=== PATIENT | male | born 1980 | race Caucasian/White ===

== ENCOUNTER → 2017-06-14 | Emergency (ER) | payer BC ==
[~2017-06-14] VITALS: Ht 165.1 cm; Wt 133.8 kg
[~2017-06-14] MED LIST: ADIPEX-P37.5 MG PO; CENTRUM MEN'S1 EACH PO; FIORICET WITH C PO; IRON325 MG PO; KEFLEX 500MG.500 MG PO; LEXAPRO 10 MG T10 MG PO; MULTIPLE VITAMINS PO; NEURONTIN800 MG PO; PHARMASSURE VI100 MG PO; PROBIOTIC250 MG PO; PROMETHAZINE HC25 M1 PO; PROTONIX 40MG T40 MG PO; SINGULAIR10 MG PO; VITAMIN A PO
[2017-06-14 20:54] VITALS: BP 132/73
--- NOTE | 2017-06-14 20:54 | Urgent Treatment Center Report ---
History of Present Issue Date/Time Seen by Provider 06/14/172042 Visit Reason Pt arrived:Walked Presenting Problem:PT C/O STOMACH CRAMPS AND N/V/D. Location if Accident: Onset of symptoms date/time:/ or onset unknown for:MEDICAL HX UNKNOWN Have you (or family members/close friends) recently traveled outside the [place]? N If Yes, where/when: Have you had exposure to infectious disease within the past month? TB? Other? Specify: Triaged for decision prior to arrival to [facility]. c/o new onset N/V/D earlier today. Tried to work this evening but was seen vomiting and sent home. Needs work excuse. Has vomited 3 times since onset, diarrhea approx 4-5 times. Initially watery but last "few" loose "like oatmeal". Hasn't taken or tried anything for symptoms except "staying hydrated". c/o epigastric cramping. Improves after diarrhea "then builds up again until I poop again". Drove self to clinic but requesting phenergan "because it works better". Source patient Exam Limitations no limitations ALLERGIES Coded Allergies: NSAIDS (Non-Steroidal Anti-Inflamma (Intermediate, 06/14/17) Home Medications Reported Medications Pantoprazole Sodium (Protonix 40MG TAB) 40 MG PO DAILY PYRIDOXINE HCL (Vitamin B-6) 100 MG PO Multivits,Ca,Min/Iron/FA/Lycop (Centrum Men's Tablet) 1 EACH PO Escitalopram Oxalate (Lexapro 10MG) 10 MG PO DAILY Vitamin A (Vitamin A 10,000 Int Units) 10,000 IUNITS PO DAILY BUTALBIT/ACETAMIN/CAFF/CODEINE (Fioricet-Cod [id number] Cap) 1 CAP PO History Medical History General CAD? No Angina: No [place]: No Hypertension? No Hyperlipidemia? No CHF? No DVT? No PE? No COPD? No Asthma? No Anemia? No GERD? No Gastric ulcers? No GI Bleed? No Hernia? No Thyroid Problems? No Hypothyroidism? No CVA? No Seizures? No Diabetes? No Renal Insuffiency? No UTI? No Stones? No BPH? No GB Disease: No Nephritic Syndrome? No Asplenia? No Hepatitis? No Sickle Cell Disease? No Arthritis? No Migraines? No Cataracts? No Glaucoma? No MRSA? No HIV? No TB? No Anxiety? No Depression? No Cancer? No More? No Immunization HX DT/Tetanus < 1 Year Ago Surgical Hx Previous Surgery?Y KNEE X 3; 2 R, 1 L TESTICULAR RUPTURE STOMACH SURGERY SELMA GASTERIC BYPASS Family History Family HX Diabetes Yes Hypertension Yes Hyperlipidemia Yes Cancer Yes Social History Smoking Hx Smoker: Never Smoker Tobacco: No Type N/A Packs/day < 1 Pack Alcohol Alcohol: No Review of Systems All Other Systems Reviewed and Negative Constitutional see HPI, denies fever, denies malaise ENT denies: throat pain. Respiratory denies cough Gastrointestinal see HPI Genitourinary denies: dysuria, frequency. Psychiatric/Neurological denies headache Physical Exam Vital Signs Vital Signs Date Time Temp Pulse Resp B/P Pulse O2 O2 Flow FiO2 Ox Delivery Rate 06/14 2054 97.8 81 20 132/73 98 06/14 2028 97.8 81 20 132/73 98 06/14 2017 97.8 81 20 132/73 98 General Appearance no apparent distress, obese Ear, Nose, Throat normal ENT inspection Respiratory Status No: respiratory distress, productive cough, non productive cough. Lung Sounds anterior: lungs clear. posterior: lungs clear. bilateral: lungs clear. Cardiovascular regular rate/rhythm, no peripheral edema, no murmur Gastrointestinal non tender, soft, no organomegaly, abnormal bowel sounds ( hyperactive), no guarding, no rebound, obese Neurologic alert, oriented x 3 Mental status normal mood/affect Skin normal color, warm/dry Medical Decision Making LABS/Meds/Orders Pt receiving controlled substance in ED? No Results/Orders Current Medication Orders Sig/Melissa Start time Last Medication Dose Route Stop Time Status Admin Ondansetron HCl 4 MG ONCE ONE 06/14 2100 AC 06/14 SL 06/14 Ondansetron HCl 0 .STK-MED ONE 06/14 2052 DC .ROUTE Departure Departure Time of Disposition 2049 Disposition DC Home or Self Care(routine) Clinical Impression Primary Impression: Viral gastroenteritis Condition STABLE Referrals NO REFERRAL IMMEDIATELY with primary care for new or worsening symptoms OR no noticeable improvement over the next 48 hours. Patient Instructions DI for Viral Gastroenteritis -- Adult Additional Instructions * Monitor Temp. Follow up if fever develops * Follow up immediately for new or worsening symptoms OR no noticeable improvement over the next 48 hours. * Increase fluids. Water, gatorade, powerade, juice OR pedialyte with limited formula/dairy in children. * No food is ok as long as you or your child is drinking. Once ready to eat, start bland. bananas, rice, applesauce, toast * Contagious until no diarrhea, vomiting, fever x 24 hours without medication * Avoid anti-diarrheals unless told otherwise. Best to let the virus run its course. * Phenergan as you requested only as needed. 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 Discharge Counseling Counseled pt/family regarding diagnosis, medications/RX, home care, follow up needs Prescriptions Current Visit Scripts PROMETHAZINE HCL (Promethazine 25mg Tab) 25 MG PO Q8HP PRN n/v #6 TAB will cause drowsiness at 7618
--- OUTSIDE RECORDS SUMMARY | 2017-06-21 23:46 | External Medical Summary Rpt | CCD ---
Author Author , ANA PEREZ Address Unknown Phone [email or web address] Care Team Providers Care Speed Operator Name Role Phone [facility], Unavailable Unavailable [facility], Unavailable Unavailable [facility], Unavailable Unavailable [facility] Unavailable Unavailable [facility], [facility] Unavailable Unavailable [facility], [facility] SELAM JLUIS, SELAM JLUIS Unavailable Unavailable BRENDA ALEXIS, BRENDA ALEXIS Unavailable Unavailable BESSON OMAR, BESSON Unavailable Unavailable OMAR SERRANO ALL, SERRANO ALL Unavailable Unavailable [facility], Unavailable Unavailable [facility] Unavailable Unavailable [facility], [facility] WILMER RUELAS, WILMER Unavailable Unavailable JESSENIA JUANITA EZ, JUNAITA EZ Unavailable Unavailable JUANITA RAN, JUANITA RAN Unavailable Unavailable HARPER SHE, HARPER SHE Unavailable Unavailable [facility], Unavailable Unavailable [facility] JAYRO ALEXIS, JAYRO Unavailable Unavailable ALEXIS BETANCOURT DEL, BETANCOURT DEL Unavailable Unavailable DRONEN, DRONEN Unavailable Unavailable FALLUJI VALERIANO, FALLUJI Unavailable Unavailable VALERIANO FICKLIN LUANN, FICKLIN Unavailable Unavailable LUANN TREVINO JANES, TREVINO Unavailable Unavailable JANES RUCHI ALEXIS, RUCHI Unavailable Unavailable ALEXIS SMALLS ANT, SMALLS ANT Unavailable Unavailable GOAD CHANEL, GOAD CHANEL Unavailable Unavailable NAVARRO DWA, NAVARRO Unavailable Unavailable DWA GUTTI SUJ, GUTTI SUJ Unavailable Unavailable GUTTI SUJ, GUTTI SUJ Unavailable Unavailable BLOOD THO, Unavailable Unavailable BLOOD THO HANDSHOE R, HANDSHOE Unavailable Unavailable R CHUNG DEN, CHUNG Unavailable Unavailable [facility] Unavailable Unavailable INC, [facility] Unavailable [facility], [facility] DAVID CHAPA Unavailable Unavailable [facility], Unavailable Unavailable [facility] KHANG ASHA, KHANG Unavailable Unavailable ASHA JONKAM, JONKAM Unavailable Unavailable JONKAM COL, JONKAM Unavailable Unavailable [facility] Unavailable Unavailable [facility], [facility] SESAR ANIKA, Unavailable Unavailable SESAR ANIKA KLOKOW RAYNE, KLOKOW Unavailable Unavailable [facility], [facility] Unavailable [facility] CHANO AHM, CHANO AHM Unavailable Unavailable JAVIER GRE, Unavailable Unavailable JAVIER GRE JAVIER GRE, Unavailable Unavailable JAVIER GRE MATHAROO NATY, Unavailable Unavailable MATHAROO NATY METTU LINCOLN, METTU LINCOLN Unavailable Unavailable METTU LINCOLN, METTU LINCOLN Unavailable Unavailable [facility] NADIG VID, NADIG VID Unavailable Unavailable NARRA BAP, NARRA BAP Unavailable Unavailable [facility], Unavailable Unavailable [facility], [facility] Unavailable Unavailable LEVELS, [facility] Unavailable Unavailable [facility], [facility] Unavailable Unavailable [facility], [facility] Unavailable Unavailable PLL[facility], [facility] JESSICA EFRAIN, JESSICA Unavailable Unavailable EFRAIN NIKOLE MAR, NIKOLE Unavailable Unavailable MAR REITMAN PETERSON, REITMAN Unavailable Unavailable PETERSON CARTY CHR, Unavailable Unavailable CARTY CHR SUSAN MAT, Unavailable Unavailable SUSAN MAT MARCUS, JR RAY, MARCUS, Unavailable Unavailable [facility] Unavailable Unavailable [facility], [facility] BROOKS PHI, BROOKS Unavailable Unavailable PHI VORKPOR PAMELA, VORKPOR Unavailable Unavailable PAMELA VORKPOR PAMELA, VORKPOR Unavailable Unavailable PAMELA WELLS BRA, WELLS BRA Unavailable Unavailable WHITE ULISSES, WHITE ULISSES Unavailable Unavailable [facility], Unavailable Unavailable [facility] Unavailable Unavailable [facility]IC[facility], [facility] Purpose Continuity of Care Document - 02-11-2012 through 2016 Problems Code Diagnosis DOS Provider Status J0100 ACUTE 09-03-2016 [facility] MAXILLARY N [facility]Y SINUSITIS PHYS UNSPECIFIED R509 FEVER 09-03-2016 [facility] UNSPECIFIED N EMERGENCY PHYS [id number] CELLULITIS 05-08-2016 [facility], LOWER LIMB [facility] V14440 PAIN IN 05-08-2016 [facility] [id number] CONTUSION 05-08-2016 [facility], KNEE [facility] INITIAL ENCOUNTER E669 OBESITY 10-01-2015 [facility]NSPECIFIED [facility] INC I499 CARDIAC 10-01-2015 [facility] ARRHYTHMIA [facility] UNSPECIFIED INC R079 CHEST PAIN 10-01-2015 [facility] UNSPECIFIED PHYSICIANS GROUP R9431 ABNORMAL 10-01-2015 [facility] ELECTROCARD [facility] IOGRAM INC R9439 ABNORMAL 09-08-2015 [facility] RESULT OT [facility] CARDIOVASCU INC LR FUNCTION STUDY E785 HYPERLIPIDE 08-30-2015 [facility] JI LAR UNSPECIFIED CONSULTANTS O R008 OTHER 08-30-2015 [facility] ABNORMALITI LAR ES OF HEART CONSULTANTS BEAT O R030 ELEVATED 08-30-2015 [facility] BLOOD-PRESS LAR URE READING CONSULTANTS WITHOUT DX O HTN K859 ACUTE 08-27-2015 [facility] PANCREATITI [facility] S INC UNSPECIFIED Z9884 BARIATRIC 08-27-2015 [facility] SURGERY [facility] STATUS INC K858 OTHER ACUTE 08-12-2015 [facility], PANCREATITI PLL S R1013 EPIGASTRIC 08-12-2015 [facility] J0190 ACUTE 07-24-[address] [facility] J029 ACUTE 07-16-2015 [facility] PHARYNGITIS [facility] UNSPECIFIED R05 COUGH 07-16-2015 [facility] Z0100 ENCOUNTER 06-26-2015 [facility] EXAM EYES & GRE VISION W/O ABNORMAL FIND 84097 OBSTRUCTIVE 04-30-2015 [facility] SLEEP AND FAMILY [facility] 340 MULTIPLE 04-30-2015 [facility] SCLEROSIS AND FAMILY HEALTH 88223 MIGRAINE 04-30-2015 [facility] UNSP W/O A R H INTRACT W/O STATUS MIGRAINOSUS 3559 MONONEURITI 04-30-2015 [facility] Mendez OF A R H UNSPECIFIED SITE 4011 ESSENTIAL 04-30-2015 [facility] HYPERTENSIO A R H N, BENIGN 4779 ALLERGIC 04-30-2015 [facility] RHINITIS A R H CAUSE UNSPECIFIED 36974 ESOPHAGEAL 04-30-2015 [facility] REFLUX A R H 7242 LUMBAGO 04-30-2015 [facility] A R H V4586 BARIATRIC 04-30-2015 [facility] SURGERY A R H STATUS 3829 UNSPECIFIED 03-02-2015 [facility] 4618 OTHER ACUTE 03-02-2015 [facility] SINUSITIS [facility] 4659 ACUTE URIS 02-23-2015 [facility] OF EMERGENCY UNSPECIFIED PHYSICI SITE 4019 UNSPECIFIED 01-29-2015 [facility] N 7243 SCIATICA 01-29-2015 [facility] 7245 UNSPECIFIED 01-29-2015 [facility] BACKACHE [facility] 09427 UNSPECIFIED 01-29-2015 [facility]EP [facility] 60603 NAUSEA WITH 01-29-2015 WHITE ULISSES VOMITING 86403 ABDOMINAL 01-29-2015 [facility] PAIN, MEDICAL UNSPECIFIED CENTER SITE 83801 DIARRHEA 01-28-2015 [facility] 16910 ABDOMINAL 01-25-2015 [facility] PA[facility], N EMERGENCY EPIGASTRIC SERV V725 RADIOLOGICA 01-25-2015 [facility] RADIOLOGY EXAMINATION [facility] NEC 2638 OTHER 01-07-2015 [facility] PROTEIN-BEV MEDICAL ORIE LEVELS MALNUTRITIO N 2689 UNSPECIFIED 01-07-2015 [facility] VITAMIN D MEDICAL DEFICIENCY LEVELS 64947 OBESITY, 01-07-2015 [facility] 13304 OTHER 01-07-2015 [facility] MALAISE AND MEDICAL FATIGUE LEVELS 80926 VOMITING 01-07-2015 [facility] 33950 ABDOMINAL 01-07-2015 [facility] PA[facility], LEFT MEDICAL UPPER CENTER QUADRANT V5883 ENCOUNTER 01-07-2015 [facility] THERAPEUTIC LEVELS DRUG MONITORING 5680 PERITONEAL 11-03-2014 [facility] 04621 CHOLECYSTIT 11-03-2014 [facility], [facility] UNSPECIFIED HOSP 16785 CHRONIC 11-03-2014 [facility] 55237 ABDOMINAL 11-03-2014 [facility] PA[facility] RIGHT [facility] UPPER HOSP QUADRANT 33700 ABDOMINAL 11-01-2014 [facility] PAIN, N EMERGENCY GENERALIZED SERV V8541 BODY MASS 11-01-2014 [facility] INDEX MEDICAL 40.0-44.9 CENTER ADULT 5373 OTHER 10-14-2014 [facility] OBSTRUCTION MEDICAL OF CENTER DUODENUM V8543 BODY MASS 10-14-2014 [facility] MEDICAL 50.0-59.9 CENTER ADULT 03912 MORBID 09-14-2014 [facility] OBESITY [facility] CENTER 5303 STRICTURE 09-14-2014 [facility] STENOSIS OF HOSP ESOPHAGUS 5780 HEMATEMESIS 08-09-2014 [facility] 71949 HEMORRHAGE 08-08-2014 [facility] PAMELA COMPLICATIN G A PROCEDURE NEC 9989 UNSPECIFIED 08-08-2014 [facility] PAMELA COMPLICATIO N OF PROCEDURE NEC V5863 LONG-TERM 11-29-2014 [facility] USE OF MEDICAL ANTIPLATELE CENTER T/ANTITHROM BOTIC V5869 LONG-TERM 08-08-2014 [facility] (CURRENT) MEDICAL USE OF CENTER OTHER MEDICATIONS 09686 MIGRAINE 08-01-2014 GUTTI SUJ UNS W/INTRACTAB L W/O STATUS MIGRAINOSUS 7840 HEADACHE 08-01-2014 GUTTI SUJ 28691 OTHER 07-29-2014 [facility]IC [facility] 5180 PULMONARY 07-29-2014 [facility] V7284 UNSPECIFIED 07-24-2014 [facility] PRE-OPERATI HOSP VE EXAMINATION V691 PROBS 07-20-2014 [facility] RELATED [facility] INAPPROPRIA HOSP TE DIET&EATING HABITS 41744 OTH 06-22-2014 GUTTI SUJ ABNORMAL BRAIN & TANK COOPER FUNCTION STUDY 40730 UNSPECIFIED 06-17-2014 [facility] SITE OF HOMECARE ANKLE STORE M SPRAIN AND STRAIN 73106 PAIN IN 06-10-2014 [facility] WOMENS JOINT, AND FAMILY ANKLE AND HEALTH FOOT V0481 NEED 06-10-2014 [facility] WOMENS PROPHYLACTI AND FAMILY C HEALTH VACCINATION &INOCULATIO N FLU 8449 SPRAIN&STRA 06-09-2014 [facility] IN OF EMERGENCY UNSPECIFIED PHYSICI SITE OF KNEE&LEG 7820 DISTURBANCE 05-27-2014 [facility] SU[facility] OF SKIN SENSATION 78680 OTHER 05-12-2014 [facility] DYSPNEA AND [facility] [place] [place] [address] LEUKOCYTOSI 03-26-2014 [facility] S EMERGENCY UNSPECIFIED PHYSICI 08243 FEVER 03-26-2014 [facility] UNSPECIFIED EMERGENCY PHYSICI 7862 COUGH 03-26-2014 [place] 49005 NAUSEA 03-26-2014 [facility] ALONE A R H V653 DIETARY 03-18-2014 [facility] COUNSELING V6540 COUNSELING 03-18-2014 [facility] 4293 CARDIOMEGAL 03-09-2014 [facility] Y 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 NEC 98753 SHORTNESS 03-09-2014 [facility] 99450 HYPERSOMNIA 02-24-2014 [facility] LINCOLN WITH SLEEP APNEA UNSPECIFIED 3551 MERALGIA 02-20-2014 [facility] WOMENS PARESTHETIC AND FAMILY A HEALTH 7202 SACROILIITI 02-20-2014 [facility] WOMENS S NOT AND FAMILY ELSEWHERE HEALTH CLASSIFIED 7231 CERVICALGIA 02-20-2014 [facility] WOMENS AND FAMILY HEALTH 8438 SPRAIN&STRA 02-20-2014 [facility] WOMENS IN OTHER AND FAMILY SPECIFIED HEALTH SITES HIP&THIGH 62345 ACUTE 02-18-2014 [facility] ESOPHAGITIS [facility] 41062 ULCER OF 02-18-2014 [facility] ESOPHAGUS [facility] WITHOUT HOSP BLEEDING 25823 GASTR ULCR 02-18-2014 [facility] MEDICAL ACUT/CHRN CENTER W/O HEMOR PERF/OBST 18825 ATROPHIC 02-18-2014 [facility] GASTRITIS [facility] WITHOUT HOSP MENTION OF HEMORRHAGE 36485 UNS 02-18-2014 [facility] GASTRITIS&G [facility] ASTRODUODIT HOSP IS W/O MENTION HEMORR 12639 DUODENITIS 02-18-2014 [facility] WITHOUT [facility] MENTION OF HOSP HEMORRHAGE 7823 EDEMA 02-18-2014 [facility] 7226 DEGENERATIO 02-17-2014 [facility] WOMENS N AND FAMILY INTERVERTEB HEALTH RAL DISC SITE UNSPEC 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 UNSPECIFIED 6011 CHRONIC 02-11-2014 [facility]STATITIS [facility] 6069 UNSPECIFIED 02-11-2014 [facility] MALE [facility] INFERTILITY HOSP 6089 UNSPECIFIED 02-11-2014 [facility] DISORDER [facility] OF MALE HOSP GENITAL ORGANS V7281 PRE-OPERATI 02-05-2014 [facility] VE [facility] CARDIOVASCU HOSP LAR EXAMINATION 12461 OTHER 01-19-2014 [facility] ABNORMAL MEDICAL GLUCOSE CENTER 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 91638 OTHER 12-18-2013 [facility] SPECIFIED A R H DISORDER OF MALE GENITAL ORGANS 7881 DYSURIA 12-18-2013 [facility] A R H V061 NEED PROPH 12-17-2013 [facility] ALLAN VAC W/COMB CO CLINIC DIPHTH-TETA NUS-PERTUSS VAC Medications Na ND Rx Da Fi Fi Am Da Di Ph RX Ph St me C No te ll ll ou ys ag ar # ys at rm s nt no ma ic us Or Da si cy ia de te s n re d ES 65 03 03 30 30 00 RI Ac CI 86 -0 -3 .0 00 TE ti TA 20 7- 1- 00 01 ve LO 37 20 20 16 AI IL 40 17 17 04 D AM 1 38 PH AR 10 MA CY MG #3 TA 93 BL 8 ET PA 65 03 03 30 30 00 RI Ac NT 86 -0 -3 .0 00 TE ti OP 20 7- 1- 00 01 ve RA 56 20 20 16 AI ZO 09 17 17 04 D LE 0 39 PH AR SO MA D CY DR #3 40 93 8 MG TA B GA 62 03 03 90 30 00 RI Ac BA 75 -0 -3 .0 00 TE ti PE 60 7- 1- 00 01 ve NT 20 20 20 15 AI IN 40 17 17 75 D 1 46 PH 80 AR 0 MA MG CY TA #3 BL 93 ET 8 GA 62 02 03 90 30 00 RI Ac BA 75 -0 -0 .0 00 TE ti PE 60 5- 3- 00 01 ve NT 20 20 20 15 AI IN 40 17 17 86 D 1 94 PH 80 AR 0 MA MG CY TA #3 BL 93 ET 8 ES 65 02 03 30 30 00 RI Ac CI 86 -0 -0 .0 00 TE ti TA 20 7- 3- 00 01 ve LO 37 20 20 16 AI IL 40 17 17 04 D AM 1 38 PH AR 10 MA CY MG #3 TA 93 BL 8 ET PA 65 02 03 30 30 00 RI Ac NT 86 -0 -0 .0 00 TE ti OP 20 7- 3- 00 01 ve RA 56 20 20 16 AI ZO 09 17 17 04 D LE 0 39 PH AR SO MA D CY DR #3 40 93 8 MG TA B GA 62 01 02 90 30 00 RI Ac BA 75 -0 -0 .0 00 TE ti PE 60 5- 3- 00 01 ve NT 20 20 20 15 AI IN 40 17 17 86 D 1 94 PH 80 AR 0 MA MG CY TA #3 BL 93 ET 8 LO 00 01 02 30 30 00 RI Ac RA 78 -0 -0 .0 00 TE ti TA 15 9- 3- 00 01 ve DI 07 20 20 16 AI NE 70 17 17 04 D 1 37 PH 10 AR MA MG CY TA #3 BL 93 ET 8 RA 11 01 02 30 30 00 RI Ac 82 -1 -0 .0 00 TE ti 28 0- 3- 00 01 ve TA 80 20 20 12 AI NM 00 17 17 97 D N 0 58 PH A AR 10 MA ,0 CY 00 #3 UN 93 IT 8 SF TG L ES 65 01 02 30 30 00 RI Ac CI 86 -1 -0 .0 00 TE ti TA 20 0- 3- 00 01 ve LO 37 20 20 16 AI IL 40 17 17 04 D AM 1 38 PH AR 10 MA CY MG #3 TA 93 BL 8 ET TI 55 01 02 30 30 00 RI Ac ZA 11 -1 -0 .0 00 TE ti NI 10 0- 3- 00 01 ve DI 18 20 20 16 AI NE 01 17 17 04 D 5 41 PH HC AR L MA 4 CY MG #3 TA 93 BL 8 ET BR 64 01 02 18 3 00 RI Ac OM 37 -1 -0 0. 00 TE ti PH 60 0- 3- 00 01 ve EN 65 20 20 0 16 AI IR 71 17 17 62 D -P 6 22 PH SE AR UD MA OE CY PH ED #3 -D 93 M 8 SY R PA 65 01 02 30 30 00 RI Ac NT 86 -0 -0 .0 00 TE ti OP 20 9- 3- 00 01 ve RA 56 20 20 16 AI ZO 09 17 17 04 D LE 0 39 PH AR SO MA D CY DR #3 40 93 8 MG TA B GA 62 12 01 90 30 00 RI Ac BA 75 -0 -0 .0 00 TE ti PE 60 9- 9- 00 01 ve NT 20 20 20 15 AI IN 40 16 17 86 D 1 94 PH 80 AR 0 MA MG CY TA #3 BL 93 ET 8 Immunization Name Date Rout CVX Reac Dose Comm Prov Is Faci e tion ent ider Refu lity Give sed n IIV3 10-0 140 JONK No [facility] 1-20 AM [facility] VACC 14 COL NS AND PRES FAMI ERVA LY TIVE HEAL TH FREE 0.5 ML DOSA GE IM USE TDAP 04-0 115 JONK No [facility] 9-20 AM MORG VACC 14 COL AN INE CO 7 CLIN YRS/ IC > IM Results Labs Lab Lab Date Result Refere Interp Status Commen Order Detail nces retati t Range on CHLAMYDIA AND GONORRHEA TESTING (04-24-2017 09:00) Chlamyd NEGATIV complet ia 017 E ed trachom 09:00 atis rRNA [Presen ce] in Unspeci fied specime n by Probe & target amplifi cation method Neisser NEGATIV complet ia 017 E ed gonorrh 09:00 oeae rRNA [Presen ce] in Unspeci fied specime n by Probe & target amplifi cation method Treponema pallidum IgG Ab [Presence] in Serum by Immunoassay (04-24-2017 09:00) Trepone 04-24- NON-SHANNAN complet ma 017 CTIVE ed pallidu 09:00 m IgG Ab [Presen ce] in Serum by Immunoa ssay Treponema pallidum IgG Ab [Presence] in Serum by Immunoassay (04-24-2017 09:00) COLLECT AH complet OR 017 ed 09:00 ETHNICI WHITE/N complet TY 017 ONHISPA ed 09:00 MYRTLE PURPOSE DIAGNOS complet OF 017 TIC ed EXAM 09:00 SPECIME BLOOD complet N 017 ed SOURCE 09:00 CHART NA complet NUMBER 017 ed 09:00 Trepone Pending complet ma 017 ed pallidu 09:00 m IgG Ab [Presen ce] in Serum by Immunoa ssay CHLAMYDIA AND GONORRHEA TESTING (04-24-2017 09:00) COLLECT AH complet OR 017 ed 09:00 ETHNICI WHITE, complet TY 017 NON-HIS ed 09:00 PANIC KIT 10-31-2 complet EXPIRAT 017 017 ed ION 09:00 DATE SYMPTOM NO complet S 017 ed 09:00 REASON VOLUNTE complet FOR 017 ER/MEDI ed REQUEST 09:00 BEV PROBLEM SPECIME MALE complet N 017 URETHRA ed SOURCE 09:00 L PREGNAN NO complet T 017 ed 09:00 CHART N/A complet NUMBER 017 ed 09:00 Chlamyd Pending complet ia 017 ed trachom 09:00 atis rRNA [Presen ce] in Unspeci fied specime n by Probe & target amplifi cation method Neisser Pending complet ia 017 ed gonorrh 09:00 oeae rRNA [Presen ce] in Unspeci fied specime n by Probe & target amplifi cation method CBC/NO DIFF+ PLATELET (11-05-2014 03:54) RBC 4.070 3.500-6 complet 015 M/ul .100 ed 03:54 HGB 10.4 11.0-17 complet 015 gm/dl .8 ed 03:54 HCT --2 32.2 % 32.0-51 complet 015 .6 ed 03:54 MCV 11-05-2 79.0 fl 80.8-10 complet 015 1.2 ed 03:54 MCH 11-05-2 25.6 pg 27.6-32 complet 015 .7 ed 03:54 MCHC 26-2 32.3 32.6-35 complet 015 g/dl .4 ed 03:54 RDW 11-05-2 17.1 % 10.1-16 complet 015 .5 ed 03:54 PLATELE 11-05-2 195 134-412 complet T 015 K/UL ed 03:54 MPV 11-05-2 9.0 fl 6.1-10. complet 015 1 ed 03:54 WBC 11-05-2 7.3 3.5-13. complet 015 K/UL 0 ed 03:54 CBC/NO DIFF+ PLATELET (11-04-2014 15:19) WBC 25-2 15.2 3.5-13. complet 015 K/UL 0 ed 15:19 RBC 25-2 4.600 3.500-6 complet 015 M/ul .100 ed 15:19 HGB 11-04-2 11.4 11.0-17 complet 015 gm/dl .8 ed 15:19 HCT 11-04-2 36.3 % 32.0-51 complet 015 .6 ed 15:19 MCV 25-2 78.9 fl 80.8-10 complet 015 1.2 ed 15:19 MCH 25-2 24.7 pg 27.6-32 complet 015 .7 ed 15:19 MCHC 25-2 31.3 32.6-35 complet 015 g/dl .4 ed 15:19 RDW 25-2 16.5 % 10.1-16 complet 015 .5 ed 15:19 PLATELE 11-04-2 268 134-412 complet T 015 K/UL ed 15:19 MPV 25-2 8.6 fl 6.1-10. complet 015 1 ed 15:19 COMP. METABOLIC PANEL (CHEM 12) (11-04-2014 15:19) GLUCOSE 11-04-2 90 70-110 complet 015 MG/DL ed 15:19 BUN 25-2 6 MG/DL 7-18 complet 015 ed 15:19 SODIUM 11-04-2 138 133-144 complet 015 mmol/L ed 15:19 POTASSI 11-04-2 3.7 3.6-5.2 complet UM 015 mmol/l ed 15:19 CHLORID 11-04-2 104 98-107 complet E 015 mmol/l ed 15:19 CO2 25-2 29 21-32 complet 015 mmol/L ed 15:19 CREATIN 11-04-2 0.8 0.6-1.3 complet INE 015 MG/DL ed 15:19 PROTEIN 25-2 6.4 6.4-8.4 complet , TOTAL 015 G/DL ed 15:19 ALBUMIN 11-04-2 3.0 3.4-5.0 complet 015 G/DL ed 15:19 GLOBULI 11-04-2 3.4 2.4-4.8 complet N 015 G/DL ed 15:19 A/G 2 0.9 0.6-1.6 complet RATIO 015 ed 15:19 CALCIUM 11-04-2 8.4 8.5-10. complet 015 MG/DL 1 ed 15:19 ALKALIN 2 65 U/L 45-117 complet E 015 ed PHOSPHA 15:19 TASE AST 2 25 U/L 15-37 complet 015 ed 15:19 ALT 11-04-2 20 U/L 12-78 complet 015 ed 15:19 BILIRUB 2 0.10 0.00-1. complet IN, 015 MG/DL 00 ed TOTAL 15:19 GLOMELULAR CARMEN. RATE,CALC. (11-04-2014 15:19) GLOMELU 2 118.1 60.0-13 complet LAR 015 ml/min 0.0 ed CARMEN. 15:19 RATE,CA LC. GLUCOSE(REAGENT STRIP) (11-04-2014 12:51) GLUCOSE 2 116 70-110 complet (REAGEN 015 MG/DL ed T 12:51 STRIP) CBC\T\AUTO DIFF (11-01-2014 21:07) NEUT # 11-01-2 8.2 2.7-6.9 complet 015 K/ul ed 21:07 LYMPH# 11-01-2 2.7 0.4-3.9 complet 015 K/ul ed 21:07 MONOS# 02-22-2 0.7 0.2-0.6 complet 015 K/ul ed 21:07 EOS# 02-22-2 0.1 0.0-0.9 complet 015 K/ul ed 21:07 BASO# 02-22-2 0.1 0.0-0.2 complet 015 K/ul ed 21:07 BASO% 02-22-2 1.0 % 0.0-2.0 complet 015 ed 21:07 EOS% 02-22-2 1.2 % 0.0-11. complet 015 0 ed 21:07 MONOS% 02-22-2 6.2 % 1.0-14. complet 015 0 ed 21:07 LYMPH% -22-2 22.8 % 10.0-42 complet 015 .0 ed 21:07 NEUTROP -22-2 68.8 % 43.0-83 complet HILS% 015 .0 ed 21:07 MPV 11-01-2 8.4 fl 6.1-10. complet 015 1 ed 21:07 PLATELE 2 306 134-412 complet T 015 K/UL ed 21:07 RDW 11-01-2 15.7 % 10.1-16 complet 015 .5 ed 21:07 MCHC 11-01-2 33.1 32.6-35 complet 015 g/dl .4 ed 21:07 MCH 22-2 25.7 pg 27.6-32 complet 015 .7 ed 21:07 MCV 22-2 77.7 fl 80.8-10 complet 015 1.2 ed 21:07 HCT 22-2 38.6 % 32.0-51 complet 015 .6 ed 21:07 HGB 11-01-2 12.8 11.0-17 complet 015 gm/dl .8 ed 21:07 RBC 22-2 4.970 3.500-6 complet 015 M/ul .100 ed 21:07 WBC 22-2 11.9 3.5-13. complet 015 K/UL 0 ed 21:07 COMP. METABOLIC PANEL (CHEM 12) (11-01-2014 21:07) GLUCOSE 95 70-110 complet 015 MG/DL ed 21:07 BUN 2 6 MG/DL 7-18 complet 015 ed 21:07 SODIUM 140 133-144 complet 015 mmol/L ed 21:07 POTASSI 4.0 3.6-5.2 complet UM 015 mmol/l ed 21:07 CHLORID 105 98-107 complet E 015 mmol/l ed 21:07 CO2 32 21-32 complet 015 mmol/L ed 21:07 CREATIN 0.8 0.6-1.3 complet INE 015 MG/DL ed 21:07 PROTEIN 7.1 6.4-8.4 complet , TOTAL 015 G/DL ed 21:07 ALBUMIN 3.1 3.4-5.0 complet 015 G/DL ed 21:07 GLOBULI 4.0 2.4-4.8 complet N 015 G/DL ed 21:07 A/G 0.8 0.6-1.6 complet RATIO 015 ed 21:07 CALCIUM 8.4 8.5-10. complet 015 MG/DL 1 ed 21:07 ALKALIN 78 U/L 45-117 complet E 015 ed PHOSPHA 21:07 TASE AST 31 U/L 15-37 complet 015 ed 21:07 ALT 19 U/L 12-78 complet 015 ed 21:07 BILIRUB 0.20 0.00-1. complet IN, 015 MG/DL 00 ed TOTAL 21:07 AMYLASE (11-01-2014 21:07) AMYLASE 31 U/L 25-115 complet 015 ed 21:07 LIPASE (11-01-2014 21:07) LIPASE <62 U/L 73-393 complet 015 ed 21:07 GLOMELULAR CARMEN. RATE,CALC. (11-01-2014 21:07) GLOMELU 118.1 60.0-13 complet LAR 015 ml/min 0.0 ed CARMEN. 21:07 RATE,CA LC. URINALYSIS COMPLETE (10-30-2014 15:25) HYALINE 0 /LPF 0-4 complet CAST 015 ed 15:25 BACTERI 02-20-2 NEGATIV NEGATIV complet A COUNT 015 E /HPF E ed 15:25 EPITHEL 02-20-2 0 /HPF 0-6 complet IAL 015 ed CELL 15:25 COUNT WBC 02-20-2 1 /HPF 0-5 complet COUNT 015 ed 15:25 RBC 02-20-2 0 /HPF 0-4 complet COUNT 015 ed 15:25 LEUKOCY 02-20-2 NEGATIV NEGATIV complet HALI 015 E E ed 15:25 NITRITE 02-20-2 NEGATIV NEGATIV complet 015 E E ed 15:25 UROBILI -20-2 0.2 0.2-1.0 complet NOGEN 015 E.U./DL ed 15:25 PROTEIN -20-2 NEGATIV NEGATIV complet 015 E MG/DL E ed 15:25 PH -20-2 6.0 5.0-9.0 complet 015 ed 15:25 BLOOD -20-2 NEGATIV NEGATIV complet 015 E E ed 15:25 SPECIFI -20-2 1.020 1.006-1 complet C 015 .035 ed GRAVITY 15:25 KETONE -20-2 15 NEGATIV complet 015 MG/DL E ed 15:25 BILIRUB -20-2 NEGATIV NEGATIV complet IN 015 E E ed 15:25 GLUCOSE 02-20-2 NEGATIV NEGATIV complet 015 E MG/DL E ed 15:25 CLARITY -20-2 CLEAR complet 015 ed 15:25 COLOR 20-2 YELLOW complet 015 ed 15:25 GLOMELULAR CARMEN. RATE,CALC. (10-30-2014 15:15) GLOMELU -20-2 137.8 60.0-13 complet LAR 015 ml/min 0.0 ed CARMEN. 15:15 RATE,CA LC. COMP. METABOLIC PANEL (CHEM 12) (10-30-2014 15:15) BILIRUB 02-20-2 0.30 0.00-1. complet IN, 015 MG/DL 00 ed TOTAL 15:15 ALT -20-2 16 U/L 12-78 complet 015 ed 15:15 AST -20-2 17 U/L 15-37 complet 015 ed 15:15 ALKALIN -20-2 79 U/L 45-117 complet E 015 ed PHOSPHA 15:15 TASE CALCIUM 02-20-2 8.6 8.5-10. complet 015 MG/DL 1 ed 15:15 A/G 10-30-2 0.8 0.6-1.6 complet RATIO 015 ed 15:15 GLOBULI 10-30-2 3.9 2.4-4.8 complet N 015 G/DL ed 15:15 ALBUMIN 20-2 3.1 3.4-5.0 complet 015 G/DL ed 15:15 PROTEIN 10-30-2 7.0 6.4-8.4 complet , TOTAL 015 G/DL ed 15:15 CREATIN 10-30-2 0.7 0.6-1.3 complet INE 015 MG/DL ed 15:15 CO2 10-30-2 28 21-32 complet 015 mmol/L ed 15:15 CHLORID 10-30-2 106 98-107 complet E 015 mmol/l ed 15:15 POTASSI 2 3.6 3.6-5.2 complet UM 015 mmol/l ed 15:15 SODIUM 138 133-144 complet 015 mmol/L ed 15:15 BUN 2 8 MG/DL 7-18 complet 015 ed 15:15 GLUCOSE 79 70-110 complet 015 MG/DL ed 15:15 LIPASE (10-30-2014 15:15) LIPASE <62 U/L 73-393 complet 015 ed 15:15 AMYLASE (10-30-2014 15:15) AMYLASE 34 U/L 25-115 complet 015 ed 15:15 THIAMINE, WHOLE BLOOD (10-08-2014 11:29) THIAMIN SEE complet E, 015 BELOW ed WHOLE 11:29 BLOOD LDL (10-08-2014 11:29) LDL 34.2 0.0-100 complet 015 .0 ed 11:29 GLOMELULAR CARMEN. RATE,CALC. (10-08-2014 11:29) GLOMELU 118.2 60.0-13 complet LAR 015 ml/min 0.0 ed CARMEN. 11:29 RATE,CA LC. VITAMIN B 12 (10-08-2014 11:29) VITAMIN 480 254-132 complet B 12 015 PG/ML 0 ed 11:29 PREALBUMIN (10-08-2014 11:29) PREALBU 9.6 20.0-40 complet MIN 015 MG/DL .0 ed 11:29 LIPID PROFILE (10-08-2014 11:29) HDL 34 32-60 complet 015 MG/DL ed 11:29 CHOLEST 86 <200 complet BINH 015 MG/DL ed 11:29 TRIGLYC 89 30-200 complet ERIDE 015 MG/DL ed 11:29 IRON (10-08-2014 11:29) IRON 14 50-175 complet 015 uG/DL ed 11:29 FOLATES (10-08-2014 11:29) FOLATES >20.0 3.1-17. complet 015 NG/ML 5 ed 11:29 COMP. METABOLIC PANEL (CHEM 12) (10-08-2014 11:29) BILIRUB 0.40 0.00-1. complet IN, 015 MG/DL 00 ed TOTAL 11:29 ALT 16 U/L 12-78 complet 015 ed 11:29 AST 9 U/L 15-37 complet 015 ed 11:29 ALKALIN 81 U/L 45-117 complet E 015 ed PHOSPHA 11:29 TASE CALCIUM 8.6 8.5-10. complet 015 MG/DL 1 ed 11:29 A/G 0.7 0.6-1.6 complet RATIO 015 ed 11:29 GLOBULI 4.0 2.4-4.8 complet N 015 G/DL ed 11:29 ALBUMIN 2.9 3.4-5.0 complet 015 G/DL ed 11:29 PROTEIN 6.9 6.4-8.4 complet , TOTAL 015 G/DL ed 11:29 CREATIN 0.8 0.6-1.3 complet INE 015 MG/DL ed 11:29 CO2 29 21-32 complet 015 mmol/L ed 11:29 CHLORID 104 98-107 complet E 015 mmol/l ed 11:29 POTASSI 3.3 3.6-5.2 complet UM 015 mmol/l ed 11:29 SODIUM 139 133-144 complet 015 mmol/L ed 11:29 BUN 9 MG/DL 7-18 complet 015 ed 11:29 GLUCOSE 94 70-110 complet 015 MG/DL ed 11:29 MAGNESIUM (10-06-2014 18:00) MAGNESI 1.4 1.7-2.4 complet UM 015 MG/DL ed 18:00 CBC/NO DIFF+ PLATELET (08-10-2014 14:27) RBC 3.760 3.500-6 complet 014 M/ul .100 ed 14:27 MPV 7.9 fl 6.1-10. complet 014 1 ed 14:27 PLATELE 235 134-412 complet T 014 K/UL ed 14:27 RDW 14.0 % 10.1-16 complet 014 .5 ed 14:27 MCHC 33.1 32.6-35 complet 014 g/dl .4 ed 14:27 MCH 27.6 pg 27.6-32 complet 014 .7 ed 14:27 MCV 83.4 fl 80.8-10 complet 014 1.2 ed 14:27 HCT 31.4 % 32.0-51 complet 014 .6 ed 14:27 HGB 10.4 11.0-17 complet 014 gm/dl .8 ed 14:27 WBC 8.7 3.5-13. complet 014 K/UL 0 ed 14:27 GLOMELULAR CARMEN. RATE,CALC. (08-10-2014 11:30) GLOMELU 103.2 60.0-13 complet LAR 014 ml/min 0.0 ed CARMEN. 11:30 RATE,CA LC. CREATININE (08-10-2014 11:30) CREATIN 0.9 0.6-1.3 complet INE 014 MG/DL ed 11:30 BUN (08-10-2014 11:30) BUN 4 MG/DL 7-18 complet 014 ed 11:30 CBC/NO DIFF+ PLATELET (08-10-2014 10:15) MPV 2 7.8 fl 6.1-10. complet 014 1 ed 10:15 PLATELE 307 134-412 complet T 014 K/UL ed 10:15 RDW 2 14.0 % 10.1-16 complet 014 .5 ed 10:15 MCHC 2 32.5 32.6-35 complet 014 g/dl .4 ed 10:15 MCH 2 27.4 pg 27.6-32 complet 014 .7 ed 10:15 MCV 08-10-2 84.4 fl 80.8-10 complet 014 1.2 ed 10:15 HCT 2 30.0 % 32.0-51 complet 014 .6 ed 10:15 HGB 2 9.7 11.0-17 complet 014 gm/dl .8 ed 10:15 RBC 2 3.550 3.500-6 complet 014 M/ul .100 ed 10:15 WBC 2 8.4 3.5-13. complet 014 K/UL 0 ed 10:15 CBC/NO DIFF+ PLATELET (08-10-2014 01:40) MPV 2 7.7 fl 6.1-10. complet 014 1 ed 01:40 PLATELE 310 134-412 complet T 014 K/UL ed 01:40 RDW 2 14.0 % 10.1-16 complet 014 .5 ed 01:40 MCHC 33.4 32.6-35 complet 014 g/dl .4 ed 01:40 MCH 2 27.5 pg 27.6-32 complet 014 .7 ed 01:40 MCV 2 82.2 fl 80.8-10 complet 014 1.2 ed 01:40 HCT 2 30.3 % 32.0-51 complet 014 .6 ed 01:40 HGB 2 10.1 11.0-17 complet 014 gm/dl .8 ed 01:40 RBC 2 3.680 3.500-6 complet 014 M/ul .100 ed 01:40 WBC 08-10-2 9.7 3.5-13. complet 014 K/UL 0 ed 01:40 CBC/NO DIFF+ PLATELET (08-09-2014 18:50) MPV 11-30-2 7.9 fl 6.1-10. complet 014 1 ed 18:50 RDW 11-30-2 14.1 % 10.1-16 complet 014 .5 ed 18:50 MCV 11-30-2 84.6 fl 80.8-10 complet 014 1.2 ed 18:50 HCT 11-30-2 31.0 % 32.0-51 complet 014 .6 ed 18:50 HGB 11-30-2 10.0 11.0-17 complet 014 gm/dl .8 ed 18:50 RBC 11-30-2 3.670 3.500-6 complet 014 M/ul .100 ed 18:50 WBC 11-30-2 8.7 3.5-13. complet 014 K/UL 0 ed 18:50 MCHC 11-30-2 32.3 32.6-35 complet 014 g/dl .4 ed 18:50 MCH 11-30-2 27.3 pg 27.6-32 complet 014 .7 ed 18:50 PLATELE 11-30-2 293 134-412 complet T 014 K/UL ed 18:50 CBC/NO DIFF+ PLATELET (08-09-2014 14:25) MPV 11-30-2 7.8 fl 6.1-10. complet 014 1 ed 14:25 RDW 11-30-2 14.2 % 10.1-16 complet 014 .5 ed 14:25 MCHC 11-30-2 32.3 32.6-35 complet 014 g/dl .4 ed 14:25 HGB 11-30-2 10.1 11.0-17 complet 014 gm/dl .8 ed 14:25 RBC 11-30-2 3.760 3.500-6 complet 014 M/ul .100 ed 14:25 WBC 11-30-2 8.9 3.5-13. complet 014 K/UL 0 ed 14:25 MCH 11-30-2 27.0 pg 27.6-32 complet 014 .7 ed 14:25 MCV 11-30-2 83.6 fl 80.8-10 complet 014 1.2 ed 14:25 HCT 11-30-2 31.4 % 32.0-51 complet 014 .6 ed 14:25 PLATELE 11-30-2 302 134-412 complet T 014 K/UL ed 14:25 CBC/NO DIFF+ PLATELET (08-09-2014 10:11) MPV 30-2 7.4 fl 6.1-10. complet 014 1 ed 10:11 PLATELE 30-2 298 134-412 complet T 014 K/UL ed 10:11 RDW 30-2 14.2 % 10.1-16 complet 014 .5 ed 10:11 MCH 30-2 27.5 pg 27.6-32 complet 014 .7 ed 10:11 RBC 30-2 3.580 3.500-6 complet 014 M/ul .100 ed 10:11 WBC 30-2 10.4 3.5-13. complet 014 K/UL 0 ed 10:11 MCHC 30-2 32.7 32.6-35 complet 014 g/dl .4 ed 10:11 HGB 30-2 9.8 11.0-17 complet 014 gm/dl .8 ed 10:11 MCV 30-2 83.9 fl 80.8-10 complet 014 1.2 ed 10:11 HCT 30-2 30.1 % 32.0-51 complet 014 .6 ed 10:11 CBC/NO DIFF+ PLATELET (08-09-2014 07:30) MCH 30-2 27.2 pg 27.6-32 complet 014 .7 ed 07:30 MCV 30-2 84.3 fl 80.8-10 complet 014 1.2 ed 07:30 HCT 1130-2 30.4 % 32.0-51 complet 014 .6 ed 07:30 HGB 30-2 9.8 11.0-17 complet 014 gm/dl .8 ed 07:30 RBC 30-2 3.610 3.500-6 complet 014 M/ul .100 ed 07:30 WBC 30-2 11.2 3.5-13. complet 014 K/UL 0 ed 07:30 MPV 30-2 7.8 fl 6.1-10. complet 014 1 ed 07:30 PLATELE 30-2 306 134-412 complet T 014 K/UL ed 07:30 RDW 30-2 14.1 % 10.1-16 complet 014 .5 ed 07:30 MCHC 11-30-2 32.3 32.6-35 complet 014 g/dl .4 ed 07:30 I-CHEMISTRY 8+ PANEL (08-09-2014 04:10) I-GLUCO 89 70-105 complet SE 014 MG/DL ed 04:10 I-IONIZ 1.12 1.12-1. complet ED CA 014 mmol/L 32 ed 04:10 I-K+ 4.6 3.5-4.9 complet 014 mmol/L ed 04:10 I-SODIU 137 138-146 complet M 014 mmol/L ed 04:10 I-BUN 10 8-26 complet 014 MG/DL ed 04:10 I-CHLOR 101 98-109 complet JACQUIE 014 mmol/L ed 04:10 I-TCO2 24 23-27 complet 014 mmol/L ed 04:10 I-ANION 17 10-20 complet GAP 014 mmol/L ed 04:10 I-HEMOG 10.9 12.0-17 complet LOBIN 014 gm/dl .0 ed 04:10 I-HEMAT 32 % 38-51 complet OCRIT 014 ed 04:10 I-CREAT 0.8 0.6-1.3 complet ININE 014 mg/dl ed 04:10 GLOMELULAR CARMEN. RATE,CALC. (08-08-2014 18:00) GLOMELU 138.0 60.0-13 complet LAR 014 ml/min 0.0 ed CARMEN. 18:00 RATE,CA LC. GLOMELULAR CARMEN. RATE,CALC. (08-04-2014 04:16) GLOMELU 103.3 60.0-13 complet LAR 014 ml/min 0.0 ed CARMEN. 04:16 RATE,CA LC. MAGNESIUM (08-04-2014 04:16) MAGNESI 1.8 1.7-2.4 complet UM 014 MG/DL ed 04:16 COMP. METABOLIC PANEL (CHEM 12) (08-04-2014 04:16) BILIRUB 1.00 0.00-1. complet IN, 014 MG/DL 00 ed TOTAL 04:16 A/G 0.6 0.6-1.6 complet RATIO 014 ed 04:16 GLOBULI 08-04-2 4.0 2.4-4.8 complet N 014 G/DL ed 04:16 ALBUMIN 08-04-2 2.3 3.4-5.0 complet 014 G/DL ed 04:16 PROTEIN 08-04-2 6.3 6.4-8.4 complet , TOTAL 014 G/DL ed 04:16 CREATIN 08-04-2 0.9 0.6-1.3 complet INE 014 MG/DL ed 04:16 CO2 08-04- 32 21-32 complet 014 mmol/L ed 04:16 CHLORID 08-04- 99 98-107 complet E 014 mmol/l ed 04:16 POTASSI 3.4 3.6-5.2 complet UM 014 mmol/l ed 04:16 SODIUM 138 133-144 complet 014 mmol/L ed 04:16 GLUCOSE 72 70-110 complet 014 MG/DL ed 04:16 ALT <14 U/L 12-78 complet 014 ed 04:16 AST 11 U/L 15-37 complet 014 ed 04:16 ALKALIN 68 U/L 45-117 complet E 014 ed PHOSPHA 04:16 TASE CALCIUM 8.4 8.5-10. complet 014 MG/DL 1 ed 04:16 BUN 2 5 MG/DL 7-18 complet 014 ed 04:16 CBC/NO DIFF+ PLATELET (08-04-2014 04:16) HCT 35.1 % 32.0-51 complet 014 .6 ed 04:16 HGB 11.6 11.0-17 complet 014 gm/dl .8 ed 04:16 PLATELE 304 134-412 complet T 014 K/UL ed 04:16 RDW 14.1 % 10.1-16 complet 014 .5 ed 04:16 MCHC 33.0 32.6-35 complet 014 g/dl .4 ed 04:16 MPV 11-25-2 7.6 fl 6.1-10. complet 014 1 ed 04:16 RBC 08-04-2 4.140 3.500-6 complet 014 M/ul .100 ed 04:16 WBC 08-04-2 10.4 3.5-13. complet 014 K/UL 0 ed 04:16 MCH 08-04-2 28.0 pg 27.6-32 complet 014 .7 ed 04:16 MCV 08-04-2 84.9 fl 80.8-10 complet 014 1.2 ed 04:16 CBC/NO DIFF+ PLATELET (08-03-2014 01:00) HCT 08-03-2 34.1 % 32.0-51 complet 014 .6 ed 01:00 HGB 11.3 11.0-17 complet 014 gm/dl .8 ed 01:00 PLATELE 302 134-412 complet T 014 K/UL ed 01:00 RDW 14.0 % 10.1-16 complet 014 .5 ed 01:00 MCHC 08-03-2 33.1 32.6-35 complet 014 g/dl .4 ed 01:00 MCH 08-03-2 28.0 pg 27.6-32 complet 014 .7 ed 01:00 MCV 84.5 fl 80.8-10 complet 014 1.2 ed 01:00 RBC 08-03-2 4.030 3.500-6 complet 014 M/ul .100 ed 01:00 WBC 08-03-2 12.1 3.5-13. complet 014 K/UL 0 ed 01:00 MPV 08-03-2 7.6 fl 6.1-10. complet 014 1 ed 01:00 APTT (08-03-2014 01:00) APTT 08-03-2 29 SEC 22-32 complet 014 ed 01:00 APTT (08-02-2014 04:31) APTT 08-02-2 46 SEC 22-32 complet 014 ed 04:31 CBC/NO DIFF+ PLATELET (08-02-2014 04:31) MPV 08-02-2 7.7 fl 6.1-10. complet 014 1 ed 04:31 PLATELE 267 134-412 complet T 014 K/UL ed 04:31 RDW 11-23-2 14.4 % 10.1-16 complet 014 .5 ed 04:31 MCHC 08-02-2 32.8 32.6-35 complet 014 g/dl .4 ed 04:31 MCH 08-02-2 28.0 pg 27.6-32 complet 014 .7 ed 04:31 MCV 08-02- 85.3 fl 80.8-10 complet 014 1.2 ed 04:31 HGB 11.7 11.0-17 complet 014 gm/dl .8 ed 04:31 RBC 2 4.170 3.500-6 complet 014 M/ul .100 ed 04:31 WBC 08-02- 15.7 3.5-13. complet 014 K/UL 0 ed 04:31 HCT 35.6 % 32.0-51 complet 014 .6 ed 04:31 APTT (08-01-2014 18:00) APTT 36 SEC 22-32 complet 014 ed 18:00 GLOMELULAR CARMEN. RATE,CALC. (08-01-2014 14:20) GLOMELU 118.3 60.0-13 complet LAR 014 ml/min 0.0 ed CARMEN. 14:20 RATE,CA LC. COMP. METABOLIC PANEL (CHEM 12) (08-01-2014 14:20) CHLORID 99 98-107 complet E 014 mmol/l ed 14:20 POTASSI 4.0 3.6-5.2 complet UM 014 mmol/l ed 14:20 SODIUM 134 133-144 complet 014 mmol/L ed 14:20 BUN 7 MG/DL 7-18 complet 014 ed 14:20 GLUCOSE 101 70-110 complet 014 MG/DL ed 14:20 AST 17 U/L 15-37 complet 014 ed 14:20 ALKALIN 86 U/L 45-117 complet E 014 ed PHOSPHA 14:20 TASE CALCIUM 08-01- 8.4 8.5-10. complet 014 MG/DL 1 ed 14:20 A/G 0.6 0.6-1.6 complet RATIO 014 ed 14:20 GLOBULI 11-22-2 4.5 2.4-4.8 complet N 014 G/DL ed 14:20 ALBUMIN 2.6 3.4-5.0 complet 014 G/DL ed 14:20 PROTEIN 7.1 6.4-8.4 complet , TOTAL 014 G/DL ed 14:20 CREATIN 0.8 0.6-1.3 complet INE 014 MG/DL ed 14:20 CO2 29 21-32 complet 014 mmol/L ed 14:20 BILIRUB 0.70 0.00-1. complet IN, 014 MG/DL 00 ed TOTAL 14:20 ALT 23 U/L 12-78 complet 014 ed 14:20 APTT (08-01-2014 14:20) APTT 28 SEC 22-32 complet 014 ed 14:20 PROTIME\T\INR (08-01-2014 14:20) PROTHRO 10.3 9.9-12. complet MBIN 014 SEC 5 ed TIME 14:20 INR 0.99 0.88-1. complet 014 12 ed 14:20 BLOOD GAS (08-01-2014 14:17) BE 5.0 -2.0-2. complet 014 mm/L 0 ed 14:17 HCO3 30.0 20.0-26 complet 014 mm/L .0 ed 14:17 %SAT 95.2 % 93.0-97 complet 014 .0 ed 14:17 PO2 80.1 85.0-10 complet 014 mmHG 0.0 ed 14:17 PCO2 52.7 35.0-45 complet 014 mmHG .0 ed 14:17 PH 7.374 7.350-7 complet 014 .450 ed 14:17 BASIC METABOLIC PANEL (CHEM 7) (07-31-2014 06:04) CALCIUM 07-31- 8.3 8.5-10. complet 014 MG/DL 1 ed 06:04 CREATIN 0.9 0.6-1.3 complet INE 014 MG/DL ed 06:04 CO2 31 21-32 complet 014 mmol/L ed 06:04 CHLORID 11-21-2 101 98-107 complet E 014 mmol/l ed 06:04 POTASSI 21-2 4.2 3.6-5.2 complet UM 014 mmol/l ed 06:04 SODIUM 21-2 137 133-144 complet 014 mmol/L ed 06:04 BUN 21-2 8 MG/DL 7-18 complet 014 ed 06:04 GLUCOSE 21-2 99 70-110 complet 014 MG/DL ed 06:04 MANUAL DIFF REVIEW (07-30-2014 03:43) SEGS 11-20-2 80 % 23-85 complet 014 ed 03:43 RBC -20-2 NORMAL complet MORPHOL 014 ed OGY 03:43 PLATELE 11-20-2 NORMAL complet T 014 ed MORPHOL 03:43 OGY PLATELE 11-20-2 ADEQUAT complet T 014 E ed ESTIMAT 03:43 E MONO # 11-20-2 0.4 0.2-0.6 complet 014 K/ul ed 03:43 LYMPH # 11-20-2 1.9 0.4-3.9 complet 014 K/ul ed 03:43 NEUTROP 11-20-2 15.3 3.4-7.0 complet HIL # 014 K/ul ed 03:43 NEUTROP 11-20-2 87.0 % 43.0-83 complet HIL % 014 .0 ed 03:43 MONO % 11-20-2 2.0 % 1.0-14. complet 014 0 ed 03:43 LYMPH % 11-20-2 11.0 % 10.0-42 complet 014 .0 ed 03:43 BANDS 11-20-2 7 % 0-16 complet 014 ed 03:43 CBC\T\AUTO DIFF (07-30-2014 03:43) WBC 11-20-2 17.6 3.5-13. complet 014 K/UL 0 ed 03:43 RDW 11-20-2 13.9 % 10.1-16 complet 014 .5 ed 03:43 MCHC 11-20-2 33.1 32.6-35 complet 014 g/dl .4 ed 03:43 MCH 11-20-2 27.5 pg 27.6-32 complet 014 .7 ed 03:43 MCV 11-20-2 82.9 fl 80.8-10 complet 014 1.2 ed 03:43 HCT 11-20-2 39.5 % 32.0-51 complet 014 .6 ed 03:43 HGB 07-30-2 13.1 11.0-17 complet 014 gm/dl .8 ed 03:43 RBC 20-2 4.770 3.500-6 complet 014 M/ul .100 ed 03:43 MPV 07-30-2 7.5 fl 6.1-10. complet 014 1 ed 03:43 PLATELE 07-30-2 287 134-412 complet T 014 K/UL ed 03:43 COMPREHENSIVE METABOLIC PANEL (03-26-2014 22:19) GLOMERU -17-2 >60.0 complet LAR 014 mL/min/ ed FILTRAT 22:19 1.73 m2 ION RATE Kathy n GLOMERU 03-26-2 >60.0 complet LAR 014 mL/min/ ed FILTRAT 22:19 1.73 m2 ION RATE Comment: eGFR Interpretation: Disease State Reference Ranges for eGFR Comment: (calculated) Comment: Stage eGFR Description Comment: I/II >60 Normal/Mildly reduced kidney function Comment: III 30-59 Moderately reduced kidney function Comment: IV 15-29 Severely reduced kidney function Comment: V <15 End-stage kidney failure Comment: Calculated using MDRD formula based on gender,race(*GFR AA is for the Comment: population),and age.GFR estimates are unreliable in Comment: patients with rapidly changing kidney function,recent dialysis,extremes Comment: in body size,severe malnutrition or obesity,loss of limbs, abnormal Comment: muscle mass,or during .In these patients,alternative Comment: determinations of GFR should be obtained. Comment: Comment: Creatinine and eGFR IDMS Traceable. Anion 03-26-2 9.5 complet Gap 014 ed 22:19 A/G 03-26-2 0.8 complet Ratio 014 ed 22:19 Bilirub 03-26-2 0.80 0.20-1. Normal complet in, 014 mg/dL 00 ed Total 22:19 AST -17-2 17 U/L 15-37 Normal complet 014 ed 22:19 ALT -17-2 9 U/L 12-78 Below complet 014 low ed 22:19 normal Alk --2 114 U/L 50-136 Normal complet Phos 014 ed 22:19 Albumin -17-2 3.2 3.4-5.0 Below complet 014 gm/dL low ed 22:19 normal Total 7.1 6.4-8.2 Normal complet Protein 014 gm/dL ed 22:19 Calcium 9.1 8.5-10. Normal complet 014 mg/dL 1 ed 22:19 CO2 31.1 21.0-32 Normal complet 014 mmol/L .0 ed 22:19 Chlorid 102 98-107 Normal complet e 014 mEq/L ed 22:19 Potassi 4.6 3.5-5.1 Normal complet um 014 mEq/L ed 22:19 Sodium 138 136-145 Normal complet 014 mEq/L ed 22:19 BUN/Cre 15.0 complet at 014 ed Ratio 22:19 Creatin 0.8 0.8-1.3 Normal complet ine 014 mg/dL ed 22:19 Comment: CREATININE AND eGFR IDMS TRACEABLE. BUN 12 7-18 Normal complet 014 mg/dL ed 22:19 Glucose 90 70-99 Normal complet 014 mg/dL ed 22:19 CBC W/DIFF (03-26-2014 22:19) Neutrop 18.5 X 1.5-7.1 Above complet hil 014 10\S\3 high ed Count 22:19 normal Basophi 0.0 % 0.0-2.0 Normal complet ls % 014 ed 22:19 Eosinop 0.0 % 0.0-5.0 Normal complet hils % 014 ed 22:19 Monocyt 03-26-2 2.0 % 0.0-9.0 Normal complet es % 014 ed 22:19 Lymphoc 18.0 % 20.0-51 Below complet ytes % 014 .0 low ed 22:19 normal Bands 0 0-6 Normal complet 014 ed 22:19 Neutrop 80.0 % 42.0-75 Above complet hils % 014 .0 high ed 22:19 normal Monocyt 0.5 X 0.0-1.2 Normal complet e Count 014 10\S\3 ed 22:19 Nucleat 0 complet ed 014 ed RBC'S 22:19 Lymphoc 4.2 X 0.7-4.9 Normal complet yte 014 10\S\3 ed Count 22:19 Basophi 0.0 X 0.0-0.2 Normal complet l Count 014 10\S\3 ed 22:19 Eosinop 0.0 X 0.0-0.5 Normal complet hil 014 10\S\3 ed Count 22:19 WBC 23.1 X 4.8-10. Above complet 014 10\S\3 8 high ed 22:19 normal Manual YES complet Diff? 014 ed 22:19 MPV 7.4 fl 7.4-10. Normal complet 014 4 ed 22:19 RDW 14.4 % 11.5-15 Normal complet 014 .5 ed 22:19 MCV 82.8 fl 80.0-94 Normal complet 014 .0 ed 22:19 MCHC 33.1 33.0-37 Normal complet 014 gm/dL .0 ed 22:19 MCH 27.4 pg 31.0-37 Below complet 014 .0 low ed 22:19 normal Platele 326 X 130-400 Normal complet t 014 10\S\3 ed 22:19 Hematoc 40.1 % 42.0-52 Below complet rit 014 .0 low ed 22:19 normal Hemoglo 13.3 14.0-18 Below complet bin 014 gm/dL .0 low ed 22:19 normal RBC 4.84 X 4.70-6. Normal complet 014 10\S\6 10 ed 22:19 URINALYSIS W/MICRO (03-26-2014 22:17) AMORPHO NONE NONE Normal complet US 014 SEEN SEEN ed SEDIMEN 22:17 T YEAST, NONE NONE Normal complet UA 014 OBSERVE OBSERVE ed 22:17 D D Crystal NONE NONE Normal complet s 014 SEEN SEEN ed 22:17 Casts NONE NONE Normal complet 014 SEEN SEEN ed 22:17 Mucus 07-17-2 NONE NONE Normal complet 014 SEEN SEEN ed 22:17 Epithel 17-2 NONE NONE Normal complet ial 014 SEEN SEEN ed Cells 22:17 UA 03-26-2 NEGATIV NEGATIV Normal complet Protein 014 E E ed 22:17 Nitrite 03-26-2 NEGATIV NEGATIV Normal complet 014 E E ed 22:17 Leukocy 03-26- NEGATIV NEGATIV Normal complet te 014 E E ed 22:17 PH 03-26- 8.0 5.0-7.0 Above complet 014 high ed 22:17 normal Specifi 03-26-2 1.010 1.016-1 Below complet c 014 .022 low ed [place] 22:17 normal Appeara 03-26-2 CLEAR CLEAR Normal complet nce 014 ed 22:17 Color 03-26-2 YELLOW YELLOW, Normal complet 014 STRAW,C ed 22:17 OLORLES S,PALE YELLOW Glucose NEGATIV NEGATIV Normal complet 014 E E ed 22:17 Bacteri 03-26- NONE NONE Normal complet a 014 SEEN SEEN ed 22:17 UA RBC 03-26-2 NONE 0-2 Abnorma complet 014 SEEN l ed 22:17 UA WBC -17-2 NONE 0-2 Abnorma complet 014 SEEN l ed 22:17 Blood 03-26-2 NEGATIV NEGATIV Normal complet 014 E E ed 22:17 Bilirub 03-26-2 NEGATIV NEGATIV Normal complet in 014 E E ed 22:17 Urobili 03-26- norm 0-1 Normal complet nogen 014 mg/dL ed 22:17 Ketones NEGATIV NEGATIV Normal complet 014 E E ed 22:17 CBC\T\AUTO DIFF (01-19-2014 13:45) MONOS% 01-19- 4.7 % 1.0-14. complet 014 0 ed 13:45 LYMPH% 01-19- 22.2 % 10.0-42 complet 014 .0 ed 13:45 NEUTROP 01-19- 71.1 % 43.0-83 complet HILS% 014 .0 ed 13:45 MPV 7.0 fl 6.1-10. complet 014 1 ed 13:45 PLATELE 337 134-412 complet T 014 K/UL ed 13:45 RDW 05-12-2 14.4 % 10.1-16 complet 014 .5 ed 13:45 MCHC 05-12-2 33.4 32.6-35 complet 014 g/dl .4 ed 13:45 MCH 05-12-2 27.5 pg 27.6-32 Below complet 014 .7 low ed 13:45 normal MCV -12-2 82.3 fl 80.8-10 complet 014 1.2 ed 13:45 HCT -12-2 41.3 % 32.0-51 complet 014 .6 ed 13:45 HGB -12-2 13.8 11.0-17 complet 014 gm/dl .8 ed 13:45 WBC -12-2 13.3 3.5-13. Above complet 014 K/UL 0 high ed 13:45 normal RBC -12-2 5.020 3.500-6 complet 014 M/ul .100 ed 13:45 EOS% 05-12-2 1.5 % 0.0-11. complet 014 0 ed 13:45 BASO# 05-12-2 0.1 0.0-0.2 complet 014 K/ul ed 13:45 EOS# 05-12-2 0.2 0.0-0.9 complet 014 K/ul ed 13:45 MONOS# 05-12-2 0.6 0.2-0.6 complet 014 K/ul ed 13:45 LYMPH# 05-12-2 3.0 0.4-3.9 complet 014 K/ul ed 13:45 NEUT # 05-12-2 9.5 2.7-6.9 Above complet 014 K/ul high ed 13:45 normal BASO% 05-12-2 0.5 % 0.0-2.0 complet 014 ed 13:45 COMP. METABOLIC PANEL (CHEM 12) (01-19-2014 13:45) ALBUMIN 05-12-2 3.1 3.4-5.0 Below complet 014 G/DL low ed 13:45 normal PROTEIN 05-12-2 7.7 6.4-8.4 complet , TOTAL 014 G/DL ed 13:45 CREATIN 05-12-2 0.7 0.6-1.3 complet INE 014 MG/DL ed 13:45 CO2 05-12-2 31 21-32 complet 014 mmol/L ed 13:45 CHLORID 103 98-107 complet E 014 mmol/l ed 13:45 POTASSI 4.2 3.6-5.2 complet UM 014 mmol/l ed 13:45 SODIUM 137 133-144 complet 014 mmol/L ed 13:45 BUN 01-19- 11 7-18 complet 014 MG/DL ed 13:45 GLUCOSE 80 70-110 complet 014 MG/DL ed 13:45 BILIRUB 0.40 0.00-1. complet IN, 014 MG/DL 00 ed TOTAL 13:45 ALT 15 U/L 12-78 complet 014 ed 13:45 AST 12 U/L 15-37 Below complet 014 low ed 13:45 normal ALKALIN 90 U/L 45-117 complet E 014 ed PHOSPHA 13:45 TASE CALCIUM 8.9 8.5-10. complet 014 MG/DL 1 ed 13:45 A/G 0.7 0.6-1.6 complet RATIO 014 ed 13:45 GLOBULI 4.6 2.4-4.8 complet N 014 G/DL ed 13:45 FSH (12-18-2013 15:53) FSH 9.2 complet 014 mIU/mL ed 15:53 Comment: Comment: FSH Reference Range Units Comment: Comment: Males: 1 - 14 Comment: MIU/ML Comment: Comment: Females: Comment: Follicular Phase:\E\.sk5\E\\E\.s k5\E\3 - 12 MIU/ML Comment: Mid-Cycle Peak:\E\.sk5\E\\E\.sk 5\E\8 - 22 MIU/ML Comment: Luteal Phase:\E\.sk5\E\\E\.s k5\E\ 2 - 12 MIU/ML Comment: \E\.sk5\E\Post-Menopa usal:\E\.sk5\E\\E\.sk 5\E\35-151 MIU/ML Comment: LH (12-18-2013 15:53) LH 5.2 complet 014 mIU/mL ed 15:53 Comment: Comment: LH Reference Range Comment: Units Comment: Comment: Males:\E\.sk5\E\\E\.s k5\E\\E\.sk5\E\1.5 - 9.2 MIU/ML Comment: Comment: Children (<10 yrs)\E\.sk5\E\\E\.sk5 \E\ <=0.9 MIU/ML Comment: Comment: Females: Comment: Follicular Phase:\E\.sk5\E\\E\.s k5\E\1.8 - 19.0 MIU/ML Comment: Mid-Cycle Peak: 15.6 - 78.9 MIU/ML Comment: Luteal Phase: 0.7 - 19.4 MIU/ML Comment: Post-Menopausal: 10.8 - 61.4 MIU/ML Comment: PROLACTIN (12-18-2013 15:53) Prolact 9.80 2.60-13 Normal complet in 014 ng/mL .10 ed 15:53 Comment: Comment: Prolactin Reference Ranges Comment: Units Comment: Comment: Male: 2.6 - 13.1 Comment: ng/mL Comment: Female: Pre-menopause: 3.3 - 26.7 Comment: ng/mL Comment: Post-menopause: 2.7 - 19.6 Comment: ng/mL VITAMIN B-12 (12-18-2013 10:02) Vitamin 272 180-914 Normal complet B-12 014 pg/mL ed 10:02 CORONARY RISK PROFILE (12-18-2013 10:02) VLDL 27 0-30 Normal complet 014 ed 10:02 CHOL/HD 5 complet L Ratio 014 ed 10:02 HDL 33 40-60 Below complet 014 mg/dL low ed 10:02 normal Triglyc 135 50-150 Normal complet erides 014 mg/dL ed 10:02 LDL 87.0 6.0-130 Normal complet (CALC) 014 mg/dL .0 ed 10:02 Cholest 147 50-200 Normal complet binh 014 mg/dL ed 10:02 HEPATIC FUNCT PANEL (12-18-2013 10:02) A/G 0.9 complet Ratio 014 ed 10:02 Bilirub 0.10 0.00-0. Normal complet in, 014 mg/dL 20 ed Direct 10:02 Bilirub 2 0.40 0.20-1. Normal complet in, 014 mg/dL 00 ed Total 10:02 AST 13 U/L 15-37 Below complet 014 low ed 10:02 normal ALT 16 U/L 12-78 Normal complet 014 ed 10:02 Alk 119 U/L 50-136 Normal complet Phos 014 ed 10:02 Albumin 3.2 3.4-5.0 Below complet 014 gm/dL low ed 10:02 normal Total 6.8 6.4-8.2 Normal complet Protein 014 gm/dL ed 10:02 PSA,TOTAL (12-18-2013 10:02) PSA 1.00 0.0-4.0 Normal complet 014 ng/mL ed 10:02 BASIC METABOLIC PANEL (12-18-2013 10:02) Calcium 9.0 8.5-10. Normal complet 014 mg/dL 1 ed 10:02 GLOMERU >60.0 complet LAR 014 mL/min/ ed FILTRAT 10:02 1.73 m2 ION RATE Kathy n GLOMERU >60.0 complet LAR 014 mL/min/ ed FILTRAT 10:02 1.73 m2 ION RATE Comment: eGFR Interpretation: Disease State Reference Ranges for eGFR Comment: (calculated) Comment: Stage eGFR Description Comment: I/II >60 Normal/Mildly reduced kidney function Comment: III 30-59 Moderately reduced kidney function Comment: IV 15-29 Severely reduced kidney function Comment: V <15 End-stage kidney failure Comment: Calculated using MDRD formula based on gender,race(*GFR AA is for the Comment: population),and age.GFR estimates are unreliable in Comment: patients with rapidly changing kidney function,recent dialysis,extremes Comment: in body size,severe malnutrition or obesity,loss of limbs, abnormal Comment: muscle mass,or during .In these patients,alternative Comment: determinations of GFR should be obtained. Comment: Comment: Creatinine and eGFR IDMS Traceable. Anion 8.0 complet Gap 014 ed 10:02 CO2 29.7 21.0-32 Normal complet 014 mmol/L .0 ed 10:02 Chlorid 107 98-107 Normal complet e 014 mEq/L ed 10:02 Potassi 4.7 3.5-5.1 Normal complet um 014 mEq/L ed 10:02 Sodium 140 136-145 Normal complet 014 mEq/L ed 10:02 BUN/Cre 17.5 complet at 014 ed Ratio 10:02 Creatin 0.8 0.8-1.3 Normal complet ine 014 mg/dL ed 10:02 Comment: CREATININE AND eGFR IDMS TRACEABLE. BUN 14 7-18 Normal complet 014 mg/dL ed 10:02 Glucose 105 70-99 Above complet 014 mg/dL high ed 10:02 normal TSH (12-18-2013 10:02) TSH 1.71 0.34-4. Normal complet 014 mIU/mL 82 ed 10:02 CBC W/DIFF (12-18-2013 10:02) Basophi 0.1 X 0.0-0.2 Normal complet l Count 014 10\S\3 ed 10:02 Eosinop 0.2 X 0.0-0.5 Normal complet hil 014 10\S\3 ed Count 10:02 Monocyt 0.7 X 0.0-1.2 Normal complet e Count 014 10\S\3 ed 10:02 Neutrop 7.8 X 1.5-7.1 Above complet hil 014 10\S\3 high ed Count 10:02 normal Basophi 0.7 % 0.0-2.0 Normal complet ls % 014 ed 10:02 Eosinop 1.6 % 0.0-5.0 Normal complet hils % 014 ed 10:02 Monocyt 6.2 % 0.0-9.0 Normal complet es % 014 ed 10:02 Lymphoc 24.7 % 20.0-51 Normal complet ytes % 014 .0 ed 10:02 Neutrop 66.8 % 42.0-75 Normal complet hils % 014 .0 ed 10:02 MPV 12-18- 7.2 fl 7.4-10. Below complet 014 4 low ed 10:02 normal RDW 14.5 % 11.5-15 Normal complet 014 .5 ed 10:02 MCV 83.7 fl 80.0-94 Normal complet 014 .0 ed 10:02 MCHC 32.5 33.0-37 Below complet 014 gm/dL .0 low ed 10:02 normal MCH 27.2 pg 31.0-37 Below complet 014 .0 low ed 10:02 normal Platele 307 X 130-400 Normal complet t 014 10\S\3 ed 10:02 Hematoc 41.7 % 42.0-52 Below complet rit 014 .0 low ed 10:02 normal Hemoglo 13.5 14.0-18 Below complet bin 014 gm/dL .0 low ed 10:02 normal RBC 4.98 X 4.70-6. Normal complet 014 10\S\6 10 ed 10:02 WBC 12-18-2 11.7 X 4.8-10. Above complet 014 10\S\3 8 high ed 10:02 normal Nucleat 12-18- 0 complet ed 014 ed RBC'S 10:02 Lymphoc 2.9 X 0.7-4.9 Normal complet yte 014 10\S\3 ed Count 10:02 COMPREHENSIVE METABOLIC PANEL (12-07-2012 14:34) GLOMERU 12-07-2 >60.0 complet LAR 013 mL/min/ ed FILTRAT 14:34 1.73 m2 ION RATE Kathy n GLOMERU -30-2 >60.0 complet LAR 013 mL/min/ ed FILTRAT 14:34 1.73 m2 ION RATE Comment: eGFR Interpretation: Disease State Reference Ranges for eGFR Comment: (calculated) Comment: Stage eGFR Description Comment: I/II >60 Normal/Mildly reduced kidney function Comment: III 30-59 Moderately reduced kidney function Comment: IV 15-29 Severely reduced kidney function Comment: V <15 End-stage kidney failure Comment: Calculated using MDRD formula based on gender,race(*GFR AA is for the Comment: population),and age.GFR estimates are unreliable in Comment: patients with rapidly changing kidney function,recent dialysis,extremes Comment: in body size,severe malnutrition or obesity,loss of limbs, abnormal Comment: muscle mass,or during .In these patients,alternative Comment: determinations of GFR should be obtained. Comment: Comment: Creatinine and eGFR IDMS Traceable. Anion -30-2 9.2 complet Gap 013 ed 14:34 A/G 30-2 0.7 complet Ratio 013 ed 14:34 Bilirub 30-2 0.20 0.20-1. Normal complet in, 013 mg/dL 00 ed Total 14:34 AST 30-2 11 U/L 15-37 Below complet 013 low ed 14:34 normal ALT 30-2 28 U/L 30-65 Below complet 013 low ed 14:34 normal Alk 12-07-2 108 U/L 50-136 Normal complet Phos 013 ed 14:34 Albumin 12-07-2 2.8 3.4-5.0 Below complet 013 gm/dL low ed 14:34 normal Total 30-2 6.8 6.4-8.2 Normal complet Protein 013 gm/dL ed 14:34 Calcium 30-2 8.4 8.5-10. Below complet 013 mg/dL 1 low ed 14:34 normal CO2 30-2 29.0 21.0-32 Normal complet 013 mmol/L .0 ed 14:34 Chlorid 30-2 103 98-107 Normal complet e 013 mEq/L ed 14:34 Potassi 30-2 4.2 3.5-5.1 Normal complet um 013 mEq/L ed 14:34 Sodium 30-2 137 136-145 Normal complet 013 mEq/L ed 14:34 BUN/Cre 30-2 20.0 complet at 013 ed Ratio 14:34 Creatin -30-2 0.6 0.8-1.3 Below complet ine 013 mg/dL low ed 14:34 normal Comment: CREATININE AND eGFR IDMS TRACEABLE. BUN 30-2 12 7-18 Normal complet 013 mg/dL ed 14:34 Glucose 30-2 84 70-99 Normal complet 013 mg/dL ed 14:34 CBC W/DIFF (12-07-2012 14:34) Lymphoc 03-30-2 3.1 X 0.7-4.9 Normal complet yte 013 10 ed Count 14:34 Basophi 03-30-2 0.2 X 0.0-0.2 Normal complet l Count 013 10 ed 14:34 Eosinop 03-30-2 0.1 X 0.0-0.5 Normal complet hil 013 10 ed Count 14:34 Monocyt 03-30-2 0.8 X 0.0-1.2 Normal complet e Count 013 10 ed 14:34 Neutrop 03-30-2 10.8 X 1.5-7.1 Above complet hil 013 10 high ed Count 14:34 normal Basophi 03-30-2 1.2 % 0.0-2.0 Normal complet ls % 013 ed 14:34 Eosinop 03-30-2 1.0 % 0.0-5.0 Normal complet hils % 013 ed 14:34 Monocyt 03-30-2 5.5 % 0.0-9.0 Normal complet es % 013 ed 14:34 Lymphoc 03-30-2 20.6 % 20.0-51 Normal complet ytes % 013 .0 ed 14:34 Neutrop 03-30-2 71.7 % 42.0-75 Normal complet hils % 013 .0 ed 14:34 MPV 03-30-2 7.1 fl 7.4-10. Below complet 013 4 low ed 14:34 normal RDW -30-2 13.8 % 11.5-15 Normal complet 013 .5 ed 14:34 MCV -30-2 82.7 fl 80.0-94 Normal complet 013 .0 ed 14:34 MCHC 03-30-2 32.5 33.0-37 Below complet 013 gm/dL .0 low ed 14:34 normal MCH 03-30-2 26.9 pg 31.0-37 Below complet 013 .0 low ed 14:34 normal Platele 03-30-2 297 X 130-400 Normal complet t 013 10 ed 14:34 Hematoc 03-30-2 41.2 % 42.0-52 Below complet rit 013 .0 low ed 14:34 normal Hemoglo 03-30-2 13.4 14.0-18 Below complet bin 013 gm/dL .0 low ed 14:34 normal RBC 30-2 4.98 X 4.70-6. Normal complet 013 10 10 ed 14:34 WBC -30-2 15.0 X 4.8-10. Above complet 013 10 8 high ed 14:34 normal URINALYSIS W/MICRO (12-07-2012 14:33) Blood -30-2 NEGATIV NEGATIV Normal complet 013 E E ed 14:33 Bilirub 30-2 NEGATIV NEGATIV Normal complet in 013 E E ed 14:33 Urobili 30-2 norm 0-1 Normal complet nogen 013 mg/dL ed 14:33 Ketones 30-2 NEGATIV NEGATIV Normal complet 013 E E ed 14:33 Glucose 30-2 NEGATIV NEGATIV Normal complet 013 E E ed 14:33 UA 30-2 NEGATIV NEGATIV Normal complet Protein 013 E E ed 14:33 Nitrite 12-07-2 NEGATIV NEGATIV Normal complet 013 E E ed 14:33 Leukocy 30-2 NEGATIV NEGATIV Normal complet te 013 E E ed 14:33 PH 30-2 8.0 5.0-7.0 Above complet 013 high ed 14:33 normal Specifi 30-2 1.010 1.016-1 Below complet c 013 .022 low ed [place] 14:33 normal Appeara 30-2 CLEAR CLEAR Normal complet nce 013 ed 14:33 Color 30-2 YELLOW YELLOW, Normal complet 013 STRAW,C ed 14:33 OLORLES S,PALE YELLOW AMORPHO 30-2 NONE NONE Normal complet US 013 SEEN SEEN ed SEDIMEN 14:33 T YEAST, 30-2 NONE NONE Normal complet UA 013 OBSERVE OBSERVE ed 14:33 D D Crystal 30-2 NONE NONE Normal complet s 013 SEEN SEEN ed 14:33 Casts -30-2 NONE NONE Normal complet 013 SEEN SEEN ed 14:33 Mucus -30-2 NONE NONE Normal complet 013 SEEN SEEN ed 14:33 Epithel -30-2 NONE NONE Normal complet ial 013 SEEN SEEN ed Cells 14:33 Bacteri -30-2 NONE NONE Normal complet a 013 SEEN SEEN ed 14:33 UA RBC 30-2 0-2 0-2 Normal complet 013 ed 14:33 UA WBC 03-30-2 0-2 0-2 Normal complet 013 ed 14:33 TROPONIN I,WHIT (IN HOUSE) (03-01-2012 16:01) Troponi 03-01-2 <0.04 0.00-0. Normal complet n I 012 ng/mL 10 ed 16:01 Comment: Troponin I Reference Values Comment: 0.0 - 0.1 Negative Comment: 0.11 - 1.50 [place] Comment: >1.50 Indicative of AMI Comment: TROPONIN IS BELOW [place] RANGE CBC W/DIFF (03-01-2012 16:01) Lymphoc 22-2 2.0 X 0.7-4.9 Normal complet yte 012 10 ed Count 16:01 Basophi 22-2 0.1 X 0.0-0.2 Normal complet l Count 012 10 ed 16:01 Eosinop 22-2 0.2 X 0.0-0.5 Normal complet hil 012 10 ed Count 16:01 Monocyt 22-2 0.4 X 0.0-1.2 Normal complet e Count 012 10 ed 16:01 Neutrop 03-01-2 7.9 X 1.5-7.1 Above complet hil 012 10 high ed Count 16:01 normal Basophi 22-2 0.6 % 0.0-2.0 Normal complet ls % 012 ed 16:01 Eosinop 22-2 1.7 % 0.0-5.0 Normal complet hils % 012 ed 16:01 Monocyt 22-2 3.5 % 0.0-9.0 Normal complet es % 012 ed 16:01 Lymphoc 22-2 18.4 % 20.0-51 Below complet ytes % 012 .0 low ed 16:01 normal Neutrop 22-2 75.8 % 42.0-75 Above complet hils % 012 .0 high ed 16:01 normal MPV 22-2 6.7 fl 7.4-10. Below complet 012 4 low ed 16:01 normal RDW 22-2 13.3 % 11.5-15 Normal complet 012 .5 ed 16:01 MCV 22-2 83.5 fl 80.0-94 Normal complet 012 .0 ed 16:01 MCHC 06-22-2 34.2 33.0-37 Normal complet 012 gm/dL .0 ed 16:01 Platele 328 X 130-400 Normal complet t 012 10 ed 16:01 Hematoc 2 39.9 % 42.0-52 Below complet rit 012 .0 low ed 16:01 normal Hemoglo 2 13.6 14.0-18 Below complet bin 012 gm/dL .0 low ed 16:01 normal RBC 2 4.78 X 4.70-6. Normal complet 012 10 10 ed 16:01 WBC 2 10.6 X 4.8-10. Normal complet 012 10 8 ed 16:01 MCH 28.5 pg 31.0-37 Below complet 012 .0 low ed 16:01 normal PT (03-01-2012 16:01) INR 03-01-2 0.97 0.88-1. Normal complet 012 06 ed 16:01 Comment: INR Reference Range(Therapeutic): 2 - 3 Comment: Mechanical Heart Valve or Recurrent Thromboembolic Events: 2.5 - 3.5 Prothro 2 10.4 9.6-11. Normal complet mbin 012 seconds 5 ed Time 16:01 PTT (03-01-2012 16:01) PTT 03-01-2 28.4 22.3-30 Normal complet 012 seconds .8 ed 16:01 Comment: Normal Range for Patients on Heparin Therapy: Comment: 52 - 93 Seconds CKMB (03-01-2012 16:01) CKMB% 2 CKMB% 0.0-4.0 Normal complet 012 Not ed 16:01 Indicat ed % MMB 2 <0.50 0.00-3. Normal complet 012 ng/mL 60 ed 16:01 Comment: MMB IS BELOW [place] RANGE CK 48 U/L 39-308 Normal complet 012 ed 16:01 COMPREHENSIVE METABOLIC PANEL (03-01-2012 16:01) GLOMERU 22-2 >60.0 complet LAR 012 mL/min/ ed FILTRAT 16:01 1.73 m2 ION RATE Kathy n GLOMERU 22-2 >60.0 complet LAR 012 mL/min/ ed FILTRAT 16:01 1.73 m2 ION RATE Comment: eGFR Interpretation: Disease State Reference Ranges for eGFR Comment: (calculated) Comment: Stage eGFR Description Comment: I/II >60 Normal/Mildly reduced kidney function Comment: III 30-59 Moderately reduced kidney function Comment: IV 15-29 Severely reduced kidney function Comment: V <15 End-stage kidney failure Comment: Calculated using MDRD formula based on gender,race(*GFR AA is for the Comment: population),and age.GFR estimates are unreliable in Comment: patients with rapidly changing kidney function,recent dialysis,extremes Comment: in body size,severe malnutrition or obesity,loss of limbs, abnormal Comment: muscle mass,or during .In these patients,alternative Comment: determinations of GFR should be obtained. Comment: Comment: Creatinine and eGFR IDMS Traceable. Anion 03-01-2 11.0 complet Gap 012 ed 16:01 A/G 2 0.8 complet Ratio 012 ed 16:01 Bilirub 2 0.40 0.20-1. Normal complet in, 012 mg/dL 00 ed Total 16:01 AST 2 16 U/L 15-37 Normal complet 012 ed 16:01 ALT 2 24 U/L 30-65 Below complet 012 low ed 16:01 normal Alk 2 98 U/L 50-136 Normal complet Phos 012 ed 16:01 Albumin 03-01-2 2.8 3.4-5.0 Below complet 012 gm/dL low ed 16:01 normal Total 03-01-2 6.4 6.4-8.2 Normal complet Protein 012 gm/dL ed 16:01 Calcium 03-01-2 8.0 8.5-10. Below complet 012 mg/dL 1 low ed 16:01 normal CO2 03-01-2 27.1 21.0-32 Normal complet 012 mmol/L .0 ed 16:01 Chlorid 03-01-2 104 98-107 Normal complet e 012 mEq/L ed 16:01 Potassi 03-01-2 4.1 3.5-5.1 Normal complet um 012 mEq/L ed 16:01 Sodium 03-01-2 138 136-145 Normal complet 012 mEq/L ed 16:01 BUN/Cre 2 16.7 complet at 012 ed Ratio 16:01 Creatin 22-2 0.6 0.8-1.3 Below complet ine 012 mg/dL low ed 16:01 normal Comment: CREATININE AND eGFR IDMS TRACEABLE. BUN 10 7-18 Normal complet 012 mg/dL ed 16:01 Glucose 95 70-99 Normal complet 012 mg/dL ed 16:01 STREP SCREEN (02-11-2012 01:16) Strep A POSITIV NEGATIV Abnorma complet 012 E E l ed 01:16 Procedures Procedure DOS Code Location Performer Comment RADIOLOGI 74933 [place] ALL C 6 MEDICAL EXAMINATI IMAGING ON KNEE 3 ASS VIEWS MYOCARDIA 55850 RADHA GARCIA L SPECT 6 [facility] MULTIPLE INC INC STUDIES CV STRS 71459 [facility] FALLUJI TST 6 PHYSICIAN VALERIANO XERS&/OR S GROUP RX CONT ECG W/O I&R CV STRS 03875 RADAH GARCIA TST 6 [facility] XERS&/OR INC INC RX CONT ECG TRCG ONLY TECHNETIU A9500 RADHA GARCIA M TC-99M 6 [facility] SESTAMIBI INC INC DX PER STUDY DOSE ECHO 25051 [place] NADIG VID TTHRC R-T 5 MEDICAL 2D SERV W/WOM-MOD FOUNDATIO E COMPL N SPEC&COLR D ECG 91052 RADHA GARCIA ROUTINE 5 [facility] ECG INC INC W/LEAST 12 LDS TRCG ONLY W/O I&R CREATINE 98847 RADHA GARCIA KINASE 5 [facility] TOTAL INC INC LIPID 25349 RADHA GARCIA PANEL 5 [place] [address] RADHA GARCIA LIPASE 5 [facility] INC INC COLLECTIO 12602 RADHA GARCIA N VENOUS 5 [facility] BLOOD INC INC VENIPUNCT URE COMPREHEN 13259 RADHA GARCIA SIVE 5 [facility] METABOLIC INC INC PANEL BLOOD 40306 RADHA GARCIA COUNT 5 [facility] COMPLETE INC INC AUTO&[place] [address] RADHA GARCIA THYROID 5 [facility] STIMULATI [place] [address] RADHA RADHA AMYLASE 5 [facility] INC INC CREATINE 46282 RADHA RADHA KINASE MB 5 [facility] [address] RADHA RADHA FREE 5 [facility] [place] [address] RADHAIRENE GARCIA TROPONIN 5 [facility] QUANTITAT INC INC MARJ THERAPEUT 79742 RADHA GARCIA IC 5 [facility] INJECTION INC INC IV PUSH EACH NEW DRUG THER 22144 RADHA GARCIA PROPH/DX 5 [facility] NJX IV INC INC PUSH SINGLE/1S T SBST/DRUG ECG 36113 RADHA GARCIA ROUTINE 5 [facility] ECG INC INC W/LEAST 12 LDS TRCG ONLY W/[place] [address] RADHA GARCIA ABDOMEN & 5 [facility] PELVIS INC INC W/O CONTRAST MATERIAL CREATINE 20242 RADHA GARCIA KINASE 5 [facility] [place] [address] RADHAIRENE GARCIA LIPASE 5 [facility] INC INC ECG 08980 BJ USSON ROUTINE 5 OMAR OMAR ECG W/LEAST 12 LDS I&R ONLY RADIOLOGI 43944 RADHA GARCIA C EXAM 5 [facility] CHEST 2 INC INC VIEWS FRONTAL&[place] [address] RADHA GARCIA TROPONIN 5 [facility] QUANTITAT INC INC MARJ BLOOD 44443 RADHA GARCIA COUNT 5 [facility] COMPLETE INC INC AUTO&AUTO DIFRNTL WBC CREATINE 28470 RADHA GARCIA KINASE MB 5 [facility] [address] RADHA GARCIA AMYLASE 5 [facility] INC INC COMPREHEN 21708 RADHA GARCIA SIVE 5 [facility] METABOLIC INC INC PANEL INJECTION J1040 RADHA MOORERON 5 [facility] DNISOLONE ACETATE 80 MG THERAPEUT 31661 RADHA DIAL IC [address] [place] [address] TIC/DX INJECTION SUBQ/IM IAADIADOO 12917 RADHA MOORERON [address] [place] [address] CCUS GROUP A OPHTH 10313 [place] [address] GRE GRE XM&EVAL COMPRE NEW PT 1/> VST [facility] G0463 JUANA ARIAS OUTPATIEN 5 N A R H N A R H T CLIN VISIT ASSESS & MGMT PT RINGERS J7120 L[facility]HER SLOAN LACTATE [address] [place] [address] INFUSION [facility] UP TO 1000 CC ANES 96028 NIKOLE NIKOLE UPPER GI 5 Nov ENDOSCOPY PROXIMAL TO DUODENUM INJECTION J2250 [facility] SLOAN [address] [place] [address] MIDAZOLAM [facility] HCL PER 1 MG INJECTION J2405 [facility] SLOAN [address] [place] [address] ONDANSETR [facility] ON HCL PER 1 MG ESOPHAGOG 25284 LEXUSAYA CHAAYA ASTRODUOD 5 JESSENIA JESSENIA [place] [address] [facility] SLO[facility] INFUSION [address] [place] [address] HYDRATION [facility] [place] [address] LUTHER RIDDLE ABDOMEN & 5 PELVIS RADIOLOGY W/CONTRAS PLLC T MATERIAL ECG 01550 [facility] ROUTINE PRATIBHA ECG EMERGENCY W/LEAST SERV 12 LDS I&R ONLY COMPREHEN 74617 LUTHER SLOAN SIVE [address] [place] [address] METABOLIC [place] [address] [facility] SLO[facility] VITAMIN A [address] [place] [address] [place] [address] [facility]LO[facility] THYROID [address] [place] [address] STIMULATI [facility] NG HORMONE TSH LIPID 23722 [facility] PANEL [address] [place] [address] BLOOD 42543 L[facility]HER SLOAN COUNT [address] [place] [address] COMPLETE [facility] AUTO&[place] [address] [facility] SLO[facility] VITAMIN K [address] [place] [address] PREALBUMI 94438 [facility] SLO[facility] N [address] [place] [address] [place] [address] [facility] SLO[facility] FOLIC 5 [facility] [place] [address] CRISTIANOKSYLERJM LUTHER IRON [address] [place] [address] MEDICAL CENTER CENTER COLLECTIO 73825 MONEJM LUTHER N VENOUS [address] [place] [address] BLOOD LEVELS CENTER VENIPUNCT URE 25 70821 CRISTIANOSKYLERJM LUTHER HYDROXY [address] [place] [address] INCLUDES [facility] FRACTIONS IF PERFORMED CYANOCOBA 33570 L[facility] SLOAN [place] [address] [place] [address] VITAMIN CENTER CENTER B-12 [place] [address] CRISTIANOSKYLERJM LUTHER THIAMINE- [address] [place] [address] VITAMIN CENTER LEVELS B-1 COLLECTIO 83655 CRISTIANOSKYLERJM LUTHER N VENOUS [address] [place] [address] BLOOD LEVELS CENTER VENIPUNCT URE INJECTION J1644 [facility] SLOAN HEPARIN [address] [place] [address] SODIUM [facility] PER 1000 UNITS THERAPEUT 14283 [facility] SLOAN IC [address] [place] [address] PROPHYLAC CENTER LEVELS TIC/DX INJECTION SUBQ/IM BLOOD 54838 [facility] SLOAN COUNT [address] [place] [address] COMPLETE CENTER LEVELS AUTOMATED BLOOD 61983 [facility] SLOAN COUNT [address] [place] [address] COMPLETE LEVELS CENTER AUTOMATED COMPREHEN 45577 L[facility] SLOAN SIVE [address] [place] [address] METABOLIC CENTER CENTER PANEL INJECTION J2060 L[facility] SLOAN [address] [place] [address] LORAZEPAM CENTER CENTER 2 MG THERAPEUT 93396 LUTHER CHENC IC MEDICAL E INJECTION CENTER ADVANTAGE IV PUSH EACH NEW DRUG INJECTION J2405 LUTHER SLOAN [address] [place] [address] ONDANSETR CENTER CENTER ON HCL PER 1 MG THER 19416 LUTHER COMPLSALMAC PROPH/DX [address] [place] [address] E NJX EA CENTER ADVANTAGE SEQL IV PUSH SBST/DRUG FAC THERAPEUT 82781 [facility] SLOAN IC [address] [place] [address] MEDICAL PROPHYLAC CENTER CENTER TIC/DX INJECTION SUBQ/IM INJECTION J1644 [facility] SLOAN HEPARIN [address] [place] [address] SODIUM [facility] PER 1000 UNITS RINGERS J7120 LUTHER SLOAN LACTATE [address] [place] [address] MEDICAL INFUSION CENTER LEVELS UP TO 1000 CC COLLECTIO 31913 LUTHER SLOAN N VENOUS [address] [place] [address] BLOOD CENTER CENTER VENIPUNCT URE LEVEL III 46331 L[facility] SLOAN SURG [address] [place] [address] PATHOLOGY CENTER CENTER GROSS&ALEXIS ROSCOPIC EXAM ANES 13301 LUTHER DE LEÓNIMES INTRAPERI [address] [place], [place] [address]A TONEAL LEVELS UPPER INC ABDOMEN W/LAPS NOS RINGERS J7120 LUTHER SLOAN LACTATE [address] [place] [address] INFUSION [facility] UP TO 1000 CC INJECTION J1644 LUTHER SLOAN HEPARIN [address] [place] [address] SODIUM LEVELS CENTER PER 1000 UNITS INJECTION J1170 LUTHER SLOAN [address] [place] [address] HYDROMORP [facility] INDU UP TO 4 MG THERAPEUT 84803 LUTHER SLOAN IC [address] [place] [address] PROPHYLAC [facility] TIC/DX INJECTION SUBQ/IM INJECTION C9113 LUTHER SLOAN [address] [place] [address] PANTOPRAZ [facility] OLE SODIUM PER VIAL THER 11136 L[facility] SLOAN PROPH/DX [address] [place] [address] NJX EA CENTER LEVELS SEQL IV PUSH SBST/DRUG FAC INJECTION J1885 [facility] SLOAN [address] [place] [address] KETOROLAC [facility] TROMETHAM INE PER 15 MG INJECTION J3010 L[facility]HER SLOAN FENTANYL [address] [place] [address] CITRATE [facility] 0.1 MG NONINVASI 84462 LUTHER SLOAN VE [address] [place] [address] EAR/PULSE CENTER LEVELS OXIMETRY OVERNIGHT MONITOR THERAPEUT 22684 LUT[facility] SLOAN IC [address] [place] [address] MEDICAL INJECTION CENTER LEVELS IV PUSH EACH NEW DRUG INJECTION J2250 LUTHER SLOAN [address] [place] [address] MIDAZOLAM CENTER LEVELS HCL PER 1 MG INJECTION J2270 LUTHER SLOAN MORPHINE [address] [place] [address] SULFATE [facility] UP TO 10 MG LAPAROSCO 48134 L[facility]HER SLOAN PY SURG [address] [place] [address] CHOLECYST LEVELS CENTER ECTOMY INJECTION J2550 LUTHER SLOAN [address] [place] [address] PROMETHAZ [facility] INE HCL UP TO 50 MG INJECTION J2405 LUTHER SLOAN [address] [place] [address] ONDANSETR [facility] ON HCL PER 1 MG INJECTION J2405 ULTHER SLOAN [address] [place] [address] ONDANSETR CENTER CENTER ON HCL PER 1 MG HEPATOBIL 85906 L[facility]HER SLOAN [facility] CENTER CENTER GB W/PHARMA INTERVENJ INJECTION J2550 LUTHER SLOAN [address] [place] [address] PROMETHAZ [facility] INE HCL UP [place] [address] [place] [address] L[facility] SLOAN ABDOMINAL [address] [place] [address] MEDICAL REAL CENTER CENTER TIME W/IMAGE LIMITED THERAPEUT 03754 LUTHER SLOAN IC MEDICAL MEDICAL INJECTION CENTER [place] [address] LUTHER SLOAN ABDOMEN & [address] [place] [address] MEDICAL PELVIS CENTER CENTER W/CONTRAS T MATERIAL INJECTION J1885 L[facility]HER SLOAN [address] [place] [address] KETOROLAC CENTER LEVELS TROMETHAM INE PER 15 MG THER 81204 LUTHER SLOAN PROPH/DX [address] [place] [address] NJX EA CENTER CENTER SEQL IV PUSH SBST/DRUG FAC INJECTION C9113 LUTHER SLOAN [address] [place] [address] MEDICAL PANTOPRAZ CENTER LEVELS OLE SODIUM PER VIAL TECHNETIU [id number] [facility] Coates TC-99M [address] [place] [address] N DX UP TO 15 MCI LOCM Q9967 [facility] SLO[facility] [phone] [place] [address] MG/ML CENTER CENTER IODINE CONCENTRA TION PER ML THERAPEUT 37729 [facility]LO[facility] IC [address] [place] [address] MEDICAL PROPHYLAC CENTER CENTER TIC/DX INJECTION SUBQ/IM INJECTION J1644 [facility] SLO[facility] HEPARIN [address] [place] [address] MEDICAL SODIUM CENTER LEVELS PER 1000 UNITS RINGERS J7120 [facility] LACTATE MEDICAL MEDICAL INFUSION CENTER LEVELS UP TO 1000 CC RINGERS J7120 [facility] LACTATE [facility]ENTER LEVELS UP TO 1000 CC INJECTION J1644 [facility] SLO[facility] HEPARIN [address] [place] [address] MEDICAL SODIUM CENTER LEVELS PER 1000 UNITS THER [address] [facility]LO[facility] PROPH/DX [address] [place] [address] NJX IV CENTER CENTER PUSH SINGLE/1S T SBST/DRUG THERAPEUT 62397 [facility] SLOAN IC [address] [place] [address] PROPHYLAC [facility] TIC/DX INJECTION SUBQ/IM COLLECTIO 88649 LUT[facility] SLOAN N VENOUS [address] [place] [address] BLOOD [facility] VENIPUNCT URE INJECTION C9113 L[facility] SLOAN [address] [place] [address] PANTOPRAZ [facility] [place] [address] L[facility] SLOAN LIPASE [address] [place] [address] INJECTION J1885 [facility] SLOAN [address] [place] [address] KETOROLAC [facility] TROMETHAM INE PER 15 MG THER 97336 [facility] SLOAN PROPH/DX [address] [place] [address] NJX EA [facility] [place] [address] [facility] SLO[facility] INFUSION [address] [place] [address] HYDRATION [facility] EACH ADDITIONA L HOUR THERAPEUT 87233 [facility] SLO[facility] IC [address] [place] [address] INJECTION [facility] IV PUSH EACH NEW DRUG NONINVASI 35500 [facility] SLOAN VE [address] [place] [address] EAR/PULSE CENTER LEVELS OXIMETRY SINGLE DETER COMPREHEN 31341 [facility] SLO[facility] SIVE [address] [place] [address] METABOLIC CENTER [facility] [id number] [facility] SLO[facility] OBSERVATI [address] [place] [address] ON [facility] [place] [address] LUTHER SLOAN AMYLASE [address] [place] [address] INFUSION J7030 LUTHER SLOAN NORMAL [address] [place] [address] SALINE [facility] SOLUTION 1000 CC INJECTION J2405 LUTHER SLOAN [address] [place] [address] ONDANSETR [facility] ON HCL PER 1 MG BLOOD 29763 LUTHER SLOAN COUNT [address] [place] [address] COMPLETE [facility] AUTO&[place] [address] [facility] WILSON BRA TRACT UPPER RADIOLOGY W/WO PLLC DELAYED IMAGES W/[place] [address] [facility] SLOAN INFUSION [address] [place] [address] HYDRATION [facility] EACH ADDITIONA L HOUR INJECTION J2250 LUT[facility] SLOAN [address] [place] [address] MIDAZOLAM LEVELS CENTER HCL PER 1 MG EGD 77537 [facility] SLOAN DILATION [address] [place] [address] GASTRIC/D CENTER CENTER UODENAL STRICTURE CATHETER C1726 LUTHER SLOAN BALLOON [address] [place] [address] DILATATIO LEVELS CENTER N NON-VASCU LAR ANES 85407 LUT[facility] MORROW UPPER GI [address] [place] [address] ENDOSCOPY CENTER PROXIMAL INC TO DUODENUM RINGERS J7120 L[facility] SLOAN LACTATE [address] [place] [place] [address] INFUSION [facility]MER[facility] UP TO 1000 CC LIPID [id number] [facility] SLO[facility] PANEL [address] [place] [address] [place] [address] L[facility] SLOAN THIAMINE- [address] [place] [address] VITAMIN [facility]MER[facility] B-1 CYANOCOBA 55863 L[facility]HER SLOAN NICHOLAS [address] [place] [address] VITAMIN [facility] B-12 COLLECTIO 53775 L[facility] SLOAN N VENOUS [address] [place] [address] BLOOD [facility] [place] [address] L[facility] SLOAN IRON [address] [place] [address] [place] [address] L[facility] SLOAN FOLIC [address] [place] [address] ACID [facility] SERUM PREALBUMI 38437 L[facility] SLOAN N [address] [place] [address] BLOOD 59764 [facility] SLOAN COUNT [address] [place] [address] COMPLETE [facility] AUTOMATED COMPREHEN 55096 [facility] SLO[facility] SIVE [address] [place] [address] [place] [address] CRISTIANOTRI SMALLS ANT ABDOMINAL REAL RADIOLOGY TIME [facility] W/[place] [address] L[facility] SLOAN INFUSION [address] [place] [address] HYDRATION [facility] EACH ADDITIONA L HOUR INJECTION J2250 L[facility] SLOAN [address] [place] [address] MIDAZOLAM [facility] HCL PER 1 MG NONINVASI 56125 [facility] SLO[facility] VE [address] [place] [address] EAR/PULSE LEVELS CENTER OXIMETRY SINGLE DETER INJECTION J0330 L[facility] SLOAN [address] [place] [address] SUCCINYLC FORMERLY [facility] HOLINE CHLORIDE UP TO 20 MG INJECTION J3010 L[facility] SLOAN FENTANYL [address] [place] [address] CITRATE [facility] 0.1 MG INJECTION J2405 L[facility] SLOAN [address] [place] [address] ONDANSETR [facility] ON HCL PER 1 MG EGD 05735 LUTHER QUIÑONEZ BALLOON 5 ASHA DILATION [facility] ESOPHAGUS HOSP <30 MM [place]AM EGD 71325 L[facility] SLOAN DILATION 5 [facility] GASTRIC/D [facility] UODENAL STRICTURE CATHETER C1726 L[facility] SLOAN BALLOON 5 [facility] DILATATIO LEVELS CENTER N NON-VASCU LAR ANES 20503 LUTHER HERNANDEZ UPPER GI 5 SNOW ENDOSCOPY [facility] PROXIMAL HOSP TO DUODENUM RINGERS J7120 L[facility]HER SLOAN LACTATE 5 [facility] INFUSION [facility] UP TO 1000 CC INJECTION J1100 L[facility] SLOAN [address] [place] [address] DEXAMETHO [facility] SONE SODIUM PHOSPHATE 1 MG CREATININ 18473 [facility] TOX E BLOOD [address] [place] [address] INJECTION C9113 L[facility] SLOAN [address] [place] [address] PANTOPRAZ [facility] OLE SODIUM PER VIAL LOCM Q9967 L[facility] SLOAN 300-[address] [place] [address] MG/ML LEVELS CENTER IODINE CONCENTRA TION PER ML COLLECTIO 36179 [facility] TOX N VENOUS [address] [place] [address] VENIPUNCT URE INJ J2543 L[facility]HER SLOAN PIPERACIL [address] [place] [address] JOSELITO [facility] SOD/TAZOB ACTAM SOD 1 G/0.125 G INJECTION J2550 L[facility] SLOAN [address] [place] [address] PROMETHAZ [facility] INE HCL UP TO 50 MG BLOOD 69321 L[facility] MILLENIUM COUNT [address] [place] [address] COMPLETE LEVELS LABORATOR [place] [address] L[facility] SLOAN UREA [address] [place] [address] NITROGEN [facility] QUANTITAT MARJ THER 19839 LUTHER SLOAN PROPH/DX [address] [place] [address] NJX EA [facility] SEQL IV [place]USH SBST/[place] [address] L[facility] SLOAN INFUSION [address] [place] [address] HYDRATION [facility] EACH ADDITIONA L HOUR INFUSION J7030 [facility] SLOAN NORMAL [address] [place] [address] SALINE [facility] [place] [address] [place] [address] LUTHER WILSON BRA ANGIOGRAP 4 CHEST RADIOLOGY W/CONTRAS [place] [address] L[facility] SLOAN INFUSION 4 [facility] MEDICAL HYDRATION CENTER CENTER EACH ADDITIONA L HOUR THER 68501 L[facility] SLOAN PROPH/DX [address] [place] [address] NJX EA CENTER LEVELS SEQL IV PUSH SBST/DRUG FAC THERAPEUT 21957 L[facility] SLOAN IC MEDICAL MEDICAL INJECTION CENTER LEVELS IV PUSH EACH NEW DRUG INFUSION J7030 L[facility] SLOAN NORMAL [address] [place] [address] SALINE CENTER LEVELS SOLUTION 1000 CC INJECTION J2405 L[facility] SLOAN [address] [place] [address] ONDANSETR CENTER CENTER ON HCL PER 1 MG NONINVASI 07040 L[facility] SLOAN VE [address] [place] [address] EAR/PULSE CENTER LEVELS OXIMETRY SINGLE DETER BLOOD 62722 L[facility]HER HOUM COUNT MEDICAL COMPLETE CENTER LABORATOR AUTOMATED IES OF IN HOSPITAL G0378 L[facility] SLOAN OBSERVATI [address] [place] [address] MEDICAL ON CENTER CENTER SERVICE PER HOUR BASIC 76166 L[facility] SLOAN METABOLIC MEDICAL MEDICAL PANEL CENTER CENTER CALCIUM IONIZED INJ J2543 L[facility] SLOAN PIPERACIL [address] [place] [address] JOSELITO CENTER LEVELS SOD/TAZOB ACTAM SOD 1 G/0.125 G COLLECTIO 17781 LUTHER HOUM N VENOUS [address] [place] [address] BLOOD LEVELS LABORATOR VENIPUNCT IES OF IN URE INJECTION C9113 LUTHER SLOAN [address] [place] [address] PANTOPRAZ CENTER LEVELS OLE SODIUM PER VIAL THER 26349 L[facility]HER SLOAN PROPH/DX [address] [place] [address] MEDICAL NJX IV CENTER CENTER PUSH SINGLE/1S T SBST/DRUG INJECTION J1170 L[facility] SLOAN [address] [place] [address] HYDROMORP CENTER CENTER INDU UP TO 4 MG THER 12976 L[facility] SLOAN PROPH/DX [address] [place] [address] NJX IV CENTER CENTER PUSH SINGLE/1S T SBST/DRUG LOCM Q9967 L[facility] SLOAN 300-[address] [place] [address] MG/ML CENTER CENTER IODINE CONCENTRA TION PER ML COLLECTIO 13701 L[facility]HER SLOAN N VENOUS [address] [place] [address] BLOOD LEVELS CENTER VENIPUNCT URE URNLS DIP 12956 L[facility] SLOAN [address] [place] [address] STICK/TAB CENTER CENTER [place] [address] CRISTIANOSKYLERJM LUTHER LIPASE [address] [place] [address] [place] [address] LUTHER QUINONEZTRI AMYLASE [address] [place] [address] BLOOD 05274 CRISTIANOTRI SLOAN COUNT [address] [place] [address] COMPLETE [facility] AUTO&AUTO DIFRNTL WBC COMPREHEN 36604 CRISTIANOSKYLERJM LUTHER SIVE [address] [place] [address] METABOLIC [facility] PANEL NONINVASI 59030 LUTHER SLOAN VE [address] [place] [address] EAR/PULSE LEVELS [place] [address] LUTHER RIDDLE ABDOMEN & 4 PELVIS RADIOLOGY W/CONTRAS PLLC T MATERIAL BLOOD 69398 CRISTIANOTRI SLOAN OCCULT [address] [place] [address] [facility] E ACTV QUAL FECES 1-3 SPEC THERAPEUT 02639 LUTHER SLOAN IC [address] [place] [address] MEDICAL INJECTION CENTER LEVELS IV PUSH EACH NEW DRUG THER 72603 LTUHER SLOAN PROPH/DX [address] [place] [address] NJX EA [facility] SEQL IV PUSH SBST/DRUG FAC INFUSION J7030 L[facility]HER SLOAN NORMAL [address] [place] [address] SALINE [facility] SOLUTION [address] [place] [address] LUTHER SLOAN INFUSION [address] [place] [address] HYDRATION [facility] EACH ADDITIONA L HOUR INJECTION J2405 L[facility]HER SLOAN [address] [place] [address] ONDANSETR LEVELS CENTER ON HCL PER 1 MG DUP-SCAN 37519 LUTHER RIDDLE XTR VEINS 4 COMPLE[place] [address] LUTHER ROJAS HEAD/BRAI 4 NATY N W/[place] [address] LUTHER ROJAS ANGIOGRAP 4 NATY HY CHEST RADIOLOGY W/CONTRAS PLLC T/NONCONT RAST ECG 38778 LUTHER CARTY ROUTINE 4 CHR ECG [facility] W/LEAST HOSP 12 LDS I&R ONLY INITIAL 23393 [facility] 4 CARE/DAY [address] [place] [address] L[facility]HER LOPEZ TRACT UPR 4 EFRAIN W/SM INT RADIOLOGY W/MULT [facility] SERIAL IMAGES LEVEL V 78988 HARPER SHE HARPER SHE SURG 4 PATHOLOGY GROSS&ALEXIS ROSCOPIC EXAM OTHER 4513 L[facility] SLOAN ENDOSCOPY 4 [facility] MEDICAL OF SMALL CENTER CENTER INTESTINE SMALL-TO- 4591 LUTHER SLOAN SMALL 4 [facility] MEDICAL INTESTINA CENTER CENTER L ANASTOMOS IS OPEN AND 4389 LUTHER SLOAN OTHER 4 [facility] PARTIAL LEVELS CENTER GASTRECTO MY ISOLATION 4551 LUTHER SLOAN 4 MEDICAL MEDICAL SEGMENT LEVELS CENTER OF SMALL INTESTINE ANES IPR 75147 LUTHER VELAZQUEZ JR UPPER 4 MEDICAL RAY ABDOMEN CENTER LAPS INC GASTRIC RSTCV MO GASTRIC 68666 LUTHER QUIÑONEZ RSTCV 4 ASHA W/PRTL [facility] GASTRECTO HOSP MY 50-100 CM ESOPHAGOG 30908 LUTHER QUIÑONEZ ASTRODUOD 4 ASHA ENOSCOPY [facility] US SCOPE HOSP W/ADJ STRXRS ECG 75654 LUTHER CHUNG ROUTINE 4 DEN ECG [facility] W/LEAST HOSP 12 LDS I&R ONLY RADIOLOGI 87301 LUTHER SMALLS ANT C EXAM 4 CHEST 2 RADIOLOGY VIEWS [facility] FRONTAL&L ATERAL MEDICAL 23681 L[facility] SLOAN NUTRITION 4 THERAPY [facility] GRP2/ HOSP HOSP INDIV EA 30 NM HUMDIFIR E0562 [facility] M STORE M W/POS ARWAY PRESSURE DEVICE CONTINUOU E0601 [facility] S [facility] POSITIVE [facility] M STORE M AIRWAY PRESSURE DEVICE WALKING L4360 [facility] BOOT [facility] PNEUMATC [facility] M STORE M &/ VACUUM PREFAB CUSTM FIT CONTINUOU E0601 [facility] S [facility] M STORE M AIRWAY PRESSURE DEVICE FILTER A7038 [facility] DISPBL [facility] STORE M W/POS ARWAY PRESSURE DEVICE HUMDIFIR E0562 [facility]ATED [facility] US[facility] M STORE M W/POS ARWAY PRESSURE DEVICE FACE MASK A7031 [facility] INTERFACE STORE M STORE M REPLCMT FULL FACE MASK EA MRI BRAIN 87627 NARRA BAP NARRA BAP BRAIN 4 STEM W/O W/CONTRAS T MATERIAL INJECTION J1885 [facility] JONKAM 4 WOMENS COL KETOROLAC AND FAMILY [facility] INE PER 15 MG INJ J2930 [facility] JONKAM METHYLPRD 4 WOMENS COL NISOLONE AND SODIUM FAMILY SUCCNAT HEALTH TO 125 MG IIV3 VACC 49730 [facility] JONKAM 4 WOMENS COL PRESERVAT AND MARJ FREE FAMILY 0.5 ML HEALTH DOSAGE IM USE HUMDIFIR E0562 [facility]ATED [facility] M STORE M W/POS ARWAY PRESSURE DEVICE TUBING A7037 [facility] USED WITH [facility] POS[facility]IVE ST[facility] M STORE M AIRWAY PRESSURE DEVICE FULL FACE A7030 [facility] MASK [facility] M STORE M W/POS ARWAY PRESS DEVICE EA FILTER A7038 [facility] DISPBL [facility] M STORE M W/POS ARWAY PRESSURE DEVICE CONTINUOU E0601 [facility] S [facility] POSITIVE STORE M STORE M AIRWAY PRESSURE DEVICE POLYSOM 73255 LUTHER YUSUF LINCOLN 6/>YRS 4 SLEEP [facility] W/[facility] 4/> ADDL DEMETRICE ATTND RADIOLOGI 19590 RONY MACIAS C EXAM 4 RADIOLOGY PETERSON CHEST 2 SERVICES VIEWS FRONTAL&L ATERAL ECHO 61552 LUTHER SLOAN TTC R-T 4 MEDICAL MEDICAL 2D CENTER CENTER W/WOM-MOD E COMPL SPEC&COLR D EGD 72728 LUTHER QUIÑONEZ TRANSORAL 4 ASHA BIOPSY [facility] SINGLE/MU HOSP LTIPLE ANES 03136 LUTHER GRANT EZ UPPER GI 4 MEDICAL ENDOSCOPY CENTER [place] [address] LUTHER DOSS JLUIS SURG 4 PATHOLOGY [facility] GROSS&ALEXIS ROSCOPIC EXAM SPECIAL 48595 LUTHER DOSS JLUIS STAIN 4 GROUP 1 [facility] MICROORGA HOSP NISMS I&R ECG 08531 JUANA CISSE ROUTINE 4 N ALICE ECG EMERGENCY W/LEAST PHYSICI 12 LDS I&R ONLY MRI 34410 JUANA ARIAS SPINAL 4 N A R H N A R H CANAL LUMBAR W/O CONTRAST MATERIAL ECG 75743 L[facility]HER HANDSHOE ROUTINE 4 R ECG [facility] W/LEAST HOSP 12 LDS W/I&R 25 06336 LUTHER SLOAN HYDROXY 4 [facility] FRACTIONS IF PERFORMED COLLECTIO 67793 LUTHER SLOAN N VENOUS [address] [place] [address] BLOOD [facility] [address] LUTHER SLOAN THYROID [address] [place] [address] STIMULATI [facility] NG HORMONE TSH COMPREHEN 04770 LUTHER SLOAN SIVE [address] [place] [address] METABOLIC CENTER CENTER PANEL BLOOD 22248 LUTHER SLOAN COUNT [address] [place] [address] COMPLETE LEVELS CENTER AUTO&AUTO DIFRNTL WBC HEMOGLOBI 35158 LUTHER SLOAN N [address] [place] [address] GLYCOSYLA LEVELS [place] [address] JUANA ARIAS PROLACTIN 4 N A R H N A R H BLOOD 65904 JUANA ARIAS COUNT 4 N A R H N A R H COMPLETE AUTO&AUTO DIFRNTL WBC GONADOTRO 95630 JUANA ARIAS PIN 4 N A R H N A R H FOLLICLE STIMULATI NG HORMONE BASIC 54518 JUANA ARIAS METABOLIC 4 N A R H N A R H PANEL CALCIUM TOTAL TESTICULA 73642 JUANA ARMASLeida R IMAGING 4 N [place] [address] JUANA ARIAS THYROID 4 N A R H N A R H STIMULATI NG HORMONE TSH LIPID 55399 JUANA ARMASLeida PANEL 4 N A R H N A R H RADEX 39380 JUANA ARIAS SPINE 4 N A R H N A R H LUMBOSACR AL MINIMUM 4 VIEWS TECHNETIU A9512 JUANA ARIAS M TC-99M 4 N A R H N A R H PERTCHNET ATE DX PER MILLICURI E HEPATIC 33814 JUANA ARIAS FUNCTION 4 [place] [address] JUANA ARIAS PROSTATE 4 N A R H N A R H SPECIFIC ANTIGEN TOTAL COLLECTIO 44040 JUANA ARIAS N VENOUS 4 N A R H N A R H BLOOD VENIPUNCT URE CYANOCOBA 43394 JUANA ARIAS NICHOLAS 4 N A R H N A R H VITAMIN B-12 GONADOTRO 68808 JUANA ARIAS PIN 4 N A R H N A R H LUTEINIZI NG HORMONE TDAP 50519 [facility] JONKAM VACCINE 7 4 [facility] [place] COL YRS/> IM CLINIC URNLS DIP 27484 [facility] JONKAM 4 [place] COL STICK/TAB CLINIC LET RGNT NON-AUTO W/O MICRSCP Encounters Encounter Start End Date Code Location Performer Type Date EMERGENCY 10567 [facility] DRONE 6 6 PRATIBHA DEPARTMEN EMERGENCY T VISIT PHYS HIGH/URGE NT SEVERITY EMERGENCY 22552 SAVANNAH HOPPER [address] [facility] T VISIT HIGH/URGE NT SEVERITY [facility] RADHA - 6 6 [facility] OUTPATIEN [facility] RADHA - 5 5 [facility] OUTPATIEN [facility] OFFICE 66475 CARDIOVAS SUSAN OUTPATIEN 5 5 CULAR MAT T NEW 60 CONSULTAN MINUTES [facility] RADHA - 5 5 [facility] OUTPATIEN [facility] RADHA - 5 5 [facility] OUTPATIEN [facility] EMERGENCY 52384 SAVANNAH HOPPER DEPT 5 5 PHYSICIAN ALEXIS VISIT [facility] HIGH SEVERITY& THREAT [facility] RADHA - 5 5 [facility] OUTPATIEN INC T EMERGENCY 68408 RADHA 5 5 [facility] DEPARTMEN INC T VISIT HIGH/URGE NT SEVERITY OFFICE 60654 RADHA DIAL OUTPATIEN [address] [facility] T VISIT HOSPITAL 15 MINUTES OFFICE 55211 RADHA DIAL OUTPATIEN [address] [facility] T VISIT [facility] 15 MINUTES HOSPITAL WILLIAMSO - 5 5 N A R H OUTPATIEN T OFFICE 07498 [facility] PASTORA OUTPATIEN 5 5 WOMEN T VISIT AND 25 FAMILY MINUTES HEALTH OFFICE 94316 [facility] BLADE BUCHANAN OUTPATIEN 5 5 [place] T VISIT [facility] 15 ASSOC [facility] WILLIAMSO - 5 5 N A R H OUTPATIEN T EMERGENCY 84465 JUANA CISSE 5 5 N ALICE DEPARTMEN EMERGENCY T VISIT PHYSICI HIGH/URGE NT SEVERITY EMERGENCY 38856 JUANA 5 5 N A R H DEPARTMEN T VISIT LOW/MODER SEVERITY [facility]OSPITAL [facility] - 5 5 MEDICAL OUTPATIEN CENTER T OFFICE 75508 LUTHER BETANCOURT [facility] MED[facility] T VISIT CENTER 25 INC MINUTES HOSPITAL LUTHER - 5 5 MEDICAL OUTPATIEN CENTER T EMERGENCY 94892 [facility] DEPT 5 5 PRATIBHA VISIT EMERGENCY HIGH SERV SEVERITY& THREAT [facility] LUTHER - OTHER 5 5 [facility] LUTHER - 5 5 MEDICAL OUTPATIEN CENTER T EMERGENCY 95853 LUTHER DEPT 5 5 MEDICAL VISIT CENTER HIGH SEVERITY& THREAT [facility] LUTHER - 5 5 MEDICAL OUTPATIEN CENTER T EMERGENCY 53046 DERIC ESPINOZAATRCody DEPT 5 5 CK ANIKA CK ANIKA VISIT HIGH SEVERITY& THREAT [facility] LUTHER - 5 5 [facility] L[facility] - OTHER 5 5 [facility] LUTHER - 5 5 [facility] EMERGENCY 48246 VORBIANCA VORKPOR DEPT 5 5 [facility] VISIT HIGH SEVERITY& THREAT FUN EMERGENCY 30983 BELINDA TREVINO 5 5 [facility] VISIT MODERATE SEVERITY HOSPITAL LUTHER - 5 5 [facility]INT [facility] OFFICE 63640 [facility] PASTORA OUTPATIEN 4 4 WOMENS COL T VISIT AND 15 FAMILY MINUTES HEALTH EMERGENCY 79781 MAHENDRA MCCRAY DEPT 4 4 RAYNE RAYNE VISIT HIGH SEVERITY& THREAT [facility] LUTHER - 4 4 JOINT V[facility]URE [facility] EMERGENCY 63181 LUTHER 4 4 [facility] VISIT HIGH/URGE NT SEVERITY EMERGENCY 06567 [facility] DE[facility] 4 4 [facility] VISIT HIGH SEVERITY& THREAT [facility] LUTHER - 4 4 [facility] L[facility] - 4 4 MEDICAL INPATIENT CENTER OFFICE 65605 LUTHER QUIÑONEZ OUTPATIEN 4 4 ASHA T VISIT [facility] 25 HOSP MINUTES OFFICE 72149 LUTHER QUIÑONEZ OUTPATIEN 4 4 ASHA T VISIT 5 [facility] MINUTES HOSP OFFICE 70675 GUTTI SUJ GUTTI SUJ OUTPATIEN 4 4 T VISIT 15 MINUTES OFFICE 50095 ARH PASTORA OUTPATIEN 4 4 WOMENS COL T VISIT AND 15 FAMILY MINUTES HEALTH EMERGENCY 93818 JUANA 4 4 N A R H DEPARTMEN T VISIT MODERATE SEVERITY HOSPITAL JUANA 4 4 N A R H OUTPATIEN T EMERGENCY 01973 [facility] 4 4 N THO DEPARTMEN EMERGENCY T VISIT PHYSICI HIGH/URGE NT SEVERITY OFFICE 18266 GUTTI SUJ GUTTI SUJ OUTPATIEN 4 4 T NEW 45 MINUTES OFFICE 45488 [facility] JONKAM OUTPATIEN 4 4 WOMENS COL T VISIT AND 15 [facility] LUTHER Rodriguez 4 MEDICAL OUTPATIEN CENTER T EMERGENCY 06136 JUANA BLOOD DEPT 4 4 N THO VISIT EMERGENCY HIGH PHYSICI SEVERITY& THREAT [facility] JUANA Daugherty 4 4 N A R H OUTPATIEN T EMERGENCY 60097 JUANA 4 4 N A R H DEPARTMEN T VISIT HIGH/URGE NT SEVERITY OFFICE 51888 LUTHER MAGAÑA 4 4 MEDICAL T VISIT CENTER 15 [facility] LUTHER Rodriguez 4 MEDICAL OUTPATIEN CENTER T OFFICE 27314 METTU LINCOLN METTU [facility]COL[facility] CONSULTAT 4 4 ION NEW/ESTAB PATIENT 60 MIN OFFICE 76175 [facility] BROOKS OUTPATIEN 4 4 WOMENS PHI T NEW [address] [facility] LUTHER Rodriguez 4 MEDICAL OUTPATIEN CENTER T OFFICE 30164 [facility] JONKAM OUTPATIEN 4 4 WOMENS COL T VISIT AND 15 [facility] EMERGENCY 64249 JUANA CISSE DEPT 4 4 N ALICE VISIT EMERGENCY HIGH PHYSICI SEVERITY& THREAT FUN EMERGENCY 55911 JUANA 4 4 N A R H DEPARTMEN T VISIT MODERATE SEVERITY [facility] CHANDAO - 4 4 N A R H OUTPATIEN T [facility] CHANDAO - 4 4 N A R H OUTPATIEN T OFFICE 49758 LUTHER CHRISTIANSON OUTPATIEN 4 4 T NEW 10 [facility] MINUTES HOSP OFFICE 28723 LUTHER ODOM OUTPATIEN 4 4 R T NEW 30 [facility] MINUTES HOSP OFFICE 45387 ANNETTE ANNE 4 4 WOMENS COL T VISIT AND 15 FAMILY MINUTES [facility] LUTHER CARMONA 4 4 [facility] OFF[facility] 63327 LUTHER SUNPATIEN 4 4 ASHA T NEW 45 [facility]OISM MINUTES [facility] JUANA - 4 4 N A R H OUTPATIEN T OFFICE 98986 ANNETTE SUNPATIBROOK 4 4 [place] [place] COL T NEW 45 CLINIC MINUTES
--- OUTSIDE RECORDS SUMMARY | 2017-06-21 23:46 | External Medical Summary Rpt | CCD ---
Author Author , ANA PEREZ Address Unknown Phone [email or web address] Care Team Providers Care Parts Counter Sales Person Name Role Phone [facility], Unavailable Unavailable [facility], [facility]available Unavailable [facility], Unavailable Unavailable [facility] Unavailable Unavailable [facility], [facility] Unavailable Unavailable [facility], [facility] SELAM JLUIS, SELAM JLUIS Unavailable Unavailable BRENDA ALEXIS, BRENDA ALEXIS Unavailable Unavailable BESSON OMAR, BESSON Unavailable Unavailable OMAR SERRANO ALL, SERRANO ALL Unavailable Unavailable [facility], Unavailable Unavailable [facility] Unavailable Unavailable [facility], [facility] WILMER RUELAS, WILMER Unavailable Unavailable JESSENIA JUANITA EZ, JUANITA EZ Unavailable Unavailable JUANITA RAN, JUANITA RAN Unavailable Unavailable HARPER SHE, HARPER SHE Unavailable Unavailable [facility], Unavailable Unavailable [facility] JAYRO ALEXIS, JAYRO Unavailable Unavailable ALEXIS BETANCOURT DEL, BETANCOURT DEL Unavailable Unavailable DRONEN, DRONEN Unavailable Unavailable FALLUJI VALERIANO, FALLUJI Unavailable Unavailable VALERIANO FICKLIN LUNAN, FICKLIN Unavailable Unavailable LUANN TREVINO JANES, TREVINO [...] [facility] Unavailable Unavailable INC, [facility] Unavailable [facility], [facility] DAVID CHAPA Unavailable Unavailable [facility], Unavailable Unavailable [facility] KHANG ASHA, KHANG Unavailable Unavailable ASHA JONKAM, JONKAM Unavailable Unavailable JONKAM COL, JONKAM Unavailable Unavailable [facility] Unavailable Unavailable IM[facility], [facility] SESAR ANIKA, Unavailable Unavailable [...] [facility], Unavailable Unavailable [facility], [facility], [facility] Unavailable Unavailable [facility] Unavailable Unavailable [facility], [facility] Un[facility] Unavailable [facility], [facility] Unavailable Unavailable PLLC, [facility] JESSICA EFRAIN, JESSICA Unavailable Unavailable EFRAIN NIKOLE MAR, NIKOLE Unavailable Unavailable MAR REITMAN PETERSON, REITMAN Unavailable Unavailable PETERSON CARTY CHR, Unavailable Unavailable CARTY CHR SUSAN MAT, Unavailable Unavailable SUSAN MAT MARCUS, JR RAY, MARCUS, Unavailable Unavailable [facility] Unavailable Un[facility], [facility], [facility] Unavailable Unavailable [...] FEVER 09-03-2016 [facility] UNSPECIFIED N [facility] PH[facility] [id number] CELLULITIS 05-08-2016 [facility], LOWER LIMB [facility] [id number] PAIN IN 05-08-2016 [facility] [id number] CONTUSION 05-08-2016 [facility], KNEE [facility] INITIAL ENCOUNTER E669 OBESITY 10-01-2015 [facility]NSPECIFIED [facility] INC I499 CARDIAC 10-01-2015 [facility] ARRHYTHMIA [facility] UNSPECIFIED INC R079 CHEST PAIN 10-01-2015 [facility] UNSPEC[facility]IED [facility]ANS GROUP R9431 ABNORMAL 10-01-2015 [facility] ELECTROCARD [facility] IOGRAM INC R9439 ABNORMAL 09-08-2015 [facility] RESULT OT [facility] CARDIOVASCU INC LR FUNCTION STUDY E785 HYPERLIPIDE 08-30-2015 [facility] JI LAR UNSPECIFIED CONSULTANTS O R008 OTHER 08-30-2015 [facility] ABNORMALITI LAR ES OF HEART CONSULTANTS BEAT O R030 ELEVATED 08-30-2015 [facility] BLOOD-PRESS LAR URE READING CONSULTANTS WITHOUT DX O HTN K859 ACUTE 08-27-2015 [facility] PANCREATITI [facility] INC UNSPECIFIED Z9884 BARIATRIC 08-27-2015 [facility] SUR[facility]ERY [facility] STATUS INC K858 OTHER ACUTE 08-12-2015 [facility], PANCREATITI PLL S R1013 EPIGASTRIC 08-12-2015 [facility] [facility] J0190 ACUTE 07-24-[address] [place] [address] [facility] J029 ACUTE 07-16-2015 [facility] PHARYNGITIS [facility] UNSPECIFIED R05 COUGH 07-16-2015 [facility] Z0100 ENCOUNTER 06-26-2015 [facility] EXAM EYES & GRE VISION W/O ABNORMAL FIND 53955 OBSTRUCTIVE 04-30-2015 [facility] SLEEP AND FAMILY [facility] 340 MULTIPLE 04-30-2015 [facility] SCLEROSIS AND FAMILY HEALTH 55432 MIGRAINE 04-30-2015 [facility] UNSP W/O A R H INTRACT W/O STATUS MIGRAINOSUS 3559 MONONEURITI 04-30-2015 [facility] Mendez OF A R H UNSPECIFIED SITE 4011 ESSENTIAL 04-30-2015 [facility] HYPERTENSIO A R H N, BENIGN 4779 ALLERGIC 04-30-2015 [facility] RHINITIS A R H CAUSE UNSPECIFIED 09762 ESOPHAGEAL 04-30-2015 [facility] REFLUX A R H 7242 LUMBAGO 04-30-2015 [facility] A R H V4586 BARIATRIC 04-30-2015 [facility] SURGERY A R H STATUS 3829 UNSPECIFIED 03-02-2015 [facility] 4618 OTHER ACUTE 03-02-2015 [facility] SINUSITIS [facility] 4659 ACUTE URIS 02-23-2015 [facility] OF EMERGENCY UNSPECIFIED PHYSICI SITE 4019 UNSPECIFIED 01-29-2015 [place] [facility]YP[facility]O [facility] N 7243 SCIATICA 01-29-2015 [facility] 7245 UNSPECIFIED 01-29-2015 [place] [facility]HE [facility] 48208 UNSPECIFIED 01-29-2015 [place] SLEEP [facility]ICAL [facility] 85536 NAUSEA WITH 01-29-2015 [facility] VOMITING 77457 ABDOMINAL 01-29-2015 [place] PAIN, MEDICAL UNSPECIFIED CENTER SITE 79420 DIARRHEA 01-28-2015 [facility] 91223 ABDOMINAL 01-25-2015 [facility] PAIN, N EMERGENCY EPIGASTRIC SERV V725 RADIOLOGICA 01-25-2015 [facility] EXAMINATION [facility] NEC 2638 OTHER 01-07-2015 [place] PROTEIN-BEV MEDICAL ORIE [facility] MALNUTRITIO N 2689 UNSPECIFIED 01-07-2015 [place] VITAMIN D MEDICAL DEFICIENCY [facility] 02224 OBESITY, 01-07-2015 [facility] 77945 OTHER 01-07-2015 [place] MALAISE AND MEDICAL FATIGUE [facility] 93628 VOMITING 01-07-2015 [facility] 54119 ABDOMINAL 01-07-2015 [place] PAIN, LEFT MEDICAL UPPER CENTER QUADRANT V5883 ENCOUNTER 01-07-2015 [facility] THERAPEUTIC [facility] DRUG MONITORING 5680 PERITONEAL 11-03-2014 [facility] 43997 CHOLECYSTIT 11-03-2014 [facility], [facility] UNSPECIFIED HOSP 30225 CHRONIC 11-03-2014 [facility] CHOLECYSTIT SABIANIST IS HOSP 70420 ABDOMINAL 11-03-2014 [place] [facility] RIGHT [facility]IST UPPER HOSP QUADRANT 85085 ABDOMINAL 11-01-2014 [facility] PAIN, N EMERGENCY GENERALIZED SERV V8541 BODY MASS 11-01-2014 [place] INDEX [facility]ICAL 40.0-44.9 CENTER ADULT 5373 OTHER 10-14-2014 [place] OBSTRUCTION MEDICAL OF CENTER DUODENUM V8543 BODY MASS 10-14-2014 [facility] MEDICAL 50.0-59.9 CENTER ADULT 11838 MORBID 09-14-2014 [place] OBESITY [facility] CENTER 5303 STRICTURE 09-14-2014 [facility] AND [facility] STENOSIS OF HOSP ESOPHAGUS 5780 HEMATEMESIS 08-09-2014 [facility] 68350 HEMORRHAGE 08-08-2014 [facility] COMPLICATIN G A PROCEDURE NEC 9989 UNSPECIFIED 08-08-2014 [facility] COMPLICATIO N OF PROCEDURE NEC V5863 LONG-TERM 11-29-2014 [facility] USE OF MEDICAL ANTIPLATELE CENTER T/ANTITHROM BOTIC V5869 LONG-TERM 08-08-2014 [facility] (CURRENT) MEDICAL USE OF CENTER OTHER MEDICATIONS 29394 MIGRAINE 08-01-2014 [facility] UNS W/INTRACTAB L W/O STATUS MIGRAINOSUS 7840 HEADACHE 08-01-2014 [facility] 53747 OTHER 07-29-2014 [place] [facility] 5180 PULMONARY 07-29-2014 [facility] V7284 UNSPECIFIED 07-24-2014 [facility] PRE-OPERATI HOSP VE EXAMINATION V691 PROBS 07-20-2014 [facility] RELATED SABIANIST INAPPROPRIA HOSP TE DIET&EATING HABITS 55186 OTH 06-22-2014 [facility] ABNORMAL BRAIN & CUSTOMER SUCCESS ADVOCATE FUNCTION STUDY 10187 UNSPECIFIED 06-17-2014 [facility] SITE OF [facility] M SPRAIN AND STRAIN 25060 PAIN IN 06-10-2014 [facility] WOMENS JOINT, AND FAMILY ANKLE AND HEALTH FOOT V0481 NEED 06-10-2014 [facility] WOMENS PROPHYLACTI AND FAMILY C HEALTH VACCINATION &INOCULATIO N FLU 8449 SPRAIN&STRA 06-09-2014 [facility] IN OF EMERGENCY UNSPECIFIED PHYSICI SITE OF KNEE&LEG 7820 DISTURBANCE 05-27-2014 [facility] SUJ OF SKIN SENSATION 14815 OTHER 05-12-2014 [place] [facility]YSPNE[facility] [place] [facility] [address] LEUKOCYTOSI 03-26-2014 [facility] S EMERGENCY UNSPECIFIED PHYSICI 45066 FEVER 03-26-2014 [facility] UNSPECIFIED EMERGENCY PHYSICI 7862 COUGH 03-26-2014 [place] [address] NAUSEA 03-26-2014 [facility] ALONE A R H V653 DIETARY 03-18-2014 [place] [facility] COUNSELING V6540 COUNSELING 03-18-2014 [facility] 4293 CARDIOMEGAL 03-09-2014 [facility] A[facility] Y 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 52872 SHORTNESS 03-09-2014 [facility] 43067 HYPERSOMNIA 02-24-2014 [facility] WITH SLEEP [facility]NE[facility] UNSPECIFIED 3551 MERALGIA 02-20-2014 [facility] WOMENS PARESTHETIC AND FAMILY A HEALTH 7202 SACROILIITI 02-20-2014 [facility] WOMENS S NOT AND FAMILY ELSEWHERE HEALTH CLASSIFIED 7231 CERVICALGIA 02-20-2014 [facility] WOMENS AND FAMILY HEALTH 8438 SPRAIN&STRA 02-20-2014 [facility] WOMENS IN OTHER AND FAMILY SPECIFIED HEALTH SITES HIP&THIGH 25236 ACUTE 02-18-2014 [place] [facility]ITIS [facility] 97334 ULCER OF 02-18-2014 [facility] ESOPHAGUS [facility]IST WITHOUT HOSP BLEEDING 12042 GASTR ULCR 02-18-2014 [facility] MEDICAL ACUT/CHRN CENTER W/O HEMOR PERF/OBST 00986 ATROPHIC 02-18-2014 [facility] GASTRITIS [facility] WITHOUT HOSP MENTION OF HEMORRHAGE 44578 UNS 02-18-2014 [facility] GASTRITIS&G SABIANIST ASTRODUODIT HOSP IS W/O MENTION HEMORR 21226 DUODENITIS 02-18-2014 [facility] WITHOUT SABIANIST MENTION OF HOSP HEMORRHAGE 7823 EDEMA 02-18-2014 [facility] 7226 DEGENERATIO 02-17-2014 [facility] WOMENS N AND FAMILY INTERVERTEB HEALTH RAL DISC SITE UNSPEC 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 UNSPECIFIED 6011 CHRONIC 02-11-2014 [facility] PROSTATITIS [facility] 6069 UNSPECIFIED 02-11-2014 [facility] MALE [facility] INFERTILITY HOSP 6089 UNSPECIFIED 02-11-2014 [facility] DISORDER [facility]IST OF MALE HOSP GENITAL ORGANS V7281 PRE-OPERATI 02-05-2014 [facility] VE [facility]IST CARDIOVASCU HOSP LAR EXAMINATION 22807 OTHER 01-19-2014 [place] ABNORMAL MEDICAL GLUCOSE CENTER 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 43018 OTHER 12-18-2013 [facility] SPECIFIED A R H DISORDER OF MALE GENITAL ORGANS 7881 DYSURIA 12-18-2013 [facility] A [facility] V061 NEED PROPH 12-17-2013 [facility] ALLAN VAC W/COMB CO CLINIC DIPHTH-TETA NUS-PERTUSS [...] ve LO 37 20 20 16 AI UT 40 17 17 04 D AM 1 [...] ve LO 37 20 20 16 AI UT 40 17 17 04 D AM 1 [...] ve TA 80 20 20 12 AI OH 00 17 17 97 D N 0 58 PH A AR 10 MA ,0 CY 00 #3 UN 93 IT 8 SF TG L ES 65 01 02 30 30 00 RI Ac CI 86 -1 -0 .0 00 TE ti TA 20 0- 3- 00 01 ve LO 37 20 20 16 AI UT 40 17 17 04 D AM 1 [...] Below complet c 014 .022 low ed Jackson 22:17 normal Appeara 03-26-2 CLEAR CLEAR Normal [...] Below complet c 013 .022 low ed Jackson 14:33 normal Appeara 30-2 CLEAR CLEAR Normal [...] Procedure DOS Code Location Performer Comment RADIOLOGI 37601 [place] [facility] C 6 MEDICAL EXAMINATI IMAGING ON KNEE 3 ASS VIEWS MYOCARDIA 26452 [facility] GARCIA L SPECT 6 [facility] MULTIPLE INC INC STUDIES CV STRS 13955 [facility] FALLUJI TST 6 PHYSICIAN VALERIANO XERS&/OR S GROUP RX CONT ECG W/O I&R CV STRS 49558 [facility] GARCIA TST 6 [facility] XERS&/OR INC INC RX CONT ECG TRCG ONLY TECHNETIU A9500 RADHA GARCIA M TC-99M 6 [facility] SESTAMIBI INC INC DX PER STUDY DOSE ECHO 20712 [place] NADIG VID TTHRC R-T 5 MEDICAL 2D SERV W/WOM-MOD FOUNDATIO E COMPL N SPEC&COLR D ECG 65526 RADHA GARCIA ROUTINE 5 [facility] ECG INC INC W/LEAST 12 LDS TRCG ONLY W/O I&R CREATINE 45602 RADHA GARCIA KINASE 5 [facility] TOTAL INC INC LIPID 31853 RADHA GARCIA PANEL 5 [place] [address] RADHA GARCIA LIPASE 5 [facility]OS[facility] INC INC COLLECTIO 43204 RADHA GARCIA N VENOUS 5 [facility] BLOOD INC INC VENIPUNCT URE COMPREHEN 69252 RADHA GARCIA SIVE 5 [facility] METABOLIC INC INC PANEL BLOOD 60641 RADHA GARCIA COUNT 5 [facility] COMPLETE INC INC AUTO&[place] [address] RADHA GARCIA THYROID 5 [facility] MEM HOSP STIMULATI [place] [address] RADHA RADHA AMYLASE 5 [facility] INC INC CREATINE 17413 RADHA RADHA KINASE MB 5 [facility] [address] RADHA RADHA FREE 5 [facility] [place] [address] RADHAIRENE GARCIA TROPONIN 5 [facility] QUANTITAT INC INC MARJ THERAPEUT 28883 RADHA GARICA IC 5 [facility] INJECTION INC INC IV PUSH EACH NEW DRUG THER 53224 RADHA GARCIA PROPH/DX 5 [facility] NJX IV INC INC PUSH SINGLE/1S T SBST/DRUG ECG 05784 RADHA GARCIA ROUTINE 5 [facility] ECG INC INC W/LEAST 12 LDS TRCG ONLY W/O I&[place] [address] RADAH GARCIA ABDOMEN & 5 [facility] PELVIS INC INC W/O CONTRAST MATERIAL CREATINE 96446 RADHA GARCIA KINASE 5 [facility] [place] [address] RADHAIRENE GARCIA LIPASE 5 [facility] INC INC ECG 30417 BJ USSON ROUTINE 5 OMAR OMAR ECG W/LEAST 12 LDS I&R ONLY RADIOLOGI 03304 RADHA GARCIA C EXAM 5 [facility] CHEST 2 INC INC VIEWS FRONTAL&[place] [address] RADHA GARCIA TROPONIN 5 [facility] QUANTITAT INC INC MARJ BLOOD 08107 RADHA GARCIA COUNT 5 [facility] COMPLETE INC INC AUTO&AUTO DIFRNTL WBC CREATINE 75372 RADHA GARCIA KINASE MB 5 [facility] [place] [address] RADHA GARCIA AMYLASE 5 [facility] INC INC COMPREHEN 58882 RADHA GARCIA SIVE 5 [facility] METABOLIC INC INC PANEL INJECTION J1040 RADHA MOORERON 5 [facility] DNISOLONE ACETATE 80 MG THERAPEUT 73246 RAD[facility] DIAL IC [address] [place] [address] TIC/DX INJECTION SUBQ/IM IAADIADOO 51275 RADHA MOORERON [address] [place] [address] CCUS GROUP A OPHTH 50451 [place] [address] GRE GRE XM&EVAL COMPRE NEW PT 1/> VST [facility] G0463 JUANA ARIAS OUTPATIEN 5 N A R H N A R H T CLIN VISIT ASSESS & MGMT PT RINGERS J7120 [facility] LACT[facility] [address] [place] [address] INFUSION [facility] UP TO 1000 CC ANES 38495 NIKOLE NIKOLE UPPER GI 5 Nov ENDOSCOPY PROXIMAL TO DUODENUM INJECTION J2250 [facility] [address] [place] [address] MIDAZOLAM [facility] HCL PER 1 MG INJECTION J2405 [facility] [address] [place] [address] ONDANSETR [facility] ON HCL PER 1 MG ESOPHAGOG 20996 LEXUSAYA CHAAYA ASTRODUOD 5 JESSENIA JESSENIA [place] [address] [facility] INFUSION [address] [place] [address] HYDRATION [facility] [place] [address] [facility] RIDDLE ABDOMEN & 5 PELVIS RADIOLOGY W/CONTRAS PLLC T MATERIAL ECG 11594 [facility] ROUTINE PRATIBHA ECG EMERGENCY W/LEAST SERV 12 LDS I&R ONLY COMPREHEN 36743 [facility] SIVE [address] [place] [address] METABOLIC [place] [address] [facility] VITAMIN A [address] [place] [address] [place] [address] [facility] THYROID [address] [place] [address] STIMULATI [facility] NG HORMONE TSH LIPID 68280 [facility] PANEL [address] [place] [address] BLOOD 38641 [facility] COUNT [address] [place] [address] COMPLETE [facility] AUTO&[place] [address] [facility] VITAMIN K [address] [place] [address] PREALBUMI 66789 [facility] N [address] [place] [address] [place] [address] [facility] FOLIC 5 [facility] [place] [address] CRISTIANOSKYLERJM [facility] IRON [address] [place] [address] MEDICAL CENTER CENTER COLLECTIO 34993 MONEJM [facility] N VENOUS [address] [place] [address] BLOOD [facility] CENTER VENIPUNCT URE 25 30954 CRISTIANOSKYLERJM L[facility] HYDROXY [address] [place] [address] INCLUDES [facility] FRACTIONS IF PERFORMED CYANOCOBA 39481 [facility] NICHOLAS [address] [place] [address] VITAMIN CENTER CENTER B-[address] [place] [address] CRISTIANOSKYLERJM L[facility] THIAMINE- [address] [place] [address] VITAMIN CENTER ALUM BANK B-1 COLLECTIO 75692 CRISTIANOSKYLERJM [facility] N VENOUS [address] [place] [address] BLOOD [facility] CENTER VENIPUNCT URE INJECTION J1644 [facility] HEPARIN [address] [place] [address] SODIUM [facility] PER 1000 UNITS THERAPEUT 98073 [facility] IC [address] [place] [address] PROPHYLAC CENTER ALUM BANK TIC/DX INJECTION SUBQ/IM BLOOD 19456 [facility] COUNT [address] [place] [address] COMPLETE CENTER ALUM BANK AUTOMATED BLOOD 93439 [facility] COUNT [address] [place] [address] COMPLETE [facility]ENTER AUTOMATED COMPREHEN 22340 [facility] SIVE [address] [place] [address] METABOLIC CENTER CENTER PANEL INJECTION J2060 [facility] [address] [place] [address] LORAZEPAM CENTER CENTER 2 MG THERAPEUT 06718 [facility] CHENC IC MEDICAL E INJECTION CENTER ADVANTAGE IV PUSH EACH NEW DRUG INJECTION J2405 [facility] [address] [place] [address] ONDANSETR CENTER CENTER ON HCL PER 1 MG THER 23458 [facility] COMPLSALMAC PROPH/DX [address] [place] [address] E NJX EA CENTER ADVANTAGE SEQL IV PUSH SBST/DRUG FAC THERAPEUT 27736 [facility] IC [address] [place] [address] MEDICAL PROPHYLAC CENTER CENTER TIC/DX INJECTION SUBQ/IM INJECTION J1644 [facility] HEPARIN [address] [place] [address] SODIUM [facility] PER 1000 UNITS RINGERS J7120 [facility] S[facility] LACTATE [address] [place] [address] MEDICAL INFUSION CENTER ALUM BANK UP TO 1000 CC COLLECTIO 23138 [facility] N VENOUS [address] [place] [address] BLOOD CENTER CENTER VENIPUNCT URE LEVEL III 14017 [facility] SURG [address] [place] [address] PATHOLOGY CENTER CENTER GROSS&ALEXIS ROSCOPIC EXAM ANES 38285 [facility] DE LEÓNIMES INTRAPERI [address] [place], [place] [address]A TONEAL ALUM BANK UPPER INC ABDOMEN W/LAPS NOS RINGERS J7120 [facility] LACTATE [address] [place] [address] INFUSION [facility] UP TO 1000 CC INJECTION J1644 [facility] HEPARIN [address] [place] [address] SODIUM [facility] CENTER PER 1000 UNITS INJECTION J1170 [facility] [address] [place] [address] HYDROMORP [facility] INDU UP TO 4 MG THERAPEUT 01269 [facility] IC [address] [place] [address] PROPHYLAC [facility] TIC/DX INJECTION SUBQ/IM INJECTION C9113 [facility] [address] [place] [address] PANTOPRAZ [facility] OLE SODIUM PER VIAL THER [id number] L[facility] SLOAN PROPH/DX [address] [place] [address] NJX EA CENTER ALUM BANK SEQL IV PUSH SBST/DRUG FAC INJECTION [id number] [facility] [address] [place] [address] KETOROLAC [facility] TROMETHAM INE PER 15 MG INJECTION [id number] [facility] SLOAN FENTANYL [address] [place] [address] CITRATE [facility] 0.1 MG NONINVASI [id number] L[facility] SLOAN VE [address] [place] [address] EAR/PULSE CENTER ALUM [facility]ANK OXIMETRY OVERNIGHT MONITOR THERAPEUT [id number] [facility] SLO[facility] IC [address] [place] [address] MEDICAL INJECTION CENTER ALUM [facility]ANK IV PUSH EACH NEW DRUG INJECTION [id number] [facility] S[facility] [address] [place] [address] MIDAZOLAM [facility] HCL PER 1 MG INJECTION J2270 [facility] S[facility] MORPHINE [address] [place] [address] SULFATE [facility] UP TO 10 MG LAPAROSCO [id number] [facility] SLO[facility] PY SURG [address] [place] [address] CHOLECYST [facility] ECTOMY INJECTION J2550 [facility] S[facility] [address] [place] [address] PROMETHAZ [facility] INE HCL UP TO 50 MG INJECTION J2405 [facility] SLO[facility] [address] [place] [address] ONDANSETR [facility] ON HCL PER 1 MG INJECTION J2405 [facility] SLO[facility] [address] [place] [address] ONDANSETR CENTER CENTER ON HCL PER 1 MG HEPATOBIL 18153 [facility] SLO[facility] CENTER GB W/PHARMA INTERVENJ INJECTION J2550 [facility] SLO[facility] [address] [place] [address] PROMETHAZ [facility] INE HCL UP [place] [address] [place] [address] [facility] SLO[facility] ABDOMINAL [address] [place] [address] MEDICAL REAL CENTER CENTER TIME W/IMAGE LIMITED THERAPEUT 02652 [facility] IC [facility]ICAL MEDICAL INJECTION CENTER [place] [address] [facility] SLO[facility] ABDOMEN & [address] [place] [address] MEDICAL PELVIS CENTER CENTER W/CONTRAS T MATERIAL INJECTION J1885 [facility] SLO[facility] [address] [place] [address] KETOROLAC CENTER ALUM BANK TROMETHAM INE PER 15 MG THER [id number] [facility] SLOAN PROPH/DX [address] [place] [address] NJX EA CENTER CENTER SEQL IV PUSH SBST/DRUG FAC INJECTION C9113 [facility] S[facility] [address] [place] [address] MEDICAL PANTOPRAZ CENTER ALUM BANK OLE SODIUM PER VIAL TECHNETIU [id number] [facility] Coates [id number] [address] [place] [address] N DX UP TO 15 MCI LOCM Q9967 [facility] SLOAN [phone] [place] [address] MG/ML CENTER CENTER IODINE CONCENTRA TION PER ML THERAPEUT [id number] [facility] SLO[facility] IC [address] [place] [address] MEDICAL PROPHYLAC CENTER CENTER TIC/DX INJECTION SUBQ/IM INJECTION J1644 [facility] SLOAN HEPARIN [address] [place] [address] MEDICAL SODIUM CENTER ALUM BANK PER 1000 UNITS RINGERS J7120 [facility] ALUM BANK UP TO 1000 CC RINGERS J7120 [facility] ALUM BANK UP TO 1000 CC INJECTION J1644 [facility] SLOAN HEPARIN [address] [place] [address] MEDICAL SODIUM CENTER ALUM BANK PER 1000 UNITS THER [id number] [facility] SLOAN PROPH/DX [address] [place] [address] NJX IV CENTER CENTER PUSH SINGLE/1S T SBST/DRUG THERAPEUT 51282 LUTHER SLOAN IC [address] [place] [address] PROPHYLAC [facility] TIC/DX INJECTION SUBQ/IM COLLECTIO 40904 LUTHER SLOAN N VENOUS [address] [place] [address] BLOOD [facility] VENIPUNCT URE INJECTION C9113 L[facility] SLOAN [address] [place] [address] PANTOPRAZ [facility] [place] [address] L[facility]HER SLOAN LIPASE [address] [place] [address] INJECTION J1885 L[facility] SLOAN [address] [place] [address] KETOROLAC [facility] TROMETHAM INE PER 15 MG THER 25616 L[facility]HER SLOAN PROPH/DX [address] [place] [address] NJX EA [facility] SEQL IV PUSH SBST/[place] [address] L[facility]HER SLOAN INFUSION [address] [place] [address] HYDRATION [facility] EACH ADDITIONA L HOUR THERAPEUT 79205 L[facility] SLOAN IC [address] [place] [address] INJECTION [facility] IV PUSH EACH NEW DRUG NONINVASI 67411 L[facility] SLOAN VE [address] [place] [address] EAR/PULSE CENTER ALUM BANK OXIMETRY SINGLE DETER COMPREHEN 26188 L[facility] SLOAN SIVE [address] [place] [address] METABOLIC CENTER [facility] [id number] L[facility] SLOAN OBSERVATI [address] [place] [address] ON [facility] [place] [address] LUTHER SLOAN AMYLASE [address] [place] [address] INFUSION J7030 [facility] SLOAN NORMAL [address] [place] [address] SALINE [facility] SOLUTION 1000 CC INJECTION J2405 L[facility] SLOAN [address] [place] [address] ONDANSETR [facility] ON HCL PER 1 MG BLOOD 70032 L[facility] SLOAN COUNT [address] [place] [address] COMPLETE [facility] AUTO&[place] [address] [facility] WILSON BRA TRACT UPPER RADIOLOGY W/WO PLLC DELAYED IMAGES W/[place] [address] [facility] SLOAN INFUSION [address] [place] [address] HYDRATION [facility] EACH ADDITIONA L HOUR INJECTION J2250 [facility] SLOAN [address] [place] [address] MIDAZOLAM [facility] HCL PER 1 MG EGD 44720 [facility] SLOAN DILATION [address] [place] [address] GASTRIC/D CENTER CENTER UODENAL STRICTURE CATHETER C1726 LUTHER SLOAN BALLOON [address] [place] [address] DILATATIO [facility] N NON-VASCU LAR ANES 64239 L[facility] MORROW UPPER GI [address] [place] [address] ENDOSCOPY CENTER PROXIMAL INC TO DUODENUM RINGERS J7120 [facility] SLOAN LACTATE [address] [place] [address] INFUSION [facility] UP TO 1000 CC LIPID 32471 L[facility] SLOAN PANEL [address] [place] [address] [place] [address] L[facility] SLOAN THIAMINE- [address] [place] [address] VITAMIN [facility] B-1 CYANOCOBA 72765 L[facility] SLOAN NICHOLAS [address] [place] [address] VITAMIN [facility] B-12 COLLECTIO 13670 LUTHER SLOAN N VENOUS [address] [place] [address] BLOOD [facility] [place] [address] LUTHER SLOAN IRON [address] [place] [address] [place] [address] L[facility]HER SLOAN FOLIC [address] [place] [address] ACID [facility] SERUM PREALBUMI 04288 LUTHER SLOAN N [address] [place] [address] BLOOD 93803 L[facility] SLOAN COUNT [address] [place] [address] COMPLETE [facility] AUTOMATED COMPREHEN 20721 L[facility]HER SLOAN SIVE [address] [place] [address] [place]AB[place] [address] CRISTIANOTRI SMALLS ANT ABDOMINAL REAL RADIOLOGY TIME [facility] W/[place] [address] LUTHER SLOAN INFUSION [address] [place] [address] HYDRATION [facility] EACH ADDITIONA L HOUR INJECTION J2250 L[facility]HER SLOAN [address] [place] [address] MIDAZOLAM [facility] HCL PER 1 MG NONINVASI 83334 LUTHER SLOAN VE [address] [place] [address] EAR/PULSE [facility] OXIMETRY SINGLE DETER INJECTION J0330 L[facility] SLOAN [address] [place] [address] SUCCINYLC [facility] HOLINE CHLORIDE UP TO 20 MG INJECTION J3010 LUTHER SLOAN FENTANYL [address] [place] [address] CITRATE [facility] 0.1 MG INJECTION J2405 LUTHER SLOAN [address] [place] [address] ONDANSETR [facility] ON HCL PER 1 MG EGD 93091 LUTHER QUIÑONEZ BALLOON 5 ASHA DILATION [facility] <30 MM DIAM EGD 03182 LUTHER SLOAN DILATION 5 [facility] GASTRIC/D [facility] UODENAL STRICTURE CATHETER C1726 LUTHER SLOAN BALLOON 5 [facility] DILATATIO [facility] CENTER N NON-VASCU LAR ANES 77574 LUTHER HERNANDEZ UPPER GI 5 SNOW ENDOSCOPY [facility] PR[facility]AL HOS[facility] TO DUODENUM RINGERS J7120 L[facility]HER SLOAN LACTATE 5 [facility] INFUSION [facility] UP TO 1000 CC INJECTION J1100 L[facility] SLOAN [address] [place] [address] DEXAMETHO [facility] SONE SODIUM PHOSPHATE 1 MG CREATININ 41437 [facility] LAB TOX E BLOOD [address] [place] [address] INJECTION C9113 L[facility] SLOAN [address] [place] [address] PANTOPRAZ [facility] OLE SODIUM PER VIAL LOCM Q9967 LUTHER SLOAN 300-[address] [place] [address] MG/ML [facility] IODINE CONCENTRA TION PER ML COLLECTIO 05907 [facility] TOX N VENOUS [address] [place] [address] VENIPUNCT URE INJ J2543 LUTHER SLOAN PIPERACIL [address] [place] [address] JOSELITO [facility] SOD/TAZOB ACTAM SOD 1 G/0.125 G INJECTION J2550 L[facility]HER SLOAN [address] [place] [address] PROMETHAZ [facility] INE HCL UP TO 50 MG BLOOD 83519 LUTHER MILLENIUM COUNT [address] [place] [address] COMPLETE ALUM [facility]ANK LABORATOR [place] [address] LUTHER SLOAN UREA [address] [place] [address] NITROGEN [facility] QUANTITAT MARJ THER 93643 LUHTER SLOAN PROPH/DX [address] [place] [address] NJX EA [facility] SEQL IV PUSH SBST/[place] [address] L[facility]HER SLOAN INFUSION [address] [place] [address] HYDRATION [facility] EACH ADDITIONA L HOUR INFUSION J7030 L[facility] SLOAN NORMAL [address] [place] [address] SALINE [facility] [place] [address] [place] [address] LUTHER WILSON BRA ANGIOGRAP 4 CHEST RADIOLOGY W/CONTRAS [place] T/[place] [address] LUTHER SLOAN INFUSION 4 [facility] MEDICAL HYDRATION CENTER CENTER EACH ADDITIONA L HOUR THER 23010 LUTHER SLOAN PROPH/DX [address] [place] [address] NJX EA CENTER ALUM BANK SEQL IV PUSH SBST/DRUG FAC THERAPEUT 71693 L[facility]HER SLOAN IC MEDICAL MEDICAL INJECTION CENTER ALUM BANK IV PUSH EACH NEW DRUG INFUSION J7030 [facility] SLOAN NORMAL [address] [place] [address] SALINE CENTER ALUM BANK SOLUTION 1000 CC INJECTION J2405 L[facility]HER SLOAN [address] [place] [address] ONDANSETR CENTER CENTER ON HCL PER 1 MG NONINVASI 68659 L[facility]HER SLOAN VE [address] [place] [address] EAR/PULSE CENTER ALUM BANK OXIMETRY SINGLE DETER BLOOD 45142 L[facility] HOUM COUNT MEDICAL COMPLETE CENTER LABORATOR [facility] G0378 L[facility]HER SLOAN OBSERVATI [address] [place] [address] MEDICAL ON CENTER CENTER SERVICE PER HOUR BASIC 20754 LUTHER SLOAN METABOLIC MEDICAL MEDICAL PANEL CENTER CENTER CALCIUM IONIZED INJ J2543 LUTHER SLOAN PIPERACIL [address] [place] [address] JOSELITO CENTER ALUM BANK SOD/TAZOB ACTAM SOD 1 G/0.125 G COLLECTIO 58210 LUTHER HOUM N VENOUS [address] [place] [address] BLOOD [facility] LABORATOR [place] URE INJECTION C9113 LUTHER SLOAN [address] [place] [address] PANTOPRAZ CENTER ALUM BANK OLE SODIUM PER VIAL THER 74369 LUTHER SLOAN PROPH/DX [address] [place] [address] MEDICAL NJX IV CENTER CENTER PUSH SINGLE/1S T SBST/DRUG INJECTION J1170 LUTHER SLOAN [address] [place] [address] HYDROMORP CENTER CENTER INDU UP TO 4 MG THER 06938 L[facility]HER SLOAN PROPH/DX [address] [place] [address] NJX IV CENTER CENTER PUSH SINGLE/1S T SBST/DRUG LOCM Q9967 L[facility] SLOAN 300-[address] [place] [address] MG/ML CENTER CENTER IODINE CONCENTRA TION PER ML COLLECTIO 06448 LUTHER SLOAN N VENOUS [address] [place] [address] BLOOD [facility] CENTER VENIPUNCT URE URNLS DIP 65479 LUTHER SLOAN [address] [place] [address] STICK/TAB CENTER CENTER [place] [address] CRISTIANOSKYLERJM LUTHER LIPASE [address] [place] [address] [place] [address] LUTHER QUINONEZTRI AMYLASE [address] [place] [address] BLOOD 99838 CRISTIANOTRI SLOAN COUNT [address] [place] [address] COMPLETE [facility] AUTO&AUTO DIFRNTL WBC COMPREHEN 89098 CRISTIANOSKYLERJM LUTHER SIVE [address] [place] [address] METABOLIC [facility] PANEL NONINVASI 80405 LUTHER SLOAN VE [address] [place] [address] EAR/PULSE [facility] [place] [address] LUTHER RIDDLE ABDOMEN & 4 PELVIS RADIOLOGY W/CONTRAS PLLC T MATERIAL BLOOD 05411 CRISTIANOTRI SLONA OCCULT [address] [place] [address] [facility] QUAL FECES 1-3 SPEC THERAPEUT 29786 LUTHER SLOAN IC [address] [place] [address] MEDICAL INJECTION CENTER ALUM BANK IV PUSH EACH NEW DRUG THER 42004 LUTHER SLOAN PROPH/DX [address] [place] [address] NJX EA [facility] SEQL IV PUSH SBST/DRUG FAC INFUSION J7030 L[facility]HER SLOAN NORMAL [address] [place] [address] SALINE [facility] SOLUTION 1000 [place] [address] LUTHER SLOAN INFUSION [address] [place] [address] HYDRATION [facility] EACH ADDITIONA L HOUR INJECTION J2405 LUTHER SLOAN [address] [place] [address] ONDANSETR [facility] CENTER ON HCL PER 1 MG DUP-SCAN 13852 LUTHER RIDDLE XTR VEINS 4 COMPLE[place] [address] LUTHER ROJAS HEAD/BRAI 4 NATY N W/[place] [address] LUTHER ROJAS ANGIOGRAP 4 NATY HY CHEST RADIOLOGY W/CONTRAS PLLC T/NONCONT RAST ECG 61222 L[facility]HER CARTY ROUTINE 4 CHR ECG SABIANIST W/LEAST HOSP 12 LDS I&R ONLY INITIAL 33350 [facility] 4 CARE/DAY 30 [place] [address] LUTHER LOPEZ TRACT UPR 4 EFRAIN W/SM INT RADIOLOGY W/MULT [facility] SERIAL IMAGES LEVEL V 03448 [facility] SHE [facility]PER SHE SURG 4 PATHOLOGY GROSS&ALEXIS ROSCOPIC EXAM OTHER 4513 L[facility]HER SLOAN ENDOSCOPY 4 [facility] MEDICAL OF SMALL CENTER CENTER INTESTINE SMALL-TO- 4591 LUTHER SLOAN SMALL 4 [facility] MEDICAL INTESTINA CENTER CENTER L ANASTOMOS IS OPEN AND 4389 LUTHER SLOAN OTHER 4 [facility] PARTIAL ALUM BANK CENTER GASTRECTO MY ISOLATION 4551 LUHTER SLOAN 4 MEDICAL MEDICAL SEGMENT ALUM BANK CENTER OF SMALL INTESTINE ANES IPR 41417 LUTHER VELAZQUEZ JR UPPER 4 MEDICAL [place] ABDOMEN CENTER LAPS INC GASTRIC RSTCV MO GASTRIC 81911 LUTHER QUIÑONEZ RSTCV 4 ASHA W/PRTL SABIANIST GASTRECTO HOSP MY 50-100 CM ESOPHAGOG 42810 LUTHER QUIÑONEZ ASTRODUOD 4 ASHA ENOSCOPY [facility] W/ADJ STRXRS ECG 53204 LUTHER CHUNG ROUTINE 4 DEN ECG [facility]ABIANIST W/LEAST HOSP 12 LDS I&R ONLY RADIOLOGI 16423 L[facility]HER SMALLS ANT C EXAM 4 CHEST 2 RADIOLOGY VIEWS [facility] FRONTAL&L ATERAL MEDICAL 77126 LUTHER SLOAN NUTRITION 4 THERAPY SABIANIST SABIANIST GRP2/ HOSP HOSP INDIV EA 30 OH HUMDIFIR E0562 [facility]H ARH HEATED 4 [facility]ARE [...] REPLCMT FULL FACE MASK EA MRI BRAIN 12220 NARRA BAP NARRA BAP BRAIN 4 STEM W/O W/CONTRAS T MATERIAL INJECTION J1885 ARH JONKAM 4 WOMENS COL KETOROLAC AND FAMILY [facility] INE PER 15 MG INJ J2930 [facility] JONKAM METHYLPRD 4 WOMENS COL NISOLONE AND SODIUM FAMILY SUCCNAT HEALTH TO 125 MG IIV3 VACC 07611 ARH JONKAM 4 WOMENS COL PRESERVAT AND [...] M STORE M AIRWAY PRESSURE DEVICE POLYSOM 78429 LUTHER YUSUF LINCOLN 6/>YRS 4 SLEEP [facility] 4/> ADDL DEMETRICE ATTND RADIOLOGI 67104 RONY MACIAS C EXAM 4 RADIOLOGY [place]ERSON CHEST 2 SERVICES VIEWS FRONTAL&L ATERAL ECHO 34922 LUTHER SLOAN TTC R-T 4 MEDICAL MEDICAL 2D CENTER CENTER W/WOM-MOD E COMPL SPEC&COLR D EGD 35618 LUTHER QUIÑONEZ TRANSORAL 4 ASHA BIOPSY SABIANIST SINGLE/MU HOSP LTIPLE ANES 37135 LUTHER GRANT EZ UPPER GI 4 MEDICAL ENDOSCOPY CENTER [place] [address] LUTHER DOSS JLUIS SURG 4 PATHOLOGY [facility] GROSS&ALEXIS ROSCOPIC EXAM SPECIAL 56280 LUTHER DOSS JLUIS STAIN 4 GROUP 1 SABIANIST MICROORGA HOSP NISMS I&R ECG 64914 JUANA CISSE ROUTINE 4 N ALICE ECG EMERGENCY W/LEAST PHYSICI 12 LDS I&R ONLY MRI 48495 JUANA ARIAS SPINAL 4 N A R H N A R H CANAL LUMBAR W/O CONTRAST MATERIAL ECG 14608 LUTHER HANDSHOE ROUTINE 4 R ECG [facility]IANIST W/LEAST HOSP 12 LDS W/I&R 25 20482 LUTHER SLOAN HYDROXY 4 [facility] [place] CENTER FRACTIONS IF PERFORMED COLLECTIO 56093 LUTHER SLOAN N VENOUS [address] [place] [address] BLOOD [facility] [place] [address] LUTHER SLOAN THYROID [address] [place] [address] STIMULATI [facility] NG HORMONE TSH COMPREHEN 03650 LUTHER SLOAN SIVE [address] [place] [address] METABOLIC CENTER CENTER PANEL BLOOD 84435 L[facility]HER SLOAN COUNT [address] [place] [address] COMPLETE [facility] CENTER AUTO&AUTO DIFRNTL WBC HEMOGLOBI 87394 LUTHER SLOAN N [address] [place] [address] GLYCOSYLA [facility] [place] [address] JUANA ARIAS PROLACTIN 4 N A R H N A R H BLOOD 20954 JUANA ARIAS COUNT 4 N A R H N A R H COMPLETE AUTO&AUTO DIFRNTL WBC GONADOTRO 65528 JUANA ARIAS PIN 4 N A R H N A R H FOLLICLE STIMULATI NG HORMONE BASIC 89404 JUANA ARIAS METABOLIC 4 N A R H N A R H PANEL CALCIUM TOTAL TESTICULA 90601 JUANA ARMASLeida R IMAGING 4 N [place] [address] JUANA ARIAS THYROID 4 N A R H N A R H STIMULATI NG HORMONE TSH LIPID 46246 JUANA ARMASLeida PANEL 4 N A R H N A R H RADEX 46247 JUANA ARIAS SPINE 4 N A R H N A R H LUMBOSACR AL MINIMUM 4 VIEWS TECHNETIU A9512 JUANA ARIAS M TC-99M 4 N A R H N A R H PERTCHNET ATE DX PER MILLICURI E HEPATIC 08728 JUANA ARIAS FUNCTION 4 [place] [address] JUANA ARIAS PROSTATE 4 N A R H N A R H SPECIFIC ANTIGEN TOTAL COLLECTIO 67801 JUANA ARIAS N VENOUS 4 N A R H N A R H BLOOD VENIPUNCT URE CYANOCOBA 47851 JUANA ARIAS NICHOLAS 4 N A R H N A R H VITAMIN B-12 GONADOTRO 18458 JUANA ARIAS PIN 4 N A R H N A R H LUTEINIZI NG HORMONE TDAP 45132 [facility] JONKAM VACCINE 7 4 [place] [place] COL YRS/> IM CLINIC URNLS DIP 53215 [facility] JONKAM 4 [place] COL STICK/TAB CLINIC LET RGNT NON-AUTO W/O MICRSCP Encounters Encounter Start End Date Code Location Performer Type Date EMERGENCY 03449 [facility] DRONE 6 6 PRATIBHA DEPARTMEN EMERGENCY T VISIT PHYS HIGH/URGE NT SEVERITY EMERGENCY 97825 SAVANNAH HOPPER 6 6 PHYSICIAN ALEXIS DEPARTMEN [facility] T VISIT HIGH/URGE NT SEVERITY [facility] RADHA - 6 6 [facility] OUTPATIEN [facility] RADHA - 5 5 [facility] OFF[facility] 04117 CARDIOVAS SUSAN OUTPATIEN 5 5 CULAR MAT T NEW 60 CONSULTAN MINUTES [facility] - 5 5 [facility]PATIEN [facility] RADHA - 5 5 [facility] OUTPATIEN [facility] EMERGENCY 04705 SAVANNAH HOPPER DEPT 5 5 PHYSICIAN ALEXIS VISIT [facility] HIGH SEVERITY& THREAT [facility] RADHA - 5 5 [facility] HOS[facility] OUTPATIEN INC T EMERGENCY 28485 RADHA 5 5 [facility] DEPARTMEN INC T VISIT HIGH/URGE NT SEVERITY OFFICE 67937 RADHA DIAL OUTPATIEN 5 5 [facility]IS[facility] 15 MINUTES OFFICE 03630 RADHA DIAL OUTPATIEN 5 5 [facility] T VISIT [facility] 15 MINUTES HOSPITAL [facility]IAM[facility] - 5 5 N A R H OUTPATIEN T OFFICE 43366 [facility] PASTORA OUTPATIEN 5 5 WOMEN T VISIT AND 25 FAMILY MINUTES HEALTH OFFICE 22081 AR[facility] BLADE [place] OUTPATIEN 5 5 [place] T VISIT [facility] 15 ASSOC [facility] WILLIAMSO - 5 5 N A R H OUTPATIEN T EMERGENCY 73333 JUANA CISSE 5 5 N ALICE DEPARTMEN EMERGENCY T VISIT PHYSICI HIGH/URGE NT SEVERITY EMERGENCY 50117 JUANA 5 5 N A R H DEPARTMEN T VISIT LOW/MODER SEVERITY [facility]OSP[facility] - 5 5 MEDICAL OUTPATIEN CENTER T OFFICE 99500 L[facility]HER BETANCOURT [facility] T VISIT CENTER 25 INC MINUTES HOSPITAL L[facility]HER - 5 5 MEDICAL OUTPATIEN CENTER T EMERGENCY 27874 [facility] DEPT 5 5 PRATIBHA VISIT EMERGENCY HIGH SERV SEVERITY& THREAT [facility] LUTHER - OTHER 5 5 [facility] LUTHER - 5 5 MEDICAL OUTPATIEN CENTER T EMERGENCY 83350 L[facility]HER DEPT 5 5 MEDICAL VISIT CENTER HIGH SEVERITY& THREAT [facility] LUTHER - 5 5 MEDICAL OUTPATIEN CENTER T EMERGENCY 44174 DERIC ESPINOZAATRCody DEPT 5 5 CK ANIKA CK ANIKA VISIT HIGH SEVERITY& THREAT [facility] LUTHER - 5 5 [facility] L[facility] - OTHER 5 5 [facility] LUTHER - 5 5 [facility] EMERGENCY 46359 VORBIANCA VORKPOR DEPT 5 5 [facility] VISIT HIGH SEVERITY& THREAT FUN EMERGENCY 25199 BELINDA TREVINO 5 5 [facility] VISIT MODERATE SEVERITY HOSPITAL L[facility] - 5 5 [facility] OFFICE 91586 ARH PASTORA OUTPATIEN 4 4 WOMENS COL T VISIT AND 15 FAMILY MINUTES HEALTH EMERGENCY 03183 MAHENDRA MCCRAY DEPT 4 4 RAYNE RAYNE VISIT HIGH SEVERITY& THREAT [facility] LUTHER - 4 4 [facility] EMERGENCY 13597 LUTHER 4 4 [facility] VISIT HIGH/URGE NT SEVERITY EMERGENCY 72923 ALLAN [facility] DEPT 4 4 [facility] VISIT HIGH SEVERITY& THREAT [facility] LUTHER - 4 4 [facility] L[facility]HER - 4 4 MEDICAL INPATIENT CENTER OFFICE 11595 LUTHER QUIÑONEZ OUTPATIEN 4 4 ASHA T VISIT SABIANIST 25 HOSP MINUTES OFFICE 38122 LUTHER QUIÑONEZ OUTPATIEN 4 4 ASHA T VISIT 5 SABIANIST MINUTES HOSP OFFICE 40880 GUTTI SUJ GUTTI SUJ OUTPATIEN 4 4 T VISIT 15 MINUTES OFFICE 79086 ARH PASTORA OUTPATIEN 4 4 WOMENS COL T VISIT AND 15 FAMILY MINUTES HEALTH EMERGENCY 37903 JUANA 4 4 N A R H DEPARTMEN T VISIT MODERATE SEVERITY HOSPITAL JUANA 4 4 N A R H OUTPATIEN T EMERGENCY 08752 [facility] 4 4 N THO DEPARTMEN EMERGENCY T VISIT PHYSICI HIGH/URGE NT SEVERITY OFFICE 68040 GUTTI SUJ GUTTI SUJ OUTPATIEN 4 4 T NEW 45 MINUTES OFFICE 28300 [facility] JONKAM OUTPATIEN 4 4 WOMENS COL T VISIT AND 15 [facility] LUTHER Rodriguez 4 MEDICAL OUTPATIEN CENTER T EMERGENCY 33162 JUANA BLOOD DEPT 4 4 N THO VISIT EMERGENCY HIGH PHYSICI SEVERITY& THREAT [facility] JUANA Daugherty 4 4 N A R H OUTPATIEN T EMERGENCY 89148 JUANA 4 4 N A R H DEPARTMEN T VISIT HIGH/URGE NT SEVERITY OFFICE 29606 LUTHER MAGAÑA 4 4 MEDICAL T VISIT CENTER 15 [facility] LUTHER Rodriguez 4 MEDICAL OUTPATIEN CENTER T OFFICE 82975 [facility] CONSULTAT 4 4 ION NEW/ESTAB PATIENT 60 MIN OFFICE 07737 ARH BROOKS OUTPATIEN 4 4 WOMENS PHI T NEW 30 AND MINUTES [facility] LUTHER Rodriguez 4 MEDICAL OUTPATIEN CENTER T OFFICE 36741 ARH JONKAM OUTPATIEN 4 4 WOMENS COL T VISIT AND 15 [facility] EMERGENCY 70933 JUANA CISSE DEPT 4 4 N ALICE VISIT EMERGENCY HIGH PHYSICI SEVERITY& THREAT FUN EMERGENCY 07334 JUANA 4 4 N A R H DEPARTMEN T VISIT MODERATE SEVERITY [facility] - 4 4 N A R H OUTPATIEN T [facility] - 4 4 N A R H OUTPATIEN T OFFICE [id number] [facility] CHRISTIANSON OUTPATIEN 4 4 T NEW 10 [facility] OFFICE [id number] [facility] ODOM OUTPATIEN 4 4 R T NEW 30 [facility] MINUT[facility]OSP OFFICE 42719 ANNETTE ANNE 4 4 WOMENS COL T VISIT AND 15 FAMILY MINUTES [facility] 4 4 [facility] OFFICE [id number] [facility] SUNPATIEN 4 4 ASHA T NEW 45 SABIANIST MINUTES [facility] JUANA - 4 4 N A R H OUTPATIEN T OFFICE [id number] ANNETTE SUNPATIBROOK 4 4 [place] [place] COL T NEW 45 CLINIC MINUTES
--- OUTSIDE RECORDS SUMMARY | 2017-06-21 23:51 | External Medical Summary Rpt | CCD ---
Author Author , ANA Organization ANA Address Unknown Phone [email or web address] Care Team Providers Care Calender Wind Up Tender Name Role Phone [facility], Unavailable Unavailable [facility], Unavailable Unavailable [facility], Unavailable Unavailable [facility] Unavailable Unavailable [facility], [facility] Unavailable Unavailable [facility]ALTH, [facility] SELAM JLUIS, SELAM JLUIS Unavailable Unavailable BRENDA ALEXIS, BRENDA ALEXIS Unavailable Unavailable ANGELITO SNOW, ANGELITO Unavailable Unavailable SNOW BESSON OMAR, BESSON Unavailable Unavailable OMAR SERRANO ALL, SERRANO ALL Unavailable Unavailable [facility], Unavailable Unavailable [facility] Unavailable Unavailable [facility], [facility] JUANITA RAN, JUANITA RAN Unavailable Unavailable HARPER SHE, HARPER SHE Unavailable Unavailable [facility], Unavailable Unavailable [facility] JAYRO ALEXIS, JAYRO Unavailable Unavailable ALEXIS BETANCOURT DEL, BETANCOURT DEL Unavailable Unavailable DRONEN, DRONEN Unavailable Unavailable FALLUJI VALERIANO, FALLUJI Unavailable Unavailable VALERIANO RUCHI ALEXIS, RUCHI Unavailable Unavailable ALEXIS SMALLS ANT, SMALLS ANT Unavailable Unavailable GOAD CHANEL, GOAD CAHNEL Unavailable Unavailable NAVARRO DWA, NAVARRO Unavailable Unavailable DWA GUTTI SUJ, GUTTI SUJ Unavailable Unavailable GUTTI SUJ, GUTTI SUJ Unavailable Unavailable BLOOD THO, Unavailable Unavailable BLOOD THO HANDSHOE R, HANDSHOE Unavailable Unavailable R CHUNG DEN, CHUNG Unavailable Unavailable DEN [facility], [facility] Unavailable Unavailable [facility], [facility] DAVID CHAPA Unavailable Unavailable SNOW [facility], Unavailable Unavailable [facility] GILLETTE PAULA, GILLETTE Unavailable Unavailable PAULA KHANG ASHA, KHANG Unavailable Unavailable ASHA JONKAM, JONKAM Unavailable Unavailable JONKAM COL, JONKAM Unavailable Unavailable [facility] Un[facility] SESAR ANIKA, Unavailable Unavailable SESAR ANIKA [facility], [facility] Unavailable LLC CHANO AHM, CHANO AHM Unavailable Unavailable CHANO AHM, CHANO AHM Unavailable Unavailable JAVIER GRE, Unavailable Unavailable JAVIER GRE JAVIER GRE, Unavailable Unavailable JAVIER GRE MATHAROO NATY, Unavailable Unavailable MATHAROO NATY METTU LINCOLN, METTU LINCOLN Unavailable Unavailable METTU LINCOLN, METTU LINCOLN Unavailable Unavailable [facility] NADIG VID, NADIG VID Unavailable Unavailable NARRA BAP, NARRA BAP Unavailable Unavailable [facility], Unavailable Unavailable [facility], [facility] Unavailable Unavailable [place], [facility] Unavailable Unavailable [facility]ENTER [facility], [facility] Unavailable Unavailable [facility], [facility] Unavailable [facility]available [facility], [facility] JESSICA EFRAIN, JESSICA Unavailable Unavailable EFRAIN REITMAN PETERSON, REITMAN Unavailable Unavailable PETERSON CARTY CHR, Unavailable Unavailable CARTY CHR SUSAN MAT, Unavailable Unavailable SUSAN MAT [facility], [facility] Unavailable Unavailable EMERGENCY SERV, [facility] BROOKS PHI, BROOKS Unavailable Unavailable PHI TRUMP JANES, TRUMP JANES Unavailable Unavailable VORKPOR PAMELA, VORKPOR Unavailable Unavailable PAMELA VORKPOR PAMELA, VORKPOR Unavailable Unavailable PAMELA WELLS BRA, WELLS BRA Unavailable Unavailable WHITE ULISSES, WHITE ULISSES Unavailable Unavailable WHITE ULISSES, WHITE ULISSES Unavailable Unavailable [facility], Unavailable Unavailable [facility] Unavailable Unavailable PH[facility]ICI, [facility] Purpose Continuity of Care Document - 12-17-2013 through 2016 Problems Code Diagnosis DOS Provider Status J0100 ACUTE 09-03-2016 [facility] N EMERGENCY SINUSITIS PHYS UNSPECIFIED R509 FEVER 09-03-2016 [facility] U[facility]PEC[facility] N [facility]GENCY PHYS [id number] CELLULITIS 05-08-2016 [facility], LOWER LIMB [facility] [id number] PAIN IN 05-08-2016 [facility] F5790IH CONTUSION 05-08-2016 [facility], KNEE [facility] INITIAL ENCOUNTER E669 OBESITY 10-01-2015 [facility] I499 CARDIAC 10-01-2015 [facility] ARRHYTHMIA [facility] UNSPECIFIED INC R079 CHEST PAIN 10-01-2015 [facility] UNSPECIFIED PHYSICIANS GROUP R9431 ABNORMAL 10-01-2015 [facility] ELECTROCARD [facility] IOGRAM INC R9439 ABNORMAL 09-08-2015 [facility] RESULT OTH [facility] CARDIOVASCU INC LR FUNCTION STUDY E785 HYPERLIPIDE 08-30-2015 [facility] JI LAR UNSPECIFIED CONSULTANTS O R008 OTHER 08-30-2015 [facility] ABNORMALITI LAR ES OF HEART CONSULTANTS BEAT O R030 ELEVATED 08-30-2015 [facility] BLOOD-PRESS LAR URE READING CONSULTANTS WITHOUT DX O HTN K859 ACUTE 08-27-2015 [facility] PANCREATITI [facility] S INC UNSPECIFIED Z9884 BARIATRIC 08-27-2015 [place] [facility] STATUS INC K858 OTHER ACUTE 08-12-2015 [facility], PANCREATITI [facility] S R1013 EPIGASTRIC 08-12-2015 [place] [facility] J0190 ACUTE 07-24-2015 [place] SINUSITIS [facility] J029 ACUTE 07-16-2015 [place] PHARYNGITIS [facility] UNSPECIFIED R05 COUGH 07-16-2015 [facility] Z0100 ENCOUNTER 06-26-2015 J[facility] EXAM EYES & GRE VISION W/O ABNORMAL FIND 35867 OBSTRUCTIVE 04-30-2015 [facility] SLEEP AND FAMILY [facility] 340 MULTIPLE 04-30-2015 [facility] SCLEROSIS AND FAMILY HEALTH 42930 MIGRAINE 04-30-2015 [facility] UNSP W/O A R H INTRACT W/O STATUS MIGRAINOSUS 3559 MONONEURITI 04-30-2015 [facility] Mendez OF A R H UNSPECIFIED SITE 4011 ESSENTIAL 04-30-2015 [facility] HYPERTENSIO A R H N, BENIGN 4779 ALLERGIC 04-30-2015 [facility] RHINITIS A R H CAUSE UNSPECIFIED 40768 ESOPHAGEAL 04-30-2015 [facility] REFLUX A R H 7242 LUMBAGO 04-30-2015 [facility] A R H V4586 BARIATRIC 04-30-2015 [facility] SURGERY A R H STATUS 3829 UNSPECIFIED 03-02-2015 [facility] OTITIS [facility] 4618 OTHER ACUTE 03-02-2015 [facility] TUG SINUSITIS [facility] 4659 ACUTE URIS 02-23-2015 [facility] OF EMERGENCY UNSPECIFIED PHYSICI SITE 4019 UNSPECIFIED 01-29-2015 [facility] [place] [facility] 7243 SCIATICA 01-29-2015 [facility] 7245 UNSPECIFIED 01-29-2015 [facility] 60983 UNSPECIFIED 01-29-2015 [facility] SLEEP [facility] 91843 NAUSEA WITH 01-29-2015 WHITE ULISSES VOMITING 37889 ABDOMINAL 01-29-2015 [facility] PAIN, MEDICAL UNSPECIFIED CENTER SITE 35930 DIARRHEA 01-28-2015 [facility] 99721 ABDOMINAL 01-25-2015 [facility] PAIN, N EMERGENCY EPIGASTRIC SERV V725 RADIOLOGICA 01-25-2015 [facility] L RADIOLOGY EXAMINATION [facility] NEC 2638 OTHER 01-07-2015 [facility] PROTEIN-BEV MEDICAL ORIE CENTER MALNUTRITIO N 2689 UNSPECIFIED 01-07-2015 [facility] VITAMIN D MEDICAL DEFICIENCY [place] 77350 OBESITY, 01-07-2015 [facility] UNSPECIFIED [facility] 11897 OTHER 01-07-2015 [facility] 36788 VOMITING 01-07-2015 [facility] ALONE [facility] 98945 ABDOMINAL 01-07-2015 [facility] MED[facility] UPPER CENTER QUADRANT V5883 ENCOUNTER 01-07-2015 [facility] THERAPEUTIC [place] DRUG MONITORING 5680 PERITONEAL 11-03-2014 [facility] 31404 CHOLECYSTIT 11-03-2014 [place] IS, [facility]ATIONIST UNSPECIFIED HOSP 26511 CHRONIC 11-03-2014 [facility] CHOLECYSTIT [facility] IS HOSP 54104 ABDOMINAL 11-03-2014 [facility] PAIN RIGHT RESTORATIONIST UPPER HOSP QUADRANT 18105 ABDOMINAL 11-01-2014 [facility] PAIN, N EMERGENCY GENERALIZED SERV V8541 BODY MASS 11-01-2014 [facility] INDEX MEDICAL 40.0-44.9 CENTER ADULT 5373 OTHER 10-14-2014 [facility] OBSTRUCTION MEDICAL OF [place] DUODENUM V8543 BODY MASS 10-14-2014 [facility] INDEX MEDICAL 50.0-59.9 CENTER ADULT 95262 MORBID 09-14-2014 [facility] OBESITY MEDICAL [place] 5303 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 ESOPHAGUS 5780 HEMATEMESIS 08-09-2014 [facility] 51152 HEMORRHAGE 08-08-2014 VORBIANCA PAMELA COMPLICATIN G A PROCEDURE NEC 9989 UNSPECIFIED 08-08-2014 VORIONAOR PAMELA COMPLICATIO N OF PROCEDURE NEC V5863 LONG-TERM 08-08-2014 [facility] T/ANTITHROM BOTIC V5869 LONG-TERM 08-08-2014 [facility] (CURRENT) MEDICAL USE OF CENTER OTHER MEDICATIONS 75545 MIGRAINE 08-01-2014 GUTTI SUJ UNS W/INTRACTAB L W/O STATUS MIGRAINOSUS 7840 HEADACHE 08-01-2014 GUTTI SUJ 77036 OTHER 07-29-2014 [facility] CHRONIC MEDICAL PAIN CENTER 5180 PULMONARY 07-29-2014 [facility] V7284 UNSPECIFIED 07-24-2014 [facility] PRE-OPERATI HOSP VE EXAMINATION V691 PROBS 07-20-2014 [facility] RELATED REST[facility] INAPPROPRIA HOSP TE DIET&EATING HABITS 23789 OTH 06-22-2014 GUTTI SUJ ABNORMAL BRAIN & BOTTOM LIQUOR ATTENDANT FUNCTION STUDY 87672 UNSPECIFIED 06-17-2014 [facility] M SPRAIN AND STRAIN 60525 PAIN IN 06-10-2014 [facility] JOINT, AND FAMILY ANKLE AND HEALTH FOOT V0481 NEED 06-10-2014 [facility] PROPHYLACTI AND FAMILY C HEALTH VACCINATION &INOCULATIO N FLU 8449 SPRAIN&STRA 06-09-2014 [facility] IN OF EMERGENCY UNSPECIFIED PHYSICI SITE OF KNEE&LEG 7820 DISTURBANCE 05-27-2014 GUTTI SUJ OF SKIN SENSATION 93832 OTHER 05-12-2014 [facility] [address] LEUKOCYTOSI 03-26-2014 [facility] S EMERGENCY UNSPECIFIED PHYSICI 82293 FEVER 03-26-2014 [facility] UNSPECIFIED EMERGENCY PHYSICI 7862 COUGH 03-26-2014 [facility] [place] [facility] H 10577 NAUSEA 03-26-2014 [facility] ALONE A R H V653 DIETARY 03-18-2014 [facility] SUR[facility]ILLACT [facility]ICAL [facility] INC COUNSELING V6540 COUNSELING 03-18-2014 [facility] [place] [facility] 4293 CARDIOMEGAL 03-09-2014 CHANO AHM Y 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 20539 SHORTNESS 03-09-2014 [facility] 08914 HYPERSOMNIA 02-24-2014 [facility] [place] WITH SLEEP [facility]NEA UNSPECIFIED 3551 MERALGIA 02-20-2014 [facility] WOMENS PARESTHETIC AND FAMILY A HEALTH 7202 SACROILIITI 02-20-2014 [facility] WOMENS S NOT AND FAMILY ELSEWHERE HEALTH CLASSIFIED 7231 CERVICALGIA 02-20-2014 [facility] WOMENS AND FAMILY HEALTH 8438 SPRAIN&STRA 02-20-2014 [facility] WOMENS IN OTHER AND FAMILY SPECIFIED HEALTH SITES HIP&THIGH 88794 ACUTE 02-18-2014 [facility] ESOPHAGITIS [facility] 25311 ULCER OF 02-18-2014 [facility] ESOPHAGUS [facility]IST WITHOUT HOSP BLEEDING 64629 GASTR ULCR 02-18-2014 [facility] MEDICAL ACUT/CHRN CENTER W/O HEMOR PERF/OBST 98951 ATROPHIC 02-18-2014 [facility] GASTRITIS [facility] WITHOUT HOSP MENTION OF HEMORRHAGE 57310 UNS 02-18-2014 [facility] GASTRITIS&G RESTORATIONIST ASTRODUODIT HOSP IS W/O MENTION HEMORR 77659 DUODENITIS 02-18-2014 [facility] WITHOUT RESTORATIONIST MENTION OF HOSP HEMORRHAGE 7823 EDEMA 02-18-2014 [facility] 7226 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 HEALTH RAL DISC SITE UNSPEC 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 UNSPECIFIED 6011 CHRONIC 02-11-2014 [facility] PROSTATITIS [facility] 6069 UNSPECIFIED 02-11-2014 [facility] MALE [facility]IST INFERTILITY HOSP 6089 UNSPECIFIED 02-11-2014 [facility] DISORDER RESTORATIONIST OF MALE HOSP GENITAL ORGANS V7281 PRE-OPERATI 02-05-2014 [facility] VE [facility]ORATIONIST CARDIOVASCU HOSP LAR EXAMINATION 41616 OTHER 01-19-2014 [facility] 07516 IMPOTENCE 12-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 [facility] OF ORGANIC A R H ORIGIN 69263 OTHER 12-18-2013 [facility] SPECIFIED A R H DISORDER OF MALE GENITAL ORGANS 7881 DYSURIA 12-18-2013 [facility] A [facility] H V061 NEED PROPH 12-17-2013 [facility] ALLAN VAC W/COMB CO CLINIC DIPHTH-TETA [...] ve LO 37 20 20 16 AI KS 40 17 17 04 D AM 1 [...] ve LO 37 20 20 16 AI KS 40 17 17 04 D AM 1 [...] ve TA 80 20 20 12 AI MS 00 17 17 97 D N 0 58 PH A AR 10 MA ,0 CY 00 #3 UN 93 IT 8 SF TG L ES 65 01 02 30 30 00 RI Ac CI 86 -1 -0 .0 00 TE ti TA 20 0- 3- 00 01 ve LO 37 20 20 16 AI KS 40 17 17 04 D AM 1 [...] #3 -D 93 M 8 SY R LO 00 01 02 30 30 00 RI Ac RA 78 -0 -0 .0 00 TE ti TA 15 9- 3- 00 01 ve DI 07 20 20 16 AI NE 70 17 17 04 D 1 37 PH 10 AR MA MG CY TA #3 BL 93 ET 8 PA 65 01 02 30 30 00 [...] CO 7 CLIN YRS/ IC > IM Procedures Procedure DOS Code Location Performer Comment RADIOLOGI 98352 [place] SERRANO ALL C 6 MEDICAL EXAMINATI IMAGING ON KNEE 3 ASS VIEWS CV STRS 35615 [facility] FALLUJI TST 6 PHYSICIAN VALERIANO XERS&/OR S GROUP RX CONT ECG W/O I&R CV STRS 90162 [facility] GARCIA TST 6 [facility] XERS&/OR INC INC RX CONT ECG TRCG ONLY MYOCARDIA 83935 [facility] Burroughs SPECT 6 [facility] MULTIPLE INC INC STUDIES TECHNETIU A9500 [facility] Coates TC-99M 6 MEM HOS[facility]OS[facility] SESTAMIBI INC INC DX PER STUDY DOSE ECHO 99901 MAY PEREZ TTHRC R-T 5 MEDICAL 2D SERV W/WOM-MOD FOUNDATIO E COMPL N SPEC&COLR D ECG 80439 [facility] GARCIA ROUTINE 5 [facility] ECG INC INC W/LEAST 12 LDS TRCG ONLY W/O I&R CREATINE 93488 [facility] G[facility]IA KINASE 5 [facility] [place] [address] [facility] LIPASE 5 [place] [address] [facility] G[facility]IA TROPONIN 5 [facility] QUANTITAT INC INC MARJ BLOOD 66707 [facility] GARCIA COUNT 5 [facility] COMPLETE INC INC AUTO&AUTO DIFRNTL WBC COLLECTIO 37337 [facility] GARCIA N VENOUS 5 [facility] BLOOD [place] [address] RAD[facility] AMYLASE 5 MEM [facility]OS[facility] INC INC CREATINE 84555 [facility] GARCIA KINASE MB 5 [facility] [place] [address] [facility] GARCIA FREE 5 [facility] [place] [address] [facility]IA THYROID 5 [facility] STIMULATI INC INC NG HORMONE TSH COMPREHEN 20620 [facility] GARCIA SIVE 5 [facility] METABOLIC INC INC PANEL LIPID 87559 [facility] GARCIA PANEL 5 [facility] INC INC THER 38618 [facility] GARCIA PROPH/DX 5 [facility] NJX IV INC INC PUSH SINGLE/1S T SBST/DRUG THERAPEUT 42253 [facility] GARCIA IC 5 [facility] INJECTION INC INC IV PUSH EACH NEW DRUG ECG 44258 [facility] G[facility]IA ROUTINE 5 [facility] ECG INC INC W/LEAST 12 LDS TRCG ONLY W/O I&[place] [address] [facility] GARCIA ABDOMEN & 5 [facility] PELVIS INC INC W/O CONTRAST MATERIAL ECG 23751 BJ USSON ROUTINE 5 OMAR OMAR ECG W/LEAST 12 LDS I&R ONLY RADIOLOGI 97602 [facility] GARCIA C EXAM 5 [facility] HOS[facility] CHEST 2 INC INC VIEWS FRONTAL&L ATERAL BLOOD 00721 [facility] GARCIA COUNT 5 [facility]OS[facility] COMPLETE INC INC AUTO&[place] [address] [facility] GARCIA TROPONIN 5 [facility] [place] [address] RADHA GARCIA LIPASE 5 [facility]OS[facility] HOS[facility] INC INC CREATINE 42974 [facility] GARCIA KINASE 5 [facility] HOSP TOTAL INC INC CREATINE 71032 RAD[facility] GARCIA KINASE MB 5 [facility] [place] [address] RADHA GARCIA AMYLASE 5 [facility] INC INC COMPREHEN 73824 [facility] GARCIA SIVE 5 [facility] METABOLIC INC INC PANEL THERAPEUT 23352 [facility] DIAL IC 5 [facility] TIC/DX INJECTION SUBQ/IM INJECTION J1040 [facility] DIAL 5 [facility] DNISOLONE ACETATE 80 MG IAADIADOO 81061 [facility] DIAL 5 [facility] CCUS GROUP A OPHTH 30538 [facility] 5 GRE GRE XM&EVAL COMPRE NEW PT 1/> [facility] G0463 JUANA ARIAS OUTPATIEN 5 N A R H N A R H T CLIN VISIT ASSESS & MGMT PT ANES 20394 WHITE ULISSES WHITE ULISSES UPPER GI 5 ENDOSCOPY PROXIMAL TO DUODENUM ESOPHAGOG 12570 [facility] ASTRODUOD [address] [place] [address] ENOSCOPY CENTER [place] TRANSORAL DIAGNOSTI C INJECTION J2405 [facility] [address] [place] [address] ONDANSETR [place] CENTER ON HCL PER 1 MG RINGERS J7120 [facility] LACTATE [address] [place] [address] [facility] UP TO 1000 CC INJECTION J2250 [facility] [address] [place] [address] [facility]AZ[facility]AM [facility] HCL PER 1 [place] [address] [facility] INFUSION [address] [place] [address] HYDRATION [facility] EACH ADDITIONA L HOUR ECG 44626 [facility] ROUTINE 5 PRATIBHA ECG EMERGENCY W/LEAST SERV 12 LDS I&[place] [address] [facility] WILSON BRA ABDOMEN & 5 [facility] RADIOLOGY W/[place] [address] [facility] THIAMINE- [address] [place] [address] VITAMIN [facility] B-1 CYANOCOBA 10183 [facility] NICHOLAS [address] [place] [address] [facility] B-12 25 23058 [facility] HYDROXY [address] [place] [address] [place] [address] [facility] VITAMIN K [address] [place] [address] PREALBUMI 32389 [facility] N [address] [place] [address] BLOOD 45497 [facility] COUNT [address] [place] [address] AUTO&[place] [address] [facility] FOLIC [address] [place] [address] [place] [address] [facility] THYROID [address] [place] [address] [facility] [place] [address] [facility] IRON [address] [place] [address] [place] [address] [facility] VITAMIN A [address] [place] [address] COLLECTIO 95214 L[facility] SLOAN N VENOUS [address] [place] [address] BLOOD [facility] VENIPUNCT URE LIPID 18580 [facility] PANEL [address] [place] [address] COMPREHEN 21850 [facility] SIVE [address] [place] [address] METABOLIC [place] [facility] PANEL INJECTION J1644 [facility] HEPARIN [address] [place] [address] SODIUM [facility] PER 1000 UNITS THERAPEUT 11476 [facility] IC [address] [place] [address] PROPHYLAC [place] CENTER TIC/DX INJECTION SUBQ/IM COLLECTIO 51962 [facility] N VENOUS [address] [place] [address] BLOOD [place] CENTER VENIPUNCT URE BLOOD 66765 [facility] COUNT [address] [place] [address] COMPLETE [facility] AUTOMATED BLOOD 34818 [facility] COUNT [address] [place] [address] AUTOMATED INJECTION J2060 [facility] [address] [place] [address] LORAZEPAM CENTER CENTER 2 MG COLLECTIO 84624 [facility] Elizabeth VENOUS [address] [place] [address] BLOOD CENTER CENTER VENIPUNCT URE THERAPEUT 89682 [facility] IC [address] [place] [address] PROPHYLAC CENTER CENTER TIC/DX INJECTION SUBQ/IM THERAPEUT 28874 [facility] JACKMAN IC MEDICAL E INJECTION CENTER ADVANTAGE IV PUSH EACH NEW DRUG INJECTION J1644 [facility] HEPARIN [address] [place] [address] MEDICAL SODIUM CENTER CENTER PER 1000 UNITS RINGERS J7120 [facility] LACTATE [address] [place] [address] MEDICAL INFUSION CENTER CENTER UP TO 1000 [place] THER 77714 [facility] JACKMAN PROPH/DX [address] [place] [address] E NJX EA CENTER ADVANTAGE SEQL IV PUSH SBST/DRUG FAC INJECTION J2405 [facility] [address] [place] [address] ONDANSETR [place] CENTER ON HCL PER 1 MG COMPREHEN 80537 [facility] SIVE [address] [place] [address] METABOLIC CENTER CENTER PANEL INJECTION J2405 [facility] [address] [place] [address] ONDANSETR [place] CENTER ON HCL PER 1 MG INJECTION J2550 [facility] [address] [place] [address] PR[facility] INE HCL UP TO 50 MG INJECTION [id number] [facility] [address] [place] [address] [facility] HCL PER 1 MG INJECTION [id number] [facility] MORPHINE [address] [place] [address] [facility] SULFATE [facility] CENTER UP TO 10 MG INJECTION [id number] [facility] [address] [place] [address] [facility] TROMETHAM INE PER 15 MG INJECTION [id number] [facility] FENTANYL [address] [place] [address] [facility]ENTER 0.1 MG THER [id number] [facility] PROPH/DX [address] [place] [address] MEDICAL NJX EA CENTER CENTER SEQL IV PUSH SBST/DRUG FAC RINGERS [id number] [facility] LACTATE [address] [place] [address] [facility]ICAL INFUSION [facility] CENTER UP TO 1000 CC INJECTION [id number] [facility] HEPARIN [address] [place] [address] SODIUM CENTER CENTER PER 1000 UNITS INJECTION [id number] [facility] [address] [place] [address] HYDROMORP CENTER CENTER INDU UP TO 4 MG THERAPEUT [id number] [facility] IC [address] [place] [address] [facility] PROPHYLAC [facility] TIC/DX INJECTION SUBQ/IM INJECTION [id number] [facility] [address] [place] [address] [facility] OLE SODIUM PER VIAL LEVEL III [id number] [facility] SURG [address] [place] [address] PATHOLOGY CENTER CENTER GROSS&ALEXIS ROSCOPIC EXAM NONINVASI [id number] [facility] VE [address] [place] [address] MEDICAL EAR/PULSE CENTER [facility] OXIMETRY OVERNIGHT MONITOR THERAPEUT [id number] [facility] IC [address] [place] [address] MEDICAL INJECTION [facility] IV PUSH EACH NEW DRUG ANES [id number] [facility] NAVARRO INTRAPERI [address] [place] [address] DWA TONEAL [facility] UPPER INC ABDOMEN W/LAPS NOS LAPAROSCO [id number] [facility] PY SURG [address] [place] [address] CHOLECYST CENTER CENTER ECTOMY THERAPEUT [id number] [facility] IC [address] [place] [address] [facility] INJE[facility] [place] [id number] [facility] ABDOMEN & [address] [place] [address] MEDICAL PELVIS CENTER CENTER W/CONTRAS T MATERIAL INJECTION [id number] [facility] [address] [place] [address] [facility] OLE SODIUM PER VIAL THERAPEUT [id number] [facility] IC [address] [place] [address] [facility] PROPHYLAC C[facility] TIC/DX INJECTION SUBQ/IM INJECTION [id number] [facility] HEPARIN [address] [place] [address] [facility] PER 1000 UNITS RINGERS [id number] [facility] LACTATE [address] [place] [address] [facility] INFUSION [facility] UP TO 1000 CC THER [id number] [facility] PROPH/DX [address] [place] [address] NJX EA CENTER CENTER SEQL IV PUSH SBST/DRUG FAC INJECTION [id number] [facility] [address] [place] [address] [facility] TROMETHAM INE PER 15 MG HEPATOBIL [id number] [facility] SYST [address] [place] [address] MEDICAL IMAG INC [facility] CENTER GB W/PHARMA INTERVENJ INJECTION J2405 [facility] [address] [place] [address] [facility] [place] HCL [place] 1 [place] [address] LUTHER SLOAN ABDOMINAL [address] [place] [address] REAL [facility] TIME W/IMAGE LIMITED INJECTION J2550 LUTHER SLOAN [address] [place] [address] PROMETHAZ [facility] INE HCL UP TO 50 MG TECHNETIU A9537 LUTHER Coates TC-99M [address] [place] [address] N DX UP TO 15 MCI LOCM Q9967 LUTHER SLOAN [phone] [place] [address] MG/ML CENTER CENTER IODINE CONCENTRA TION PER ML COMPREHEN 99125 LUTHER SLOAN SIVE [address] [place] [address] METABOLIC CENTER CENTER PANEL INJECTION J2405 LUTHER SLOAN [address] [place] [address] ONDAETR [facility] ON HCL PER 1 MG INFUSION J7030 LUTHER SLOAN NORMAL [address] [place] [address] SALINE [facility] SOLUTION 1000 CC THER 26242 LUTHER SLOAN PROPH/DX [address] [place] [address] NJX EA CENTER [place] SEQL IV PUSH SBST/DRUG FAC INJECTION J1885 LUT[facility] SLOAN [address] [place] [address] KETOROLAC [facility] TROMETHAM INE PER 15 MG RINGERS J7120 LUTHER SLOAN LACTATE [address] [place] [address] INFUSION [facility] UP TO 1000 CC INJECTION J1644 LUTHER SLOAN HEPARIN [address] [place] [address] SODIUM [facility] PER 1000 [place] [address] LUTHER SLOAN INFUSION [address] [place] [address] HYDRATION [facility] EACH ADDITIONA L HOUR THER 14853 LUTHER SLOAN PROPH/DX [address] [place] [address] NJX IV CENTER CENTER PUSH SINGLE/1S T SBST/DRUG THERAPEUT 92783 LUTHER SLOAN IC [address] [place] [address] PROPHYLAC [facility] TIC/DX INJECTION SUBQ/IM INJECTION C9113 LUTHER SLOAN [address] [place] [address] PANTOPRAZ [facility] OLE SODIUM PER VIAL COLLECTIO 10189 LUTHER SLOAN N VENOUS [address] [place] [address] BLOOD [facility] [place] [address] LUTHER SLOAN AMYLASE [address] [place] [address] HOSPITAL G0378 LUTHER SLOAN OBSERVATI [address] [place] [address] MEDICAL ON [facility] SERVICE PER HOUR BLOOD 84391 LUTHER SLOAN COUNT [address] [place] [address] COMPLETE [facility] AUTO&AUTO DIFRNTL WBC THERAPEUT 65468 LUTHER SLOAN IC [address] [place] [address] INJECTION [facility] IV PUSH EACH NEW DRUG NONINVASI 97371 LUTHER SLOAN VE [address] [place] [address] EAR/PULSE CENTER CENTER [place] [address] LUTHER SLOAN LIPASE [address] [place] [address] [place] [address] LUTHER WILSON BRA TRACT 5 UPPER RADIOLOGY W/WO PLLC DELAYED IMAGES W/[place] [address] LUTHER SLOAN INFUSION [address] [place] [address] HYDRATION [facility] EACH ADDITIONA L HOUR ANES 40520 LUTHER SHAWUMP JANES UPPER GI 5 ENDOSCOPY [facility] TO DUODENUM CATHETER C1726 LUTHER SLOAN BALLOON [address] [place] [address] DILATATIO [facility] N NON-VASCU LAR EGD 85441 LUTHER QUIÑONEZ DILATION 5 ASHA GASTRIC/D [facility] U[facility] STRICTURE RINGERS J7120 LUTHER SLOAN LACTATE [address] [place] [address] INFUSION [facility] UP TO 1000 CC INJECTION J2250 LUTHER SLOAN [address] [place] [address] HCL PER 1 MG LIPID 35439 LUTHER SLOAN PANEL [address] [place] [address] COMPREHEN 65045 LUTHER SLOAN SIVE [address] [place] [address] METABOLIC [place] [address] LUTHER SLOAN THIAMINE- [address] [place] [address] VITAMIN [facility] B-1 CYANOCOBA 36590 LUTHER SLOAN NICHOLAS [address] [place] [address] VITAMIN [facility] B-12 PREALBUMI 80148 LUTHER SLOAN N [address] [place] [address] BLOOD 80390 LUTHER SLOAN COUNT [address] [place] [address] COMPLETE [facility] AUTOMATED COLLECTIO 56129 L[facility]HER SLOAN N VENOUS [address] [place] [address] BLOOD [facility] [place] [address] LUTHER QUINONEZSKYLERJM IRON [address] [place] [address] [place] [address] LUTHER SLOAN FOLIC [address] [place] [address] [place] [address] LUTHER SMALLS ANT ABDOMINAL 5 REAL RADIOLOGY TIME PLLC W/[place] [address] LUTHER SLOAN INFUSION [address] [place] [address] HYDRATION [facility] EACH ADDITIONA L HOUR INJECTION J0330 LUTHER SHOREJM [address] [place] [address] SUCCINYLC [facility] HOLINE CHLORIDE UP TO 20 MG INJECTION J1100 LUTHER LUTHER [address] [place] [address] DEXAMETHO [facility] SONE SODIUM PHOSPHATE 1 MG RINGERS J7120 CRISTIANOSKYLERMJ SLOAN LACTATE [address] [place] [address] INFUSION [facility] UP TO 1000 CC INJECTION J2405 MONEJM QUINONEZTRI [address] [place] [address] [facility] ON HCL PER 1 MG INJECTION J3010 LUTHER SHOREJM FENTANYL [address] [place] [address] CITRATE [facility] 0.1 MG INJECTION J2250 MONEJM SLOAN [address] [place] [address] MIDAZOLAM [facility] HCL PER 1 MG ANES 22004 LUTHER HERNANDEZ UPPER GI 5 SNOW ENDOSCOPY [facility] TO DUODENUM EGD 85224 LUTHER QUIÑONEZ BALLOON ASHA DILATION [facility] ESOPHAGUS [facility] <30 MM DIAM CATHETER C1726 LUTHER SLOAN BALLOON [address] [place] [address] DILATATIO [facility] N NON-VASCU LAR NONINVASI 45179 LUTHER SLOAN VE [address] [place] [address] EAR/PULSE [facility] OXIMETRY SINGLE DETER EGD 28130 LUTHER SLOAN DILATION [address] [place] [address] GASTRIC/D [facility] UODENAL STRICTURE CREATININ 40951 L[facility]HER LAB TOX E BLOOD [address] [place] [address] BLOOD 78575 LUTHER MILLENIUM COUNT [address] [place] [address] COMPLETE [place] LABORATOR AUTOMATED IES OF CA INJECTION C9113 LUTHER SLOAN [address] [place] [address] PANTOPRAZ [facility] OLE SODIUM PER VIAL COLLECTIO 42428 L[facility] LAB TOX N VENOUS [address] [place] [address] [place] [address] LUTHER SLOAN INFUSION [address] [place] [address] MEDICAL HYDRATION [facility] [address] LUTHER WILSON BRA ANGIOGRAP 4 HY CHEST RADIOLOGY W/CONTRAS [place] [address] LUTHER SLOAN UREA [address] [place] [address] NITROGEN [facility] QUANTITAT MARJ INFUSION J7030 LUTHER SLOAN NORMAL [address] [place] [address] SALINE [facility] SOLUTION 1000 CC THER 64766 LUTHER SLOAN PROPH/DX [address] [place] [address] NJX EA C[facility] [place] SEQL IV PUSH SBST/DRUG FAC INJ J2543 LUTHER SLOAN PIPERACIL [address] [place] [address] JOSELITO [facility] SOD/TAZOB ACTAM SOD 1 G/0.125 G INJECTION J2550 LUTHER SLOAN [address] [place] [address] PROMETHAZ [facility] INE HCL UP TO 50 MG LOCM Q9967 LUTHER SLOAN 300-[address] [place] [address] MG/ML [facility] IODINE CONCENTRA TION PER ML THER 06899 LUTHER SLOAN PROPH/DX [address] [place] [address] NJX EA [facility] SEQL IV PUSH SBST/DRUG FAC INJECTION J2405 LUTHER SLOAN [address] [place] [address] [facility] ON HCL PER 1 MG INFUSION J7030 LUTHER SLOAN NORMAL [address] [place] [address] SALINE [facility] SOLUTION 1000 CC INJ J2543 LUTHER SLOAN PIPERACIL [address] [place] [address] JOSELITO [facility] SOD/TAZOB ACTAM SOD 1 G/0.125 G BASIC 93786 LUTHER SLOAN METABOLIC MEDICAL MEDICAL PANEL [place] [address] LUTHER SLOAN INFUSION [address] [place] [address] MEDICAL HYDRATION CENTER [place] EACH ADDITIONA L HOUR [facility] G0378 LUTHER SLOAN OBSERVATI [address] [place] [address] MEDICAL ON [facility] SERVICE PER HOUR COLLECTIO 26693 LUTHER VASQUEZENIUM N VENOUS [address] [place] [address] BLOOD [place] LABORATOR VENIPUNCT IES OF CA URE INJECTION C9113 LUTHER SLOAN [address] [place] [address] PANTOPRAZ [facility] OLE SODIUM PER VIAL THER 72636 LUTHER SLOAN PROPH/DX 4 [facility] NJX IV CENTER CENTER PUSH SINGLE/1S T SBST/DRUG NONINVASI 06243 CRISTIANOSKYLERJM LUTHER VE [address] [place] [address] EAR/PULSE CENTER CENTER OXIMETRY SINGLE DETER THERAPEUT 11093 CRISTIANOSKYLERJM LUTHER IC [address] [place] [address] INJECTION [facility] IV PUSH EACH NEW DRUG BLOOD 91749 LUTHER MILLENIUM COUNT [address] [place] [address] COMPLETE [place] LABORATOR AUTOMATED IES OF [place] BLOOD 29551 LUTHER SLOAN COUNT [address] [place] [address] COMPLETE [facility] AUTO&AUTO DIFRNTL WBC BLOOD 25396 LUTHER SLOAN OCCULT [address] [place] [address] [facility] ACTV QUAL FECES 1-3 [place] [address] LUTHER SLOAN LIPASE [address] [place] [address] THERAPEUT 65495 LUTHER SLOAN IC [address] [place] [address] INJECTION [facility] IV PUSH EACH NEW DRUG NONINVASI 34146 LUTHER SLOAN VE [address] [place] [address] EAR/PULSE CENTER [place] [address] LUTHER SLOAN ABDOMEN & [address] [place] [address] PELVIS [facility] W/CONTRAS T MATERIAL COLLECTIO 41427 LUTHER SLOAN N VENOUS [address] [place] [address] BLOOD [facility] [place] [address] LUTHER SLOAN AMYLASE [address] [place] [address] URNLS DIP 24961 LUTHER SLOAN [address] [place] [address] STICK/TAB CENTER CENTER LET REAGENT AUTO MICROSCOP Y INFUSION J7030 LUTHER SLOAN NORMAL [address] [place] [address] SALINE [facility] SOLUTION [address] [place] [address] LUTHER SLOAN INFUSION [address] [place] [address] HYDRATION [facility] EACH ADDITIONA L HOUR INJECTION J2405 LUTHER SLOAN [address] [place] [address] [facility] ON HCL PER 1 MG THER 61212 LUTHER SLOAN PROPH/DX [address] [place] [address] NJX IV CENTER CENTER PUSH SINGLE/1S T SBST/DRUG INJECTION J1170 LUTHER SLOAN [address] [place] [address] HYDROMORP [facility] INDU UP TO 4 MG THER 22100 LUTHER SLOAN PROPH/DX 4 MEDICAL MEDICAL NJX EA CENTER CENTER SEQL IV PUSH SBST/DRUG FAC LOCM Q9967 LUTHER SLOAN 300-399 4 [facility] MG/ML CENTER [place] IODINE CONCENTRA TION PER ML COMPREHEN 11575 LUTHER SLOAN SIVE 4 [facility] METABOLIC [facility] PANEL DUP-SCAN 14783 LUTHER WILSON BRA XTR VEINS 4 COMPLETE RADIOLOGY PLLC BILATERAL STUDY INITIAL 47362 [facility] 4 CARE/[place] [address] [place] [address] LUTHER VILCHISAROLeida ANGIOGRAP 4 NATY HY CHEST RADIOLOGY W/CONTRAS PLLC T/[place] [address] LUTHER ROJAS HEAD/BRAI 4 NATY N W/O RADIOLOGY CONTRAST [facility] MATERIAL ECG 40777 LUTHER CARTY ROUTINE 4 CHR ECG [facility] W/LEAST HOSP 12 LDS I&[place] [address] LUTHER LOPEZ TRACT UPR 4 EFRAIN W/SM INT RADIOLOGY W/MULT [facility] [place] L[place] [address] HARPER SHE HARPER SHE SURG 4 PATHOLOGY GROSS&ALEXIS ROSCOPIC EXAM ANES IPR 86342 LUTHER EATON UPPER 4 SNOW ABDOMEN [facility] LAPS HOSP GASTRIC RSTCV MO ESOPHAGOG 23458 LUTHER QUIÑONEZ ASTRODUOD 4 ASHA ENOSCOPY [facility]OPE [facility] W/ADJ STRXRS GASTRIC 83515 LUTHER QUIÑONEZ RSTCV 4 ASHA W/PRTL [facility] GASTRECTO HOSP MY 50-100 CM OPEN AND 4389 LUTHER SLOAN OTHER [address] [place] [address] PARTIAL [facility] GASTRECTO MY ISOLATION 4551 LUTHER SLOAN OF [address] [place] [address] MEDICAL SEGMENT [facility] OF SMALL INTESTINE OTHER 4513 LUTHER SLOAN ENDOSCOPY [address] [place] [address] SMALL [facility] INTESTINE SMALL-TO- 4591 LUTHER SLOAN SMALL [address] [place] [address] INTESTINA [facility] C[facility] L ANASTOMOS [place] ECG 37047 LUTHER CHUNG ROUTINE 4 DEN ECG [facility] W/LEAST HOSP 12 LDS I&R ONLY RADIOLOGI 13626 LUTHER SLIM ANT C EXAM 4 CHEST 2 RADIOLOGY VIEWS [facility] FRONTAL&L ATERAL MEDICAL 72633 LUTHER SLOAN NUTRITION 4 THERAPY [facility]IST REST[facility] GRP2/ HOSP HOSP INDIV EA 30 MS HUMDIFIR E0562 [facility] US[facility] M STORE M W/POS ARWAY PRESSURE DEVICE CONTINUOU E0601 [facility] S [facility] POSITIVE ST[facility] M STORE M AIRWAY PRESSURE DEVICE WALKING L4360 [facility] BOOT [facility] PNEUMATC STORE M STORE M &/ VACUUM PREFAB CUSTM FIT HUMDIFIR E0562 [facility] HEATED [facility] M STORE M W/POS ARWAY PRESSURE DEVICE FILTER A7038 [facility] DISPBL [facility]ED [facility] M STORE M W/POS ARWAY PRESSURE DEVICE CONTINUOU E0601 [facility] S [facility] POSITIVE STORE M STORE M AIRWAY PRESSURE DEVICE FACE MASK A7031 [facility] INTERFACE STORE M STORE M REPLCMT FULL FACE MASK EA MRI BRAIN 92876 NARRA BAP NARRA BAP BRAIN 4 STEM W/O W/CONTRAS T MATERIAL IIV3 VACC 23913 [facility] JONKAM 4 WOMENS COL PRESERVAT AND MARJ FREE FAMILY 0.5 ML HEALTH DOSAGE IM USE INJ J2930 [facility] JONKAM METHYLPRD 4 WOMENS COL NISOLONE AND SODIUM FAMILY SUCCNAT HEALTH TO 125 MG INJECTION J1885 [facility] JONKAM 4 WOMENS COL KETOROLAC AND FAMILY TROMETHAM HEALTH INE PER 15 MG HUMDIFIR E0562 [facility] HEATED 4 HOMECARE [...] M STORE M AIRWAY PRESSURE DEVICE POLYSOM 29170 LUTHER SLOAN 6/>YRS 4 [facility] SLEEP CENTER [place] W/CPAP 4/> ADDL DEMETRICE ATTND RADIOLOGI 86236 RONY MACIAS C EXAM 4 RADIOLOGY PETERSON CHEST 2 SERVICES VIEWS FRONTAL&L ATERAL ECHO 28083 CHANO SUMAYAM CHANO AHM TTHRC R-T 4 2D W/WOM-MOD E COMPL SPEC&COLR D EGD 63158 LUTHER QUIÑONEZ TRANSORAL 4 ASHA BIOPSY [facility] SINGLE/MU HOSP LTIPLE SPECIAL 99948 LUTHER DOSS JLUIS STAIN 4 GROUP 1 [facility] MICROORGA HOSP NISMS I&R ANES 76613 LUTHER GILLETTE UPPER GI 4 PAULA ENDOSCOPY [facility] [place] [address] LUTHER DOSS JLUIS SURG 4 PATHOLOGY [facility] GROSS&ALEXIS ROSCOPIC EXAM ECG 55569 JUANA CISSE ROUTINE 4 N ALICE ECG EMERGENCY W/LEAST PHYSICI 12 LDS I&R ONLY MRI 65594 JUANA ARMASO SPINAL 4 N A R H N A R H CANAL LUMBAR W/O CONTRAST MATERIAL ECG 00842 LUTHER HANDSHOE ROUTINE 4 R ECG [facility] W/LEAST HOSP 12 LDS W/I&R 25 22886 LUTHER SLOAN HYDROXY [address] [place] [address] INCLUDES CENTER [place] FRACTIONS IF PERFORMED HEMOGLOBI 09262 LUTHER Elizabeth [address] [place] [address] GLYCOSYLA [facility] KAYLYN A1C BLOOD 19229 LUTHER SLOAN COUNT [address] [place] [address] COMPLETE [facility] AUTO&AUTO DIFRNTL WBC COLLECTIO 84218 LUTHER Elizabeth VENOUS [address] [place] [address] BLOOD [facility] [place] [address] [place]UTHER SLOAN THYROID [address] [place] [address] STIMULATI [facility] NG HORMONE TSH COMPREHEN 56086 LUTHER RIVAS 4 [facility] METABOLIC CENTER CENTER PANEL TESTICULA 66247 JUANA ARIAS R IMAGING 4 N A R H N A R H WITH VASCULAR FLOW TECHNETIU A9512 JUANA ARIAS M TC-99M 4 N A R H N A R H PERTCHNET ATE DX PER MILLICURI E HEPATIC 60522 JUANA ARIAS FUNCTION 4 N A R H N A R H PANEL LIPID 23772 JUANA ARIAS PANEL 4 N A R H N A R H BASIC 51209 JUANA ARIAS METABOLIC 4 N A R H [place] [address] JUANA ARIAS THYROID 4 N A R H N A R H STIMULATI NG HORMONE TSH RADEX 28670 JUANA ARIAS SPINE 4 N A R H N A R H LUMBOSACR AL MINIMUM 4 VIEWS COLLECTIO 76467 JUANA ARIAS N VENOUS 4 N A R H N A R H BLOOD VENIPUNCT URE GONADOTRO 88488 JUANA ARIAS PIN 4 N A R H N A R H FOLLICLE STIMULATI NG HORMONE BLOOD 94892 JUANA ARIAS COUNT 4 N A R H N A R H COMPLETE AUTO&[place] [address] JUANA ARIAS PROLACTIN 4 N A R H N A R H CYANOCOBA 78879 JUANA ARIAS NICHOLAS 4 N A R H N A R H VITAMIN B-12 GONADOTRO 67068 JUANA ARIAS PIN 4 N A R H [place] [address] JUANA ARIAS PROSTATE 4 N A R H N A R H SPECIFIC ANTIGEN TOTAL TDAP 35006 [facility] JONKAM VACCINE 7 4 [facility] COL YRS/> IM CLINIC URNLS DIP 07768 [facility] JONKAM 4 [facility] [place] [facility] STICK/TAB CLINIC LET RGNT NON-AUTO W/O MICRSCP Encounters Encounter Start End Date Code Location Performer Type Date EMERGENCY 15214 [facility] 6 [facility] DEPARTMEN EMERGENCY T VISIT PHYS HIGH/URGE NT SEVERITY EMERGENCY 47320 SAVANNAH HOPPER 6 6 PHYSICIAN [facility] DEPARTMEN S, [facility] T VISIT HIGH/URGE NT SEVERITY HOSPITAL RADHA - 6 6 [facility] OUTPATIEN [facility] H[facility] RADHA [facility] 5 5 [facility] OUTPATIEN [facility] OFFICE 47723 CARDIOVAS SUSAN OUTPATIEN 5 5 CULAR MAT T NEW 60 CONSULTAN MINUTES [facility] RADHA [facility] 5 5 [facility] OUTPATIEN [facility] H[facility]PITAL RADHA - 5 5 [facility] OUTPATIEN [facility] RADHA - 5 5 [facility] OUTPATIEN [facility] EMERGENCY 68428 RADHA 5 5 [facility] T VISIT HIGH/URGE NT SEVERITY EMERGENCY 12914 SAVANNAH HOPPER DEPT 5 5 PHYSICIAN ALEXIS VISIT , [facility] HIGH SEVERITY& THREAT FUNJ OFFICE 27173 RADHA DIAL OUTPATIEN 5 5 [facility] T VISIT HOSPITAL 15 MINUTES OFFICE 36924 RADHA JAYRO OUTPATIEN 5 5 [facility] 15 MINUTES OFFICE 66281 ANNETTE GUILLORY OUTPATIEN 5 5 [facility] T VISIT AND 25 FAMILY [facility] JUANA - 5 5 N A R H OUTPATIEN T OFFICE 07152 ANNETTE BUCHANAN OUTPATIEN 5 5 [place] T VISIT MEDICAL 15 ASSOC [facility] JUANA - 5 5 N A R H OUTPATIEN T EMERGENCY 18749 JUANA CISSE 5 5 N ALICE DEPARTMEN EMERGENCY T VISIT PHYSICI HIGH/URGE NT SEVERITY EMERGENCY 96669 JUANA 5 5 N A R H DEPARTMEN T VISIT LOW/MODER SEVERITY HOSPITAL [facility] - 5 5 MEDICAL OUTPATIEN CENTER T OFFICE 14745 LUTHER BETANCOURT [facility] 5 5 MEDICAL T VISIT CENTER 25 INC MINUTES HOSPITAL L[facility]HER - 5 5 MEDICAL OUTPATIEN CENTER T EMERGENCY 17015 [facility] DEPT 5 5 PRATIBHA VISIT EMERGENCY HIGH SERV SEVERITY& THREAT [facility] LUTHER - OTHER 5 5 MEDICAL CENTER EMERGENCY 91937 L[facility] DEPT 5 5 MEDICAL VISIT CENTER HIGH SEVERITY& THREAT [facility] LUTHER - 5 5 MEDICAL OUTPATIEN CENTER HOSPITAL L[facility]HER - 5 5 MEDICAL OUTPATIEN CENTER EMERGENCY 97184 DERIC DECKERI DEPT 5 5 CK ANIKA CK ANIKA VISIT HIGH SEVERITY& THREAT [facility] LUTHER - 5 5 MEDICAL OUTPATIEN CENTER HOSPITAL L[facility] - OTHER 5 5 [facility] LUTHER - 5 5 MEDICAL OUTPATIEN CENTER T EMERGENCY 41457 ALLAN LEMUS DEPT [address] [facility] VISIT HIGH SEVERITY& THREAT [facility] LUTHER - 5 5 MEDICAL OUTPATIEN CENTER T EMERGENCY 61082 [facility] 5 [facility] VISIT MODERATE SEVERITY OFFICE 72451 [facility] 4 4 WOMENS COL T VISIT AND 15 FAMILY MINUTES HEALTH EMERGENCY 14639 LUTHER DEPT 4 4 MEDICAL VISIT CENTER HIGH SEVERITY& THREAT [facility] LUTHER - 4 4 MEDICAL OUTPATIEN CENTER T EMERGENCY 21219 [facility] 4 [facility] HIGH/URGE NT SEVERITY HOSPITAL L[facility]HER - 4 4 MEDICAL OUTPATIEN CENTER T EMERGENCY 84951 ALLAN LEMUS DEPT 4 4 PAMELA PAMELA VISIT HIGH SEVERITY& THREAT [facility] L[facility] - 4 4 MEDICAL INPATIENT CENTER OFFICE 13850 LUTHER QUIÑONEZ OUTPATIEN 4 4 ASHA T VISIT RESTORATIONIST 25 HOSP MINUTES OFFICE 91282 LUTHER QUIÑONEZ OUTPATIEN 4 4 ASHA T VISIT 5 RESTORATIONIST MINUTES HOSP OFFICE 60455 GUTTI SUJ BOOMTI SURanjit OUTPATIEN 4 4 T VISIT 15 MINUTES OFFICE 14774 [facility] SUNPATIEN 4 4 WOMENS COL T VISIT AND 15 FAMILY MINUTES HEALTH EMERGENCY 34853 JUANA 4 4 N A R H DEPARTMEN T VISIT MODERATE SEVERITY EMERGENCY 84668 JUANA [place] 4 4 N THO DEPARTMEN EMERGENCY T VISIT PHYSICI HIGH/URGE NT SEVERITY HOSPITAL JUANA - 4 4 N A R H OUTPATIEN T OFFICE 59735 GUTFLORENTINO REMIRanjit BOOMFLORENTINO REMIJ OUTPATIEN 4 4 T NEW 45 MINUTES OFFICE 11809 [facility] SUNPATIEN 4 4 WOMENS COL T VISIT AND 15 FAMILY MINUTES [facility] - 4 4 [facility] OUTPATIEN [facility]ENTER [facility] - 4 4 N A R H OUTPATIEN T EMERGENCY 03450 [facility] 4 N THO VISIT EMERGENCY HIGH PHYSICI SEVERITY& THREAT FUNCJ EMERGENCY 01592 [facility] 4 4 N A R H DEPARTMEN T VISIT HIGH/URGE NT SEVERITY OFFICE 23194 [facility]HELLE OUTPATIEN 4 4 MEDICAL T VISIT CENTER [address] [facility] - 4 4 MEDICAL OUTPATIEN CENTER T OFFICE 87346 [facility] CONSULTAT 4 4 ION NEW/ESTAB PATIENT 60 MIN OFFICE 84627 [facility] TODD OUTPATIEN 4 4 WOMENS PHI T NEW 30 AND MINUTES [facility] - 4 4 MEDICAL OUTPATIEN CENTER T OFFICE 12282 [facility] OUTPATIEN 4 4 WOMENS COL T VISIT AND 15 [facility] - 4 4 N A R H OUTPATIEN T EMERGENCY 13769 [facility] CISSE DEPT 4 4 N ALICE VISIT EMERGENCY HIGH PHYSICI SEVERITY& THREAT FUN EMERGENCY 69586 [facility] 4 4 N A R H DEPARTMEN T VISIT MODERATE SEVERITY [facility] JUANA - 4 4 N A R H OUTPATIEN T OFFICE 18859 [facility] CHRISTIANSON OUTPATIEN 4 4 T NEW 10 RESTORATIONIST MINUTES HOSP OFFICE 88185 [facility] ODOM OUTPATIEN 4 4 R T NEW 30 RESTORATIONIST MINUTES HOSP OFFICE 63148 [facility] OUTPATIEN 4 4 WOMENS COL T VISIT AND 15 [facility] [place] 4 4 [facility] CENTER OFFICE 98267 [facility] QUIÑONEZ OUTPATIEN 4 4 ASHA T NEW 45 RESTORATIONIST MINUTES [facility] JUA[facility] - 4 4 N A R H OUTPATIEN T OFFICE 25429 [facility] OUTPATIEN 4 4 [facility]AN [place] COL T NEW 45 CLINIC MINUTES
--- OUTSIDE RECORDS SUMMARY | 2017-06-21 23:51 | External Medical Summary Rpt | CCD ---
Author Author , ANA Organization ANA Address Unknown Phone [email or web address] Care Team Providers Care Mannequin Decorator Name Role Phone [facility], Unavailable Unavailable [facility], Unavailable Unavailable [facility], Unavailable Unavailable [facility] Unavailable Unavailable [facility], [facility]available Unavailable HEALTH, [facility] SELAM JLUIS, SELAM [...] Unavailable Unavailable INC, [facility] Unavailable Unavailable HOSPITAL, [facility] DAVID CHAPA Unavailable Unavailable [facility], Unavailable Unavailable [facility] GILLETTE PAULA, GILLETTE Unavailable Unavailable PAULA KHANG ASHA, KHANG Unavailable Unavailable ASHA JONKAM, JONKAM Unavailable Unavailable JONKAM COL, JONKAM Unavailable Unavailable [facility] Unavailable Unavailable [facility], [facility] SESAR ANIKA, Unavailable Unavailable SESAR [...] PHYSICIANS, Unavailable Unavailable PLL, [facility], [facility] Unavailable Unavailable [employer], [facility] Unavailable [facility]available [facility], [facility] Unavailable Unavailable [facility], [facility] Unavailable Unavailable [facility], [facility] JESSICA EFRAIN, JESSICA Unavailable Unavailable EFRAIN REITMAN PETERSON, REITMAN Unavailable Unavailable PETERSON CARTY CHR, Unavailable Unavailable CARTY CHR SUSAN MAT, Unavailable Unavailable [facility] Un[facility], [facility] Unavailable Unavailable EMERGENCY SERV, [facility] BROOKS PHI, BROOKS Unavailable Unavailable [...] Diagnosis DOS Provider Status J0100 ACUTE 09-03-2016 [facility] N EMERGENCY SINUSITIS PHYS UNSPECIFIED R509 FEVER 09-03-2016 [facility] PH[facility] D55210 CELLULITIS 05-08-2016 [facility], [place] [facility] F26655 PAIN IN 05-08-2016 [facility] J0020YS CONTUSION 05-08-2016 [facility], KNEE [facility] INITIAL ENCOUNTER E669 OBESITY 10-01-2015 [facility]PECIF[facility] INC I499 CARDIAC 10-01-2015 [facility]THMIA [facility] UNSPECIFIED INC R079 CHEST PAIN 10-01-2015 [facility] UNSPECIFIED [facility]ICIANS GROUP R9431 ABNORMAL 10-01-2015 [facility] [...] HOSP S INC UNSPECIFIED Z9884 BARIATRIC 08-27-2015 [facility] STATUS [facility] K858 OTHER ACUTE 08-12-2015 [facility], PANCREATITI [facility] S R1013 EPIGASTRIC 08-12-2015 [place] [facility] J0190 ACUTE 07-24-2015 [facility] SINUSITIS [facility] J029 ACUTE 07-16-2015 [facility] PHARYNGITIS [facility] UNSPECIFIED R05 COUGH 07-16-2015 [facility] Z0100 ENCOUNTER 06-26-2015 [facility] EXAM EYES & GRE VISION W/O ABNORMAL FIND 23037 OBSTRUCTIVE 04-30-2015 [facility] WOMENS SLEEP AND FAMILY [facility] 340 MULTIPLE 04-30-2015 [facility] SCLEROSIS AND FAMILY HEALTH 93694 MIGRAINE 04-30-2015 [facility] UNSP W/O A R H INTRACT W/O STATUS MIGRAINOSUS 3559 MONONEURITI 04-30-2015 [facility] Mendez OF A R H UNSPECIFIED SITE 4011 ESSENTIAL 04-30-2015 [facility] HYPERTENSIO A R H N, BENIGN 4779 ALLERGIC 04-30-2015 [facility] RHINITIS A R H CAUSE UNSPECIFIED 05249 ESOPHAGEAL 04-30-2015 [facility] REFLUX A R H 7242 LUMBAGO 04-30-2015 [facility] A R H V4586 BARIATRIC 04-30-2015 [facility] SURGERY A R H STATUS 3829 UNSPECIFIED 03-02-2015 [facility] OTITIS [facility] 4618 OTHER ACUTE 03-02-2015 [facility] TUG SINUSITIS [facility] 4659 ACUTE URIS 02-23-2015 [facility] OF EMERGENCY UNSPECIFIED PHYSICI SITE 4019 UNSPECIFIED 01-29-2015 [facility] N 7243 SCIATICA 01-29-2015 [facility] 7245 UNSPECIFIED 01-29-2015 [facility] 17468 UNSPECIFIED 01-29-2015 [facility] SLEEP [facility]ICAL [facility] 46170 NAUSEA WITH 01-29-2015 WHITE ULISSES VOMITING 68040 ABDOMINAL 01-29-2015 [facility] PAIN, MEDICAL UNSPECIFIED CENTER SITE 45626 DIARRHEA 01-28-2015 [facility] 22342 ABDOMINAL 01-25-2015 [facility] PAIN, N EMERGENCY EPIGASTRIC SERV V725 RADIOLOGICA 01-25-2015 [facility] L RADIOLOGY EXAMINATION [facility] NEC 2638 OTHER 01-07-2015 [facility] PROTEIN-BEV MEDICAL ORIE CENTER MALNUTRITIO N 2689 UNSPECIFIED 01-07-2015 [facility] VITAMIN D MEDICAL DEFICIENCY [facility] 05014 OBESITY, 01-07-2015 [facility] UNSPECIFIED [facility] 17453 OTHER 01-07-2015 [facility] MALAISE [facility] MEDICAL FATIGUE CENTER 95634 VOMITING 01-07-2015 [facility] ALONE [facility] 88637 ABDOMINAL 01-07-2015 [facility] MEDICAL UPPER CENTER QUADRANT V5883 ENCOUNTER 01-07-2015 [facility] THERAPEUTIC [facility] [employer] DRUG MONITORING 5680 PERITONEAL 11-03-2014 [facility] ADHESIONS [facility] 35764 CHOLECYSTIT 11-03-2014 [place] IS, [facility] UNSPECIFIED HOSP 02894 CHRONIC 11-03-2014 [facility] CHOLECYSTIT [facility] IS HOSP 15962 ABDOMINAL 11-03-2014 [facility] PAIN RIGHT [facility] UPPER HOSP QUADRANT 26882 ABDOMINAL 11-01-2014 [facility] PAIN, N EMERGENCY GENERALIZED SERV V8541 BODY MASS 11-01-2014 [facility] INDEX MEDICAL 40.0-44.9 CENTER ADULT 5373 OTHER 10-14-2014 [facility] OBSTRUCTION MEDICAL OF [facility] [employer] DUODENUM V8543 BODY MASS 10-14-2014 [facility] INDEX MEDICAL 50.0-59.9 CENTER ADULT 93981 MORBID 09-14-2014 [facility] OBESITY MEDICAL [employer] [employer] 5303 STRICTURE 09-14-2014 [facility] AND [facility] STENOSIS OF HOSP ESOPHAGUS 5780 HEMATEMESIS 08-09-2014 [facility] 31313 HEMORRHAGE 08-08-2014 VORBIANCA PAMELA COMPLICATIN G A PROCEDURE NEC 9989 UNSPECIFIED 08-08-2014 VORIONAOR PAMELA COMPLICATIO N OF PROCEDURE NEC V5863 LONG-TERM 08-08-2014 [facility] C[facility] T/ANTITHROM BOTIC V5869 LONG-TERM 08-08-2014 [facility] (CURRENT) MEDICAL USE OF CENTER OTHER MEDICATIONS 95172 MIGRAINE 08-01-2014 [facility] UNS W/INTRACTAB L W/O STATUS MIGRAINOSUS 7840 HEADACHE 08-01-2014 [facility] 07649 OTHER 07-29-2014 [facility] CHRONIC MEDICAL PAIN CENTER 5180 PULMONARY 07-29-2014 [facility] V7284 UNSPECIFIED 07-24-2014 [facility] PRE-OPERATI HOSP VE EXAMINATION V691 PROBS 07-20-2014 [facility] INAPPROPRIA HOSP TE DIET&EATING HABITS 38842 OTH 06-22-2014 [facility] ABNORMAL BRAIN & MIXING PICKER TENDER FUNCTION STUDY 71920 UNSPECIFIED 06-17-2014 [facility] SPRAIN AND STRAIN 67555 PAIN IN 06-10-2014 [facility] WOMENS JOINT, AND FAMILY ANKLE AND HEALTH FOOT V0481 NEED 06-10-2014 [facility] WOMENS PROPHYLACTI AND FAMILY C HEALTH VACCINATION &INOCULATIO N FLU 8449 SPRAIN&STRA 06-09-2014 [facility] IN OF EMERGENCY UNSPECIFIED PHYSICI SITE OF KNEE&LEG 7820 DISTURBANCE 05-27-2014 [facility] SUJ OF SKIN SENSATION 08718 OTHER 05-12-2014 [facility] [place] [address] LEUKOCYTOSI 03-26-2014 [facility] S EMERGENCY UNSPECIFIED PHYSICI 14805 FEVER 03-26-2014 [facility] UNSPECIFIED EMERGENCY PHYSICI 7862 COUGH 03-26-2014 [facility] [place] H 69052 NAUSEA 03-26-2014 [facility] ALONE A R H V653 DIETARY 03-18-2014 [facility] INC COUNSELING V6540 COUNSELING 03-18-2014 [facility] MEDICAL [employer] [employer] INC 4293 CARDIOMEGAL 03-09-2014 [facility] AHM Y 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 97297 SHORTNESS 03-09-2014 [facility] 78233 HYPERSOMNIA 02-24-2014 [facility] WITH SLEEP [facility] UNSPECIFIED 3551 MERALGIA 02-20-2014 [facility] WOMENS PARESTHETIC AND FAMILY A HEALTH 7202 SACROILIITI 02-20-2014 [facility] WOMENS S NOT AND FAMILY ELSEWHERE HEALTH CLASSIFIED 7231 CERVICALGIA 02-20-2014 [facility] WOMENS AND FAMILY HEALTH 8438 SPRAIN&STRA 02-20-2014 [facility] WOMENS IN OTHER AND FAMILY SPECIFIED HEALTH SITES HIP&THIGH 33034 ACUTE 02-18-2014 [facility] ESOPHAGITIS [facility] 33905 ULCER OF 02-18-2014 [facility] ESOPHAGUS [facility] WITHOUT HOSP BLEEDING 73106 GASTR ULCR 02-18-2014 [facility] MEDICAL ACUT/CHRN CENTER W/O HEMOR PERF/OBST 32780 ATROPHIC 02-18-2014 [facility] GASTRITIS [facility] WITHOUT HOSP MENTION OF HEMORRHAGE 30498 UNS 02-18-2014 [facility] GASTRITIS&G [facility] ASTRODUODIT HOSP IS W/O MENTION HEMORR 51087 DUODENITIS 02-18-2014 [facility] WITHOUT [facility] MENTION OF HOSP HEMORRHAGE 7823 EDEMA 02-18-2014 [facility] 7226 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 HEALTH RAL DISC SITE UNSPEC 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 UNSPECIFIED 6011 CHRONIC 02-11-2014 [facility] PROSTATITIS [facility] 6069 UNSPECIFIED 02-11-2014 [facility] MALE [facility] INFERTILITY HOSP 6089 UNSPECIFIED 02-11-2014 [facility] DISORDER [facility] OF MALE HOSP GENITAL ORGANS V7281 PRE-OPERATI 02-05-2014 [facility] VE [facility] CARDIOVASCU HOSP LAR EXAMINATION 53109 OTHER 01-19-2014 [facility] 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 03498 OTHER 12-18-2013 [facility] SPECIFIED A R H DISORDER OF MALE GENITAL ORGANS 7881 DYSURIA 12-18-2013 MELGOZA A R H V061 NEED PROPH 12-17-2013 [facility] ALLAN VAC W/COMB CO CLINIC DIPHTH-TETA NUS-PERTUSS [...] ve LO 37 20 20 16 AI IA 40 17 17 04 D AM 1 [...] ve LO 37 20 20 16 AI IA 40 17 17 04 D AM 1 [...] ve TA 80 20 20 12 AI AZ 00 17 17 97 D N 0 58 PH A AR 10 MA ,0 CY 00 #3 UN 93 IT 8 SF TG L ES 65 01 02 30 30 00 RI Ac CI 86 -1 -0 .0 00 TE ti TA 20 0- 3- 00 01 ve LO 37 20 20 16 AI IA 40 17 17 04 D AM 1 [...] Procedure DOS Code Location Performer Comment RADIOLOGI 91607 [place] [facility] ALL C 6 MEDICAL EXAMINATI IMAGING ON KNEE 3 ASS VIEWS CV STRS 72248 [facility] FALLUJI TST 6 PHYSICIAN VALERIANO XERS&/OR S GROUP RX CONT ECG W/O I&R CV STRS 60012 [facility] GARCIA TST 6 [facility] XERS&/OR INC INC RX CONT ECG TRCG ONLY MYOCARDIA 71013 [facility] Burroughs SPECT 6 [facility] MULTIPLE INC INC STUDIES TECHNETIU A9500 [facility] Coates TC-99M 6 MEM [facility] SESTAMIBI INC INC DX PER STUDY DOSE ECHO 91317 MAY PEREZ TTHRC R-T 5 MEDICAL 2D SERV W/WOM-MOD FOUNDATIO E COMPL N SPEC&COLR D ECG 95585 [facility] G[facility]IA ROUTINE 5 [facility] ECG INC INC W/LEAST 12 LDS TRCG ONLY W/O I&R CREATINE 55874 [facility] G[facility]IA KINASE 5 [facility] [place] [address] RAD[facility] GARCIA LIPASE 5 [place] [address] [facility] GARCIA TROPONIN 5 [facility] QUANTITAT INC INC MARJ BLOOD 40179 [facility] GARCIA COUNT 5 [facility] COMPLETE INC INC AUTO&AUTO DIFRNTL WBC COLLECTIO 83292 [facility] GARCIA N VENOUS 5 [facility] BLOOD [place] [address] RAD[facility] GARCIA AMYLASE 5 MEM HOS[facility]OS[facility] INC INC CREATINE 57403 RAD[facility] GARCIA KINASE MB 5 MEM [facility] [place] [address] RAD[facility] GARCIA FREE 5 [facility] [place] [address] [facility] GARCIA THYROID 5 [facility] STIMULATI INC INC NG HORMONE TSH COMPREHEN 06465 RAD[facility] GARCIA SIVE 5 [facility] METABOLIC INC INC PANEL LIPID 54598 [facility] GARCIA PANEL 5 [facility] INC INC THER 14251 [facility] GARCIA PROPH/DX 5 [facility] NJX IV INC INC PUSH SINGLE/1S T SBST/DRUG THERAPEUT 63716 [facility] GARCIA IC 5 [facility] INJECTION INC INC IV PUSH EACH NEW DRUG ECG 35272 [facility] GARCIA ROUTINE 5 [facility] ECG INC INC W/LEAST 12 LDS TRCG ONLY W/O I&[place] [address] [facility] GARCIA ABDOMEN & 5 [facility] PELVIS INC INC W/O CONTRAST MATERIAL ECG 02344 BJ USSON ROUTINE 5 OMAR OMAR ECG W/LEAST 12 LDS I&R ONLY RADIOLOGI 97147 [facility] GARCIA C EXAM 5 [facility] CHEST 2 INC INC VIEWS FRONTAL&L ATERAL BLOOD 03154 [facility] GARCIA COUNT 5 [facility]OS[facility] COMPLETE INC INC AUTO&[place] [address] RAD[facility] GARCIA TROPONIN 5 MEM H[facility] [address] RAD[facility] GARCIA LIPASE 5 [facility] INC INC CREATINE 47547 [facility] GARCIA KINASE 5 [facility] H[facility]OS[facility] TOTAL INC INC CREATINE 07231 RAD[facility] GARCIA KINASE MB 5 [facility] [address] RAD[facility] GARCIA AMYLASE 5 [facility] INC INC COMPREHEN 58926 [facility] GARCIA SIVE 5 [facility] METABOLIC INC INC PANEL THERAPEUT 23076 [facility] DIAL IC 5 [facility] TIC/DX INJECTION SUBQ/IM INJECTION J1040 [facility] DIAL 5 [facility] DNISOLONE ACETATE 80 MG IAADIADOO 65597 [facility] DIAL 5 [facility] CCUS GROUP A OPHTH 20030 [facility] 5 GRE GRE XM&EVAL COMPRE NEW PT 1/> [facility] G0463 JUANA ARIAS OUTPATIEN 5 N A R H N A R H T CLIN VISIT ASSESS & MGMT PT ANES 65685 WHITE ULISSES WHITE ULISSES UPPER GI 5 ENDOSCOPY PROXIMAL TO DUODENUM ESOPHAGOG 17310 [facility] ASTRODUOD [address] [place] [address] ENOSCOPY CENTER [facility] [employer] TRANSORAL DIAGNOSTI C INJECTION J2405 [facility] [address] [place] [address] ONDANSETR [facility] ON HCL PER 1 MG RINGERS J7120 [facility] LACTATE [address] [place] [address] INFUSION [facility] UP TO 1000 CC INJECTION J2250 [facility] [address] [place] [address] MIDAZOLAM [facility] HCL PER 1 [place] [address] [facility] INFUSION [address] [place] [address] HYDRATION [facility] EACH ADDITIONA L HOUR ECG 66380 [facility] ROUTINE 5 PRATIBHA ECG EMERGENCY W/LEAST SERV 12 LDS I&[place] [address] [facility] WILSON BRA ABDOMEN & 5 [facility] RADIOLOGY W/[place] [address] [facility] THIAMINE- [address] [place] [address] VITAMIN [facility] B-1 CYANOCOBA 24003 [facility] NICHOLAS [address] [place] [address] VITAMIN [facility] B-12 25 47917 [facility] HYDROXY [address] [place] [address] [place] [address] [facility] VITAMIN K [address] [place] [address] PREALBUMI 37672 [facility] N [address] [place] [address] BLOOD 45515 [facility] COUNT [address] [place] [address] AUTO&[place] [address] [facility] FOLIC [address] [place] [address] ACID [place] [place] [address] [facility] THYROID [address] [place] [address] [facility] [place] [address] [facility] IRON [address] [place] [address] [place] [address] [facility] VITAMIN A [address] [place] [address] COLLECTIO 50077 L[facility] N VENOUS [address] [place] [address] BLOOD [facility] VENIPUNCT URE LIPID 80675 [facility] PANEL [address] [place] [address] COMPREHEN 88699 [facility] SIVE [address] [place] [address] METABOLIC [facility] PANEL INJECTION J1644 [facility] HEPARIN [address] [place] [address] SODIUM [facility] PER 1000 UNITS THERAPEUT 68869 [facility] IC [address] [place] [address] PROPHYLAC [facility] TIC/DX INJECTION SUBQ/IM COLLECTIO 42552 [facility] N VENOUS [address] [place] [address] BLOOD [facility] VENIPUNCT URE BLOOD 36112 [facility] COUNT [address] [place] [address] COMPLETE [facility] AUTOMATED BLOOD 07728 [facility] COUNT [address] [place] [address] AUTOMATED INJECTION J2060 [facility] [address] [place] [address] [facility] CENTER 2 MG COLLECTIO 59785 [facility] Elizabeth VENOUS [address] [place] [address] BLOOD CENTER CENTER VENIPUNCT URE THERAPEUT 69591 [facility] IC [address] [place] [address] PROPHYLAC CENTER CENTER TIC/DX INJECTION SUBQ/IM THERAPEUT 28059 [facility] JACKMAN IC MEDICAL E INJECTION CENTER ADVANTAGE IV PUSH EACH NEW DRUG INJECTION J1644 [facility] HEPARIN [address] [place] [address] MEDICAL SODIUM CENTER CENTER PER 1000 UNITS RINGERS J7120 [facility] LACTATE [address] [place] [address] MEDICAL INFUSION CENTER CENTER UP TO 1000 CC THER 94180 [facility] JACKMAN PROPH/DX [address] [place] [address] E NJX EA CENTER ADVANTAGE SEQL IV PUSH SBST/DRUG FAC INJECTION J2405 [facility] [address] [place] [address] ONDANSETR [facility] ON HCL PER 1 MG COMPREHEN 91730 [facility] SIVE [address] [place] [address] METABOLIC CENTER CENTER PANEL INJECTION J2405 [facility] [address] [place] [address] ONDANSETR [facility] ON HCL PER 1 MG INJECTION J2550 [facility] [address] [place] [address] PROMETHAZ [facility] INE HCL UP TO 50 MG INJECTION J2250 [facility] [address] [place] [address] MIDAZOLAM CENTER CENTER HCL PER 1 MG INJECTION J2270 [facility] MORPHINE [address] [place] [address] MEDICAL SULFATE CENTER CENTER UP TO 10 MG INJECTION J1885 [facility] [address] [place] [address] KETOROLAC CENTER CENTER TROMETHAM INE PER 15 MG INJECTION J3010 [facility] FENTANYL [address] [place] [address] CITRATE CENTER CENTER 0.1 MG THER 36843 [facility] PROPH/DX [address] [place] [address] MEDICAL NJX EA CENTER CENTER SEQL IV PUSH SBST/DRUG FAC RINGERS J7120 [facility] LACTATE [address] [place] [address] MEDICAL INFUSION CENTER CENTER UP TO 1000 CC INJECTION J1644 [facility] HEPARIN [address] [place] [address] SODIUM CENTER CENTER PER 1000 UNITS INJECTION J1170 [facility] [address] [place] [address] HYDROMORP CENTER CENTER INDU UP TO 4 MG THERAPEUT 86477 [facility] IC [address] [place] [address] MEDICAL PROPHYLAC CENTER [facility] [employer] TIC/DX INJECTION SUBQ/IM INJECTION C9113 [facility] [address] [place] [address] [facility]OPRAZ [facility] OLE SODIUM PER VIAL LEVEL III 42394 [facility] SURG [address] [place] [address] PATHOLOGY CENTER CENTER GROSS&ALEXIS ROSCOPIC EXAM NONINVASI 74925 [facility] VE [address] [place] [address] MEDICAL EAR/PULSE CENTER [facility] OXIMETRY OVERNIGHT MONITOR THERAPEUT 72725 [facility] IC [address] [place] [address] MEDICAL INJECTION CENTER [facility] [employer] [facility] IV PUSH EACH NEW DRUG ANES 80851 [facility] NAVARRO INTRAPERI [address] [place] [address] DWA TONEAL [facility] UPPER INC ABDOMEN W/LAPS NOS LAPAROSCO 57778 [facility] PY SURG [address] [place] [address] CHOLECYST CENTER CENTER ECTOMY THERAPEUT 57104 [facility] IC [address] [place] [address] MEDICAL INJECTION CENTER [facility] [employer] [place] [place] [address] [facility] ABDOMEN & [address] [place] [address] MEDICAL PELVIS CENTER CENTER W/CONTRAS T MATERIAL INJECTION C9113 [facility] [address] [place] [address] [facility] OLE SODIUM PER VIAL THERAPEUT 67061 [facility] IC [address] [place] [address] MEDICAL PROPHYLAC CENTER [facility] [employer] [facility] TIC/DX INJECTION SUBQ/IM INJECTION J1644 [facility] HEPARIN [address] [place] [address] SODIUM [facility] PER 1000 UNITS RINGERS J7120 [facility] LACTATE [address] [place] [address] MEDICAL INF[facility] [employer] UP TO 1000 CC THER [id number] LUTHER SLOAN PROPH/DX [address] [place] [address] NJX EA CENTER CENTER SEQL IV PUSH SBST/DRUG FAC INJECTION [id number] LUTHER SLOAN [address] [place] [address] KETOROLAC [facility] [employer] TROMETHAM INE PER 15 MG HEPATOBIL [id number] LUTHER SLOAN SYST [address] [place] [address] MEDICAL IMAG INC CENTER CENTER GB W/PHARMA INTERVENJ INJECTION J2405 LUTHER SLOAN [address] [place] [address] [facility]AN[facility]R [facility] [employer] ON HCL [place] 1 [place] [address] LUTHER SLOAN ABDOMINAL [address] [place] [address] REAL [facility] TIME W/IMAGE LIMITED INJECTION J2550 LUTHER SLOAN [address] [place] [address] PROMETHAZ [facility] INE HCL UP TO 50 MG TECHNETIU [id number] LUTHER Coates [id number] [address] [place] [address] N DX UP TO 15 MCI LOCM [id number] LUHTER SLOAN [phone] [place] [address] MG/ML CENTER CENTER IODINE CONCENTRA TION PER ML COMPREHEN 40440 LUTHER SLOAN SIVE [address] [place] [address] METABOLIC CENTER CENTER PANEL INJECTION J2405 LUTHER SLOAN [address] [place] [address] ONDAETR [facility] ON HCL PER 1 MG INFUSION J7030 LUTHER SLOAN NORMAL [address] [place] [address] SALINE [facility] SOLUTION 1000 CC THER [id number] LUTHER SLOAN PROPH/DX [address] [place] [address] NJX EA [facility] [employer] SEQL IV PUSH SBST/DRUG FAC INJECTION J1885 LUTHER SLOAN [address] [place] [address] KETOROLAC [facility] TR[place]ETHAM INE PER 15 MG RINGERS J7120 LUTHER SLOAN LACTATE [address] [place] [address] INFUSION [facility] UP TO 1000 CC INJECTION J1644 LUTHER SLOAN HEPARIN [address] [place] [address] SODIUM [facility] [place] [address] [place] [address] LUTHER SLOAN INFUSION [address] [place] [address] HYDRATION [facility] EACH ADDITIONA L HOUR THER 70124 LUTHER SLOAN PROPH/DX [address] [place] [address] NJX IV CENTER CENTER PUSH SINGLE/1S T SBST/DRUG THERAPEUT 20638 LUTHER SLOAN IC [address] [place] [address] PROPHYLAC [employer] [employer] [facility] TIC/DX INJECTION SUBQ/IM INJECTION [id number] LUTHER SLOAN [address] [place] [address] [facility]OP[place] OLE SODIUM PER VIAL COLLECTIO 74516 LUTHER SLOAN N VENOUS [address] [place] [address] BLOOD [facility] [place] [address] LUTHER SLOAN AMYLASE [address] [place] [address] HOSPITAL [id number] LUTHER SLOAN OBSERVATI [address] [place] [address] MEDICAL ON [employer] [facility] SERVICE PER HOUR BLOOD 44410 LUTHER SLOAN COUNT [address] [place] [address] COMPLETE [facility] AUTO&AUTO DIFRNTL WBC THERAPEUT 27202 LUTHER SLOAN IC [address] [place] [address] INJECTION [facility] IV PUSH EACH NEW DRUG NONINVASI [id number] LUTHER SLOAN VE [address] [place] [address] EAR/PULSE CENTER C[place] [address] LUTHER SLOAN LIPASE [address] [place] [address] [place] [address] LUTHER WILSON BRA TRACT 5 UPPER RADIOLOGY [facility] DELAYED IMAGES W/[place] [address] LUTHER SLOAN INFUSION [address] [place] [address] HYDRATION [facility] EACH ADDITIONA L HOUR ANES 63541 LUTHER SHAWUMP JANES UPPER GI 5 ENDOSCOPY [facility] TO DUODENUM CATHETER C1726 LUTHER SLOAN BALLOON [address] [place] [address] DILATATIO [facility] N NON-VASCU LAR EGD 53911 LUTHER QUIÑONEZ DILATION 5 ASHA GASTRIC/D [facility] STRICTURE RINGERS J7120 LUTHER SLOAN LACTATE [address] [place] [address] INFUSION [facility] UP TO 1000 CC INJECTION J2250 LUTHER SLOAN [address] [place] [address] HCL PER 1 MG LIPID 35043 LUT[facility] SLOAN PANEL [address] [place] [address] COMPREHEN 13351 LUTHER SLOAN SIVE [address] [place] [address] METABOLIC [facility] [place] [address] LUTHER SLOAN THIAMINE- [address] [place] [address] VITAMIN [facility] B-1 CYANOCOBA 38472 LUTHER SLOAN NICHOLAS [address] [place] [address] VITAMIN [facility] B-12 PREALBUMI 75271 LUTHER SLOAN N [address] [place] [address] BLOOD 58223 [facility]UT[facility] SLOAN COUNT [address] [place] [address] COMPLETE [facility] AUTOMATED COLLECTIO 32918 LUTHER SLOAN N VENOUS [address] [place] [address] BLOOD [facility] [place] [address] LUTHER QUINONEZSKYLERJM IRON [address] [place] [address] [place] [address] LUTHER SLOAN FOLIC [address] [place] [address] [place] [address] LUTHER SMALLS ANT ABDOMINAL 5 REAL RADIOLOGY TIME PLLC W/[place] [address] LUTHER SLOAN INFUSION [address] [place] [address] HYDRATION [facility] EACH ADDITIONA L HOUR INJECTION J0330 LUTHER SHOREJM [address] [place] [address] SUCCINYLC [facility] HOLINE CHLORIDE UP TO 20 MG INJECTION J1100 LUTHER LUTHER [address] [place] [address] DEXAMETHO [facility] SONE SODIUM PHOSPHATE 1 MG RINGERS J7120 CRISTIANOSKYLERJM SLOAN LACTATE [address] [place] [address] INFUSION [facility] UP TO 1000 CC INJECTION J2405 MONEJM QUINONEZTRI [address] [place] [address] ONDANSETR [facility] ON HCL PER 1 MG INJECTION J3010 LUTHER SHOREJM FENTANYL [address] [place] [address] CITRATE [facility] 0.1 MG INJECTION J2250 MONEJM SLOAN [address] [place] [address] MIDAZOLAM [facility] HCL PER 1 MG ANES 23444 LUTHER HERNANDEZ UPPER GI 5 SNOW ENDOSCOPY [facility] TO DUODENUM EGD 48177 LUTHER QUIÑONEZ BALLOON ASHA DILATION [facility] <30 MM DIAM CATHETER C1726 LUTHER SLOAN BALLOON [address] [place] [address] DILATATIO [facility] N NON-VASCU LAR NONINVASI 55096 LUTHER SLOAN VE [address] [place] [address] EAR/PULSE [facility] OXIMETRY SINGLE DETER EGD 66779 LUTHER SLOAN DILATION [address] [place] [address] GASTRIC/D [facility] UODENAL STRICTURE CREATININ 11084 L[facility] LAB TOX E BLOOD [address] [place] [address] BLOOD 12914 LUTHER MILLENIUM COUNT [address] [place] [address] COMPLETE [facility] AUTOMATED IES OF [place] INJECTION C9113 LUTHER SLOAN [address] [place] [address] PANTOPRAZ [facility] OLE SODIUM PER VIAL COLLECTIO 79831 [facility] LAB TOX N VENOUS [address] [place] [address] [place] [address] LUTHER SLOAN INFUSION [address] [place] [address] MEDICAL HYDRATION CENTER [facility] [place] [address] LUTHER WILSON BRA ANGIOGRAP 4 HY CHEST RADIOLOGY W/CONTR[place] [address] LUTHER SLOAN UREA [address] [place] [address] NITROGEN [facility] QUANTITAT MARJ INFUSION J7030 LUTHER SLOAN NORMAL [address] [place] [address] SALINE [facility] SOLUTION 1000 CC THER 46355 LUTHER SLOAN PROPH/DX [address] [place] [address] NJX EA CENTER [facility] SEQL IV PUSH SBST/DRUG FAC INJ J2543 LUTHER SLOAN PIPERACIL [address] [place] [address] JOSELITO [facility] SOD/TAZOB ACTAM SOD 1 G/0.125 G INJECTION J2550 LUTHER SLOAN [address] [place] [address] PROMETHAZ [facility] INE HCL UP TO 50 MG LOCM Q9967 LUTHER SLOAN 300-[address] [place] [address] MG/ML [facility] IODINE CONCENTRA TION PER ML THER 87081 LUTHER SOLAN PROPH/DX [address] [place] [address] NJX EA [facility] SEQL IV PUSH SBST/DRUG FAC INJECTION J2405 LUTHER SLOAN [address] [place] [address] ONDANSETR [facility] ON HCL PER 1 MG INFUSION J7030 LUTHER SLOAN NORMAL [address] [place] [address] SALINE [facility] SOLUTION 1000 CC INJ J2543 LUHTER SLOAN PIPERACIL [address] [place] [address] JO[facility]IT[facility] SOD/TAZOB ACTAM SOD 1 G/0.125 G BASIC 43521 LUTHER SLOAN METABOLIC [facility] PANEL [place] [address] LUTHER SLOAN INFUSION [address] [place] [address] MEDICAL HYDRATION CENTER [facility] ADDITIONA [facility] G0378 LUTHER SLOAN OBSERVATI [address] [place] [address] MEDICAL ON [facility] SERVICE PER HOUR COLLECTIO 81392 LUTHER VASQUEZENIUM N VENOUS [address] [place] [address] BLOOD [facility] VENIPUNCT IES OF [place] URE INJECTION C9113 LUTHER SLOAN [address] [place] [address] [facility] OLE SODIUM PER VIAL THER 61222 LUTHER SLOAN PROPH/DX 4 [facility] NJX IV CENTER CENTER PUSH SINGLE/1S T SBST/DRUG NONINVASI 24522 CRISTIANOSKYLERJM LUTHER VE [address] [place] [address] EAR/PULSE CENTER CENTER OXIMETRY SINGLE DETER THERAPEUT 94002 CRISTIANOSKYLERJM LUTHER IC [address] [place] [address] INJECTION [facility] IV PUSH EACH NEW DRUG BLOOD 91031 LUTHER MILLENIUM COUNT [address] [place] [address] COMPLETE [facility] AUTOMATED [place] BLOOD 04943 LUTHER SLOAN COUNT [address] [place] [address] COMPLETE [facility] AUTO&AUTO DIFRNTL WBC BLOOD 41158 LUTHER SLOAN OCCULT [address] [place] [address] PEROXIDFORMERLY [facility] E ACTV QUAL FECES 1-3 [place] [address] LUTHER SLOAN LIPASE [address] [place] [address] THERAPEUT 46200 LUTHER SLOAN IC [address] [place] [address] INJECTION [facility] IV PUSH EACH NEW DRUG NONINVASI 04432 LUTHER SLOAN VE [address] [place] [address] EAR/PULSE CENTER [place] [address] LUTHER SLOAN ABDOMEN & [address] [place] [address] PELVIS [facility] W/CONTRAS T MATERIAL COLLECTIO 81976 LUTHER SLOAN N VENOUS [address] [place] [address] BLOOD [facility] [place] [address] LUTHER SLOAN AMYLASE [address] [place] [address] URNLS DIP 62973 LUTHER SLOAN [address] [place] [address] STICK/TAB CENTER CENTER LET REAGENT AUTO MICROSCOP Y INFUSION J7030 LUTHER SLOAN NORMAL [address] [place] [address] SALINE [facility] SOLUTION [address] [place] [address] LUTHER SLOAN INFUSION [address] [place] [address] HYDRATION [facility] EACH ADDITIONA L HOUR INJECTION J2405 LUTHER SLOAN [address] [place] [address] O[facility]ANSETR [facility] ON HCL PER 1 MG THER 79142 LUTHER SLOAN PROPH/DX [address] [place] [address] NJX IV CENTER CENTER PUSH SINGLE/1S T SBST/DRUG INJECTION J1170 LUTHER SLOAN [address] [place] [address] HYDROMORP [facility] INDU UP TO 4 MG THER 17678 LUTHER SLOAN PROPH/DX 4 MEDICAL MEDICAL NJX EA CENTER CENTER SEQL IV PUSH SBST/DRUG FAC LOCM Q9967 LUTHER SLOAN 300-399 4 [facility] MG/ML CENTER [facility] IODINE CONCENTRA TION PER ML COMPREHEN 07002 LUTHER SLOAN SIVE 4 [facility] METABOLIC [facility] PANEL DUP-SCAN 62615 LUTHER WILSON BRA XTR VEINS 4 COMPLETE RADIOLOGY PLLC BILATERAL STUDY INITIAL 96355 [facility] 4 CARE/[place] [address] [place] [address] LUTHER VILCHISAROLeida ANGIOGRAP 4 NATY HY CHEST RADIOLOGY W/CONTRAS PLLC T/[place] [address] LUTHER ROJAS HEAD/BRAI 4 NATY N W/O RADIOLOGY CONTRAST [facility] MATERIAL ECG 51648 LUTHER CARTY ROUTINE 4 CHR ECG [facility] W/LEAST HOSP 12 LDS I&[place] [address] LUTHER LOPEZ TRACT UPR 4 EFRAIN W/SM INT RADIOLOGY W/MULT [facility] SERIAL [place] L[place] V [address] HARPER SHE HARPER SHE SURG 4 PATHOLOGY GROSS&ALEXIS ROSCOPIC EXAM ANES IPR 10494 LUTHER EATON UPPER 4 SNOW ABDOMEN [facility] GASTRIC RSTCV MO ESOPHAGOG 24309 LUTHER QUIÑONEZ ASTRODUOD 4 ASHA ENOSCOPY [facility] W/ADJ STRXRS GASTRIC 33579 LUTHER QUIÑONEZ RSTCV 4 ASHA W/PRTL [facility] GASTRECTO H[facility] MY 50-100 CM OPEN AND 4389 LUTHER SLOAN OTHER [address] [place] [address] PARTIAL [facility] GASTRECTO MY ISOLATION 4551 LUTHER SLOAN OF [address] [place] [address] MEDICAL SEGMENT [facility] OF SMALL INTESTINE OTHER 4513 LUTHER SLOAN ENDOSCOPY [address] [place] [address] SMALL [facility] INTESTINE SMALL-TO- 4591 LUTHER SLOAN SMALL [address] [place] [address] INTESTINA [facility] L ANASTOMOS IS ECG 00589 LUTHER CHUNG ROUTINE 4 DEN ECG [facility] W/LEAST HOSP 12 LDS I&R ONLY RADIOLOGI 18251 LUTHER SLIM ANT C EXAM 4 CHEST 2 RADIOLOGY VIEWS [facility] FRONTAL&L ATERAL MEDICAL 50206 LUTHER SLOAN NUTRITION 4 THERAPY [facility] GRP2/ HOSP HOSP INDIV EA 30 [place] HUMDIFIR E0562 [facility] HEATED 4 [facility] [...] REPLCMT FULL FACE MASK EA MRI BRAIN 57970 NARRA BAP NARRA BAP BRAIN 4 STEM W/O W/CONTRAS T MATERIAL IIV3 VACC 36992 [facility] JONKAM 4 WOMENS COL PRESERVAT AND [...] M STORE M AIRWAY PRESSURE DEVICE POLYSOM 57166 LUTHER SLOAN 6/>YRS 4 [facility] SLEEP CENTER [facility] W/CPAP 4/> ADDL DEMETRICE ATTND RADIOLOGI 37717 RONY MACIAS C EXAM 4 RADIOLOGY [place] CHEST 2 SERVICES VIEWS FRONTAL&L ATERAL ECHO 49397 CHANO SUMAYAM CHANO AHM TTHRC R-T 4 2D W/WOM-MOD E COMPL SPEC&COLR D EGD 36256 LUTHER QUIÑONEZ TRANSORAL 4 ASHA BIOPSY [facility] SINGLE/MU HOSP LTIPLE SPECIAL 59377 LUTHER DOSS JLUIS STAIN 4 GROUP 1 [facility] MICROORGA HOSP NISMS I&R ANES 56293 LUTHER GILLETTE UPPER GI 4 PAULA ENDOSCOPY [facility] [place] [address] LUTHER DOSS JLUIS SURG 4 PATHOLOGY [facility] GROSS&ALEXIS ROSCOPIC EXAM ECG 49117 JUANA CISSE ROUTINE 4 N ALICE ECG EMERGENCY W/LEAST PHYSICI 12 LDS I&R ONLY MRI 57930 JUANA ARMASO SPINAL 4 N A R H N A R H CANAL LUMBAR W/O CONTRAST MATERIAL ECG 36923 LUTHER HANDSHOE ROUTINE 4 R ECG [facility] W/LEAST HOSP 12 LDS W/I&R 25 39863 LUTHER SLOAN HYDROXY [address] [place] [address] INCLUDES CENTER [facility] FRACTIONS IF PERFORMED HEMOGLOBI 26732 LUTHER Elizabeth [address] [place] [address] GLYCOSYLA [facility] KAYLYN A1C BLOOD 31158 LUTHER SLOAN COUNT [address] [place] [address] COMPLETE [facility] AUTO&AUTO DIFRNTL WBC COLLECTIO 94237 LUTHER Elizabeth VENOUS [address] [place] [address] BLOOD [facility] [place] [address] LUTHER SLOAN THYROID [address] [place] [address] STIMULATI [facility] NG HORMONE TSH COMPREHEN 24987 LUTHER RIVAS 4 [facility] METABOLIC CENTER CENTER PANEL TESTICULA 78443 JUANA ARIAS R IMAGING 4 N A R H N A R H WITH VASCULAR FLOW TECHNETIU A9512 JUANA ARIAS M TC-99M 4 N A R H N A R H PERTCHNET ATE DX PER MILLICURI E HEPATIC 91480 JUANA ARIAS FUNCTION 4 N A R H N A R H PANEL LIPID 76106 JUANA ARIAS PANEL 4 N A R H N A R H BASIC 74588 JUANA ARIAS METABOLIC 4 N A R H [place] [address] JUANA ARIAS THYROID 4 N A R H N A R H STIMULATI NG HORMONE TSH RADEX 04668 JUANA ARIAS SPINE 4 N A R H N A R H LUMBOSACR AL MINIMUM 4 VIEWS COLLECTIO 90358 JUANA ARIAS N VENOUS 4 N A R H N A R H BLOOD VENIPUNCT URE GONADOTRO 41306 JUANA ARIAS PIN 4 N A R H N A R H FOLLICLE STIMULATI NG HORMONE BLOOD 95279 JUANA ARIAS COUNT 4 N A R H N A R H COMPLETE AUTO&[place] [address] JUANA ARIAS PROLACTIN 4 N A R H N A R H CYANOCOBA 71740 JUANA ARIAS NICHOLAS 4 N A R H N A R H VITAMIN B-12 GONADOTRO 63833 JUANA ARIAS PIN 4 N A R H [place] [address] JUANA ARIAS PROSTATE 4 N A R H N A R H SPECIFIC ANTIGEN TOTAL TDAP 04640 [facility] JONKAM VACCINE 7 4 [facility] COL YRS/> IM CLINIC URNLS DIP 81279 [facility] JONKAM 4 [facility] COL STICK/TAB CLINIC LET RGNT NON-AUTO W/O MICRSCP Encounters Encounter Start End Date Code Location Performer Type Date EMERGENCY 88193 [facility] 6 [facility] DEPARTMEN EMERGENCY T VISIT PHYS HIGH/URGE NT SEVERITY EMERGENCY 51694 SAVANNAH HOPPER 6 6 [facility]ICIAN [facility] DEPARTMEN S, [facility] T VISIT HIGH/URGE NT SEVERITY HOSPITAL RADHA - 6 6 [facility] OUTPATIEN [facility] HOSPITAL RADHA - 5 5 [facility] OUTPATIEN [facility] OFFICE 90508 CARDIOVAS SUSAN OUTPATIEN 5 5 CULAR MAT T NEW 60 CONSULTAN MINUTES [facility] RADHA - 5 5 [facility] OUTPATIEN [facility]PITAL RADHA - 5 5 [facility] OUTPATIEN [facility] RADHA [facility] 5 5 [facility] OUTPATIEN [facility] EMERGENCY 25353 RADHA 5 5 [facility] T VISIT HIGH/URGE NT SEVERITY EMERGENCY 20067 SAVANNAH HOPPER DEPT 5 5 PHYSICIAN ALEXIS VISIT , [facility] HIGH SEVERITY& THREAT FUNJ OFFICE 88748 RADHA DIAL OUTPATIEN 5 5 [facility] T VISIT HOSPITAL 15 MINUTES OFFICE 59419 RADHA JAYRO OUTPATIEN [address] [facility] VISIT HOSPITAL 15 MINUTES OFFICE 35356 ANNETTE GUILLORY OUTPATIEN 5 5 [facility] T VISIT AND 25 [facility] JUANA - 5 5 N A R H OUTPATIEN T OFFICE 79825 ANNETTE BUCHANAN OUTPATIEN 5 5 [place] T VISIT MEDICAL 15 ASSOC [facility] JUANA - 5 5 N A R H OUTPATIEN T EMERGENCY 81836 JUANA CISSE 5 5 N ALICE DEPARTMEN EMERGENCY T VISIT PHYSICI HIGH/URGE NT SEVERITY EMERGENCY 46152 JUANA 5 5 N A R H DEPARTMEN T VISIT LOW/MODER SEVERITY HOSPITAL [facility] - 5 5 MEDICAL OUTPATIEN CENTER T OFFICE 11264 LUTHER BETANCOURT [facility] 5 5 MEDICAL T VISIT CENTER 25 INC MINUTES HOSPITAL LUTHER - 5 5 MEDICAL OUTPATIEN CENTER T EMERGENCY 29609 [facility] DEPT 5 5 PRATIBHA VISIT EMERGENCY HIGH SERV SEVERITY& THREAT [facility] LUTHER - OTHER 5 5 MEDICAL CENTER EMERGENCY 37777 L[facility]HER DEPT 5 5 MEDICAL VISIT CENTER HIGH SEVERITY& THREAT [facility] LUTHER - 5 5 MEDICAL OUTPATIEN CENTER HOSPITAL L[facility]HER - 5 5 MEDICAL OUTPATIEN CENTER EMERGENCY 60762 DERIC DECKERI DEPT 5 5 CK ANIKA CK ANIKA VISIT HIGH SEVERITY& THREAT [facility] LUTHER - 5 5 MEDICAL OUTPATIEN CENTER HOSPITAL L[facility]HER - OTHER 5 5 [facility] LUTHER - 5 5 MEDICAL OUTPATIEN CENTER T EMERGENCY 07867 [facility] LEMUS DEPT 5 5 [facility] VISIT HIGH SEVERITY& THREAT [facility] LUTHER - 5 5 MEDICAL OUTPATIEN CENTER T EMERGENCY 56695 L[facility]HER 5 5 [facility] T VISIT MODERATE SEVERITY OFFICE 92589 [facility] FAZALM [facility] 4 4 WOMENS COL T VISIT AND 15 FAMILY MINUTES HEALTH EMERGENCY 99825 LUTHER DEPT 4 4 MEDICAL VISIT CENTER HIGH SEVERITY& THREAT [facility] LUTHER - 4 4 MEDICAL OUTPATIEN CENTER T EMERGENCY 33045 LUTHER 4 4 [facility] T VISIT HIGH/URGE NT SEVERITY HOSPITAL L[facility]HER - 4 4 MEDICAL OUTPATIEN CENTER T EMERGENCY 73870 ALLAN LEMUS DEPT 4 4 PAMELA PAMELA VISIT HIGH SEVERITY& THREAT [facility] L[facility]HER - 4 4 MEDICAL INPATIENT CENTER OFFICE 13679 LUTHER QUIÑONEZ OUTPATIEN 4 4 ASHA T VISIT [facility] 25 HOSP MINUTES OFFICE 26626 LUTHER QUIÑONEZ OUTPATIEN 4 4 ASHA T VISIT 5 [facility]AL MINUTES HOSP OFFICE 49151 GUTTI SUJ BOOMTI SURanjit OUTPATIEN 4 4 T VISIT 15 MINUTES OFFICE 44706 [facility] SUNPATIEN 4 4 WOMENS COL T VISIT AND 15 FAMILY MINUTES HEALTH EMERGENCY 90603 JUANA 4 4 N A R H DEPARTMEN T VISIT MODERATE SEVERITY EMERGENCY 19152 JUANA [place] 4 4 N THO DEPARTMEN EMERGENCY T VISIT PHYSICI HIGH/URGE NT SEVERITY HOSPITAL JUANA - 4 4 N A R H OUTPATIEN T OFFICE 93199 GUTFLORENTINO REMIRanjit BOOMFLORENTINO REMIJ OUTPATIEN 4 4 T NEW 45 MINUTES OFFICE 42192 [facility] SUNPATIEN 4 4 WOMENS COL T VISIT AND 15 FAMILY MINUTES [facility] LUTHER - 4 4 MEDICAL OUTPATIEN CENTER HOSPITAL JUANA - 4 4 N A R H OUTPATIEN T EMERGENCY 86330 JUANA [facility] 4 N THO VISIT EMERGENCY HIGH PHYSICI SEVERITY& THREAT [facility] EMERGENC[facility] 94673 JUANA 4 4 N A R H DEPARTMEN T VISIT HIGH/URGE NT SEVERITY OFFICE 36834 LUTHER MICHELLE OUTPATIEN 4 4 MEDICAL T VISIT CENTER 15 [facility] LUTHER - 4 4 MEDICAL OUTPATIEN CENTER T OFFICE 26903 [facility] CONSULTAT 4 4 ION NEW/ESTAB PATIENT 60 MIN OFFICE 62890 [facility] TODD OUTPATIEN 4 4 WOMENS PHI T NEW 30 AND MINUTES [facility] LUTHER - 4 4 MEDICAL OUTPATIEN CENTER T OFFICE 48804 [facility] PASTORA OUTPATIEN 4 4 WOMENS COL T VISIT AND 15 [facility] CHANDAO - 4 4 N A R H OUTPATIEN T EMERGENCY 28098 JUANA CISSE DEPT 4 4 N ALICE VISIT EMERGENCY HIGH PHYSICI SEVERITY& THREAT FUN EMERGENCY 68833 JUANA 4 4 N A R H DEPARTMEN T VISIT MODERATE SEVERITY [facility] JUANA - 4 4 N A R H OUTPATIEN T OFFICE 60340 LUTHER CHRISTIANSON OUTPATIEN 4 4 T NEW 10 [facility]AL MINUTES HOSP OFFICE 79287 LUTHER ODOM OUTPATIEN 4 4 R T NEW 30 PENTECOSTAL MINUTES HOSP OFFICE 78931 [facility]H PASTORA OUTPATIEN 4 4 WOMENS COL T VISIT AND 15 [facility] LUTHER [place] 4 4 MEDICAL CENTER OFFICE 94958 LUTHER QUIÑONEZ OUTPATIEN 4 4 ASHA T NEW 45 PENTECOSTAL MINUTES [facility] JUANA - 4 4 N A R H OUTPATIEN T OFFICE 73975 [facility] PASTORA OUTPATIEN 4 4 [place] [place] COL T NEW 45 CLINIC MINUTES
--- OUTSIDE RECORDS SUMMARY | 2017-06-21 23:52 | External Medical Summary Rpt | CCD ---
Demographics Preferred Language Danish Marital Status Unknown Jainism Affiliation Unknown Race Unknown Ethnic Group Unknown Author Author , ANA PEREZ Address Unknown Phone Immunization No patient found.
--- OUTSIDE RECORDS SUMMARY | 2017-06-21 23:52 | External Medical Summary Rpt | CCD ---
Demographics Preferred Language Citizen [place] Marital Status Unknown Catholic Affiliation Unknown Race Unknown Ethnic Group Unknown Author Author , ANA PEREZ Address Unknown Phone Immunization No patient found.
--- OUTSIDE RECORDS SUMMARY | 2017-06-21 23:58 | External Medical Summary Rpt ---
Author Author [employer], [facility] Organization [employer] Address Unknown Phone Unavailable Results CHLAMYDIA AND GONORRHEA TESTING Observa Value Referen Units Interpr Notes Date tion ce etation Range COLLECT AH No No No No Apr 24 OR informa informa informa informa 2017 tion in tion in tion in tion in 9:00 AM source source source source data data data data ETHNICI WHITE, No No No No Apr 24 TY NON-HIS informa informa informa informa 2017 PANIC tion in tion in tion in tion in 9:00 AM source source source source data data data data KIT 10-31-2 No No No No Apr 24 EXPIRAT 017 informa informa informa informa 2017 ION tion in tion in tion in tion in 9:00 AM DATE source source source source data data data data SYMPTOM NO No No No No Apr 24 S informa informa informa informa 2017 tion in tion in tion in tion in 9:00 AM source source source source data data data data REASON VOLUNTE No No No No Apr 24 FOR ER/MEDI informa informa informa informa 2017 REQUEST BEV tion in tion in tion in tion in 9:00 AM PROBLEM source source source source data data data data SPECIME MALE No No No No Apr 24 N URETHRA informa informa informa informa 2017 SOURCE L tion in tion in tion in tion in 9:00 AM source source source source data data data data PREGNAN NO No No No No Apr 24 T informa informa informa informa 2017 tion in tion in tion in tion in 9:00 AM source source source source data data data data CHART N/A No No No No Apr 24 NUMBER informa informa informa informa 2017 tion in tion in tion in tion in 9:00 AM source source source source data data data data Chlamyd NEGATIV No No No NEGATIV Apr 24 ia E informa informa informa E 2017 trachom tion in tion in tion in RESULT= 9:00 AM atis source source source WITHIN rRNA data data data NORMAL [Presen ce] in LIMITSP Unspeci OSITIVE fied specime RESULT= n by Probe & ABNORMA target LEQUIVO BEV amplifi RESULT= cation method INDETER MINATEU NSATISF ACTORY RESULT= INVALID Neisser NEGATIV No No No NEGATIV Apr 24 ia E informa informa informa E 2017 gonorrh tion in tion in tion in RESULT= 9:00 AM oeae source source source WITHIN rRNA data data data NORMAL [Presen ce] in LIMITSP Unspeci OSITIVE fied specime RESULT= n by Probe & ABNORMA target LEQUIVO BEV amplifi RESULT= cation method INDETER MINATEU NSATISF ACTORY RESULT= INVALID THE APTIMA COMBO 2 ASSAY IS NOT INTENDE D FOR THE EVALUAT ION OF SUSPECT EDSEXUA L ABUSE OR FOR OTHER MEDICO- LEGAL INDICAT IONS. FOR THOSE PATIENT S FORWHOM A FALSE POSITIV E RESULT MAY HAVE ADVERSE PSYCHO- SOCIAL IMPACT, THE [facility] NG.\\.br \\This report contain s patient informa tion that must be protect ed in accorda nce with the Health Insuran ce Portabi lity and Account ability Act. Treponema pallidum IgG Ab [Presence] in Serum by Immunoassay Observa Value Referen Units Interpr Notes Date tion ce etation Range COLLECT AH No No No No Apr 24 OR informa informa informa informa 2017 tion in tion in tion in tion in 9:00 AM source source source source data data data data ETHNICI WHITE/N No No No No Apr 24 TY ONHISPA informa informa informa informa 2017 MYRTLE tion in tion in tion in tion in 9:00 AM source source source source data data data data PURPOSE DIAGNOS No No No No Apr 24 OF TIC informa informa informa informa 2017 EXAM tion in tion in tion in tion in 9:00 AM source source source source data data data data SPECIME BLOOD No No No No Apr 24 N informa informa informa informa 2017 SOURCE tion in tion in tion in tion in 9:00 AM source source source source data data data data CHART NA No No No No Apr 24 NUMBER informa informa informa informa 2017 tion in tion in tion in tion in 9:00 AM source source source source data data data data Trepone NON-SHANNAN No No No METHOD Apr [address] informa informa informa OF 2017 pallidu tion in tion in tion in ANALYSI 9:00 AM m IgG source source source S: Ab data data data EIANORM [Presen AL ce] in RANGE: Serum NON-SHANNAN by CTIVE\\. Immunoa br\\This ssay report contain s patient informa tion that must be protect ed in accorda nce with the Health Insuran ce Portabi lity and Account ability Act. Treponema pallidum IgG Ab [Presence] in Serum by Immunoassay Observa Value Referen Units Interpr Notes Date tion ce etation Range COLLECT AH No No No No Apr 24 OR informa informa informa informa 2017 tion in tion in tion in tion in 9:00 AM source source source source data data data data ETHNICI WHITE/N No No No No Apr 24 TY ONHISPA informa informa informa informa 2017 MYRTLE tion in tion in tion in tion in 9:00 AM source source source source data data data data PURPOSE DIAGNOS No No No No Apr 24 OF TIC informa informa informa informa 2017 EXAM tion in tion in tion in tion in 9:00 AM source source source source data data data data SPECIME BLOOD No No No No Apr 24 N informa informa informa informa 2017 SOURCE tion in tion in tion in tion in 9:00 AM source source source source data data data data CHART NA No No No No Apr 24 NUMBER informa informa informa informa 2017 tion in tion in tion in tion in 9:00 AM source source source source data data data data Trepone Pending No No No \\.br\\Apr 24 ma informa informa informa is 2017 pallidu tion in tion in tion in report 9:00 AM m IgG source source source contain Ab data data data s [Presen patient ce] in Serum informa by tion Immunoa that ssay must be protect ed in accorda nce with the Health Insuran ce Portabi lity and Account ability Act. Treponema pallidum IgG Ab [Presence] in Serum by Immunoassay Observa Value Referen Units Interpr Notes Date tion ce etation Range COLLECT AH No No No No Apr 24 OR informa informa informa informa 2017 tion in tion in tion in tion in 9:00 AM source source source source data data data data ETHNICI WHITE/N No No No No Apr 24 TY ONHISPA informa informa informa informa 2017 MYRTLE tion in tion in tion in tion in 9:00 AM source source source source data data data data PURPOSE DIAGNOS No No No No Apr 24 OF TIC informa informa informa informa 2017 EXAM tion in tion in tion in tion in 9:00 AM source source source source data data data data SPECIME BLOOD No No No No Apr 24 N informa informa informa informa 2017 SOURCE tion in tion in tion in tion in 9:00 AM source source source source data data data data CHART NA No No No No Apr 24 NUMBER informa informa informa informa 2017 tion in tion in tion in tion in 9:00 AM source source source source data data data data Trepone Pending No No No \\.br\\Apr 24 ma informa informa informa is 2017 pallidu tion in tion in tion in report 9:00 AM m IgG source source source contain Ab data data data s [Presen patient ce] in Serum informa by tion Immunoa that ssay must be protect ed in accorda nce with the Health Insuran ce Portabi lity and Account ability Act. CHLAMYDIA AND GONORRHEA TESTING Observa Value Referen Units Interpr Notes Date tion ce etation Range COLLECT AH No No No No Apr 24 OR informa informa informa informa 2017 tion in tion in tion in tion in 9:00 AM source source source source data data data data ETHNICI WHITE, No No No No Apr 24 TY NON-HIS informa informa informa informa 2017 PANIC tion in tion in tion in tion in 9:00 AM source source source source data data data data KIT 10-31-2 No No No No Apr 24 EXPIRAT 017 informa informa informa informa 2017 ION tion in tion in tion in tion in 9:00 AM DATE source source source source data data data data SYMPTOM NO No No No No Apr 24 S informa informa informa informa 2017 tion in tion in tion in tion in 9:00 AM source source source source data data data data REASON VOLUNTE No No No No Apr 24 FOR ER/MEDI informa informa informa informa 2017 REQUEST BEV tion in tion in tion in tion in 9:00 AM PROBLEM source source source source data data data data SPECIME MALE No No No No Apr 24 N URETHRA informa informa informa informa 2017 SOURCE L tion in tion in tion in tion in 9:00 AM source source source source data data data data PREGNAN NO No No No No Apr 24 T informa informa informa informa 2017 tion in tion in tion in tion in 9:00 AM source source source source data data data data CHART N/A No No No No Apr 24 NUMBER informa informa informa informa 2017 tion in tion in tion in tion in 9:00 AM source source source source data data data data Chlamyd Pending No No No No Apr 24 ia informa informa informa informa 2017 trachom tion in tion in tion in tion in 9:00 AM atis source source source source rRNA data data data data [Presen ce] in Unspeci fied specime n by Probe & target amplifi cation method Neisser Pending No No No \\.br\\Apr 24 ia informa informa informa is 2017 gonorrh tion in tion in tion in report 9:00 AM oeae source source source contain rRNA data data data s [Presen patient ce] in Unspeci informa fied tion specime that n by must be Probe & target protect ed in amplifi accorda cation nce method with the Health Insuran ce Portabi lity and Account ability Act. CHLAMYDIA AND GONORRHEA TESTING Observa Value Referen Units Interpr Notes Date tion ce etation Range COLLECT AH No No No No Apr 24 OR informa informa informa informa 2017 tion in tion in tion in tion in 9:00 AM source source source source data data data data ETHNICI WHITE, No No No No Apr 24 TY NON-HIS informa informa informa informa 2017 PANIC tion in tion in tion in tion in 9:00 AM source source source source data data data data KIT 10-31-2 No No No No Apr 24 EXPIRAT 017 informa informa informa informa 2017 ION tion in tion in tion in tion in 9:00 AM DATE source source source source data data data data SYMPTOM NO No No No No Apr 24 S informa informa informa informa 2017 tion in tion in tion in tion in 9:00 AM source source source source data data data data REASON VOLUNTE No No No No Apr 24 FOR ER/MEDI informa informa informa informa 2017 REQUEST BEV tion in tion in tion in tion in 9:00 AM PROBLEM source source source source data data data data SPECIME MALE No No No No Apr 24 N URETHRA informa informa informa informa 2017 SOURCE L tion in tion in tion in tion in 9:00 AM source source source source data data data data PREGNAN NO No No No No Apr 24 T informa informa informa informa 2017 tion in tion in tion in tion in 9:00 AM source source source source data data data data CHART N/A No No No No Apr 24 NUMBER informa informa informa informa 2017 tion in tion in tion in tion in 9:00 AM source source source source data data data data Chlamyd Pending No No No No Apr 24 ia informa informa informa informa 2017 trachom tion in tion in tion in tion in 9:00 AM atis source source source source rRNA data data data data [Presen ce] in Unspeci fied specime n by Probe & target amplifi cation method Neisser Pending No No No \\.br\\Apr 24 ia informa informa informa is 2017 gonorrh tion in tion in tion in report 9:00 AM oeae source source source contain rRNA data data data s [Presen patient ce] in Unspeci informa fied tion specime that n by must be Probe & target protect ed in amplifi accorda cation nce method with the Health Insuran ce Portabi lity and Account ability Act. CT Abd\\T\\Pelvis w Contrast Observa Value Referen Units Interpr Notes Date tion ce etation Range TEXT Wellsof No No No No January 25 DIAGNOS t Order informa informa informa informa 2015 IS tion in tion in tion in tion in 5:20 PM BATTERY Descrip source source source source tion: data data data data CT ABDOMEN & PELVIS WITH ORAL & IV CONTRAS T\\.br\\\\ .br\\\\.b r\\CT ABDOMEN AND PELVIS WITH CONTRAS T\\.br\\\\ .br\\COM PARISON : 11/02/19 15.\\.br \\\\.br\\L hector bases are grossly clear. Heart size is normal. No pericar dial effusio n.\\.br\\ \\.br\\No appreci able focal hepatic abnorma lities. No biliary ductal dilatat ion. Patent portal vein. Normal appeara nce of the spleen and adrenal glands. Postsur gical change along the emili hepatis noted from history of biliopa ncreati c diversi on.\\.br \\\\.br\\N o hydrone phrosis or renal mass. No calculi identif ied.\\.b r\\\\.br\\ No evidenc e of obstruc tion. There is mild bowel wall thicken ing and inflamm atory change involvi ng proxima l small bowel segment s which may represe nt sequela e of enterit is. Postsur gical change along the anterio r abdomin al wall noted. Bowel wall thicken ing is most pronoun christy along the anterio r right abdomin al wall.\\. br\\\\.br \\No signifi cant adenopa thy.\\.b r\\\\.br\\ No ascites . Visuali zed pelvic viscera is without acute finding . No acute or aggress dada bone abnorma lities. \\.br\\\\. br\\No evidenc e of interna l hernia. Small fat-con taining umbilic al hernia noted.\\ .br\\\\.b r\\ IMPRESS ION:\\.b r\\\\.br\\ 1. Bowel wall thicken ing and mild inflamm atory change around several scatter ed proxima l small bowel segment s which may corresp ond to the patient 's epigast fabiola pain. Finding s may represe nt sequela e of an enterit is-type illness .\\.br\\\\ .br\\2. 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 No GI or tract obstruc tion.\\. br\\\\.br \\4. Other mild chronic finding s as above.\\ .br\\\\.b r\\ END OF REPORT* *\\.br\\\\ .br\\Bra cris Bradford M.D.\\.b r\\\\.br\\ Dictate d: 01/26/20 15 5:44 PM\\.br\\ \\.br\\Tr anscrib ed: 01/26/20 15 5:53 PM\\.br\\ \\.br\\ * Final Report \\.br \\\\.br\\D ictated : Bryan Bradford 5:44 pm\\.br\\ \\.br\\Tr anscrib ed by: CS 5:59 pm\\.br\\ \\.br\\Au thentic ated by: Bryan Bradford 6:10 pm\\.br\\ \\.br\\ URINALYSIS COMPLETE Observa Value Referen Units Interpr Notes Date tion ce etation Range Color YELLOW No No No No January 25 of informa informa informa informa 2014 Urine tion in tion in tion in tion in 3:56 PM source source source source data data data data Clarity CLEAR No No No No January 25 of informa informa informa informa 2014 Urine tion in tion in tion in tion in 3:56 PM source source source source data data data data Glucose NEGATIV NEGATIV MG/DL No No January 25 E E informa informa 2014 [Presen tion in tion in 3:56 PM ce] in source source Urine data data by Automat ed test strip Bilirub NEGATIV NEGATIV No No No January 25 in E E informa informa informa 2014 [Presen tion in tion in tion in 3:56 PM ce] in source source source Urine data data data by Automat ed test strip Ketones NEGATIV NEGATIV MG/DL No No January 25 E E informa informa 2014 [Presen tion in tion in 3:56 PM ce] in source source Urine data data by Automat ed test strip Specifi 1.022 1.006 - No No No January 25 c 1.035 informa informa informa 2014 gravity tion in tion in tion in 3:56 PM of source source source Urine data data data by Automat ed test strip Erythro NEGATIV NEGATIV No No No January 25 cytes E E informa informa informa 2014 [Presen tion in tion in tion in 3:56 PM ce] in source source source Urine data data data by Automat ed pH of 6.0 5.0 - No No No January 25 Urine 9.0 informa informa informa 2015 by tion in tion in tion in 3:56 PM Automat source source source ed test data data data strip Protein NEGATIV NEGATIV MG/DL No No January 25 E E informa informa 2014 [Presen tion in tion in 3:56 PM ce] in source source Urine data data by Automat ed test strip UROBILI 0.2 0.2 - E.U./DL No No January 25 NOGEN 1.0 informa informa 2014 tion in tion in 3:56 PM source source data data Nitrate NEGATIV NEGATIV No No No January 25 E E informa informa informa 2014 [Presen tion in tion in tion in 3:56 PM ce] in source source source Urine data data data Leukocy NEGATIV NEGATIV No No No January 25 mickie E E informa informa informa 2014 [Presen tion in tion in tion in 3:56 PM ce] in source source source Urine data data data by Automat ed Erythro 0 0 - 4 /HPF No No January 25 cytes informa informa 2014 [#/area tion in tion in 3:56 PM ] in source source Urine data data sedimen t by Microsc opy high power field WBC 1 0 - 5 /HPF No No January 25 COUNT informa informa 2014 tion in tion in 3:56 PM source source data data Epithel 0 0 - 6 /HPF No No January 25 ial informa informa 2014 cells tion in tion in 3:56 PM [Presen source source ce] in data data Urine sedimen t by Light microsc opy Bacteri NEGATIV NEGATIV /HPF No BACTERI January 25 a E E informa A 2014 [#/area tion in INTERPR 3:56 PM ] in source ETATION Urine data :NEGATI sedimen VE t by <=599/u Microsc lTRACE opy high >=600, power <=1199/ field ul1+ >=1200, <=2399/ ul2+ >=2400, <=3599/ ul3+ >=3600, <=4799/ ul4+ >=4800/ ul Hyaline 0 0 - 4 /LPF No No January 25 casts informa informa 2014 [#/area tion in tion in 3:56 PM ] in source source Urine data data sedimen t by Microsc opy high power field GLOMELULAR CARMEN. RATE,CALC. Observa Value Referen Units Interpr Notes Date tion ce etation Range Glomeru 117.9 60.0 - ml/min No THE January 25 lar 130.0 informa eGFR IS 2014 filtrat tion in AN 3:27 PM ion source ESTIMAT rate/1. data ED 73 sq M GLOMELU LAR predict FILTRAT ed ION among RATEBAS non-mir ED ON cks by AN Creatin AVERAGE ine-bas BODY ed SURFACE formula AREA (MDRD) OF 1.73M2. THIS CALCULA TION IS NOT ACCURAT E FOR PEDIATR IC PATIENT S,PATIE NTS >70 YEARS OF AGE,OR PATIENT S WITH EXTREME BODY SIZE.>6 0 ML/MIN/ 1.73M2 = NORMAL< 60 ML/MIN/ 1.73M2 = CHRONIC KIDNEY DISEASE <15 ML/MIN/ 1.73M2 = KIDNEY FAILURE AVERAGE EGFR FOLLOWS :AGE(YE ARS) AVERAGE EGFR20- 39 116 ML/MIN3 0-39 107 ML/MIN4 0-49 99 ML/MIN5 0-59 93 ML/MIN6 0-69 85 ML/MIN COMP. METABOLIC PANEL (CHEM 12) Observa Value Referen Units Interpr Notes Date tion ce etation Range Glucose 77 70 - MG/DL No No January 25 110 informa informa 2014 [Mass/v tion in tion in 3:27 PM olume] source source in data data Serum or Plasma Urea 7 7 - 18 MG/DL No No January 25 nitroge informa informa 2015 n tion in tion in 3:27 PM [Mass/v source source olume] data data in Serum or Plasma Sodium 139 133 - mmol/L No No January 25 [Moles/ 144 informa informa 2015 volume] tion in tion in 3:27 PM in source source Serum data data or Plasma Potassi 3.5 3.6 - mmol/l Low No January 25 um 5.2 informa 2014 [Moles/ tion in 3:27 PM volume] source in data Serum or Plasma Chlorid 108 98 - mmol/l High No January 25 e 107 informa 2014 [Moles/ tion in 3:27 PM volume] source in data Blood Carbon 29 21 - 32 mmol/L No No January 25 dioxide informa informa 2014 , total tion in tion in 3:27 PM source source [Moles/ data data volume] in Serum or Plasma Creatin 0.8 0.6 - MG/DL No No January 25 ine 1.3 informa informa 2014 [Mass/v tion in tion in 3:27 PM olume] source source in data data Serum or Plasma Protein 6.4 6.4 - G/DL No No January 25 8.4 informa informa 2014 [Mass/v tion in tion in 3:27 PM olume] source source in data data Serum or Plasma Albumin 2.9 3.4 - G/DL Low No January 25 5.0 informa 2014 [Mass/v tion in 3:27 PM olume] source in data Serum or Plasma Globuli 3.5 2.4 - G/DL No January 25 n 4.8 informa informa 2014 [Mass/v tion in tion in 3:27 PM olume] source source in data data Plasma Albumin 0.8 0.6 - No No January 25 /Globul 1.6 informa informa informa 2015 in tion in tion in tion in 3:27 PM [Mass source source source ratio] data data data in Serum or Plasma Calcium 8.6 8.5 - MG/DL No No January 25 10.1 informa informa 2014 [Mass/v tion in tion in 3:27 PM olume] source source in data data Serum or Plasma Alkalin 76 45 - U/L No No January 25 e 117 informa informa 2014 phospha tion in tion in 3:27 PM tase source source [Enzyma data data tic activit y/volum e] in Serum or Plasma Asparta 11 15 - 37 U/L Low No January 25 te informa 2014 aminotr tion in 3:27 PM ansfera source se data [Enzyma tic activit y/volum e] in Serum or Plasma Alanine <14 12 - 78 U/L No No January 25 informa informa 2014 aminotr tion in tion in 3:27 PM ansfera source source se data data [Enzyma tic activit y/volum e] in Serum or Plasma Bilirub 0.20 0.00 - MG/DL No No January 25 in.tota 1.00 informa informa 2014 l tion in tion in 3:27 PM [Mass/v source source olume] data data in Serum or Plasma LIPASE Observa Value Referen Units Interpr Notes Date tion ce etation Range Lipase 68 73 - U/L Low No January 25 [Enzyma 393 informa 2014 tic tion in 3:27 PM activit source y/volum data e] in Serum or Plasma AMYLASE Observa Value Referen Units Interpr Notes Date tion ce etation Range Amylase 37 25 - U/L No No January 25 115 informa informa 2014 [Enzyma tion in tion in 3:27 PM tic source source activit data data y/volum e] in Serum or Plasma CBC\\T\\AUTO DIFF Observa Value Referen Units Interpr Notes Date tion ce etation Range Leukocy 8.7 3.5 - K/UL No No January 25 mickie 13.0 informa informa 2014 [#/volu tion in tion in 3:27 PM me] in source source Blood data data by Automat ed count Erythro 4.590 3.500 - M/ul No No January 25 cytes 6.100 informa informa 2014 [#/volu tion in tion in 3:27 PM me] in source source Blood data data by Automat ed count Hemoglo 12.2 11.0 - gm/dl No No January 25 bin 17.8 informa informa 2014 [Mass/v tion in tion in 3:27 PM olume] source source in data data Blood Hematoc 37.4 32.0 - % No No January 25 rit 51.6 informa informa 2014 [Volume tion in tion in 3:27 PM source source Fractio data data n] of Blood by Automat ed count Erythro 81.4 80.8 - fl No No January 25 cyte 101.2 informa informa 2014 mean tion in tion in 3:27 PM corpusc source source ular data data volume [Entiti c volume] by Automat ed count Erythro 26.6 27.6 - pg Low No January 25 cyte 32.7 informa 2015 mean tion in 3:27 PM corpusc source ular data hemoglo bin [Entiti c mass] by Automat ed count Erythro 32.7 32.6 - g/dl No No January 25 cyte 35.4 informa informa 2015 mean tion in tion in 3:27 PM corpusc source source ular data data hemoglo bin concent ration [Mass/v olume] by Automat ed count Erythro 18.7 10.1 - % High No January 25 cyte 16.5 informa 2015 distrib tion in 3:27 PM ution source width data [Ratio] by Automat ed count Platele 260 134 - K/UL No No January 25 ts 412 informa informa 2015 [#/volu tion in tion in 3:27 PM me] in source source Blood data data by Automat ed count Platele 8.4 6.1 - fl No No January 25 t mean 10.1 informa informa 2015 volume tion in tion in 3:27 PM [Entiti source source c data data volume] in Blood by Automat ed count Neutrop 65.7 43.0 - % No No January 25 hils/10 83.0 informa informa 2015 0 tion in tion in 3:27 PM leukocy source source mickie in data data Blood by Automat ed count Lymphoc 25.3 10.0 - % No No January 25 ytes/10 42.0 informa informa 2015 0 tion in tion in 3:27 PM leukocy source source mickie in data data Blood by Automat ed count Monocyt 6.6 1.0 - % No No January 25 es/100 14.0 informa informa 2015 leukocy tion in tion in 3:27 PM mickie in source source Blood data data by Automat ed count Eosinop 2.1 0.0 - % No No January 25 hils/10 11.0 informa informa 2015 0 tion in tion in 3:27 PM leukocy source source mickie in data data Blood by Automat ed count Basophi 0.3 0.0 - % No No January 25 ls/100 2.0 informa informa 2015 leukocy tion in tion in 3:27 PM mickie in source source Blood data data by Automat ed count Neutrop 5.7 2.7 - K/ul No No January 25 hils 6.9 informa informa 2014 [#/volu tion in tion in 3:27 PM me] in source source Blood data data by Automat ed count Lymphoc 2.2 0.4 - K/ul No No January 25 ytes 3.9 informa informa 2014 [#/volu tion in tion in 3:27 PM me] in source source Blood data data by Automat ed count Monocyt 0.6 0.2 - K/ul No No January 25 es 0.6 informa informa 2014 [#/volu tion in tion in 3:27 PM me] in source source Blood data data by Automat ed count Eosinop 0.2 0.0 - K/ul No No January 25 hils 0.9 informa informa 2014 [#/volu tion in tion in 3:27 PM me] in source source Blood data data by Automat ed count Basophi 0.0 0.0 - K/ul No No January 25 ls 0.2 informa informa 2014 [#/volu tion in tion in 3:27 PM me] in source source Blood data data by Automat ed count VITAMIN A Observa Value Referen Units Interpr Notes Date tion ce etation Range Physician is not a Physician's Portal User Retinol SEE No No No Vitamin Jan 07 BELOW informa informa informa A, 2014 [Mass/v tion in tion in tion in Serum 2:34 PM olume] source source source in data data data Serum 33 or Plasma 18-77 ug/dL BNPerfo rmed at: [facility], [facility] [address], [id number] tyesha Ruiz MD, Phone: [phone] THIAMINE, WHOLE BLOOD Observa Value Referen Units Interpr Notes Date tion ce etation Range Physician is not a Physician's Portal User THIAMIN SEE No No No Vit. Jan 07 E, BELOW informa informa informa B1, 2014 WHOLE tion in tion in tion in Whole 2:34 PM BLOOD source source source Blood data data data 216.6 H 66.5-20 0.0 nmol/L BN VITAMIN K Observa Value Referen Units Interpr Notes Date tion ce etation Range Physician is not a Physician's Portal User VITAMIN SEE No No No Vitamin Apr 30 K BELOW informa informa informa K1 2015 tion in tion in tion in 2:34 PM source source source data data data 0.44 0.28-1. 78 ng/mL BN LDL Observa Value Referen Units Interpr Notes Date tion ce etation Range Physician is not a Physician's Portal User Cholest 34.4 0.0 - No No OPTIMAL Apr 30 raciel in 100.0 informa informa - < 2014 LDL tion in tion in 100 2:34 PM [Mass/v source source MG/DLNE olume] data data AR in OPTIMAL Serum / or ABOVE Plasma OPTIMAL by - < calcula 130 tion MG/DLBO RDERLIN E HIGH - 130-159 MG/DLHI GH - 160-189 MG/DLVE RY HIGH - > 189 MG/DL PREALBUMIN Observa Value Referen Units Interpr Notes Date tion ce etation Range Physician is not a Physician's Portal User Prealbu 17.4 20.0 - MG/DL Low No Apr 30 min 40.0 informa 2015 [Mass/v tion in 2:34 PM olume] source in data Serum or Plasma GLOMELULAR CARMEN. RATE,CALC. Observa Value Referen Units Interpr Notes Date tion ce etation Range Physician is not a Physician's Portal User Glomeru 137.6 60.0 - ml/min High THE Apr 30 lar 130.0 eGFR IS 2014 filtrat AN 2:34 PM ion ESTIMAT rate/1. ED 73 sq M GLOMELU LAR predict FILTRAT ed ION among RATEBAS non-mir ED ON cks by AN Creatin AVERAGE ine-bas BODY ed SURFACE formula AREA (MDRD) OF 1.73M2. THIS CALCULA TION IS NOT ACCURAT E FOR PEDIATR IC PATIENT S,PATIE NTS >70 YEARS OF AGE,OR PATIENT S WITH EXTREME BODY SIZE.>6 0 ML/MIN/ 1.73M2 = NORMAL< 60 ML/MIN/ 1.73M2 = CHRONIC KIDNEY DISEASE <15 ML/MIN/ 1.73M2 = KIDNEY FAILURE AVERAGE EGFR FOLLOWS :AGE(YE ARS) AVERAGE EGFR20- 39 116 ML/MIN3 0-39 107 ML/MIN4 0-49 99 ML/MIN5 0-59 93 ML/MIN6 0-69 85 ML/MIN TSH Observa Value Referen Units Interpr Notes Date ti etation Range Physician is not a Physician's Portal User Thyrotr 1.850 0.358 - uIU/ML No No Jan 07 opin 3.740 informa informa 2014 [Units/ tion in tion in 2:34 PM volume] source source in data data Serum or Plasma by Detecti on limit <= 0.005 mU/L VITAMIN B 12 Observa Value Referen Units Interpr Notes Date ti etation Range Physician is not a Physician's Portal User Cobalam 511 254 - PG/ML No No Jan 07 in 1320 informa informa 2014 (Vitami tion in tion in 2:34 PM n B12) source source [Mass/v data data olume] in Serum FOLATES Observa Value Referen Units Interpr Notes Date ti etation Range Physician is not a Physician's Portal User Folate >20.0 3.1 - NG/ML High No Jan 07 [Mass/v 17.5 informa 2014 olume] tion in 2:34 PM in source Serum data or Plasma LIPID PROFILE Observa Value Referen Units Interpr Notes Date etation Range Physician is not a Physician's Portal User Triglyc 108 30 - MG/DL No NORMAL Jan 07 eride 200 informa <150 2014 [Mass/v tion in MG/DLBO 2:34 PM olume] source RDER in data HIGH Serum 150 - or 199 Plasma MG/DLHI GH >200 MG/DL Cholest 94 <200 MG/DL No No Jan 07 raciel informa informa 2014 [Mass/v tion in tion in 2:34 PM olume] source source in data data Serum or Plasma Cholest 38 32 - 60 MG/DL No No Jan 07 raciel in informa informa 2014 HDL tion in tion in 2:34 PM [Mass/v source source olume] data data in Serum or Plasma IRON Observa Value Referen Units Interpr Notes Date ti etation Range Physician is not a Physician's Portal User Iron 70 50 - uG/DL No No Jan 07 [Mass/v 175 informa informa 2014 olume] tion in tion in 2:34 PM in source source Serum data data or Plasma COMP. METABOLIC PANEL (CHEM 12) Observa Value Referen Units Interpr Notes Date tion ce etation Range Physician is not a Physician's Portal User Glucose 85 70 - MG/DL No No Jan 07 110 informa informa 2014 [Mass/v tion in tion in 2:34 PM olume] source source in data data Serum or Plasma Urea 10 7 - 18 MG/DL No No Jan 07 nitroge informa informa 2014 n tion in tion in 2:34 PM [Mass/v source source olume] data data in Serum or Plasma Sodium 137 133 - mmol/L No No Jan 07 [Moles/ 144 informa informa 2014 volume] tion in tion in 2:34 PM in source source Serum data data or Plasma Potassi 3.9 3.6 - mmol/l No No Jan 07 um 5.2 informa informa 2014 [Moles/ tion in tion in 2:34 PM volume] source source in data data Serum or Plasma Chlorid 104 98 - mmol/l No No Jan 07 e 107 informa informa 2014 [Moles/ tion in tion in 2:34 PM volume] source source in data data Blood Carbon 31 21 - 32 mmol/L No No Jan 07 dioxide informa informa 2014 , total tion in tion in 2:34 PM source source [Moles/ data data volume] in Serum or Plasma Creatin 0.7 0.6 - MG/DL No No Jan 07 ine 1.3 informa informa 2014 [Mass/v tion in tion in 2:34 PM olume] source source in data data Serum or Plasma Protein 7.4 6.4 - G/DL No No Jan 07 8.4 informa informa 2014 [Mass/v tion in tion in 2:34 PM olume] source source in data data Serum or Plasma Albumin 3.3 3.4 - G/DL Low No Jan 07 5.0 informa 2014 [Mass/v tion in 2:34 PM olume] source in data Serum or Plasma Globuli 4.1 2.4 - G/DL No No Jan 07 n 4.8 informa informa 2014 [Mass/v tion in tion in 2:34 PM olume] source source in data data Plasma Albumin 0.8 0.6 - No No No Jan 07 /Globul 1.6 informa informa informa 2015 in tion in tion in tion in 2:34 PM [Mass source source source ratio] data data data in Serum or Plasma Calcium 8.9 8.5 - MG/DL No No Jan 07 10.1 informa informa 2014 [Mass/v tion in tion in 2:34 PM olume] source source in data data Serum or Plasma Alkalin 84 45 - U/L No No Jan 07 e 117 informa informa 2014 phospha tion in tion in 2:34 PM tase source source [Enzyma data data tic activit y/volum e] in Serum or Plasma Asparta 12 15 - 37 U/L Low No Jan 07 te informa 2014 aminotr tion in 2:34 PM ansfera source se data [Enzyma tic activit y/volum e] in Serum or Plasma Alanine 14 12 - 78 U/L No No Jan 07 informa informa 2014 aminotr tion in tion in 2:34 PM ansfera source source se data data [Enzyma tic activit y/volum e] in Serum or Plasma Bilirub 0.80 0.00 - MG/DL No No Jan 07 in.tota 1.00 informa informa 2014 l tion in tion in 2:34 PM [Mass/v source source olume] data data in Serum or Plasma VITAMIN D, TOTAL Observa Value Referen Units Interpr Notes Date ti ce etation Range Physician is not a Physician's Portal User Calcidi 24.7 30.0 - ng/ml Low TARGET Jan 07 ol+Calc 100.0 RANGES 2015 iferol ARE FOR 2:34 PM [Mass/v ALL olume] AGE in GROUPS. Serum or Plasma CBC\\T\\AUTO DIFF Observa Value Referen Units Interpr Notes Date ti ce etation Range Physician is not a Physician's Portal User Leukocy 10.2 3.5 - K/UL No No Jan 07 mickie 13.0 informa informa 2014 [#/volu tion in tion in 2:34 PM me] in source source Blood data data by Automat ed count Erythro 5.210 3.500 - M/ul No No Jan 07 cytes 6.100 informa informa 2014 [#/volu tion in tion in 2:34 PM me] in source source Blood data data by Automat ed count Hemoglo 13.0 11.0 - gm/dl No No Jan 07 bin 17.8 informa informa 2015 [Mass/v tion in tion in 2:34 PM olume] source source in data data Blood Hematoc 41.5 32.0 - % No No Jan 07 rit 51.6 informa informa 2015 [Volume tion in tion in 2:34 PM source source Fractio data data n] of Blood by Automat ed count Erythro 79.6 80.8 - fl Low No Jan 07 cyte 101.2 informa 2014 mean tion in 2:34 PM corpusc source ular data volume [Entiti c volume] by Automat ed count Erythro 24.9 27.6 - pg Low No Jan 07 cyte 32.7 informa 2014 mean tion in 2:34 PM corpusc source ular data hemoglo bin [Entiti c mass] by Automat ed count Erythro 31.3 32.6 - g/dl No No Jan 07 cyte 35.4 informa informa 2015 mean tion in tion in 2:34 PM corpusc source source ular data data hemoglo bin concent ration [Mass/v olume] by Automat ed count Erythro 19.1 10.1 - % High No Jan 07 cyte 16.5 informa 2015 distrib tion in 2:34 PM ution source width data [Ratio] by Automat ed count Platele 313 134 - K/UL No No Jan 07 ts 412 informa informa 2015 [#/volu tion in tion in 2:34 PM me] in source source Blood data data by Automat ed count Platele 8.6 6.1 - fl No No Jan 07 t mean 10.1 informa informa 2015 volume tion in tion in 2:34 PM [Entiti source source c data data volume] in Blood by Automat ed count Neutrop 68.4 43.0 - % No No Jan 07 hils/10 83.0 informa informa 2015 0 tion in tion in 2:34 PM leukocy source source mickie in data data Blood by Automat ed count Lymphoc 24.6 10.0 - % No No Jan 07 ytes/10 42.0 informa informa 2015 0 tion in tion in 2:34 PM leukocy source source mickie in data data Blood by Automat ed count Monocyt 5.5 1.0 - % No No Jan 07 es/100 14.0 informa informa 2015 leukocy tion in tion in 2:34 PM mickie in source source Blood data data by Automat ed count Eosinop 1.2 0.0 - % No No Jan 07 hils/10 11.0 informa informa 2015 0 tion in tion in 2:34 PM leukocy source source mickie in data data Blood by Automat ed count Basophi 0.3 0.0 - % No No Jan 07 ls/100 2.0 informa informa 2015 leukocy tion in tion in 2:34 PM mickie in source source Blood data data by Automat ed count Neutrop 7.0 2.7 - K/ul High No Jan 07 hils 6.9 informa 2014 [#/volu tion in 2:34 PM me] in source Blood data by Automat ed count Lymphoc 2.5 0.4 - K/ul No No Jan 07 ytes 3.9 informa informa 2014 [#/volu tion in tion in 2:34 PM me] in source source Blood data data by Automat ed count Monocyt 0.6 0.2 - K/ul No No Jan 07 es 0.6 informa informa 2014 [#/volu tion in tion in 2:34 PM me] in source source Blood data data by Automat ed count Eosinop 0.1 0.0 - K/ul No No Jan 07 hils 0.9 informa informa 2014 [#/volu tion in tion in 2:34 PM me] in source source Blood data data by Automat ed count Basophi 0.0 0.0 - K/ul No No Jan 07 ls 0.2 informa informa 2014 [#/volu tion in tion in 2:34 PM me] in source source Blood data data by Automat ed count CBC/NO DIFF+ PLATELET Observa Value Referen Units Interpr Notes Date tion ce etation Range Physician is not a Physician's Portal User Leukocy 7.3 3.5 - K/UL No No Nov 05 mickie 13.0 informa informa 2014 [#/volu tion in tion in 3:54 AM me] in source source Blood data data by Automat ed count Erythro 4.070 3.500 - M/ul No No Nov 05 cytes 6.100 informa informa 2014 [#/volu tion in tion in 3:54 AM me] in source source Blood data data by Automat ed count Hemoglo 10.4 11.0 - gm/dl Low No Nov 05 bin 17.8 informa 2014 [Mass/v tion in 3:54 AM olume] source in data Blood Hematoc 32.2 32.0 - % No No Nov 05 rit 51.6 informa informa 2015 [Volume tion in tion in 3:54 AM source source Fractio data data n] of Blood by Automat ed count Erythro 79.0 80.8 - fl Low No Nov 05 cyte 101.2 informa 2014 mean tion in 3:54 AM corpusc source ular data volume [Entiti c volume] by Automat ed count Erythro 25.6 27.6 - pg Low No Nov 05 cyte 32.7 informa 2014 mean tion in 3:54 AM corpusc source ular data hemoglo bin [Entiti c mass] by Automat ed count Erythro 32.3 32.6 - g/dl No No Nov 05 cyte 35.4 informa informa 2014 mean tion in tion in 3:54 AM corpusc source source ular data data hemoglo bin concent ration [Mass/v olume] by Automat ed count Erythro 17.1 10.1 - % High No Nov 05 cyte 16.5 informa 2014 distrib tion in 3:54 AM ution source width data [Ratio] by Automat ed count Platele 195 134 - K/UL No No Nov 05 ts 412 informa informa 2014 [#/volu tion in tion in 3:54 AM me] in source source Blood data data by Automat ed count Platele 9.0 6.1 - fl No No Nov 05 t mean 10.1 informa informa 2014 volume tion in tion in 3:54 AM [Entiti source source c data data volume] in Blood by Automat ed count COMP. METABOLIC PANEL (CHEM 12) Observa Value Referen Units Interpr Notes Date tion ce etation Range Physician is not a Physician's Portal User Glucose 90 70 - MG/DL No No b 25 110 informa informa 2014 [Mass/v tion in tion in 3:19 PM olume] source source in data data Serum or Plasma Urea 6 7 - 18 MG/DL Low No Feb 25 nitroge informa 2014 n tion in 3:19 PM [Mass/v source olume] data in Serum or Plasma Sodium 138 133 - mmol/L No No Feb 25 [Moles/ 144 informa informa 2014 volume] tion in tion in 3:19 PM in source source Serum data data or Plasma Potassi 3.7 3.6 - mmol/l No No Feb 25 um 5.2 informa informa 2014 [Moles/ tion in tion in 3:19 PM volume] source source in data data Serum or Plasma Chlorid 104 98 - mmol/l No No Feb 25 e 107 informa informa 2014 [Moles/ tion in tion in 3:19 PM volume] source source in data data Blood Carbon 29 21 - 32 mmol/L No No Feb 25 dioxide informa informa 2014 , total tion in tion in 3:19 PM source source [Moles/ data data volume] in Serum or Plasma Creatin 0.8 0.6 - MG/DL No No Feb 25 ine 1.3 informa informa 2014 [Mass/v tion in tion in 3:19 PM olume] source source in data data Serum or Plasma Protein 6.4 6.4 - G/DL No No Feb 25 8.4 informa informa 2014 [Mass/v tion in tion in 3:19 PM olume] source source in data data Serum or Plasma Albumin 3.0 3.4 - G/DL Low No Feb 25 5.0 informa 2014 [Mass/v tion in 3:19 PM olume] source in data Serum or Plasma Globuli 3.4 2.4 - G/DL No No Feb 25 n 4.8 informa informa 2014 [Mass/v tion in tion in 3:19 PM olume] source source in data data Plasma Albumin 0.9 0.6 - No No No Feb 25 /Globul 1.6 informa informa informa 2015 in tion in tion in tion in 3:19 PM [Mass source source source ratio] data data data in Serum or Plasma Calcium 8.4 8.5 - MG/DL Low No Nov 04 10.1 informa 2014 [Mass/v tion in 3:19 PM olume] source in data Serum or Plasma Alkalin 65 45 - U/L No No Nov 04 e 117 informa informa 2014 phospha tion in tion in 3:19 PM tase source source [Enzyma data data tic activit y/volum e] in Serum or Plasma Asparta 25 15 - 37 U/L No No Nov 04 te informa informa 2014 aminotr tion in tion in 3:19 PM ansfera source source se data data [Enzyma tic activit y/volum e] in Serum or Plasma Alanine 20 12 - 78 U/L No No Nov 04 informa informa 2014 aminotr tion in tion in 3:19 PM ansfera source source se data data [Enzyma tic activit y/volum e] in Serum or Plasma Bilirub 0.10 0.00 - MG/DL No No Nov 04 in.tota 1.00 informa informa 2014 l tion in tion in 3:19 PM [Mass/v source source olume] data data in Serum or Plasma GLOMELULAR CARMEN. RATE,CALC. Observa Value Referen Units Interpr Notes Date tion ce etation Range Physician is not a Physician's Portal User Glomeru 118.1 60.0 - ml/min No THE Nov 04 lar 130.0 informa eGFR IS 2014 filtrat tion in AN 3:19 PM ion source ESTIMAT rate/1. data ED 73 sq M GLOMELU LAR predict FILTRAT ed ION among RATEBAS non-mir ED ON cks by AN Creatin AVERAGE ine-bas BODY ed SURFACE formula AREA (MDRD) OF 1.73M2. THIS CALCULA TION IS NOT ACCURAT E FOR PEDIATR IC PATIENT S,PATIE NTS >70 YEARS OF AGE,OR PATIENT S WITH EXTREME BODY SIZE.>6 0 ML/MIN/ 1.73M2 = NORMAL< 60 ML/MIN/ 1.73M2 = CHRONIC KIDNEY DISEASE <15 ML/MIN/ 1.73M2 = KIDNEY FAILURE AVERAGE EGFR FOLLOWS :AGE(YE ARS) AVERAGE EGFR20- 39 116 ML/MIN3 0-39 107 ML/MIN4 0-49 99 ML/MIN5 0-59 93 ML/MIN6 0-69 85 ML/MIN CBC/NO DIFF+ PLATELET Observa Value Referen Units Interpr Notes Date tion ce etation Range Physician is not a Physician's Portal User Leukocy 15.2 3.5 - K/UL High No Oct 25 mickie 13.0 informa 2014 [#/volu tion in 3:19 PM me] in source Blood data by Automat ed count Erythro 4.600 3.500 - M/ul No No Nov 04 cytes 6.100 informa informa 2014 [#/volu tion in tion in 3:19 PM me] in source source Blood data data by Automat ed count Hemoglo 11.4 11.0 - gm/dl No No Nov 04 bin 17.8 informa informa 2014 [Mass/v tion in tion in 3:19 PM olume] source source in data data Blood Hematoc 36.3 32.0 - % No No Nov 04 rit 51.6 informa informa 2014 [Volume tion in tion in 3:19 PM source source Fractio data data n] of Blood by Automat ed count Erythro 78.9 80.8 - fl Low No Nov 04 cyte 101.2 informa 2014 mean tion in 3:19 PM corpusc source ular data volume [Entiti c volume] by Automat ed count Erythro 24.7 27.6 - pg Low No Nov 04 cyte 32.7 informa 2014 mean tion in 3:19 PM corpusc source ular data hemoglo bin [Entiti c mass] by Automat ed count Erythro 31.3 32.6 - g/dl No No Nov 04 cyte 35.4 informa informa 2015 mean tion in tion in 3:19 PM corpusc source source ular data data hemoglo bin concent ration [Mass/v olume] by Automat ed count Erythro 16.5 10.1 - % No No Nov 04 cyte 16.5 informa informa 2015 distrib tion in tion in 3:19 PM ution source source width data data [Ratio] by Automat ed count Platele 268 134 - K/UL No No Nov 04 ts 412 informa informa 2015 [#/volu tion in tion in 3:19 PM me] in source source Blood data data by Automat ed count Platele 8.6 6.1 - fl No No Nov 04 t mean 10.1 informa informa 2014 volume tion in tion in 3:19 PM [Entiti source source c data data volume] in Blood by Automat ed count GLUCOSE(REAGENT STRIP) Observa Value Referen Units Interpr Notes Date tion ce etation Range Glucose 116 70 - MG/DL High No Nov 04 110 Action 2015 [Mass/v 12:51 olume] PM in Blood SURGICAL PATH-RESULTS Observa Value Referen Units Interpr Notes Date tion ce etation Range SURGICA TEXT~Na No No No No Nov 03 L me: informa informa informa informa 2014 PATH-RE aruna STEVENSONon in tion in tion in tion in SULTS JANNETH~A source source source source cct: data data data data [id number]~ [facility] Patholo gy [address] [place] [id number] ~ Name: Aric STEVENSONN: [id number] Accessi on 106~ JANNETH #:~ KEREN~ FINAL SURGICA L PATHOLO GY REPORT~ NAME: JANNETH STEVENSON LOCATIO N: FIORELLA~ KEREN~ M.R.N: [id number] SEX: M PROCEDU RE 015~ DATE:~D OB: 981 AGE: 34 Y RECEIVE D 015~ DATE:~P HYSICIA N: ASHA QUIÑONEZ SIGN OUT DATE: 015~LIBORIO TAYLOR #: [id number] 158 COPIES TO: ASHA QUIÑONEZ ~PATHOL OGIST: DOROTHY DOSS~D IAGNOSI S~Gallb ladder, Cholecy stectom y:~$ CHRONIC CHOLECY STITIS. (575.10 )~$ CHOLEST EROLOSI S.~TISS UE SUBMITT ED GALLBLA DDER, SURGICA L EXCISIO N~CLINI BEV INFORMA TION~ PRE AND POST-OP DIAGNOS IS: Abdomin al pain and pancrea tic switch. ~GROSS DESCRIP TION~ e specime n is receive d in formali n in a contain er labeled with the~arun ient's name, accessi on number and gallbla dder, is an intact, ~unopen ed, saccula r green-b rown gallbla dder measuri ng 7.5 x 3.5 x 1.5~cm. The outer surface is smooth. There is a small defect involvi ng~the fundus of the gallbla dder measuri ng 0.5 cm in greates t dimensi on.~The gallbla dder is opened and no gallsto andrea are identif ied within the~gal lbladde r or within the contain er. The gallbla dder wall measure s 0.2~cm in thickne ss. The gallbla dder mucosa is dark green with yellow~ streaks . Represe ntative section s of the cystic duct, fundus and body~of the gallbla dder are submitt ed in rishabh Restrepo.~11/05 mike DOSS, ~MICR OSCOPIC DESCRIP TION~Mi croscop ic examina tion was perform ed. There is no evidenc e of~robert gnancy. ~ <Sign Out Dr. Ji re>~ DOROTHY DOSS D.O., DERMATO PATHOLO GIST~ Page [address] Abd\\T\\Pelvis w Contrast Observa Value Referen Units Interpr Notes Date tion ce etation Range \\.br\\CT No No No No Nov 02 informa informa informa informa 2014 ABDOMEN tion in tion in tion in tion in 5:09 PM AND source source source source PELVIS data data data data WITH CONTRAS T, 11/02/19 15\\.br\\ \\.br\\CO MPARISO N: 014.\\.b r\\\\.br\\ Lung bases are clear.\\ .br\\\\.b r\\There is some nonspec ific postsur gical change seen along the ventral abdomin al wall, right greater than left.\\. br\\\\.br \\Mild degener ative changes are noted again in the spine.\\ .br\\\\.b r\\No definit e free air is seen in the abdomen or pelvis on this exam.\\. br\\\\.br \\There is hepatic steatos is of the liver. Gallbla dder, spleen, pancrea s, adrenal glands, kidneys and pelvic structu res appear grossly intact. \\.br\\\\. br\\The patient appears to be status post duodena l switch/ gastric bypass procedu re. Multipl e surgica l clips and suture materia l are noted.\\ .br\\\\.b r\\There is no evidenc e of a bowel obstruc tion on this exam.\\. br\\\\.br \\There is mild nonspec ific central mesente fabiola fat strandi ng and mesente fabiola lymphad enopath y seen adjacen t to the suture clips in the midline in the mid abdomin al mesente ry. A few of the proxima l small bowel loops show some mild wall thicken ing.\\.b r\\\\.br\\ There is no bowel obstruc tion. Appendi x images normall y. Some of the small bowel loops are seen in close approxi mation to the ventral right anterio r abdomin al wall extendi ng towards the midline . No definit e periphe ral enhanci ng fluid collect ion is seen at this time. Some of the small bowel loops in the right mid abdomen are seen externa l to the colon.\\ .br\\\\.b r\\ IMPRESS ION:\\.b r\\\\.br\\ 1. Patient is status post duodena l switch procedu re/gino fabiola bypass. No evidenc e of bowel obstruc tion on this exam.\\. br\\\\.br \\2. There is indeter minate mild central abdomin al mesente fabiola fat strandi ng and mesente fabiola lymphad enopath y in the mid abdomin al level. This is a nonspec ific finding . This may reflect a nonspec ific inflamm atory or infecti ous process of the mesente ry such as mesente fabiola adeniti s. Other nonspec ific mesente fabiola-bas ed infecti ous or inflamm atory process is not exclude d. No periphe rally enhanci ng fluid collect ion is seen to suggest an abscess .\\.br\\\\ .br\\3. Some of the small bowel loops are seen in close approxi mation to the ventral right mid anterio r abdomin al wall. These are nondila bradley. This may reflect adhesiv e disease . No evidenc e of bowel obstruc tion.\\. br\\\\.br \\4. Some of the small bowel in the right mid abdomen shows some mild wall thicken ing. Nonspec ific enterit is is not exclude d.\\.br\\ \\.br\\5. Remaind er of the finding s are as above.\\ .br\\\\.b r\\ END OF REPORT* *\\.br\\\\ .br\\Yanet l Kavon boyd M.D.\\.b r\\\\.br\\ Dictate d: 11/02/19 15 5:34 PM\\.br\\ \\.br\\Tr anscrib ed: 11/02/19 5:34 PM\\.br\\ \\.br\\ * Final Report \\.br \\\\.br\\D ictated : VLADIMIR LUNDY M.D. 5:34 pm\\.br\\ \\.br\\Tr anscrib ed by: CS 5:47 pm\\.br\\ \\.br\\Au thentic ated by: VLADIMIR LUNDY M.D. 11:42 am\\.br\\ \\.br\\ US Gallbladder Observa Value Referen Units Interpr Notes Date tion ce etation Range \\.br\\UL No No No No Nov 02 TRASOUN informa informa informa informa 2014 D OF tion in tion in tion in tion in 4:02 PM THE source source source source GALLBLA data data data data DDER, 11/02/19 15\\.br\\ \\.br\\Th e exam reveals that the gallbla dder is normal in size, shape and positio n. There is no evidenc e of intralu carlitos echoes or posteri or acousti c areas of shadowi ng to suggest the presenc e of choleli thiasis . There is no thicken ing to the gallbla dder.\\. br\\\\.br \\ IMPRESS ION: Nonspec ific evaluat ion of the gallbla dder by ultraso und. No evidenc e of choleli thiasis .\\.br\\\\ .br\\ END OF REPORT* *\\.br\\\\ .br\\Den jarvis Campos M.D.\\.b r\\\\.br\\ Dictate d: 11/02/19 15 4:03 PM\\.br\\ \\.br\\Tr anscrib ed: 11/02/19 15 4:31 PM\\.br\\ \\.br\\ * Final Report \\.br \\\\.br\\D ictated : KELVIN CAMPOS M.D. 4:03 pm\\.br\\ \\.br\\Tr anscrib ed by: CS 4:32 pm\\.br\\ \\.br\\Au thentic ated by: KELVIN CAMPOS M.D. 4:59 pm\\.br\\ \\.br\\ NM Hepatobiliary Duct System Imaging Observa Value Referen Units Interpr Notes Date tion ce etation Range \\.br\\HE No No No No Nov 02 PATOBIL informa informa informa informa 2014 IARY tion in tion in tion in tion in 3:00 PM SCAN source source source source USING data data data data 4.6 MILLICU DEMIAN OF TECHNET IUM LABELED CHOLETE C\\.br\\\\ .br\\The re is prompt excreti on of the tracer activit y by the liver which has a uniform pattern . There is prompt appeara nce of the activit y in the biliary tree, gallbla dder and small bowel.\\ .br\\\\.b r\\ IMPRESS ION: Negativ e hepatob iliary scan.\\. br\\\\.br \\CHOLEC YSTOKIN IN EJECTIO N FRACTIO N: 33%.\\.b r\\\\.br\\ END OF REPORT* *\\.br\\\\ .br\\Den jarvis Campos M.D.\\.b r\\\\.br\\ Dictate d: 11/02/19 4:59 PM\\.br\\ \\.br\\Tr anscrib ed: 11/02/19 5:16 PM\\.br\\ \\.br\\ * Final Report \\.br \\\\.br\\D ictated : KELVIN CAMPOS M.D. 4:59 pm\\.br\\ \\.br\\Tr anscrib ed by: CS 5:17 pm\\.br\\ \\.br\\Au thentic ated by: KELVIN CAMPOS M.D. 015 5:27 pm\\.br\\ \\.br\\ LIPASE Observa Value Referen Units Interpr Notes Date tion ce etation Range Lipase <62 73 - U/L Low No Nov 01 [Enzyma 393 informa 2014 tic tion in 9:07 PM activit source y/volum data e] in Serum or Plasma AMYLASE Observa Value Referen Units Interpr Notes Date tion ce etation Range Amylase 31 25 - U/L No No Nov 01 115 informa informa 2014 [Enzyma tion in tion in 9:07 PM tic source source activit data data y/volum e] in Serum or Plasma GLOMELULAR ACRMEN. RATE,CALC. Observa Value Referen Units Interpr Notes Date tion ce etation Range Glomeru 118.1 60.0 - ml/min No THE Nov 01 lar 130.0 informa eGFR IS 2014 filtrat tion in AN 9:07 PM ion source ESTIMAT rate/1. data ED 73 sq M GLOMELU LAR predict FILTRAT ed ION among RATEBAS non-mir ED ON cks by AN Creatin AVERAGE ine-bas BODY ed SURFACE formula AREA (MDRD) OF 1.73M2. THIS CALCULA TION IS NOT ACCURAT E FOR PEDIATR IC PATIENT S,PATIE NTS >70 YEARS OF AGE,OR PATIENT S WITH EXTREME BODY SIZE.>6 0 ML/MIN/ 1.73M2 = NORMAL< 60 ML/MIN/ 1.73M2 = CHRONIC KIDNEY DISEASE <15 ML/MIN/ 1.73M2 = KIDNEY FAILURE AVERAGE EGFR FOLLOWS :AGE(YE ARS) AVERAGE EGFR20- 39 116 ML/MIN3 0-39 107 ML/MIN4 0-49 99 ML/MIN5 0-59 93 ML/MIN6 0-69 85 ML/MIN COMP. METABOLIC PANEL (CHEM 12) Observa Value Referen Units Interpr Notes Date tion ce etation Range Glucose 95 70 - MG/DL No No Nov 01 110 informa informa 2014 [Mass/v tion in tion in 9:07 PM olume] source source in data data Serum or Plasma Urea 6 7 - 18 MG/DL Low No Nov 01 nitroge informa 2014 n tion in 9:07 PM [Mass/v source olume] data in Serum or Plasma Sodium 140 133 - mmol/L No No b 22 [Moles/ 144 informa informa 2014 volume] tion in tion in 9:07 PM in source source Serum data data or Plasma Potassi 4.0 3.6 - mmol/l No Specime b um 5.2 informa n 2014 [Moles/ tion in slightl 9:07 PM volume] source y in data hemolyz Serum ed. or Results Plasma may be falsely elevate d. Chlorid 105 98 - mmol/l No No b 22 e 107 informa informa 2014 [Moles/ tion in tion in 9:07 PM volume] source source in data data Blood Carbon 32 21 - 32 mmol/L No No b 22 dioxide informa informa 2014 , total tion in tion in 9:07 PM source source [Moles/ data data volume] in Serum or Plasma Creatin 0.8 0.6 - MG/DL No No b ine 1.3 informa informa 2014 [Mass/v tion in tion in 9:07 PM olume] source source in data data Serum or Plasma Protein 7.1 6.4 - G/DL No No b 8.4 informa informa 2014 [Mass/v tion in tion in 9:07 PM olume] source source in data data Serum or Plasma Albumin 3.1 3.4 - G/DL Low No b 5.0 informa 2014 [Mass/v tion in 9:07 PM olume] source in data Serum or Plasma Globuli 4.0 2.4 - G/DL No No Nov 01 n 4.8 informa informa 2014 [Mass/v tion in tion in 9:07 PM olume] source source in data data Plasma Albumin 0.8 0.6 - No No No Nov 01 /Globul 1.6 informa informa informa 2015 in tion in tion in tion in 9:07 PM [Mass source source source ratio] data data data in Serum or Plasma Calcium 8.4 8.5 - MG/DL Low No b 10.1 informa 2014 [Mass/v tion in 9:07 PM olume] source in data Serum or Plasma Alkalin 78 45 - U/L No No b e 117 informa informa 2015 phospha tion in tion in 9:07 PM tase source source [Enzyma data data tic activit y/volum e] in Serum or Plasma Asparta 31 15 - 37 U/L No Specime Nov 01 te informa n 2015 aminotr tion in slightl 9:07 PM ansfera source y se data hemolyz [Enzyma ed. tic Results activit may be y/volum e] in falsely Serum or elevate Plasma d. Alanine 19 12 - 78 U/L No No Nov 01 informa informa 2015 aminotr tion in tion in 9:07 PM ansfera source source se data data [Enzyma tic activit y/volum e] in Serum or Plasma Bilirub 0.20 0.00 - MG/DL No No Nov 01 in.tota 1.00 informa informa 2015 l tion in tion in 9:07 PM [Mass/v source source olume] data data in Serum or Plasma CBC\\T\\AUTO DIFF Observa Value Referen Units Interpr Notes Date tion ce etation Range Leukocy 11.9 3.5 - K/UL No No Nov 01 mickie 13.0 informa informa 2014 [#/volu tion in tion in 9:07 PM me] in source source Blood data data by Automat ed count Erythro 4.970 3.500 - M/ul No No Nov 01 cytes 6.100 informa informa 2014 [#/volu tion in tion in 9:07 PM me] in source source Blood data data by Automat ed count Hemoglo 12.8 11.0 - gm/dl No No Nov 01 bin 17.8 informa informa 2014 [Mass/v tion in tion in 9:07 PM olume] source source in data data Blood Hematoc 38.6 32.0 - % No No Nov 01 rit 51.6 informa informa 2014 [Volume tion in tion in 9:07 PM source source Fractio data data n] of Blood by Automat ed count Erythro 77.7 80.8 - fl Low No Nov 01 cyte 101.2 informa 2014 mean tion in 9:07 PM corpusc source ular data volume [Entiti c volume] by Automat ed count Erythro 25.7 27.6 - pg Low No Feb 22 cyte 32.7 informa 2015 mean tion in 9:07 PM corpusc source ular data hemoglo bin [Entiti c mass] by Automat ed count Erythro 33.1 32.6 - g/dl No No Nov 01 cyte 35.4 informa informa 2015 mean tion in tion in 9:07 PM corpusc source source ular data data hemoglo bin concent ration [Mass/v olume] by Automat ed count Erythro 15.7 10.1 - % No No Nov 01 cyte 16.5 informa informa 2015 distrib tion in tion in 9:07 PM ution source source width data data [Ratio] by Automat ed count Platele 306 134 - K/UL No No Nov 01 ts 412 informa informa 2015 [#/volu tion in tion in 9:07 PM me] in source source Blood data data by Automat ed count Platele 8.4 6.1 - fl No No Nov 01 t mean 10.1 informa informa 2015 volume tion in tion in 9:07 PM [Entiti source source c data data volume] in Blood by Automat ed count Neutrop 68.8 43.0 - % No No Nov 01 hils/10 83.0 informa informa 2015 0 tion in tion in 9:07 PM leukocy source source mickie in data data Blood by Automat ed count Lymphoc 22.8 10.0 - % No No Nov 01 ytes/10 42.0 informa informa 2015 0 tion in tion in 9:07 PM leukocy source source mickie in data data Blood by Automat ed count Monocyt 6.2 1.0 - % No No Nov 01 es/100 14.0 informa informa 2015 leukocy tion in tion in 9:07 PM mickie in source source Blood data data by Automat ed count Eosinop 1.2 0.0 - % No No Nov 01 hils/10 11.0 informa informa 2015 0 tion in tion in 9:07 PM leukocy source source mickie in data data Blood by Automat ed count Basophi 1.0 0.0 - % No No Nov 01 ls/100 2.0 informa informa 2015 leukocy tion in tion in 9:07 PM mickie in source source Blood data data by Automat ed count Neutrop 8.2 2.7 - K/ul High No Nov 01 hils 6.9 inform2014 [#/volu tion in 9:07 PM me] in source Blood data by Automat ed count Lymphoc 2.7 0.4 - K/ul No No Nov 01 ytes 3.9 informa informa 2014 [#/volu tion in tion in 9:07 PM me] in source source Blood data data by Automat ed count Monocyt 0.7 0.2 - K/ul High No Nov 01 es 0.6 inform2014 [#/volu tion in 9:07 PM me] in source Blood data by Automat ed count Eosinop 0.1 0.0 - K/ul No No Nov 01 hils 0.9 informa informa 2014 [#/volu tion in tion in 9:07 PM me] in source source Blood data data by Automat ed count Basophi 0.1 0.0 - K/ul No No Nov 01 ls 0.2 informa informa 2014 [#/volu tion in tion in 9:07 PM me] in source source Blood data data by Automat ed count XR Upper GI + KUB Observa Value Referen Units Interpr Notes Date tion ce etation Range TEXT [employer] No No No No Oct 30 DIAGNOS t Order informa informa informa informa 2014 IS tion in tion in tion in tion in 5:30 PM BATTERY Descrip source source source source tion: data data data data UPPER GI + KUB - ,\\.br\\\\ .br\\\\.b r\\UPPER GI AND KUB\\.br \\\\.br\\C OMPARIS ON: CT abdomen and pelvis 014.\\.b r\\\\.br\\ Patient is noted to be status post gastric bypass procedu re. Multipl e surgica l clips noted within the left upper quadran t.\\.br\\ \\.br\\No evidenc e of obstruc tion. Multipl e spot images were obtaine d of the upper GI tract followi ng the adminis tration of water soluble oral contras t. No obstruc tion is identif ied or signifi cant strictu re. No contras t extrava sation is appreci ated. Grossly normal appeara nce of the upper GI tract status post gastric bypass. \\.br\\\\. br\\ IMPRESS ION: Unremar kable upper GI exam status post gastric bypass. \\.br\\\\. br\\ END OF REPORT* *\\.br\\\\ .br\\Bra cris Bradford M.D.\\.b r\\\\.br\\ Dictate d: 10/30/19 10:36 PM\\.br\\ \\.br\\Tr anscrib ed: 10/30/19 11:35 PM\\.br\\ \\.br\\ * Final Report \\.br \\\\.br\\D ictated : Bryan Bradford 10:36 pm\\.br\\ \\.br\\Tr anscrib ed by: CS 11:37 pm\\.br\\ \\.br\\Au thentic ated by: Bryan Bradford 11:30 am\\.br\\ \\.br\\ URINALYSIS COMPLETE Observa Value Referen Units Interpr Notes Date tion ce etation Range Color YELLOW No No No No Oct 30 of informa informa informa informa 2014 Urine tion in tion in tion in tion in 3:25 PM source source source source data data data data Clarity CLEAR No No No No Oct 30 of informa informa informa informa 2014 Urine tion in tion in tion in tion in 3:25 PM source source source source data data data data Glucose NEGATIV NEGATIV MG/DL No No Oct 30 E E informa informa 2014 [Presen tion in tion in 3:25 PM ce] in source source Urine data data by Automat ed test strip Bilirub NEGATIV NEGATIV No No No Oct 30 in E E informa informa informa 2014 [Presen tion in tion in tion in 3:25 PM ce] in source source source Urine data data data by Automat ed test strip Ketones 15 NEGATIV MG/DL No No Oct 30 E informa informa 2014 [Presen tion in tion in 3:25 PM ce] in source source Urine data data by Automat ed test strip Specifi 1.020 1.006 - No No No Feb 20 c 1.035 informa informa informa 2015 gravity tion in tion in tion in 3:25 PM of source source source Urine data data data by Automat ed test strip Erythro NEGATIV NEGATIV No No No Oct 30 cytes E E informa informa informa 2014 [Presen tion in tion in tion in 3:25 PM ce] in source source source Urine data data data by Automat ed pH of 6.0 5.0 - No No No Oct 30 Urine 9.0 informa informa informa 2015 by tion in tion in tion in 3:25 PM Automat source source source ed test data data data strip Protein NEGATIV NEGATIV MG/DL No No Oct 30 E E informa informa 2014 [Presen tion in tion in 3:25 PM ce] in source source Urine data data by Automat ed test strip UROBILI 0.2 0.2 - E.U./DL No No Oct 30 NOGEN 1.0 informa informa 2015 tion in tion in 3:25 PM source source data data Nitrate NEGATIV NEGATIV No No No Oct 30 E E informa informa informa 2014 [Presen tion in tion in tion in 3:25 PM ce] in source source source Urine data data data Leukocy NEGATIV NEGATIV No No No Oct 30 mickie E E informa informa informa 2014 [Presen tion in tion in tion in 3:25 PM ce] in source source source Urine data data data by Automat ed Erythro 0 0 - 4 /HPF No No Oct 30 cytes informa informa 2014 [#/area tion in tion in 3:25 PM ] in source source Urine data data sedimen t by Microsc opy high power field WBC 1 0 - 5 /HPF No No b 20 COUNT informa informa 2015 tion in tion in 3:25 PM source source data data Epithel 0 0 - 6 /HPF No No b 20 ial informa informa 2015 cells tion in tion in 3:25 PM [Presen source source ce] in data data Urine sedimen t by Light microsc opy Bacteri NEGATIV NEGATIV /HPF No BACTERI b a E E informa A 2014 [#/area tion in INTERPR 3:25 PM ] in source ETATION Urine data :NEGATI sedimen VE t by <=599/u Microsc lTRACE opy high >=600, power <=1199/ field ul1+ >=1200, <=2399/ ul2+ >=2400, <=3599/ ul3+ >=3600, <=4799/ ul4+ >=4800/ ul Hyaline 0 0 - 4 /LPF No No Oct 30 casts informa informa 2014 [#/area tion in tion in 3:25 PM ] in source source Urine data data sedimen t by Microsc opy high power field GLOMELULAR CARMEN. RATE,CALC. Observa Value Referen Units Interpr Notes Date tion ce etation Range Glomeru 137.8 60.0 - ml/min High THE Oct 30 lar 130.0 eGFR IS 2014 filtrat AN 3:15 PM ion ESTIMAT rate/1. ED 73 sq M GLOMELU LAR predict FILTRAT ed ION among RATEBAS non-mir ED ON cks by AN Creatin AVERAGE ine-bas BODY ed SURFACE formula AREA (MDRD) OF 1.73M2. THIS CALCULA TION IS NOT ACCURAT E FOR PEDIATR IC PATIENT S,PATIE NTS >70 YEARS OF AGE,OR PATIENT S WITH EXTREME BODY SIZE.>6 0 ML/MIN/ 1.73M2 = NORMAL< 60 ML/MIN/ 1.73M2 = CHRONIC KIDNEY DISEASE <15 ML/MIN/ 1.73M2 = KIDNEY FAILURE AVERAGE EGFR FOLLOWS :AGE(YE ARS) AVERAGE EGFR20- 39 116 ML/MIN3 0-39 107 ML/MIN4 0-49 99 ML/MIN5 0-59 93 ML/MIN6 0-69 85 ML/MIN AMYLASE Observa Value Referen Units Interpr Notes Date tion ce etation Range Amylase 34 25 - U/L No No Oct 30 115 informa informa 2014 [Enzyma tion in tion in 3:15 PM tic source source activit data data y/volum e] in Serum or Plasma COMP. METABOLIC PANEL (CHEM 12) Observa Value Referen Units Interpr Notes Date tion ce etation Range Glucose 79 70 - MG/DL No No Oct 30 110 informa informa 2014 [Mass/v tion in tion in 3:15 PM olume] source source in data data Serum or Plasma Urea 8 7 - 18 MG/DL No No Feb 20 nitroge informa informa 2014 n tion in tion in 3:15 PM [Mass/v source source olume] data data in Serum or Plasma Sodium 138 133 - mmol/L No No Feb 20 [Moles/ 144 informa informa 2015 volume] tion in tion in 3:15 PM in source source Serum data data or Plasma Potassi 3.6 3.6 - mmol/l No No Feb 20 um 5.2 informa informa 2014 [Moles/ tion in tion in 3:15 PM volume] source source in data data Serum or Plasma Chlorid 106 98 - mmol/l No No Feb 20 e 107 informa informa 2014 [Moles/ tion in tion in 3:15 PM volume] source source in data data Blood Carbon 28 21 - 32 mmol/L No No Feb 20 dioxide informa informa 2014 , total tion in tion in 3:15 PM source source [Moles/ data data volume] in Serum or Plasma Creatin 0.7 0.6 - MG/DL No No Feb 20 ine 1.3 informa informa 2014 [Mass/v tion in tion in 3:15 PM olume] source source in data data Serum or Plasma Protein 7.0 6.4 - G/DL No No Feb 20 8.4 informa informa 2014 [Mass/v tion in tion in 3:15 PM olume] source source in data data Serum or Plasma Albumin 3.1 3.4 - G/DL Low No Feb 20 5.0 informa 2014 [Mass/v tion in 3:15 PM olume] source in data Serum or Plasma Globuli 3.9 2.4 - G/DL No No Feb 20 n 4.8 informa informa 2014 [Mass/v tion in tion in 3:15 PM olume] source source in data data Plasma Albumin 0.8 0.6 - No No No Feb 20 /Globul 1.6 informa informa informa 2015 in tion in tion in tion in 3:15 PM [Mass source source source ratio] data data data in Serum or Plasma Calcium 8.6 8.5 - MG/DL No No Feb 20 10.1 informa informa 2014 [Mass/v tion in tion in 3:15 PM olume] source source in data data Serum or Plasma Alkalin 79 45 - U/L No No Oct 30 e 117 informa informa 2014 phospha tion in tion in 3:15 PM tase source source [Enzyma data data tic activit y/volum e] in Serum or Plasma Asparta 17 15 - 37 U/L No No Oct 30 te informa informa 2014 aminotr tion in tion in 3:15 PM ansfera source source se data data [Enzyma tic activit y/volum e] in Serum or Plasma Alanine 16 12 - 78 U/L No No Oct 30 informa informa 2014 aminotr tion in tion in 3:15 PM ansfera source source se data data [Enzyma tic activit y/volum e] in Serum or Plasma Bilirub 0.30 0.00 - MG/DL No No Oct 30 in.tota 1.00 informa informa 2014 l tion in tion in 3:15 PM [Mass/v source source olume] data data in Serum or Plasma LIPASE Observa Value Referen Units Interpr Notes Date tion ce etation Range Lipase <62 73 - U/L Low No Oct 30 [Enzyma 393 informa 2014 tic tion in 3:15 PM activit source y/volum data e] in Serum or Plasma CBC\\T\\AUTO DIFF Observa Value Referen Units Interpr Notes Date tion ce etation Range Leukocy 10.0 3.5 - K/UL No No Oct 30 mickie 13.0 informa informa 2014 [#/volu tion in tion in 3:15 PM me] in source source Blood data data by Automat ed count Erythro 5.050 3.500 - M/ul No No Oct 30 cytes 6.100 informa informa 2014 [#/volu tion in tion in 3:15 PM me] in source source Blood data data by Automat ed count Hemoglo 12.9 11.0 - gm/dl No No Oct 30 bin 17.8 informa informa 2014 [Mass/v tion in tion in 3:15 PM olume] source source in data data Blood Hematoc 39.4 32.0 - % No No Feb 20 rit 51.6 informa informa 2015 [Volume tion in tion in 3:15 PM source source Fractio data data n] of Blood by Automat ed count Erythro 77.9 80.8 - fl Low No Feb 20 cyte 101.2 informa 2015 mean tion in 3:15 PM corpusc source ular data volume [Entiti c volume] by Automat ed count Erythro 25.5 27.6 - pg Low No Feb 20 cyte 32.7 informa 2014 mean tion in 3:15 PM corpusc source ular data hemoglo bin [Entiti c mass] by Automat ed count Erythro 32.7 32.6 - g/dl No No Feb 20 cyte 35.4 informa informa 2015 mean tion in tion in 3:15 PM corpusc source source ular data data hemoglo bin concent ration [Mass/v olume] by Automat ed count Erythro 16.3 10.1 - % No No Feb 20 cyte 16.5 informa informa 2015 distrib tion in tion in 3:15 PM ution source source width data data [Ratio] by Automat ed count Platele 288 134 - K/UL No No Feb 20 ts 412 informa informa 2015 [#/volu tion in tion in 3:15 PM me] in source source Blood data data by Automat ed count Platele 8.5 6.1 - fl No No Feb 20 t mean 10.1 informa informa 2015 volume tion in tion in 3:15 PM [Entiti source source c data data volume] in Blood by Automat ed count Neutrop 69.2 43.0 - % No No Feb 20 hils/10 83.0 informa informa 2015 0 tion in tion in 3:15 PM leukocy source source mickie in data data Blood by Automat ed count Lymphoc 23.2 10.0 - % No No Feb 20 ytes/10 42.0 informa informa 2015 0 tion in tion in 3:15 PM leukocy source source mickie in data data Blood by Automat ed count Monocyt 5.7 1.0 - % No No Feb 20 es/100 14.0 informa informa 2015 leukocy tion in tion in 3:15 PM mickie in source source Blood data data by Automat ed count Eosinop 1.0 0.0 - % No No Oct 30 hils/10 11.0 informa informa 2015 0 tion in tion in 3:15 PM leukocy source source mickie in data data Blood by Automat ed count Basophi 0.9 0.0 - % No No Oct 30 ls/100 2.0 informa informa 2014 leukocy tion in tion in 3:15 PM mickie in source source Blood data data by Automat ed count Neutrop 6.9 2.7 - K/ul No No Oct 30 hils 6.9 informa informa 2014 [#/volu tion in tion in 3:15 PM me] in source source Blood data data by Automat ed count Lymphoc 2.3 0.4 - K/ul No No Oct 30 ytes 3.9 informa informa 2014 [#/volu tion in tion in 3:15 PM me] in source source Blood data data by Automat ed count Monocyt 0.6 0.2 - K/ul No No Oct 30 es 0.6 informa informa 2014 [#/volu tion in tion in 3:15 PM me] in source source Blood data data by Automat ed count Eosinop 0.1 0.0 - K/ul No No Oct 30 hils 0.9 informa informa 2014 [#/volu tion in tion in 3:15 PM me] in source source Blood data data by Automat ed count Basophi 0.1 0.0 - K/ul No No Oct 30 ls 0.2 informa informa 2014 [#/volu tion in tion in 3:15 PM me] in source source Blood data data by Automat ed count THIAMINE, WHOLE BLOOD Observa Value Referen Units Interpr Notes Date tion ce etation Range Physician is not a Physician's Portal User THIAMIN SEE No No No Vit. Oct 08 E, BELOW informa informa informa B1, 2015 WHOLE tion in tion in tion in Whole 11:29 BLOOD source source source Blood AM data data data 215.7 H 66.5-20 0.0 nmol/L BNPerfo rmed at: BN, [facility] [id number] [place], [place], [id number] Ruiz MD, Phone: [phone] LDL Observa Value Referen Units Interpr Notes Date tion ce etation Range Physician is not a Physician's Portal User Cholest 34.2 0.0 - No No OPTIMAL Oct 08 raciel in 100.0 informa informa - < 2015 LDL tion in tion in 100 11:29 [Mass/v source source MG/DLNE AM olume] data data AR in OPTIMAL Serum / or ABOVE Plasma OPTIMAL by - < calcula 130 tion MG/DLBO RDERLIN E HIGH - 130-159 MG/DLHI GH - 160-189 MG/DLVE RY HIGH - > 189 MG/DL GLOMELULAR CARMEN. RATE,CALC. Observa Value Referen Units Interpr Notes Date tion ce etation Range Physician is not a Physician's Portal User Glomeru 118.2 60.0 - ml/min No THE Oct 08 lar 130.0 informa eGFR IS 2014 filtrat tion in AN 11:29 ion source ESTIMAT AM rate/1. data ED 73 sq M GLOMELU LAR predict FILTRAT ed ION among RATEBAS non-mir ED ON cks by AN Creatin AVERAGE ine-bas BODY ed SURFACE formula AREA (MDRD) OF 1.73M2. THIS CALCULA TION IS NOT ACCURAT E FOR PEDIATR IC PATIENT S,PATIE NTS >70 YEARS OF AGE,OR PATIENT S WITH EXTREME BODY SIZE.>6 0 ML/MIN/ 1.73M2 = NORMAL< 60 ML/MIN/ 1.73M2 = CHRONIC KIDNEY DISEASE <15 ML/MIN/ 1.73M2 = KIDNEY FAILURE AVERAGE EGFR FOLLOWS :AGE(YE ARS) AVERAGE EGFR20- 39 116 ML/MIN3 0-39 107 ML/MIN4 0-49 99 ML/MIN5 0-59 93 ML/MIN6 0-69 85 ML/MIN PREALBUMIN Observa Value Referen Units Interpr Notes Date tion ce etation Range Physician is not a Physician's Portal User Prealbu 9.6 20.0 - MG/DL Low No Oct 08 min 40.0 informa 2014 [Mass/v tion in 11:29 olume] source AM in data Serum or Plasma VITAMIN B 12 Observa Value Referen Units Interpr Notes Date tion ce etation Range Physician is not a Physician's Portal User Cobalam 480 254 - PG/ML No No Oct 08 in 1320 informa informa 2014 (Vitami tion in tion in 11:29 n B12) source source AM [Mass/v data data olume] in Serum FOLATES Observa Value Referen Units Interpr Notes Date tion ce etation Range Physician is not a Physician's Portal User Folate >20.0 3.1 - NG/ML High No Oct 08 [Mass/v 17.5 informa 2014 olume] tion in 11:29 in source AM Serum data or Plasma IRON Observa Value Referen Units Interpr Notes Date tion ce etation Range Physician is not a Physician's Portal User Iron 14 50 - uG/DL Low No Oct 08 [Mass/v 175 informa 2014 olume] tion in 11: in source AM Serum data or Plasma COMP. METABOLIC PANEL (CHEM 12) Observa Value Referen Units Interpr Notes Date ti ce etation Range Physician is not a Physician's Portal User Glucose 94 70 - MG/DL No No Oct 08 110 informa informa 2014 [Mass/v tion in tion in 11:29 olume] source source AM in data data Serum or Plasma Urea 9 7 - 18 MG/DL No No Oct 08 nitroge informa informa 2014 n tion in tion in 11: [Mass/v source source AM olume] data data in Serum or Plasma Sodium 139 133 - mmol/L No No Oct 08 [Moles/ 144 informa informa 2014 volume] tion in tion in 11:29 in source source AM Serum data data or Plasma Potassi 3.3 3.6 - mmol/l Low No Oct 08 um 5.2 informa 2014 [Moles/ tion in 11:29 volume] source AM in data Serum or Plasma Chlorid 104 98 - mmol/l No No Oct 08 e 107 informa informa 2014 [Moles/ tion in tion in 11: volume] source source AM in data data Blood Carbon 29 21 - 32 mmol/L No No Oct 08 dioxide informa informa 2014 , total tion in tion in 11: source source AM [Moles/ data data volume] in Serum or Plasma Creatin 0.8 0.6 - MG/DL No No Oct 08 ine 1.3 informa informa 2014 [Mass/v tion in tion in 11:29 olume] source source AM in data data Serum or Plasma Protein 6.9 6.4 - G/DL No No Oct 08 8.4 informa informa 2014 [Mass/v tion in tion in 11: olume] source source AM in data data Serum or Plasma Albumin 2.9 3.4 - G/DL Low No Oct 08 5.0 informa 2014 [Mass/v tion in 11: olume] source AM in data Serum or Plasma Globuli 4.0 2.4 - G/DL No No Oct 08 n 4.8 informa informa 2014 [Mass/v tion in tion in 11: olume] source source AM in data data Plasma Albumin 0.7 0.6 - No No No Oct 08 /Globul 1.6 informa informa informa 2015 in tion in tion in tion in [Mass source source source AM ratio] data data data in Serum or Plasma Calcium 8.6 8.5 - MG/DL No No Oct 08 10.1 informa informa 2014 [Mass/v tion in tion in : olume] source source AM in data data Serum or Plasma Alkalin 81 45 - U/L No No Oct 08 e 117 informa informa 2014 phospha tion in tion in : tase source source AM [Enzyma data data tic activit y/volum e] in Serum or Plasma Asparta 9 15 - 37 U/L Low No Oct 08 te informa 2014 aminotr tion in 11: ansfera source AM se data [Enzyma tic activit y/volum e] in Serum or Plasma Alanine 16 12 - 78 U/L No No Oct 08 informa informa 2015 aminotr tion in tion in 11: ansfera source source AM se data data [Enzyma tic activit y/volum e] in Serum or Plasma Bilirub 0.40 0.00 - MG/DL No No Oct 08 in.tota 1.00 informa informa 2014 l tion in tion in : [Mass/v source source AM olume] data data in Serum or Plasma LIPID PROFILE Observa Value Referen Units Interpr Notes Date tion ce etation Range Physician is not a Physician's Portal User Triglyc 89 30 - MG/DL No NORMAL Oct 08 eride 200 informa <150 2014 [Mass/v tion in MG/DLBO 11:29 olume] source RDER AM in data HIGH Serum 150 - or 199 Plasma MG/DLHI GH >200 MG/DL Cholest 86 <200 MG/DL No No Oct 08 raciel informa informa 2014 [Mass/v tion in tion in 11:29 olume] source source AM in data data Serum or Plasma Cholest 34 32 - 60 MG/DL No No Oct 08 raciel in informa informa 2014 HDL tion in tion in 11: [Mass/v source source AM olume] data data in Serum or Plasma CBC/NO DIFF+ PLATELET Observa Value Referen Units Interpr Notes Date tion ce etation Range Physician is not a Physician's Portal User Leukocy 13.3 3.5 - K/UL High No Oct 08 mickie 13.0 informa 2014 [#/volu tion in 11:29 me] in source AM Blood data by Automat ed count Erythro 4.740 3.500 - M/ul No No Oct 08 cytes 6.100 informa informa 2014 [#/volu tion in tion in 11: me] in source source AM Blood data data by Automat ed count Hemoglo 11.9 11.0 - gm/dl No Oct 08 bin 17.8 informa informa 2014 [Mass/v tion in tion in 11: olume] source source AM in data data Blood Hematoc 38.4 32.0 - % No No Oct 08 rit 51.6 informa informa 2014 [Volume tion in tion in : source source AM Fractio data data n] of Blood by Automat ed count Erythro 81.1 80.8 - fl No Oct 08 cyte 101.2 informa informa 2015 mean tion in tion in : corpusc source source AM ular data data volume [Entiti c volume] by Automat ed count Erythro 25.0 27.6 - pg Low No Oct 08 cyte 32.7 informa 2014 mean tion in : corpusc source AM ular data hemoglo bin [Entiti c mass] by Automat ed count Erythro 30.8 32.6 - g/dl No Oct 08 cyte 35.4 informa informa 2015 mean tion in tion in 11:29 corpusc source source AM ular data data hemoglo bin concent ration [Mass/v olume] by Automat ed count Erythro 15.2 10.1 - % No No Oct 08 cyte 16.5 informa informa 2015 distrib tion in tion in 11:29 ution source source AM width data data [Ratio] by Automat ed count Platele 313 134 - K/UL No No Oct 08 ts 412 informa informa 2014 [#/volu tion in tion in 11:29 me] in source source AM Blood data data by Automat ed count Platele 8.7 6.1 - fl No No Oct 08 t mean 10.1 informa informa 2014 volume tion in tion in 11:29 [Entiti source source AM c data data volume] in Blood by Automat ed count COMP. METABOLIC PANEL (CHEM 12) Observa Value Referen Units Interpr Notes Date tion ce etation Range Glucose 84 70 - MG/DL No No Oct 06 110 informa informa 2014 [Mass/v tion in tion in 6:00 PM olume] source source in data data Serum or Plasma Urea 5 7 - 18 MG/DL Low No Oct 06 nitroge informa 2014 n tion in 6:00 PM [Mass/v source olume] data in Serum or Plasma Sodium 135 133 - mmol/L No No Oct 06 [Moles/ 144 informa informa 2014 volume] tion in tion in 6:00 PM in source source Serum data data or Plasma Potassi 3.7 3.6 - mmol/l No No Oct 06 um 5.2 informa informa 2014 [Moles/ tion in tion in 6:00 PM volume] source source in data data Serum or Plasma Chlorid 104 98 - mmol/l No No Oct 06 e 107 informa informa 2014 [Moles/ tion in tion in 6:00 PM volume] source source in data data Blood Carbon 29 21 - 32 mmol/L No No Oct 06 dioxide informa informa 2014 , total tion in tion in 6:00 PM source source [Moles/ data data volume] in Serum or Plasma Creatin 0.7 0.6 - MG/DL No No Oct 06 ine 1.3 informa informa 2014 [Mass/v tion in tion in 6:00 PM olume] source source in data data Serum or Plasma Protein 7.0 6.4 - G/DL No No Oct 06 8.4 informa informa 2014 [Mass/v tion in tion in 6:00 PM olume] source source in data data Serum or Plasma Albumin 3.0 3.4 - G/DL Low No Oct 06 5.0 informa 2014 [Mass/v tion in 6:00 PM olume] source in data Serum or Plasma Globuli 4.0 2.4 - G/DL No No Oct 06 n 4.8 informa informa 2014 [Mass/v tion in tion in 6:00 PM olume] source source in data data Plasma Albumin 0.8 0.6 - No No No Oct 06 /Globul 1.6 informa informa informa 2014 in tion in tion in tion in 6:00 PM [Mass source source source ratio] data data data in Serum or Plasma Calcium 8.5 8.5 - MG/DL No No Oct 06 10.1 informa informa 2014 [Mass/v tion in tion in 6:00 PM olume] source source in data data Serum or Plasma Alkalin 82 45 - U/L No No Oct 06 e 117 informa informa 2014 phospha tion in tion in 6:00 PM tase source source [Enzyma data data tic activit y/volum e] in Serum or Plasma Asparta 15 15 - 37 U/L No No Oct 06 te informa informa 2014 aminotr tion in tion in 6:00 PM ansfera source source se data data [Enzyma tic activit y/volum e] in Serum or Plasma Alanine 19 12 - 78 U/L No No Oct 06 informa informa 2014 aminotr tion in tion in 6:00 PM ansfera source source se data data [Enzyma tic activit y/volum e] in Serum or Plasma Bilirub 0.80 0.00 - MG/DL No No Oct 06 in.tota 1.00 informa informa 2014 l tion in tion in 6:00 PM [Mass/v source source olume] data data in Serum or Plasma AMYLASE Observa Value Referen Units Interpr Notes Date tion ce etation Range Amylase 32 25 - U/L No No Oct 06 115 informa informa 2014 [Enzyma tion in tion in 6:00 PM tic source source activit data data y/volum e] in Serum or Plasma LIPASE Observa Value Referen Units Interpr Notes Date tion ce etation Range Lipase 62 73 - U/L Low No Oct 06 [Enzyma 393 informa 2014 tic tion in 6:00 PM activit source y/volum data e] in Serum or Plasma GLOMELULAR CARMEN. RATE,CALC. Observa Value Referen Units Interpr Notes Date tion ce etation Range Glomeru 137.8 60.0 - ml/min High THE Oct 06 lar 130.0 eGFR IS 2014 filtrat AN 6:00 PM ion ESTIMAT rate/1. ED 73 sq M GLOMELU LAR predict FILTRAT ed ION among RATEBAS non-mir ED ON cks by AN Creatin AVERAGE ine-bas BODY ed SURFACE formula AREA (MDRD) OF 1.73M2. THIS CALCULA TION IS NOT ACCURAT E FOR PEDIATR IC PATIENT S,PATIE NTS >70 YEARS OF AGE,OR PATIENT S WITH EXTREME BODY SIZE.>6 0 ML/MIN/ 1.73M2 = NORMAL< 60 ML/MIN/ 1.73M2 = CHRONIC KIDNEY DISEASE <15 ML/MIN/ 1.73M2 = KIDNEY FAILURE AVERAGE EGFR FOLLOWS :AGE(YE ARS) AVERAGE EGFR20- 39 116 ML/MIN3 0-39 107 ML/MIN4 0-49 99 ML/MIN5 0-59 93 ML/MIN6 0-69 85 ML/MIN MAGNESIUM Observa Value Referen Units Interpr Notes Date tion ce etation Range Magnesi 1.4 1.7 - MG/DL Low No Oct 06 um 2.4 informa 2014 [Mass/v tion in 6:00 PM olume] source in data Serum or Plasma CBC\\T\\AUTO DIFF Observa Value Referen Units Interpr Notes Date tion ce etation Range Leukocy 14.4 3.5 - K/UL High No Oct 06 mickie 13.0 informa 2014 [#/volu tion in 6:00 PM me] in source Blood data by Automat ed count Erythro 4.890 3.500 - M/ul No No Oct 06 cytes 6.100 informa informa 2014 [#/volu tion in tion in 6:00 PM me] in source source Blood data data by Automat ed count Hemoglo 12.4 11.0 - gm/dl No Oct 06 bin 17.8 informa informa 2015 [Mass/v tion in tion in 6:00 PM olume] source source in data data Blood Hematoc 39.6 32.0 - % No No Oct 06 rit 51.6 informa informa 2015 [Volume tion in tion in 6:00 PM source source Fractio data data n] of Blood by Automat ed count Erythro 80.9 80.8 - fl No Oct 06 cyte 101.2 informa informa 2015 mean tion in tion in 6:00 PM corpusc source source ular data data volume [Entiti c volume] by Automat ed count Erythro 25.4 27.6 - pg Low No Oct 06 cyte 32.7 informa 2014 mean tion in 6:00 PM corpusc source ular data hemoglo bin [Entiti c mass] by Automat ed count Erythro 31.4 32.6 - g/dl No No Oct 06 cyte 35.4 informa informa 2014 mean tion in tion in 6:00 PM corpusc source source ular data data hemoglo bin concent ration [Mass/v olume] by Automat ed count Erythro 15.0 10.1 - % No Oct 06 cyte 16.5 informa informa 2014 distrib tion in tion in 6:00 PM ution source source width data data [Ratio] by Automat ed count Platele 275 134 - K/UL No No Oct 06 ts 412 informa informa 2014 [#/volu tion in tion in 6:00 PM me] in source source Blood data data by Automat ed count Platele 8.4 6.1 - fl No No Oct 06 t mean 10.1 informa informa 2015 volume tion in tion in 6:00 PM [Entiti source source c data data volume] in Blood by Automat ed count Neutrop 88.2 43.0 - % High No Oct 06 hils/10 83.0 informa 2014 0 tion in 6:00 PM leukocy source mickie in data Blood by Automat ed count Lymphoc 8.5 10.0 - % Low No Oct 06 ytes/10 42.0 informa 2014 0 tion in 6:00 PM leukocy source mickie in data Blood by Automat ed count Monocyt 2.5 1.0 - % No No Oct 06 es/100 14.0 informa informa 2014 leukocy tion in tion in 6:00 PM mickie in source source Blood data data by Automat ed count Eosinop 0.6 0.0 - % No No Oct 06 hils/10 11.0 informa informa 2015 0 tion in tion in 6:00 PM leukocy source source mickie in data data Blood by Automat ed count Basophi 0.2 0.0 - % No No Oct 06 ls/100 2.0 informa informa 2014 leukocy tion in tion in 6:00 PM mickie in source source Blood data data by Automat ed count Neutrop 12.7 2.7 - K/ul High No Oct 06 hils 6.9 informa 2014 [#/volu tion in 6:00 PM me] in source Blood data by Automat ed count Lymphoc 1.2 0.4 - K/ul No No Oct 06 ytes 3.9 informa informa 2014 [#/volu tion in tion in 6:00 PM me] in source source Blood data data by Automat ed count Monocyt 0.4 0.2 - K/ul No No Oct 06 es 0.6 informa informa 2014 [#/volu tion in tion in 6:00 PM me] in source source Blood data data by Automat ed count Eosinop 0.1 0.0 - K/ul No No Oct 06 hils 0.9 informa informa 2014 [#/volu tion in tion in 6:00 PM me] in source source Blood data data by Automat ed count Basophi 0.0 0.0 - K/ul No No Oct 06 ls 0.2 informa informa 2014 [#/volu tion in tion in 6:00 PM me] in source source Blood data data by Automat ed count URINALYSIS COMPLETE Observa Value Referen Units Interpr Notes Date tion ce etation Range Color YELLOW No No No No Oct 06 of informa informa informa informa 2014 Urine tion in tion in tion in tion in 5:48 PM source source source source data data data data Clarity CLEAR No No No No Oct 06 of informa informa informa informa 2015 Urine tion in tion in tion in tion in 5:48 PM source source source source data data data data Glucose NEGATIV NEGATIV MG/DL No No Oct 06 E E informa informa 2014 [Presen tion in tion in 5:48 PM ce] in source source Urine data data by Automat ed test strip Bilirub NEGATIV NEGATIV No No No Oct 06 in E E informa informa informa 2014 [Presen tion in tion in tion in 5:48 PM ce] in source source source Urine data data data by Automat ed test strip Ketones NEGATIV NEGATIV MG/DL No No Oct 06 E E informa informa 2014 [Presen tion in tion in 5:48 PM ce] in source source Urine data data by Automat ed test strip Specifi 1.012 1.006 - No No No Oct 06 c 1.035 informa informa informa 2014 gravity tion in tion in tion in 5:48 PM of source source source Urine data data data by Automat ed test strip Erythro NEGATIV NEGATIV No No No Oct 06 cytes E E informa informa informa 2014 [Presen tion in tion in tion in 5:48 PM ce] in source source source Urine data data data by Automat ed pH of 7.0 5.0 - No No No Oct 06 Urine 9.0 informa informa informa 2014 by tion in tion in tion in 5:48 PM Automat source source source ed test data data data strip Protein NEGATIV NEGATIV MG/DL No No Oct 06 E E informa informa 2014 [Presen tion in tion in 5:48 PM ce] in source source Urine data data by Automat ed test strip UROBILI 0.2 0.2 - E.U./DL No No Oct 06 NOGEN 1.0 informa informa 2014 tion in tion in 5:48 PM source source data data Nitrate NEGATIV NEGATIV No No No Oct 06 E E informa informa informa 2014 [Presen tion in tion in tion in 5:48 PM ce] in source source source Urine data data data Leukocy NEGATIV NEGATIV No No No Oct 06 mickie E E informa informa informa 2014 [Presen tion in tion in tion in 5:48 PM ce] in source source source Urine data data data by Automat ed Erythro 1 0 - 4 /HPF No No Oct 06 cytes informa informa 2014 [#/area tion in tion in 5:48 PM ] in source source Urine data data sedimen t by Microsc opy high power field WBC 1 0 - 5 /HPF No No Oct 06 COUNT informa informa 2015 tion in tion in 5:48 PM source source data data Epithel 0 0 - 6 /HPF No No Oct 06 ial informa informa 2014 cells tion in tion in 5:48 PM [Presen source source ce] in data data Urine sedimen t by Light microsc opy Bacteri NEGATIV NEGATIV /HPF No BACTERI Oct 06 a E E informa A 2014 [#/area tion in INTERPR 5:48 PM ] in source ETATION Urine data :NEGATI sedimen VE t by <=599/u Microsc lTRACE opy high >=600, power <=1199/ field ul1+ >=1200, <=2399/ ul2+ >=2400, <=3599/ ul3+ >=3600, <=4799/ ul4+ >=4800/ ul Hyaline 0 0 - 4 /LPF No No Oct 06 casts informa informa 2014 [#/area tion in tion in 5:48 PM ] in source source Urine data data sedimen t by Microsc opy high power field US Abdominal Hepatic Observa Value Referen Units Interpr Notes Date tion ce etation Range TEXT [employer] No No No No Oct 06 DIAGNOS t Order informa informa informa informa 2014 IS tion in tion in tion in tion in 5:37 PM BATTERY Descrip source source source source tion: data data data data US ABDOMIN AL HEPATIC - ,\\.br\\\\ .br\\\\.b r\\LIVER ULTRASO UND\\.br \\\\.br\\C OMPARIS ON: Limited to a CTA chest, 08-10-20 14.\\.br \\\\.br\\L imited evaluat ion at midline at the region of the aorta and pancrea s due to inabili ty to obtain good acousti c due to bowel gas artifac t demonst rates no focal pancrea tic or aortic abnorma lity.\\. br\\\\.br \\Survey images of the spleen, left kidney, right kidney demonst rate no focal abnorma lity.\\. br\\\\.br \\Evalua tion of the liver is also limited due to poor acousti c window. There is no focal hepatic mass or definit e intrahe patic biliary ductal dilatat ion. Within the limitat ions, the diaphra gm does remain visuali zed along the deep portion of the images, suggest ing that the liver is not of increas ed echogen icity. Main portal vein is patent with antegra de flow within the liver.\\ .br\\\\.b r\\Commo n bile duct is normal at 0.32 cm. The patient was nontend er during sonogra phic evaluat ion of the right upper quadran t. The gallbla dder images normall y. There is no sonogra phic evidenc e of choleli thiasis .\\.br\\\\ .br\\No free fluid is noted.\\ .br\\\\.b r\\ IMPRESS ION: Within the limitat ions, the study is negativ e. There is no sonogra phic evidenc e of acute cholecy stitis or choleli thiasis . There is no specifi c evidenc e of hepatic parench ymal disease , either. \\.br\\\\. br\\ END OF REPORT* *\\.br\\\\ .br\\Ant diane Soares M.D.\\.b r\\\\.br\\ Dictate d: 10/06/19 15 5:54 PM\\.br\\ \\.br\\Tr anscrib ed: 10/06/19 15 6:28 PM\\.br\\ \\.br\\ * Final Report \\.br \\\\.br\\D ictated : Gurpreet Soares M.D. 015 5:54 pm\\.br\\ \\.br\\Tr anscrib ed by: RN 015 6:32 pm\\.br\\ \\.br\\Au thentic ated by: Gurpreet Soares M.D. 015 2:00 am\\.br\\ \\.br\\ CBC/NO DIFF+ PLATELET Observa Value Referen Units Interpr Notes Date tion ce etation Range Physician is not a Physician's Portal User Leukocy 8.7 3.5 - K/UL No No Aug 10 mickie 13.0 informa informa 2013 [#/volu tion in tion in 2:27 PM me] in source source Blood data data by Automat ed count Erythro 3.760 3.500 - M/ul No Aug 10 cytes 6.100 informa informa 2013 [#/volu tion in tion in 2:27 PM me] in source source Blood data data by Automat ed count Hemoglo 10.4 11.0 - gm/dl Low No Aug 10 bin 17.8 informa 2013 [Mass/v tion in 2:27 PM olume] source in data Blood Hematoc 31.4 32.0 - % Low No Aug 10 rit 51.6 informa 2013 [Volume tion in 2:27 PM source Fractio data n] of Blood by Automat ed count Erythro 83.4 80.8 - fl No Aug 10 cyte 101.2 informa informa 2014 mean tion in tion in 2:27 PM corpusc source source ular data data volume [Entiti c volume] by Automat ed count Erythro 27.6 27.6 - pg No Aug 10 cyte 32.7 informa informa 2014 mean tion in tion in 2:27 PM corpusc source source ular data data hemoglo bin [Entiti c mass] by Automat ed count Erythro 33.1 32.6 - g/dl No No Aug 10 cyte 35.4 informa informa 2014 mean tion in tion in 2:27 PM corpusc source source ular data data hemoglo bin concent ration [Mass/v olume] by Automat ed count Erythro 14.0 10.1 - % No Aug 10 cyte 16.5 informa informa 2014 distrib tion in tion in 2:27 PM ution source source width data data [Ratio] by Automat ed count Platele 235 134 - K/UL No Aug 10 ts 412 informa informa 2013 [#/volu tion in tion in 2:27 PM me] in source source Blood data data by Automat ed count Platele 7.9 6.1 - fl No Aug 10 t mean 10.1 informa informa 2014 volume tion in tion in 2:27 PM [Entiti source source c data data volume] in Blood by Automat ed count CT Angiography Chest Observa Value Referen Units Interpr Notes Date tion ce etation Range TEXT PE No No No No Aug 10 DIAGNOS PROTOCO informa informa informa informa 2013 IS L\\.br\\\\ tion in tion in tion in tion in 1:33 PM BATTERY .br\\Phy source source source source sician data data data data is not a Physici an's Portal User\\.b r\\\\.br\\ \\.br\\CT ANGIOGR APHY CHEST\\. br\\\\.br \\COMPAR BETHANY: 014\\.br \\\\.br\\O pacific ation of the pulmona ry arterie s is diagnos tic to the level of the segment al pulmona ry arterie s and there is no acute or chronic pulmona ry embolus . Normal caliber pulmona ry arterie s noted.\\ .br\\\\.b r\\The heart size is normal. No pericar dial effusio n. Grossly normal caliber thoraci c aorta. No signifi cant thoraci c adenopa thy by size criteri a. Normal appeara nce of the supracl avicula r and axillar y regions .\\.br\\\\ .br\\No pneumot horax. No signifi cant pleural effusio n. Minimal bibasil ar atelect asis noted. No air space consoli dation. Central airway is grossly patent. \\.br\\\\. br\\Limi bradley view of the upper abdomen is without acute finding . The patient is noted to be status post bariatr ics surgery .\\.br\\\\ .br\\No acute or aggress dada bone abnorma lities. \\.br\\\\. br\\ IMPRESS ION:\\.b r\\\\.br\\ 1. No acute or chronic pulmona ry embolus .\\.br\\\\ .br\\2. No acute air space disease , effusio n, or pneumot horax.\\ .br\\\\.b r\\3. A few scatter ed areas of depende nt atelect asis, mild.\\. br\\\\.br \\4. Status post bariatr ic surgery .\\.br\\\\ .br\\ END OF REPORT* *\\.br\\\\ .br\\Bra dley Pritesh Bradford\\.b r\\\\.br\\ Dictate d: 08/10/20 14 1:57 PM\\.br\\ \\.br\\Tr anscrib ed: 08/10/20 14 2:25 PM\\.br\\ \\.br\\ * Final Report \\.br \\\\.br\\D ictated : Bryan Bradford 1:57 pm\\.br\\ \\.br\\Tr anscrib ed by: RN 2:28 pm\\.br\\ \\.br\\Au thentic ated by: Bryan Bradford 3:00 pm\\.br\\ \\.br\\ GLOMELULAR CARMEN. RATE,CALC. Observa Value Referen Units Interpr Notes Date tion ce etation Range Physician is not a Physician's Portal User Glomeru 103.2 60.0 - ml/min No THE Aug 10 lar 130.0 informa eGFR IS 2013 filtrat tion in AN 11:30 ion source ESTIMAT AM rate/1. data ED 73 sq M GLOMELU LAR predict FILTRAT ed ION among RATEBAS non-mir ED ON cks by AN Creatin AVERAGE ine-bas BODY ed SURFACE formula AREA (MDRD) OF 1.73M2. THIS CALCULA TION IS NOT ACCURAT E FOR PEDIATR IC PATIENT S,PATIE NTS >70 YEARS OF AGE,OR PATIENT S WITH EXTREME BODY SIZE.>6 0 ML/MIN/ 1.73M2 = NORMAL< 60 ML/MIN/ 1.73M2 = CHRONIC KIDNEY DISEASE <15 ML/MIN/ 1.73M2 = KIDNEY FAILURE AVERAGE EGFR FOLLOWS :AGE(YE ARS) AVERAGE EGFR20- 39 116 ML/MIN3 0-39 107 ML/MIN4 0-49 99 ML/MIN5 0-59 93 ML/MIN6 0-69 85 ML/MIN CREATININE Observa Value Referen Units Interpr Notes Date tion ce etation Range Physician is not a Physician's Portal User Creatin 0.9 0.6 - MG/DL No No Aug 10 ine 1.3 informa informa 2013 [Mass/v tion in tion in 11:30 olume] source source AM in data data Serum or Plasma BUN Observa Value Referen Units Interpr Notes Date tion ce etation Range Physician is not a Physician's Portal User Urea 4 7 - 18 MG/DL Low No Aug 10 nitroge informa 2013 n tion in 11:30 [Mass/v source AM olume] data in Serum or Plasma CBC/NO DIFF+ PLATELET Observa Value Referen Units Interpr Notes Date tion ce etation Range Physician is not a Physician's Portal User Leukocy 8.4 3.5 - K/UL No Aug 10 mickie 13.0 informa informa 2013 [#/volu tion in tion in 10:15 me] in source source AM Blood data data by Automat ed count Erythro 3.550 3.500 - M/ul No No Aug 10 cytes 6.100 informa informa 2013 [#/volu tion in tion in 10:15 me] in source source AM Blood data data by Automat ed count Hemoglo 9.7 11.0 - gm/dl Low No Aug 10 bin 17.8 informa 2013 [Mass/v tion in 10:15 olume] source AM in data Blood Hematoc 30.0 32.0 - % Low No Aug 10 rit 51.6 informa 2013 [Volume tion in 10:15 source AM Fractio data n] of Blood by Automat ed count Erythro 84.4 80.8 - fl No No Aug 10 cyte 101.2 informa informa 2013 mean tion in tion in 10:15 corpusc source source AM ular data data volume [Entiti c volume] by Automat ed count Erythro 27.4 27.6 - pg Low No Aug 10 cyte 32.7 informa 2013 mean tion in 10:15 corpusc source AM ular data hemoglo bin [Entiti c mass] by Automat ed count Erythro 32.5 32.6 - g/dl No No Aug 10 cyte 35.4 informa informa 2013 mean tion in tion in 10:15 corpusc source source AM ular data data hemoglo bin concent ration [Mass/v olume] by Automat ed count Erythro 14.0 10.1 - % No No Aug 10 cyte 16.5 informa informa 2013 distrib tion in tion in 10:15 ution source source AM width data data [Ratio] by Automat ed count Platele 307 134 - K/UL No No Aug 10 ts 412 informa informa 2013 [#/volu tion in tion in 10:15 me] in source source AM Blood data data by Automat ed count Platele 7.8 6.1 - fl No Aug 10 t mean 10.1 informa informa 2014 volume tion in tion in 10:15 [Entiti source source AM c data data volume] in Blood by Automat ed count CBC/NO DIFF+ PLATELET Observa Value Referen Units Interpr Notes Date tion ce etation Range Physician is not a Physician's Portal User Leukocy 8.8 3.5 - K/UL No Aug 10 mickie 13.0 informa informa 2013 [#/volu tion in tion in 7:20 AM me] in source source Blood data data by Automat ed count Erythro 3.510 3.500 - M/ul No Aug 10 cytes 6.100 informa informa 2013 [#/volu tion in tion in 7:20 AM me] in source source Blood data data by Automat ed count Hemoglo 9.7 11.0 - gm/dl Low No Aug 10 bin 17.8 informa 2013 [Mass/v tion in 7:20 AM olume] source in data Blood Hematoc 29.5 32.0 - % Low Aug 10 rit 51.6 informa 2013 [Volume tion in 7:20 AM source Fractio data n] of Blood by Automat ed count Erythro 83.9 80.8 - fl No Aug 10 cyte 101.2 informa informa 2013 mean tion in tion in 7:20 AM corpusc source source ular data data volume [Entiti c volume] by Automat ed count Erythro 27.5 27.6 - pg Low No Aug 10 cyte 32.7 informa 2013 mean tion in 7:20 AM corpusc source ular data hemoglo bin [Entiti c mass] by Automat ed count Erythro 32.8 32.6 - g/dl No Aug 10 cyte 35.4 informa informa 2013 mean tion in tion in 7:20 AM corpusc source source ular data data hemoglo bin concent ration [Mass/v olume] by Automat ed count Erythro 14.1 10.1 - % No Aug 10 cyte 16.5 informa informa 2013 distrib tion in tion in 7:20 AM ution source source width data data [Ratio] by Automat ed count Platele 283 134 - K/UL No Aug 10 ts 412 informa informa 2013 [#/volu tion in tion in 7:20 AM me] in source source Blood data data by Automat ed count Platele 7.8 6.1 - fl No Aug 10 t mean 10.1 informa informa 2013 volume tion in tion in 7:20 AM [Entiti source source c data data volume] in Blood by Automat ed count CBC/NO DIFF+ PLATELET Observa Value Referen Units Interpr Notes Date tion ce etation Range Physician is not a Physician's Portal User Leukocy 9.7 3.5 - K/UL No Aug 10 mickie 13.0 informa informa 2013 [#/volu tion in tion in 1:40 AM me] in source source Blood data data by Automat ed count Erythro 3.680 3.500 - M/ul No Aug 10 cytes 6.100 informa informa 2013 [#/volu tion in tion in 1:40 AM me] in source source Blood data data by Automat ed count Hemoglo 10.1 11.0 - gm/dl Low No Aug 10 bin 17.8 informa 2013 [Mass/v tion in 1:40 AM olume] source in data Blood Hematoc 30.3 32.0 - % Low No Aug 10 rit 51.6 informa 2013 [Volume tion in 1:40 AM source Fractio data n] of Blood by Automat ed count Erythro 82.2 80.8 - fl No Aug 10 cyte 101.2 informa informa 2013 mean tion in tion in 1:40 AM corpusc source source ular data data volume [Entiti c volume] by Automat ed count Erythro 27.5 27.6 - pg Low No Aug 10 cyte 32.7 informa 2013 mean tion in 1:40 AM corpusc source ular data hemoglo bin [Entiti c mass] by Automat ed count Erythro 33.4 32.6 - g/dl No Aug 10 cyte 35.4 informa informa 2013 mean tion in tion in 1:40 AM corpusc source source ular data data hemoglo bin concent ration [Mass/v olume] by Automat ed count Erythro 14.0 10.1 - % No Aug 10 cyte 16.5 informa informa 2013 distrib tion in tion in 1:40 AM ution source source width data data [Ratio] by Automat ed count Platele 310 134 - K/UL No No Aug 10 ts 412 informa informa 2013 [#/volu tion in tion in 1:40 AM me] in source source Blood data data by Automat ed count Platele 7.7 6.1 - fl No No Aug 10 t mean 10.1 informa informa 2013 volume tion in tion in 1:40 AM [Entiti source source c data data volume] in Blood by Automat ed count CBC/NO DIFF+ PLATELET Observa Value Referen Units Interpr Notes Date tion ce etation Range Physician is not a Physician's Portal User Leukocy 8.7 3.5 - K/UL No Aug 09 mickie 13.0 informa informa 2013 [#/volu tion in tion in 6:50 PM me] in source source Blood data data by Automat ed count Erythro 3.670 3.500 - M/ul No Aug 09 cytes 6.100 informa informa 2013 [#/volu tion in tion in 6:50 PM me] in source source Blood data data by Automat ed count Hemoglo 10.0 11.0 - gm/dl Low Aug 09 bin 17.8 informa 2013 [Mass/v tion in 6:50 PM olume] source in data Blood Hematoc 31.0 32.0 - % Low Aug 09 rit 51.6 informa 2013 [Volume tion in 6:50 PM source Fractio data n] of Blood by Automat ed count Erythro 84.6 80.8 - fl No Aug 09 cyte 101.2 informa informa 2013 mean tion in tion in 6:50 PM corpusc source source ular data data volume [Entiti c volume] by Automat ed count Erythro 27.3 27.6 - pg Low No Aug 09 cyte 32.7 informa 2013 mean tion in 6:50 PM corpusc source ular data hemoglo bin [Entiti c mass] by Automat ed count Erythro 32.3 32.6 - g/dl No Aug 09 cyte 35.4 informa informa 2013 mean tion in tion in 6:50 PM corpusc source source ular data data hemoglo bin concent ration [Mass/v olume] by Automat ed count Erythro 14.1 10.1 - % No Aug 09 cyte 16.5 informa informa 2013 distrib tion in tion in 6:50 PM ution source source width data data [Ratio] by Automat ed count Platele 293 134 - K/UL No Aug 09 ts 412 informa informa 2013 [#/volu tion in tion in 6:50 PM me] in source source Blood data data by Automat ed count Platele 7.9 6.1 - fl No Aug 09 t mean 10.1 informa informa 2013 volume tion in tion in 6:50 PM [Entiti source source c data data volume] in Blood by Automat ed count CBC/NO DIFF+ PLATELET Observa Value Referen Units Interpr Notes Date tion ce etation Range Physician is not a Physician's Portal User Leukocy 8.9 3.5 - K/UL No Aug 09 mickie 13.0 informa informa 2013 [#/volu tion in tion in 2:25 PM me] in source source Blood data data by Automat ed count Erythro 3.760 3.500 - M/ul No Aug 09 cytes 6.100 informa informa 2013 [#/volu tion in tion in 2:25 PM me] in source source Blood data data by Automat ed count Hemoglo 10.1 11.0 - gm/dl Low Aug 09 bin 17.8 informa 2013 [Mass/v tion in 2:25 PM olume] source in data Blood Hematoc 31.4 32.0 - % Low Aug 09 rit 51.6 informa 2013 [Volume tion in 2:25 PM source Fractio data n] of Blood by Automat ed count Erythro 83.6 80.8 - fl No Aug 09 cyte 101.2 informa informa 2013 mean tion in tion in 2:25 PM corpusc source source ular data data volume [Entiti c volume] by Automat ed count Erythro 27.0 27.6 - pg Low Aug 09 cyte 32.7 informa 2013 mean tion in 2:25 PM corpusc source ular data hemoglo bin [Entiti c mass] by Automat ed count Erythro 32.3 32.6 - g/dl No Aug 09 cyte 35.4 informa informa 2013 mean tion in tion in 2:25 PM corpusc source source ular data data hemoglo bin concent ration [Mass/v olume] by Automat ed count Erythro 14.2 10.1 - % No Aug 09 cyte 16.5 informa informa 2013 distrib tion in tion in 2:25 PM ution source source width data data [Ratio] by Automat ed count Platele 302 134 - K/UL No Aug 09 ts 412 informa informa 2013 [#/volu tion in tion in 2:25 PM me] in source source Blood data data by Automat ed count Platele 7.8 6.1 - fl No Aug 09 t mean 10.1 informa informa 2013 volume tion in tion in 2:25 PM [Entiti source source c data data volume] in Blood by Automat ed count CBC/NO DIFF+ PLATELET Observa Value Referen Units Interpr Notes Date tion ce etation Range Physician is not a Physician's Portal User Leukocy 10.4 3.5 - K/UL No Aug 09 mickie 13.0 informa informa 2013 [#/volu tion in tion in 10:11 me] in source source AM Blood data data by Automat ed count Erythro 3.580 3.500 - M/ul No Aug 09 cytes 6.100 informa informa 2013 [#/volu tion in tion in 10:11 me] in source source AM Blood data data by Automat ed count Hemoglo 9.8 11.0 - gm/dl Low Aug 09 bin 17.8 informa 2013 [Mass/v tion in 10:11 olume] source AM in data Blood Hematoc 30.1 32.0 - % Low Aug 09 rit 51.6 informa 2013 [Volume tion in 10:11 source AM Fractio data n] of Blood by Automat ed count Erythro 83.9 80.8 - fl No Aug 09 cyte 101.2 informa informa 2013 mean tion in tion in 10:11 corpusc source source AM ular data data volume [Entiti c volume] by Automat ed count Erythro 27.5 27.6 - pg Low Aug 09 cyte 32.7 informa 2013 mean tion in 10:11 corpusc source AM ular data hemoglo bin [Entiti c mass] by Automat ed count Erythro 32.7 32.6 - g/dl No Aug 09 cyte 35.4 informa informa 2013 mean tion in tion in 10:11 corpusc source source AM ular data data hemoglo bin concent ration [Mass/v olume] by Automat ed count Erythro 14.2 10.1 - % No Aug 09 cyte 16.5 informa informa 2013 distrib tion in tion in 10:11 ution source source AM width data data [Ratio] by Automat ed count Platele 298 134 - K/UL No Aug 09 ts 412 informa informa 2013 [#/volu tion in tion in 10:11 me] in source source AM Blood data data by Automat ed count Platele 7.4 6.1 - fl No Aug 09 t mean 10.1 informa informa 2013 volume tion in tion in 10:11 [Entiti source source AM c data data volume] in Blood by Automat ed count CBC/NO DIFF+ PLATELET Observa Value Referen Units Interpr Notes Date tion ce etation Range Physician is not a Physician's Portal User Leukocy 11.2 3.5 - K/UL No Aug 09 mickie 13.0 informa informa 2013 [#/volu tion in tion in 7:30 AM me] in source source Blood data data by Automat ed count Erythro 3.610 3.500 - M/ul No Aug 09 cytes 6.100 informa informa 2013 [#/volu tion in tion in 7:30 AM me] in source source Blood data data by Automat ed count Hemoglo 9.8 11.0 - gm/dl Low Aug 09 bin 17.8 informa 2013 [Mass/v tion in 7:30 AM olume] source in data Blood Hematoc 30.4 32.0 - % Low Aug 09 rit 51.6 informa 2013 [Volume tion in 7:30 AM source Fractio data n] of Blood by Automat ed count Erythro 84.3 80.8 - fl No Aug 09 cyte 101.2 informa informa 2013 mean tion in tion in 7:30 AM corpusc source source ular data data volume [Entiti c volume] by Automat ed count Erythro 27.2 27.6 - pg Low No Aug 09 cyte 32.7 informa 2013 mean tion in 7:30 AM corpusc source ular data hemoglo bin [Entiti c mass] by Automat ed count Erythro 32.3 32.6 - g/dl No Aug 09 cyte 35.4 informa informa 2014 mean tion in tion in 7:30 AM corpusc source source ular data data hemoglo bin concent ration [Mass/v olume] by Automat ed count Erythro 14.1 10.1 - % No Aug 09 cyte 16.5 informa informa 2013 distrib tion in tion in 7:30 AM ution source source width data data [Ratio] by Automat ed count Platele 306 134 - K/UL No Aug 09 ts 412 informa informa 2013 [#/volu tion in tion in 7:30 AM me] in source source Blood data data by Automat ed count Platele 7.8 6.1 - fl No Aug 09 t mean 10.1 informa informa 2013 volume tion in tion in 7:30 AM [Entiti source source c data data volume] in Blood by Automat ed count I-CHEMISTRY 8+ PANEL Observa Value Referen Units Interpr Notes Date tion ce etation Range Sodium 137 138 - mmol/L Low Aug 09 [Moles/ 146 informa 2013 volume] tion in 4:10 AM in source Serum data or Plasma Potassi 4.6 3.5 - mmol/L No Aug 09 um 4.9 informa informa 2013 [Moles/ tion in tion in 4:10 AM volume] source source in data data Serum or Plasma Lactate 1.12 1.12 - mmol/L No Aug 09 1.32 informa informa 2013 [Mass/v tion in tion in 4:10 AM olume] source source in data data Blood Glucose 89 70 - MG/DL No Aug 09 105 informa informa 2014 [Mass/v tion in tion in 4:10 AM olume] source source in data data Serum or Plasma I-TCO2 24 23 - 27 mmol/L No Aug 09 informa informa 2013 tion in tion in 4:10 AM source source data data Chlorid 101 98 - mmol/L No Aug 09 e 109 informa informa 2013 [Moles/ tion in tion in 4:10 AM volume] source source in data data Blood I-BUN 10 8 - 26 MG/DL No Aug 09 informa informa 2013 tion in tion in 4:10 AM source source data data Creatin 0.8 0.6 - mg/dl No Aug 09 ine 1.3 informa informa 2013 [Mass/v tion in tion in 4:10 AM olume] source source in data data Serum or Plasma Hematoc 32 38 - 51 % Low No Aug 09 rit inform2013 [Volume tion in 4:10 AM source Fractio data n] of Blood by Automat ed count Hemoglo 10.9 12.0 - gm/dl Low Aug 09 bin 17.0 inform2013 [Mass/v tion in 4:10 AM olume] source in data Blood I-ANION 17 10 - 20 mmol/L No Aug 09 GAP informa informa 2013 tion in tion in 4:10 AM source source data data CT Abd\\T\\Pelvis w Contrast Observa Value Referen Units Interpr Notes Date tion ce etation Range TEXT [employer] No No No Aug 08 DIAGNOS t Order informa informa informa informa 2013 IS tion in tion in tion in tion in 7:56 PM BATTERY Descrip source source source source tion: data data data data CT ABDOMEN & PELVIS WITH ORAL & IV CONTRAS T\\.br\\\\ .br\\\\.b r\\CT ABDOMEN AND PELVIS WITH CONTRAS T\\.br\\\\ .br\\The lung bases are grossly clear. The heart size is normal. No pericar dial effusio n.\\.br\\ \\.br\\No focal hepatic abnorma lities. No biliary ductal dilatat ion. Unremar kable gallbla dder and spleen. Normal appeara nce of the adrenal glands and pancrea s.\\.br\\ \\.br\\No hydrone phrosis . No identif iable renal mass.\\. br\\\\.br \\Normal caliber abdomin al aorta and mesente fabiola branch vessels . The patient is status post duodena l switch procedu re. The anastom otic sites are normal in appeara nce. No evidenc e of abscess formati on. Surgica l drain is noted in place. No GI tract obstruc tion. No signifi cant abdomin al or pelvic adenopa thy. No abdomin al or pelvic free fluid.\\ .br\\\\.b r\\Visua lized pelvic viscera is within normal limits. \\.br\\\\. br\\Supe rficial soft tissues demonst rate postsur gical change from port placeme nt. Along the lateral right anterio r abdomin al wall, underly ing a small section of sutures , note is made of a soft tissue density area measuri ng 2.8 x 2.2 cm, likely represe ntative of a small hematom a. No associa bradley air/flu id to suggest abscess . Along a paramed tegan port, note is made of a small amount of inflamm atory change along the deeper superfi cial soft tissues . No abscess formati on within the superfi cial soft tissues at any of these sites is appreci ated.\\. br\\\\.br \\No acute or aggress dada bone abnorma lities. \\.br\\\\. br\\ IMPRESS ION:\\.b r\\\\.br\\ 1. Status post duodena l switch procedu re with grossly normal appeara nce of the anastom otic sites. No imaging evidenc e of dehisce nce or intra-a bdomina l abscess formati on. No obstruc tion.\\. br\\\\.br \\2. Small soft tissue density , subjace nt to an anterio r right lateral small staple line, measuri ng up to 2.8 cm, most compati ble with a small superfi cial hematom a. No imaging evidenc e of superfi cial soft tissue abscess at this time.\\. br\\\\.br \\3. Otherwi se, no acute finding s with other mild chronic finding s, as above.\\ .br\\\\.b r\\ END OF REPORT* *\\.br\\\\ .br\\Bra cris Bradford M.D.\\.b r\\\\.br\\ Dictate d: 8:19 PM\\.br\\ \\.br\\Tr anscrib ed: 8:20 PM\\.br\\ \\.br\\ * Final Report \\.br \\\\.br\\D ictated : Bryan Bradford 8:19 pm\\.br\\ \\.br\\Tr anscrib ed by: RN 8:25 pm\\.br\\ \\.br\\Au thentic ated by: Bryan Bradford 8:40 pm\\.br\\ \\.br\\ OCCULT BLOOD BY PEROXIDASE ACTIVITY Observa Value Referen Units Interpr Notes Date tion ce etation Range Hemoglo POSITIV No No No No Aug 08 bin.gas E FOR informa informa informa informa 2013 trointe OCCULT tion in tion in tion in tion in 6:49 PM stinal BLOOD source source source source [Presen BY THE data data data data ce] in HEMOCUL Stool T METHOD. Hemoglo REFEREN No No No ORDER#: Aug 08 bin.gas CE informa informa informa 2013 trointe RANGE = tion in tion in tion in [id number] 6:49 PM stinal source source source 4 [Presen NEGATIV data data data ce] in E Stool ORDERED BY: EMILIA GUTIERREZ SOURCE: STOOL/F ECES COLLECT ED: 4 18:49AN WAYLON CS AT [facility].: RECEIVE D : 4 18:53OC CULT BLOOD BY PEROXID ASE ACTIVIT Y FINAL 4 18:5511 POSITIV E FOR OCCULT BLOOD BY THE HEMOCUL T METHOD. REFEREN CE RANGE = NEGATIV E GLOMELULAR CARMEN. RATE,CALC. Observa Value Referen Units Interpr Notes Date tion ce etation Range Glomeru 138.0 60.0 - ml/min High THE Aug 08 lar 130.0 eGFR IS 2013 filtrat AN 6:00 PM ion ESTIMAT rate/1. ED 73 sq M GLOMELU LAR predict FILTRAT ed ION among RATEBAS non-imr ED ON cks by AN Creatin AVERAGE ine-bas BODY ed SURFACE formula AREA (MDRD) OF 1.73M2. THIS CALCULA TION IS NOT ACCURAT E FOR PEDIATR IC PATIENT S,PATIE NTS >70 YEARS OF AGE,OR PATIENT S WITH EXTREME BODY SIZE.>6 0 ML/MIN/ 1.73M2 = NORMAL< 60 ML/MIN/ 1.73M2 = CHRONIC KIDNEY DISEASE <15 ML/MIN/ 1.73M2 = KIDNEY FAILURE AVERAGE EGFR FOLLOWS :AGE(YE ARS) AVERAGE EGFR20- 39 116 ML/MIN3 0-39 107 ML/MIN4 0-49 99 ML/MIN5 0-59 93 ML/MIN6 0-69 85 ML/MIN COMP. METABOLIC PANEL (CHEM 12) Observa Value Referen Units Interpr Notes Date tion ce etation Range Glucose 75 70 - MG/DL No Aug 08 110 informa informa 2013 [Mass/v tion in tion in 6:00 PM olume] source source in data data Serum or Plasma Urea 10 7 - 18 MG/DL No Aug 08 nitroge informa informa 2013 n tion in tion in 6:00 PM [Mass/v source source olume] data data in Serum or Plasma Sodium 136 133 - mmol/L No Aug 08 [Moles/ 144 informa informa 2013 volume] tion in tion in 6:00 PM in source source Serum data data or Plasma Potassi 4.1 3.6 - mmol/l No Aug 08 um 5.2 informa informa 2013 [Moles/ tion in tion in 6:00 PM volume] source source in data data Serum or Plasma Chlorid 101 98 - mmol/l No Aug 08 e 107 informa informa 2013 [Moles/ tion in tion in 6:00 PM volume] source source in data data Blood Carbon 26 21 - 32 mmol/L No Aug 08 dioxide informa informa 2013 , total tion in tion in 6:00 PM source source [Moles/ data data volume] in Serum or Plasma Creatin 0.7 0.6 - MG/DL No Aug 08 ine 1.3 informa informa 2013 [Mass/v tion in tion in 6:00 PM olume] source source in data data Serum or Plasma Protein 7.1 6.4 - G/DL No Aug 08 8.4 informa informa 2013 [Mass/v tion in tion in 6:00 PM olume] source source in data data Serum or Plasma Albumin 2.9 3.4 - G/DL Low No Aug 08 5.0 informa 2013 [Mass/v tion in 6:00 PM olume] source in data Serum or Plasma Globuli 4.2 2.4 - G/DL No Aug 08 n 4.8 informa informa 2013 [Mass/v tion in tion in 6:00 PM olume] source source in data data Plasma Albumin 0.7 0.6 - No No Aug 08 /Globul 1.6 informa informa informa 2014 in tion in tion in tion in 6:00 PM [Mass source source source ratio] data data data in Serum or Plasma Calcium 8.7 8.5 - MG/DL No Aug 08 10.1 informa informa 2013 [Mass/v tion in tion in 6:00 PM olume] source source in data data Serum or Plasma Alkalin 66 45 - U/L No Aug 08 e 117 informa informa 2014 phospha tion in tion in 6:00 PM tase source source [Enzyma data data tic activit y/volum e] in Serum or Plasma Asparta 35 15 - 37 U/L No No Aug 08 te informa informa 2014 aminotr tion in tion in 6:00 PM ansfera source source se data data [Enzyma tic activit y/volum e] in Serum or Plasma Alanine 42 12 - 78 U/L No Aug 08 informa informa 2014 aminotr tion in tion in 6:00 PM ansfera source source se data data [Enzyma tic activit y/volum e] in Serum or Plasma Bilirub 0.50 0.00 - MG/DL No Aug 08 in.tota 1.00 informa informa 2014 l tion in tion in 6:00 PM [Mass/v source source olume] data data in Serum or Plasma AMYLASE Observa Value Referen Units Interpr Notes Date tion ce etation Range Amylase 46 25 - U/L No No Aug 08 115 informa informa 2014 [Enzyma tion in tion in 6:00 PM tic source source activit data data y/volum e] in Serum or Plasma LIPASE Observa Value Referen Units Interpr Notes Date tion ce etation Range Lipase 194 73 - U/L No No Aug 08 [Enzyma 393 informa informa 2013 tic tion in tion in 6:00 PM activit source source y/volum data data e] in Serum or Plasma URINALYSIS COMPLETE Observa Value Referen Units Interpr Notes Date tion ce etation Range Color YELLOW No No No No Aug 08 of informa informa informa informa 2013 Urine tion in tion in tion in tion in 6:00 PM source source source source data data data data Clarity CLEAR No No No No Aug 08 of informa informa informa informa 2013 Urine tion in tion in tion in tion in 6:00 PM source source source source data data data data Glucose NEGATIV NEGATIV MG/DL No No Aug 08 E E informa informa 2013 [Presen tion in tion in 6:00 PM ce] in source source Urine data data by Automat ed test strip Bilirub NEGATIV NEGATIV No No No Aug 08 in E E informa informa informa 2013 [Presen tion in tion in tion in 6:00 PM ce] in source source source Urine data data data by Automat ed test strip Ketones 80 NEGATIV MG/DL No No Aug 08 E informa informa 2013 [Presen tion in tion in 6:00 PM ce] in source source Urine data data by Automat ed test strip Specifi 1.009 1.006 - No No No Aug 08 c 1.035 informa informa informa 2013 gravity tion in tion in tion in 6:00 PM of source source source Urine data data data by Automat ed test strip Erythro NEGATIV NEGATIV No No No Aug 08 cytes E E informa informa informa 2013 [Presen tion in tion in tion in 6:00 PM ce] in source source source Urine data data data by Automat ed pH of 6.5 5.0 - No No No Aug 08 Urine 9.0 informa informa informa 2013 by tion in tion in tion in 6:00 PM Automat source source source ed test data data data strip Protein NEGATIV NEGATIV MG/DL No No Aug 08 E E informa informa 2013 [Presen tion in tion in 6:00 PM ce] in source source Urine data data by Automat ed test strip UROBILI 0.2 0.2 - E.U./DL No No Aug 08 NOGEN 1.0 informa informa 2013 tion in tion in 6:00 PM source source data data Nitrate NEGATIV NEGATIV No No Aug 08 E E informa informa informa 2013 [Presen tion in tion in tion in 6:00 PM ce] in source source source Urine data data data Leukocy NEGATIV NEGATIV No No Aug 08 mickie E E informa informa informa 2013 [Presen tion in tion in tion in 6:00 PM ce] in source source source Urine data data data by Automat ed Erythro 1 0 - 4 /HPF No Aug 08 cytes informa informa 2013 [#/area tion in tion in 6:00 PM ] in source source Urine data data sedimen t by Microsc opy high power field WBC 1 0 - 5 /HPF No Aug 08 COUNT informa informa 2013 tion in tion in 6:00 PM source source data data Epithel 0 0 - 6 /HPF No Aug 08 ial informa informa 2013 cells tion in tion in 6:00 PM [Presen source source ce] in data data Urine sedimen t by Light microsc opy Bacteri NEGATIV NEGATIV /HPF No BACTERI Aug 08 a E E informa A 2013 [#/area tion in INTERPR 6:00 PM ] in source ETATION Urine data :NEGATI sedimen VE t by <=599/u Microsc lTRACE opy high >=600, power <=1199/ field ul1+ >=1200, <=2399/ ul2+ >=2400, <=3599/ ul3+ >=3600, <=4799/ ul4+ >=4800/ ul Hyaline 1 0 - 4 /LPF No Aug 08 casts informa informa 2013 [#/area tion in tion in 6:00 PM ] in source source Urine data data sedimen t by Microsc opy high power field CBC\\T\\AUTO DIFF Observa Value Referen Units Interpr Notes Date tion ce etation Range Leukocy 11.5 3.5 - K/UL No Aug 08 mickie 13.0 informa informa 2013 [#/volu tion in tion in 6:00 PM me] in source source Blood data data by Automat ed count Erythro 4.790 3.500 - M/ul No Aug 08 cytes 6.100 informa informa 2013 [#/volu tion in tion in 6:00 PM me] in source source Blood data data by Automat ed count Hemoglo 12.9 11.0 - gm/dl No Aug 08 bin 17.8 informa informa 2013 [Mass/v tion in tion in 6:00 PM olume] source source in data data Blood Hematoc 40.4 32.0 - % No Aug 08 rit 51.6 informa informa 2013 [Volume tion in tion in 6:00 PM source source Fractio data data n] of Blood by Automat ed count Erythro 84.4 80.8 - fl No Aug 08 cyte 101.2 informa informa 2013 mean tion in tion in 6:00 PM corpusc source source ular data data volume [Entiti c volume] by Automat ed count Erythro 26.9 27.6 - pg Low No Aug 08 cyte 32.7 informa 2013 mean tion in 6:00 PM corpusc source ular data hemoglo bin [Entiti c mass] by Automat ed count Erythro 31.8 32.6 - g/dl No Aug 08 cyte 35.4 informa informa 2014 mean tion in tion in 6:00 PM corpusc source source ular data data hemoglo bin concent ration [Mass/v olume] by Automat ed count Erythro 14.3 10.1 - % No Aug 08 cyte 16.5 informa informa 2013 distrib tion in tion in 6:00 PM ution source source width data data [Ratio] by Automat ed count Platele 351 134 - K/UL No Aug 08 ts 412 informa informa 2013 [#/volu tion in tion in 6:00 PM me] in source source Blood data data by Automat ed count Platele 7.6 6.1 - fl No Aug 08 t mean 10.1 informa informa 2014 volume tion in tion in 6:00 PM [Entiti source source c data data volume] in Blood by Automat ed count Neutrop 68.4 43.0 - % No Aug 08 hils/10 83.0 informa informa 2013 0 tion in tion in 6:00 PM leukocy source source mickie in data data Blood by Automat ed count Lymphoc 20.3 10.0 - % No No Aug 08 ytes/10 42.0 informa informa 2014 0 tion in tion in 6:00 PM leukocy source source mickie in data data Blood by Automat ed count Monocyt 6.9 1.0 - % No No Aug 08 es/100 14.0 informa informa 2013 leukocy tion in tion in 6:00 PM mickie in source source Blood data data by Automat ed count Eosinop 1.8 0.0 - % No No Aug 08 hils/10 11.0 informa informa 2013 0 tion in tion in 6:00 PM leukocy source source mickie in data data Blood by Automat ed count Basophi 2.6 0.0 - % High No Aug 08 ls/100 2.0 informa 2013 leukocy tion in 6:00 PM mickie in source Blood data by Automat ed count Neutrop 7.9 2.7 - K/ul High No Aug 08 hils 6.9 informa 2013 [#/volu tion in 6:00 PM me] in source Blood data by Automat ed count Lymphoc 2.3 0.4 - K/ul No No Aug 08 ytes 3.9 informa informa 2013 [#/volu tion in tion in 6:00 PM me] in source source Blood data data by Automat ed count Monocyt 0.8 0.2 - K/ul High No Aug 08 es 0.6 informa 2013 [#/volu tion in 6:00 PM me] in source Blood data by Automat ed count Eosinop 0.2 0.0 - K/ul No No Aug 08 hils 0.9 informa informa 2013 [#/volu tion in tion in 6:00 PM me] in source source Blood data data by Automat ed count Basophi 0.3 0.0 - K/ul High No Aug 08 ls 0.2 informa 2013 [#/volu tion in 6:00 PM me] in source Blood data by Automat ed count URINE CULTURE Observa Value Referen Units Interpr Notes Date tion ce etation Range Bacteri NO No No No ORDER#: Aug 04 a GROWTH informa informa informa 2013 identif tion in tion in tion in [id number] 7:00 PM ied in source source source 0 Urine data data data by Culture ORDERED BY: JENNY QUIÑONEZ CE: URINE COLLECT ED: 4 19:00AN WAYLON CS AT [facility].: RECEIVE D : 4 20:01UR INE CULTURE FINAL 4 08:2010 NO GROWTH GLOMELULAR CARMEN. RATE,CALC. Observa Value Referen Units Interpr Notes Date tion ce etation Range Glomeru 103.3 60.0 - ml/min No THE Aug 04 lar 130.0 informa eGFR IS 2013 filtrat tion in AN 4:16 AM ion source ESTIMAT rate/1. data ED 73 sq M GLOMELU LAR predict FILTRAT ed ION among RATEBAS non-mir ED ON cks by AN Creatin AVERAGE ine-bas BODY ed SURFACE formula AREA (MDRD) OF 1.73M2. THIS CALCULA TION IS NOT ACCURAT E FOR PEDIATR IC PATIENT S,PATIE NTS >70 YEARS OF AGE,OR PATIENT S WITH EXTREME BODY SIZE.>6 0 ML/MIN/ 1.73M2 = NORMAL< 60 ML/MIN/ 1.73M2 = CHRONIC KIDNEY DISEASE <15 ML/MIN/ 1.73M2 = KIDNEY FAILURE AVERAGE EGFR FOLLOWS :AGE(YE ARS) AVERAGE EGFR20- 39 116 ML/MIN3 0-39 107 ML/MIN4 0-49 99 ML/MIN5 0-59 93 ML/MIN6 0-69 85 ML/MIN MAGNESIUM Observa Value Referen Units Interpr Notes Date ti ce etation Range Magnesi 1.8 1.7 - MG/DL No No Aug 04 um 2.4 informa informa 2013 [Mass/v tion in tion in 4:16 AM olume] source source in data data Serum or Plasma COMP. METABOLIC PANEL (CHEM 12) Observa Value Referen Units Interpr Notes Date tion ce etation Range Glucose 72 70 - MG/DL No No Aug 04 110 informa informa 2013 [Mass/v tion in tion in 4:16 AM olume] source source in data data Serum or Plasma Urea 5 7 - 18 MG/DL Low No Aug 04 nitroge informa 2014 n tion in 4:16 AM [Mass/v source olume] data in Serum or Plasma Sodium 138 133 - mmol/L No Aug 04 [Moles/ 144 informa informa 2013 volume] tion in tion in 4:16 AM in source source Serum data data or Plasma Potassi 3.4 3.6 - mmol/l Low Aug 04 um 5.2 informa 2013 [Moles/ tion in 4:16 AM volume] source in data Serum or Plasma Chlorid 99 98 - mmol/l No Aug 04 e 107 informa informa 2013 [Moles/ tion in tion in 4:16 AM volume] source source in data data Blood Carbon 32 21 - 32 mmol/L No Aug 04 dioxide informa informa 2013 , total tion in tion in 4:16 AM source source [Moles/ data data volume] in Serum or Plasma Creatin 0.9 0.6 - MG/DL No Aug 04 ine 1.3 informa informa 2013 [Mass/v tion in tion in 4:16 AM olume] source source in data data Serum or Plasma Protein 6.3 6.4 - G/DL Low Aug 04 8.4 informa 2013 [Mass/v tion in 4:16 AM olume] source in data Serum or Plasma Albumin 2.3 3.4 - G/DL Low Aug 04 5.0 informa 2013 [Mass/v tion in 4:16 AM olume] source in data Serum or Plasma Globuli 4.0 2.4 - G/DL No Aug 04 n 4.8 informa informa 2013 [Mass/v tion in tion in 4:16 AM olume] source source in data data Plasma Albumin 0.6 0.6 - No Aug 04 /Globul 1.6 informa informa informa 2013 in tion in tion in tion in 4:16 AM [Mass source source source ratio] data data data in Serum or Plasma Calcium 8.4 8.5 - MG/DL Low Aug 04 10.1 informa 2013 [Mass/v tion in 4:16 AM olume] source in data Serum or Plasma Alkalin 68 45 - U/L No Aug 04 e 117 informa informa 2013 phospha tion in tion in 4:16 AM tase source source [Enzyma data data tic activit y/volum e] in Serum or Plasma Asparta 11 15 - 37 U/L Low No Aug 04 te informa 2013 aminotr tion in 4:16 AM ansfera source se data [Enzyma tic activit y/volum e] in Serum or Plasma Alanine <14 12 - 78 U/L No Aug 04 informa informa 2013 aminotr tion in tion in 4:16 AM ansfera source source se data data [Enzyma tic activit y/volum e] in Serum or Plasma Bilirub 1.00 0.00 - MG/DL No Aug 04 in.tota 1.00 informa informa 2013 l tion in tion in 4:16 AM [Mass/v source source olume] data data in Serum or Plasma CBC/NO DIFF+ PLATELET Observa Value Referen Units Interpr Notes Date tion ce etation Range Leukocy 10.4 3.5 - K/UL No Aug 04 mickie 13.0 informa informa 2013 [#/volu tion in tion in 4:16 AM me] in source source Blood data data by Automat ed count Erythro 4.140 3.500 - M/ul No Aug 04 cytes 6.100 informa informa 2013 [#/volu tion in tion in 4:16 AM me] in source source Blood data data by Automat ed count Hemoglo 11.6 11.0 - gm/dl No Aug 04 bin 17.8 informa informa 2013 [Mass/v tion in tion in 4:16 AM olume] source source in data data Blood Hematoc 35.1 32.0 - % No Aug 04 rit 51.6 informa informa 2013 [Volume tion in tion in 4:16 AM source source Fractio data data n] of Blood by Automat ed count Erythro 84.9 80.8 - fl No Aug 04 cyte 101.2 informa informa 2013 mean tion in tion in 4:16 AM corpusc source source ular data data volume [Entiti c volume] by Automat ed count Erythro 28.0 27.6 - pg No Aug 04 cyte 32.7 informa informa 2013 mean tion in tion in 4:16 AM corpusc source source ular data data hemoglo bin [Entiti c mass] by Automat ed count Erythro 33.0 32.6 - g/dl No No Aug 04 cyte 35.4 informa informa 2013 mean tion in tion in 4:16 AM corpusc source source ular data data hemoglo bin concent ration [Mass/v olume] by Automat ed count Erythro 14.1 10.1 - % No No Aug 04 cyte 16.5 informa informa 2013 distrib tion in tion in 4:16 AM ution source source width data data [Ratio] by Automat ed count Platele 304 134 - K/UL No No Aug 04 ts 412 informa informa 2013 [#/volu tion in tion in 4:16 AM me] in source source Blood data data by Automat ed count Platele 7.6 6.1 - fl No No Aug 04 t mean 10.1 informa informa 2013 volume tion in tion in 4:16 AM [Entiti source source c data data volume] in Blood by Automat ed count US Venous LE Duplex Bilateral Observa Value Referen Units Interpr Notes Date tion ce etation Range \\.br\\BI No No No No Aug 03 LATERAL informa informa informa informa 2013 LOWER tion in tion in tion in tion in 8:26 PM EXTREMI source source source source TY data data data data VENOUS DUPLEX ULTRASO UND\\.br \\\\.br\\C OMPARIS ON: None\\.b r\\\\.br\\ LEFT LOWER EXTREMI TY\\.br\\ \\.br\\De ep venous system was assesse d from the level of the inguina l crease down to Dom' s canal.\\ .br\\\\.b r\\The deep venous system was joshua sible through out its course. There was no intralu carlitos thrombu s formati on or abnorma l venous Doppler signal. Strong augment ation with joshua meka of the calf was noted.\\ .br\\\\.b r\\ IMPRESS ION: No evidenc e of deep vein thrombo sis of the left lower extremi ty.\\.br \\\\.br\\R IGHT LOWER EXTREMI TY\\.br\\ \\.br\\De ep venous system was assesse d from the level of the inguina l crease down to Dom' s canal.\\ .br\\\\.b r\\The deep venous system was joshua sible through out its course. There was no intralu carlitos thrombu s formati on or abnorma l venous Doppler signal. Strong augment ation with joshua meka of the calf was noted.\\ .br\\\\.b r\\ IMPRESS ION: No evidenc e of deep vein thrombo sis of the right lower extremi ty.\\.br \\\\.br\\ END OF REPORT* *\\.br\\\\ .br\\Bra cris Bradford M.D.\\.b r\\\\.br\\ Dictate d: 8:28 PM\\.br\\ \\.br\\Tr anscrib ed: 8:32 PM\\.br\\ \\.br\\ * Final Report \\.br \\\\.br\\D ictated : Bryan Bradford 8:28 pm\\.br\\ \\.br\\Tr anscrib ed by: 8:33 pm\\.br\\ \\.br\\Au thentic ated by: Bryan Bradford 8:37 pm\\.br\\ \\.br\\ CBC/NO DIFF+ PLATELET Observa Value Referen Units Interpr Notes Date tion ce etation Range Leukocy 12.1 3.5 - K/UL No Aug 03 mickie 13.0 informa informa 2013 [#/volu tion in tion in 1:00 AM me] in source source Blood data data by Automat ed count Erythro 4.030 3.500 - M/ul No Aug 03 cytes 6.100 informa informa 2013 [#/volu tion in tion in 1:00 AM me] in source source Blood data data by Automat ed count Hemoglo 11.3 11.0 - gm/dl No Aug 03 bin 17.8 informa informa 2013 [Mass/v tion in tion in 1:00 AM olume] source source in data data Blood Hematoc 34.1 32.0 - % No Aug 03 rit 51.6 informa informa 2013 [Volume tion in tion in 1:00 AM source source Fractio data data n] of Blood by Automat ed count Erythro 84.5 80.8 - fl No Aug 03 cyte 101.2 informa informa 2013 mean tion in tion in 1:00 AM corpusc source source ular data data volume [Entiti c volume] by Automat ed count Erythro 28.0 27.6 - pg No No Aug 03 cyte 32.7 informa informa 2013 mean tion in tion in 1:00 AM corpusc source source ular data data hemoglo bin [Entiti c mass] by Automat ed count Erythro 33.1 32.6 - g/dl No No Aug 03 cyte 35.4 informa informa 2013 mean tion in tion in 1:00 AM corpusc source source ular data data hemoglo bin concent ration [Mass/v olume] by Automat ed count Erythro 14.0 10.1 - % No No Aug 03 cyte 16.5 informa informa 2013 distrib tion in tion in 1:00 AM ution source source width data data [Ratio] by Automat ed count Platele 302 134 - K/UL No No Aug 03 ts 412 informa informa 2013 [#/volu tion in tion in 1:00 AM me] in source source Blood data data by Automat ed count Platele 7.6 6.1 - fl No No Aug 03 t mean 10.1 informa informa 2013 volume tion in tion in 1:00 AM [Entiti source source c data data volume] in Blood by Automat ed count APTT Observa Value Referen Units Interpr Notes Date tion ce etation Range Activat 29 22 - 32 SEC No * THE Aug 03 ed informa APTT 2013 partial tion in THERAPU 1:00 AM source TIC thrombp data RANGE lastin CORRESP time ONDS TO (aPTT) in HEPARIN Blood LEVELS by Coagula OFAPPRO tion XIMATEL assay Y 0.3 TO 0.7 u/ml.* HEPARIN THERAPU TIC RANGE = 49 - 65 seconds .* IF A PATIENT IS RECEIVI NG ARGATRO BAN THERAPY , DO NOT TITRATE ARGATRO BAN DRIP PER HEPARIN PROTOCO L. APTT Observa Value Referen Units Interpr Notes Date tion ce etation Range Activat 46 22 - 32 SEC High * THE Aug 02 ed APTT 2013 partial THERAPU 4:31 AM TIC thrombp RANGE lastin CORRESP time ONDS TO (aPTT) in HEPARIN Blood LEVELS by Coagula OFAPPRO tion XIMATEL assay Y 0.3 TO 0.7 u/ml.* HEPARIN THERAPU TIC RANGE = 49 - 65 seconds .* IF A PATIENT IS RECEIVI NG ARGATRO BAN THERAPY , DO NOT TITRATE ARGATRO BAN DRIP PER HEPARIN PROTOCO L. CBC/NO DIFF+ PLATELET Observa Value Referen Units Interpr Notes Date tion ce etation Range Leukocy 15.7 3.5 - K/UL High No Aug 02 mickie 13.0 informa 2013 [#/volu tion in 4:31 AM me] in source Blood data by Automat ed count Erythro 4.170 3.500 - M/ul No Aug 02 cytes 6.100 informa informa 2013 [#/volu tion in tion in 4:31 AM me] in source source Blood data data by Automat ed count Hemoglo 11.7 11.0 - gm/dl No Aug 02 bin 17.8 informa informa 2013 [Mass/v tion in tion in 4:31 AM olume] source source in data data Blood Hematoc 35.6 32.0 - % No Aug 02 rit 51.6 informa informa 2014 [Volume tion in tion in 4:31 AM source source Fractio data data n] of Blood by Automat ed count Erythro 85.3 80.8 - fl No Aug 02 cyte 101.2 informa informa 2014 mean tion in tion in 4:31 AM corpusc source source ular data data volume [Entiti c volume] by Automat ed count Erythro 28.0 27.6 - pg No Aug 02 cyte 32.7 informa informa 2014 mean tion in tion in 4:31 AM corpusc source source ular data data hemoglo bin [Entiti c mass] by Automat ed count Erythro 32.8 32.6 - g/dl No Aug 02 cyte 35.4 informa informa 2014 mean tion in tion in 4:31 AM corpusc source source ular data data hemoglo bin concent ration [Mass/v olume] by Automat ed count Erythro 14.4 10.1 - % No Aug 02 cyte 16.5 informa informa 2014 distrib tion in tion in 4:31 AM ution source source width data data [Ratio] by Automat ed count Platele 267 134 - K/UL No No Aug 02 ts 412 informa informa 2013 [#/volu tion in tion in 4:31 AM me] in source source Blood data data by Automat ed count Platele 7.7 6.1 - fl No No Aug 02 t mean 10.1 informa informa 2013 volume tion in tion in 4:31 AM [Entiti source source c data data volume] in Blood by Automat ed count APTT Observa Value Referen Units Interpr Notes Date ti ce etation Range Activat 36 22 - 32 SEC High * THE Aug 01 ed APTT 2013 partial THERAPU 6:00 PM TIC thrombp RANGE lastin CORRESP time ONDS TO (aPTT) in HEPARIN Blood LEVELS by Coagula OFAPPRO tion XIMATEL assay Y 0.3 TO 0.7 u/ml.* HEPARIN THERAPU TIC RANGE = 49 - 65 seconds .* IF A PATIENT IS RECEIVI NG ARGATRO BAN THERAPY , DO NOT TITRATE ARGATRO BAN DRIP PER HEPARIN PROTOCO L. CT Angiography Chest Observa Value Referen Units Interpr Notes Date ti ce etation Range TEXT no\\.br\\ No No No No Aug 01 DIAGNOS \\.br\\\\. informa informa informa informa 2013 IS br\\CT tion in tion in tion in tion in 3:19 PM BATTERY ANGIOGR source source source source APHY data data data data CHEST WITH CONTRAS T, 014\\.br \\\\.br\\N o compari son.\\.b r\\\\.br\\ The study is limited related to poor penetra tion and body habitus as well as motion. \\.br\\\\. br\\Limi bradley imaging of the subdiap hragmat ic viscera shows multifo bev post surgica l change in the upper abdomen . Numerou s surgica l clips are noted. Subcuta neous air and post surgica l changes are seen in the ventral abdomin al wall. There is an indeter minate 3.5 x 3 cm air and fluid collect ion in the right subhepa tic space adjacen t to the gallbla dder fossa. A small amount of free fluid is seen in the upper abdomen .\\.br\\\\ .br\\Thy roid gland and esophag us are grossly within normal limits. \\.br\\\\. br\\No lymphad enopath y by CT size criteri a within the chest.\\ .br\\\\.b r\\There is cardiom egaly. There is no pericar dial effusio n.\\.br\\ \\.br\\CT A: Examina tion is signifi cantly limited for evaluat ion for pulmona ry embolus . There is poor pleural opacifi cation of the pulmona ry arteria l tree, penetra tion and signifi cant motion. There is questio nable low attenua tion seen involvi ng the right interlo bar artery for which a small amount of pulmona ry embolus in the right pulmona ry artery tree cannot be exclude d. Evaluat ion of the segment al and subsegm ental branche s is nondiag ostic on this study. Pulmona ry emboli in these areas cannot be exclude d.\\.br\\ \\.br\\Im aging of the lung scott show hyperve ntilato ry change and pulmona ry edema. Large consoli dative type infiltr ate is seen in the right mid lung extendi ng into the right lower lobe. There is also consoli dative infiltr ate in the left lung base. There are small bilater al pleural effusio ns. Additio nal multifo bev ground glass and partial ly consoli dative infiltr ates are seen in the upper lung scott bilater ally. No pneumot horax.\\ .br\\\\.b r\\ IMPRESS ION:\\.b r\\\\.br\\ 1. Signifi cantly limited examina tion related to motion, poor contras t opacifi cation, and body habitus .\\.br\\\\ .br\\2. Very limited evaluat ion for pulmona ry embolus . There is questio nable low attenua tion in the right interlo bar artery of the pulmona ry arteria l tree for which pulmona ry embolus cannot be exclude d. This is seen in an area of signifi cant artifac t. Repeat examina tion may be benefic ial.\\.b r\\\\.br\\ 3. Evaluat ion of the segment al and subsegm ental pulmona ry arteria l branche s is nondiag nostic on this exam as describ ed above.\\ .br\\\\.b r\\4. Multifo bev consoli dative infiltr ates seen through out the lungs. Finding s may reflect a multifo bev infecti ous process and/or aspirat ion.\\.b r\\\\.br\\ 5. Bilater al pleural effusio ns and pulmona ry edema.\\ .br\\\\.b r\\6. Multifo bev surgica l changes in the upper abdomen , includi ng drains and clips. There is an indeter minate fluid and air collect ion in the subhepa tic space adjacen t to the gallbla dder fossa with dimensi ons as above. This is indeter minate. Develop ing phlegmo n or abscess at this site cannot be exclude d. Dedicat ed abdomin al CT imaging can be obtaine d for further evaluat ion as clinica lly indicat ed.\\.br \\\\.br\\7 . The remaind er as above.\\ .br\\\\.b r\\ END OF REPORT* *\\.br\\\\ .br\\Yanet l Kavon boyd M.D.\\.b r\\\\.br\\ Dictate d: 4:58 PM\\.br\\ \\.br\\Tr anscrib ed: 5:00 PM\\.br\\ \\.br\\ * Final Report \\.br \\\\.br\\D ictated : VLADIMIR LUNDY M.D. 4:58 pm\\.br\\ \\.br\\Tr anscrib ed by: AH 5:08 pm\\.br\\ \\.br\\Au thentic ated by: VLADIMIR LUNDY M.D. 9:19 am\\.br\\ \\.br\\ GLOMELULAR CARMEN. RATE,CALC. Observa Value Referen Units Interpr Notes Date tion ce etation Range Glomeru 118.3 60.0 - ml/min No THE Aug 01 lar 130.0 informa eGFR IS 2013 filtrat tion in AN 2:20 PM ion source ESTIMAT rate/1. data ED 73 sq M GLOMELU LAR predict FILTRAT ed ION among RATEBAS non-mir ED ON cks by AN Creatin AVERAGE ine-bas BODY ed SURFACE formula AREA (MDRD) OF 1.73M2. THIS CALCULA TION IS NOT ACCURAT E FOR PEDIATR IC PATIENT S,PATIE NTS >70 YEARS OF AGE,OR PATIENT S WITH EXTREME BODY SIZE.>6 0 ML/MIN/ 1.73M2 = NORMAL< 60 ML/MIN/ 1.73M2 = CHRONIC KIDNEY DISEASE <15 ML/MIN/ 1.73M2 = KIDNEY FAILURE AVERAGE EGFR FOLLOWS :AGE(YE ARS) AVERAGE EGFR20- 39 116 ML/MIN3 0-39 107 ML/MIN4 0-49 99 ML/MIN5 0-59 93 ML/MIN6 0-69 85 ML/MIN COMP. METABOLIC PANEL (CHEM 12) Observa Value Referen Units Interpr Notes Date tion ce etation Range Glucose 101 70 - MG/DL No Aug 01 110 informa informa 2013 [Mass/v tion in tion in 2:20 PM olume] source source in data data Serum or Plasma Urea 7 7 - 18 MG/DL No Aug 01 nitroge informa informa 2013 n tion in tion in 2:20 PM [Mass/v source source olume] data data in Serum or Plasma Sodium 134 133 - mmol/L No Aug 01 [Moles/ 144 informa informa 2013 volume] tion in tion in 2:20 PM in source source Serum data data or Plasma Potassi 4.0 3.6 - mmol/l No Aug 01 um 5.2 informa informa 2013 [Moles/ tion in tion in 2:20 PM volume] source source in data data Serum or Plasma Chlorid 99 98 - mmol/l No Aug 01 e 107 informa informa 2013 [Moles/ tion in tion in 2:20 PM volume] source source in data data Blood Carbon 29 21 - 32 mmol/L No Aug 01 dioxide informa informa 2013 , total tion in tion in 2:20 PM source source [Moles/ data data volume] in Serum or Plasma Creatin 0.8 0.6 - MG/DL No Aug 01 ine 1.3 informa informa 2013 [Mass/v tion in tion in 2:20 PM olume] source source in data data Serum or Plasma Protein 7.1 6.4 - G/DL No No Aug 01 8.4 informa informa 2013 [Mass/v tion in tion in 2:20 PM olume] source source in data data Serum or Plasma Albumin 2.6 3.4 - G/DL Low No Aug 01 5.0 informa 2013 [Mass/v tion in 2:20 PM olume] source in data Serum or Plasma Globuli 4.5 2.4 - G/DL No Aug 01 n 4.8 informa informa 2013 [Mass/v tion in tion in 2:20 PM olume] source source in data data Plasma Albumin 0.6 0.6 - No No Aug 01 /Globul 1.6 informa informa informa 2013 in tion in tion in tion in 2:20 PM [Mass source source source ratio] data data data in Serum or Plasma Calcium 8.4 8.5 - MG/DL Low No Aug 01 10.1 informa 2013 [Mass/v tion in 2:20 PM olume] source in data Serum or Plasma Alkalin 86 45 - U/L No No Aug 01 e 117 informa informa 2013 phospha tion in tion in 2:20 PM tase source source [Enzyma data data tic activit y/volum e] in Serum or Plasma Asparta 17 15 - 37 U/L No No Aug 01 te informa informa 2014 aminotr tion in tion in 2:20 PM ansfera source source se data data [Enzyma tic activit y/volum e] in Serum or Plasma Alanine 23 12 - 78 U/L No No Aug 01 informa informa 2014 aminotr tion in tion in 2:20 PM ansfera source source se data data [Enzyma tic activit y/volum e] in Serum or Plasma Bilirub 0.70 0.00 - MG/DL No No Aug 01 in.tota 1.00 informa informa 2013 l tion in tion in 2:20 PM [Mass/v source source olume] data data in Serum or Plasma APTT Observa Value Referen Units Interpr Notes Date tion ce etation Range Activat 28 22 - 32 SEC No * THE Aug 01 ed informa APTT 2014 partial tion in THERAPU 2:20 PM source TIC thrombp data RANGE lastin CORRESP time ONDS TO (aPTT) in HEPARIN Blood LEVELS by Coagula OFAPPRO tion XIMATEL assay Y 0.3 TO 0.7 u/ml.* HEPARIN THERAPU TIC RANGE = 49 - 65 seconds .* IF A PATIENT IS RECEIVI NG ARGATRO BAN THERAPY , DO NOT TITRATE ARGATRO BAN DRIP PER HEPARIN PROTOCO L. PROTIME\\T\\INR Observa Value Referen Units Interpr Notes Date tion ce etation Range Prothro 10.3 9.9 - SEC No No Aug 01 mbin 12.5 informa informa 2013 time tion in tion in 2:20 PM (PT) source source actual/ data data normal in Platele t poor plasma by Coagula tion assay INR in 0.99 0.88 - No No THE INR Aug 01 Platele 1.12 informa informa SHOULD 2013 t poor tion in tion in ONLY 2:20 PM plasma source source BE USED by data data IN Coagula STABLE tion ANTICOA assay GULATED PATIENT S:RECOM MENDED THERAPE UTIC RANGES: CONDITI ON: INRPREV ENTION OR TREATME NT OF DVT.... ....... ....... ..2.0-3 .0ACUTE MIPREVE NTION OF STROKE. ....... ....... ....... ......2 .0-3.0P REVENTI ON OF RECURRE NT FL..... ....... ....... ...2.5- 3.5ATRI AL FIBRILL ATIONPR EVENTIO N OF SYSTEMI C EMBOLIS M...... ....... ....2.0 -3.0CAR DIAC VALVE REPLACE MENT (MECHAN ICAL VALVES) .....2. 5-3.5 CBC/NO DIFF+ PLATELET Observa Value Referen Units Interpr Notes Date tion ce etation Range Leukocy 15.1 3.5 - K/UL High No Aug 01 mickie 13.0 informa 2013 [#/volu tion in 2:20 PM me] in source Blood data by Automat ed count Erythro 4.820 3.500 - M/ul No No Aug 01 cytes 6.100 informa informa 2013 [#/volu tion in tion in 2:20 PM me] in source source Blood data data by Automat ed count Hemoglo 13.3 11.0 - gm/dl No Aug 01 bin 17.8 informa informa 2013 [Mass/v tion in tion in 2:20 PM olume] source source in data data Blood Hematoc 40.8 32.0 - % No Aug 01 rit 51.6 informa informa 2013 [Volume tion in tion in 2:20 PM source source Fractio data data n] of Blood by Automat ed count Erythro 84.6 80.8 - fl No Aug 01 cyte 101.2 informa informa 2013 mean tion in tion in 2:20 PM corpusc source source ular data data volume [Entiti c volume] by Automat ed count Erythro 27.7 27.6 - pg No Aug 01 cyte 32.7 informa informa 2013 mean tion in tion in 2:20 PM corpusc source source ular data data hemoglo bin [Entiti c mass] by Automat ed count Erythro 32.7 32.6 - g/dl No Aug 01 cyte 35.4 informa informa 2013 mean tion in tion in 2:20 PM corpusc source source ular data data hemoglo bin concent ration [Mass/v olume] by Automat ed count Erythro 14.4 10.1 - % No Aug 01 cyte 16.5 informa informa 2013 distrib tion in tion in 2:20 PM ution source source width data data [Ratio] by Automat ed count Platele 262 134 - K/UL No Aug 01 ts 412 informa informa 2013 [#/volu tion in tion in 2:20 PM me] in source source Blood data data by Automat ed count Platele 7.7 6.1 - fl No Aug 01 t mean 10.1 informa informa 2013 volume tion in tion in 2:20 PM [Entiti source source c data data volume] in Blood by Automat ed count BLOOD GAS Observa Value Referen Units Interpr Notes Date tion ce etation Range 02 at 50% on cpap of 12 pH of 7.374 7.350 - No No Aug 01 Arteria 7.450 informa informa informa 2013 l blood tion in tion in tion in 2:17 PM source source source data data data Carbon 52.7 35.0 - mmHG High No Aug 01 dioxide 45.0 2013 tion in 2:17 PM [Partia source l data pressur e] in Arteria l blood Oxygen 80.1 85.0 - mmHG Low No Aug 01 [Partia 100.0 a 2013 l tion in 2:17 PM pressur source e] in data Arteria l blood Oxygen 95.2 93.0 - % No Aug 01 saturat 97.0 informa informa 2013 ion in tion in ti in 2:17 PM Arteria source source l blood data data Bicarbo 30.0 20.0 - mm/L High No Aug 01 carmita 26.0 2013 [Moles/ tion in 2:17 PM volume] source in data Arteria l blood Base 5.0 -2.0-2. mm/L High Aug 01 excess 0 a 2013 in tion in 2:17 PM Arteria source l blood data CT Head or Brain w/o Contrast Observa Value Referen Units Interpr Notes Date tion ce etation Range \\.br\\CT No No No No Aug 01 HEAD informa informa informa informa 2013 NONCONT tion in tion in tion in tion in 12:13 RAST, source source source source PM data data data data 014\\.br \\\\.br\\N o compari son.\\.b r\\\\.br\\ There is no intracr anial hemorrh age or extra-a xial fluid collect ion. The ventric les are of normal size, shape, and configu ration. There is no mass effect or midline shift. Basilar cistern s appear patent. \\.br\\\\. br\\Orbi janeth structu res, osseous structu res, and sinus structu res appear grossly intact. \\.br\\\\. br\\ IMPRESS ION: No acute intracr anial abnorma lity.\\. br\\\\.br \\ END OF REPORT* *\\.br\\\\ .br\\Yanet l Kavon boyd M.D.\\.b r\\\\.br\\ Dictate d: 12:46 PM\\.br\\ \\.br\\Tr anscrib ed: 12:51 PM\\.br\\ \\.br\\NO TE: Early acute ischemi a can be missed by CT scan. Conside r MRI with diffusi on weighte d imaging to further evaluat e if clinica lly indicat ed.\\.br \\\\.br\\* Final Report \\.br \\\\.br\\D ictated : VLADIMIR LUNDY M.D. 12:46 pm\\.br\\ \\.br\\Tr anscrib ed by: AH 12:52 pm\\.br\\ \\.br\\Au thentic ated by: VLADIMIR LUNDY M.D. 9:19 am\\.br\\ \\.br\\ CBC/NO DIFF+ PLATELET Observa Value Referen Units Interpr Notes Date tion ce etation Range Leukocy 16.0 3.5 - K/UL High Aug 01 mickie 13.0 informa 2013 [#/volu tion in 3:42 AM me] in source Blood data by Automat ed count Erythro 4.410 3.500 - M/ul No Aug 01 cytes 6.100 informa informa 2013 [#/volu tion in tion in 3:42 AM me] in source source Blood data data by Automat ed count Hemoglo 12.2 11.0 - gm/dl No Aug 01 bin 17.8 informa informa 2014 [Mass/v tion in tion in 3:42 AM olume] source source in data data Blood Hematoc 37.1 32.0 - % No Aug 01 rit 51.6 informa informa 2014 [Volume tion in tion in 3:42 AM source source Fractio data data n] of Blood by Automat ed count Erythro 84.3 80.8 - fl No Aug 01 cyte 101.2 informa informa 2014 mean tion in tion in 3:42 AM corpusc source source ular data data volume [Entiti c volume] by Automat ed count Erythro 27.7 27.6 - pg No Aug 01 cyte 32.7 informa informa 2013 mean tion in tion in 3:42 AM corpusc source source ular data data hemoglo bin [Entiti c mass] by Automat ed count Erythro 32.8 32.6 - g/dl No No Aug 01 cyte 35.4 informa informa 2013 mean tion in tion in 3:42 AM corpusc source source ular data data hemoglo bin concent ration [Mass/v olume] by Automat ed count Erythro 14.3 10.1 - % No No Aug 01 cyte 16.5 informa informa 2014 distrib tion in tion in 3:42 AM ution source source width data data [Ratio] by Automat ed count Platele 275 134 - K/UL No No Aug 01 ts 412 informa informa 2013 [#/volu tion in tion in 3:42 AM me] in source source Blood data data by Automat ed count Platele 7.9 6.1 - fl No No Aug 01 t mean 10.1 informa informa 2013 volume tion in tion in 3:42 AM [Entiti source source c data data volume] in Blood by Automat ed count GLOMELULAR CARMEN. RATE,CALC. Observa Value Referen Units Interpr Notes Date tion ce etation Range Glomeru 103.3 60.0 - ml/min No THE Jul 31 lar 130.0 informa eGFR IS 2013 filtrat tion in AN 6:04 AM ion source ESTIMAT rate/1. data ED 73 sq M GLOMELU LAR predict FILTRAT ed ION among RATEBAS non-mir ED ON cks by AN Creatin AVERAGE ine-bas BODY ed SURFACE formula AREA (MDRD) OF 1.73M2. THIS CALCULA TION IS NOT ACCURAT E FOR PEDIATR IC PATIENT S,PATIE NTS >70 YEARS OF AGE,OR PATIENT S WITH EXTREME BODY SIZE.>6 0 ML/MIN/ 1.73M2 = NORMAL< 60 ML/MIN/ 1.73M2 = CHRONIC KIDNEY DISEASE <15 ML/MIN/ 1.73M2 = KIDNEY FAILURE AVERAGE EGFR FOLLOWS :AGE(YE ARS) AVERAGE EGFR20- 39 116 ML/MIN3 0-39 107 ML/MIN4 0-49 99 ML/MIN5 0-59 93 ML/MIN6 0-69 85 ML/MIN BASIC METABOLIC PANEL (CHEM 7) Observa Value Referen Units Interpr Notes Date tion ce etation Range Glucose 99 70 - MG/DL No Jul 31 110 informa informa 2013 [Mass/v tion in tion in 6:04 AM olume] source source in data data Serum or Plasma Urea 8 7 - 18 MG/DL No Jul 31 nitroge informa informa 2013 n tion in tion in 6:04 AM [Mass/v source source olume] data data in Serum or Plasma Sodium 137 133 - mmol/L No Jul 31 [Moles/ 144 informa informa 2013 volume] tion in tion in 6:04 AM in source source Serum data data or Plasma Potassi 4.2 3.6 - mmol/l No Jul 31 um 5.2 informa informa 2013 [Moles/ tion in tion in 6:04 AM volume] source source in data data Serum or Plasma Chlorid 101 98 - mmol/l No Jul 31 e 107 informa informa 2013 [Moles/ tion in tion in 6:04 AM volume] source source in data data Blood Carbon 31 21 - 32 mmol/L No Jul 31 dioxide informa informa 2013 , total tion in tion in 6:04 AM source source [Moles/ data data volume] in Serum or Plasma Creatin 0.9 0.6 - MG/DL No Jul 31 ine 1.3 informa informa 2013 [Mass/v tion in tion in 6:04 AM olume] source source in data data Serum or Plasma Calcium 8.3 8.5 - MG/DL Low No Jul 31 10.1 informa 2013 [Mass/v tion in 6:04 AM olume] source in data Serum or Plasma CBC/NO DIFF+ PLATELET Observa Value Referen Units Interpr Notes Date tion ce etation Range Leukocy 15.3 3.5 - K/UL High No Jul 31 mickie 13.0 informa 2013 [#/volu tion in 6:04 AM me] in source Blood data by Automat ed count Erythro 4.210 3.500 - M/ul No Jul 31 cytes 6.100 informa informa 2013 [#/volu tion in tion in 6:04 AM me] in source source Blood data data by Automat ed count Hemoglo 11.8 11.0 - gm/dl No Jul 31 bin 17.8 informa informa 2013 [Mass/v tion in tion in 6:04 AM olume] source source in data data Blood Hematoc 35.9 32.0 - % No No Jul 31 rit 51.6 informa informa 2013 [Volume tion in tion in 6:04 AM source source Fractio data data n] of Blood by Automat ed count Erythro 85.3 80.8 - fl No No Jul 31 cyte 101.2 informa informa 2013 mean tion in tion in 6:04 AM corpusc source source ular data data volume [Entiti c volume] by Automat ed count Erythro 27.9 27.6 - pg No No Jul 31 cyte 32.7 informa informa 2014 mean tion in tion in 6:04 AM corpusc source source ular data data hemoglo bin [Entiti c mass] by Automat ed count Erythro 32.8 32.6 - g/dl No No Jul 31 cyte 35.4 informa informa 2013 mean tion in tion in 6:04 AM corpusc source source ular data data hemoglo bin concent ration [Mass/v olume] by Automat ed count Erythro 14.3 10.1 - % No No Jul 31 cyte 16.5 informa informa 2013 distrib tion in tion in 6:04 AM ution source source width data data [Ratio] by Automat ed count Platele 246 134 - K/UL No No Jul 31 ts 412 informa informa 2013 [#/volu tion in tion in 6:04 AM me] in source source Blood data data by Automat ed count Platele 7.4 6.1 - fl No No Jul 31 t mean 10.1 informa informa 2013 volume tion in tion in 6:04 AM [Entiti source source c data data volume] in Blood by Automat ed count XR Upper GI w/ Small Bowel Observa Value Referen Units Interpr Notes Date tion ce etation Range \\.br\\UP No No No No Jul 30 PER GI informa informa informa informa 2013 AND tion in tion in tion in tion in 8:00 AM SMALL source source source source BOWEL data data data data FOLLOW THROUGH \\.br\\\\. br\\The patient is status post duodena l switch procedu re for morbid obesity .\\.br\\\\ .br\\Fiorella gical drain and surgica l clips are noted in the upper abdomen . Percuta neous skin clips are noted in the mid and lower abdomen .\\.br\\\\ .br\\The exam consist ed of the patient swallow ing oral barium which he did without difficu lty. Esophag eal perista lsis was unremar kable. There was no evidenc e of gastroe sophage al reflux or hernia. Postope rative changes involvi ng the stomach were apparen t. There was no evidenc e of intralu carlitos leak or stenosi s. Small bowel pattern was unremar kable. No obstruc tive feature s or transit ion zones were noted. Small bowel transit time to the right colon was approxi mately 6 hours.\\ .br\\\\.b r\\ IMPRESS ION: Patient is status post duodena l switch for morbid obesity . There was no evidenc e of postope rative leak or stenosi s. Small bowel follow through was unremar kable. Small bowel transit time was approxi mately 6 hours.\\ .br\\\\.b r\\ END OF REPORT* *\\.br\\\\ .br\\Fior jacky Gonzalez M.D.\\.b r\\\\.br\\ Dictate d: 5:32 PM\\.br\\ \\.br\\Tr anscrib ed: 5:36 PM\\.br\\ \\.br\\ * Final Report \\.br \\\\.br\\D ictated : SRIKANTH GONZALEZ M.D. 5:32 pm\\.br\\ \\.br\\Tr anscrib ed by: CS 5:40 pm\\.br\\ \\.br\\Au thentic ated by: SRIKANTH GONZALEZ M.D. 6:14 pm\\.br\\ \\.br\\ MANUAL DIFF REVIEW Observa Value Referen Units Interpr Notes Date tion ce etation Range Neutrop 80 23 - 85 % No No Jul 30 hils.se informa informa 2013 gmented tion in tion in 3:43 AM source source [#/volu data data me] in Blood by Manual count Neutrop 7 0 - 16 % No No Nov 20 hils.ba informa informa 2013 nd form tion in tion in 3:43 AM source source [#/volu data data me] in Blood by Manual count Lymphoc 11.0 10.0 - % No Jul 30 ytes/10 42.0 informa informa 2013 0 tion in tion in 3:43 AM leukocy source source mickie in data data Blood by Manual count Monocyt 2.0 1.0 - % No Jul 30 es/100 14.0 informa informa 2013 leukocy tion in tion in 3:43 AM mickie in source source Blood data data by Manual count Neutrop 87.0 43.0 - % High Jul 30 hils/10 83.0 informa 2013 0 tion in 3:43 AM leukocy source mickie in data Blood by Manual count Neutrop 15.3 3.4 - K/ul High Jul 30 hils 7.0 informa 2013 [#/volu tion in 3:43 AM me] in source Blood data by Manual count Lymphoc 1.9 0.4 - K/ul No Jul 30 ytes 3.9 informa informa 2013 [#/volu tion in tion in 3:43 AM me] in source source Blood data data by Manual count Monocyt 0.4 0.2 - K/ul No Jul 30 es 0.6 informa informa 2013 [#/volu tion in tion in 3:43 AM me] in source source Blood data data by Manual count Platele ADEQUAT No No No No Jul 30 ts E informa informa informa informa 2013 [#/volu tion in tion in tion in tion in 3:43 AM me] in source source source source Blood data data data data by Estimat e PLATELE NORMAL No No No No Jul 30 T informa informa informa informa 2014 MORPHOL tion in tion in tion in tion in 3:43 AM OGY source source source source data data data data RBC NORMAL No No No No Jul 30 MORPHOL informa informa informa informa 2014 OGY tion in tion in tion in tion in 3:43 AM source source source source data data data data CBC\\T\\AUTO DIFF Observa Value Referen Units Interpr Notes Date tion ce etation Range Leukocy 17.6 3.5 - K/UL High No Jul 30 mickie 13.0 informa 2013 [#/volu tion in 3:43 AM me] in source Blood data by Automat ed count Erythro 4.770 3.500 - M/ul No Jul 30 cytes 6.100 informa informa 2013 [#/volu tion in tion in 3:43 AM me] in source source Blood data data by Automat ed count Hemoglo 13.1 11.0 - gm/dl No Jul 30 bin 17.8 informa informa 2013 [Mass/v tion in tion in 3:43 AM olume] source source in data data Blood Hematoc 39.5 32.0 - % No Jul 30 rit 51.6 informa informa 2013 [Volume tion in tion in 3:43 AM source source Fractio data data n] of Blood by Automat ed count Erythro 82.9 80.8 - fl No Jul 30 cyte 101.2 informa informa 2013 mean tion in tion in 3:43 AM corpusc source source ular data data volume [Entiti c volume] by Automat ed count Erythro 27.5 27.6 - pg Low No Jul 30 cyte 32.7 informa 2013 mean tion in 3:43 AM corpusc source ular data hemoglo bin [Entiti c mass] by Automat ed count Erythro 33.1 32.6 - g/dl No No Jul 30 cyte 35.4 informa informa 2014 mean tion in tion in 3:43 AM corpusc source source ular data data hemoglo bin concent ration [Mass/v olume] by Automat ed count Erythro 13.9 10.1 - % No Jul 30 cyte 16.5 informa informa 2013 distrib tion in tion in 3:43 AM ution source source width data data [Ratio] by Automat ed count Platele 287 134 - K/UL No No Jul 30 ts 412 informa informa 2013 [#/volu tion in tion in 3:43 AM me] in source source Blood data data by Automat ed count Platele 7.5 6.1 - fl No No Jul 30 t mean 10.1 informa informa 2014 volume tion in tion in 3:43 AM [Entiti source source c data data volume] in Blood by Automat ed count SURGICAL PATH-RESULTS Observa Value Referen Units Interpr Notes Date tion ce etation Range SURGICA TEXT~Na No No No No Nov 19 L me: informa informa informa informa 2013 PATH-RE ciera STEVENSON in tion in tion in tion in SAVANNAH LAGUNAS~A source source source source cct: data data data data [id number]~ [facility] Dep[facility] ent of Patholo gy [address] [facility], [facility] ~ Name: Chinedu STEVENSONR.N: [id number] Accessi on 625~ JANNETH #:~ KEREN~ FINAL SURGICA L PATHOLO GY REPORT~ NAME: JANNETH STEVENSON LOCATIO N: SIC~ KEREN~ M.R.N: [id number] SEX: M PROCEDU RE 014~ DATE:~D OB: 981 AGE: 34 Y RECEIVE D 014~ DATE:~P HYSICIA N: ASHA QUIÑONEZ SIGN OUT DATE: 014~LIBORIO LING #: [id number] COPIES TO: ASHA QUIÑONEZ ~PATHOL OGIST: KWASI HARPER~D IAGNOSI S~STOMA CH, LAPAROS COPIC SLEEVE GASTREC SHAR:~ -Portio n of Stomach with Gastric Oxyntic -Type Mucosa~ -No Signifi cant Patholo gic Change~ TISSUE SUBMITT ED GASTRIC REMNANT S, SURGICA L EXCISIO N~CLINI BEV INFORMA TION~ PRE AND POST-OP DIAGNOS IS: Morbid obesity .~GROSS DESCRIP TION~A single specime n is receive d in formali n labeled "gastri c remnant s"~and consist s of a wedge-s haped portion of stomach measuri ng 23 cm in~estuardo th by 4 cm in greates t diamete r. The externa l surface is fabina-ta n~magali h and unremar kable. The specime n is opened longitu dinally to~reve al a pink-ta n mucosal surface thrown into the normal folds. No~lesi ons are noted. Represe ntative section s are submitt ed in rishabh e~A.~ch 4 KWASI HARPER MD~MICR OSCOPIC DESCRIP TION~Al l microsc opic section s of this case were examine d by Dr. Harper and~the results of each examina tion are incorpo rated into the final~d jose f hunter.~8830 7 / 278.01~ <Sign Out Dr. Ji re>~ KWASI HARPER, PATHOLO GIST~ Page 1 of 1 XR Chest 2 Views Observa Value Referen Units Interpr Notes Date tion ce etation Range \\.br\\TW No No No No Jul 22 O VIEWS informa informa informa informa 2013 tion in tion in tion in tion in 9:57 AM CHEST\\. source source source source br\\\\.br data data data data \\COMPAR BETHANY: None.\\. br\\\\.br \\The lungs are clear. The heart and mediast inum are within normal limits. The regiona l osseous structu res are intact. The patient is obese.\\ .br\\\\.b r\\Impre ssion: Negativ e.\\.br\\ \\.br\\ END OF REPORT* *\\.br\\\\ .br\\Ant diane Soares M.D.\\.b r\\\\.br\\ Dictate d: 10:09 AM\\.br\\ \\.br\\Tr anscrib ed: 10:14 AM\\.br\\ \\.br\\ * Final Report \\.br \\\\.br\\D ictated : Gurpreet Soares M.D. 10:06 am\\.br\\ \\.br\\Tr anscrib ed by: 10:15 am\\.br\\ \\.br\\Au thentic ated by: Gurpreet Soares M.D. 4:38 pm\\.br\\ \\.br\\ COMP. METABOLIC PANEL (CHEM 12) Observa Value Referen Units Interpr Notes Date tion ce etation Range OPS 07 29 2014 Glucose 99 70 - MG/DL No No Jul 22 110 informa informa 2013 [Mass/v tion in tion in 9:40 AM olume] source source in data data Serum or Plasma Urea 10 7 - 18 MG/DL No No Jul 22 nitroge informa informa 2013 n tion in tion in 9:40 AM [Mass/v source source olume] data data in Serum or Plasma Sodium 140 133 - mmol/L No Jul 22 [Moles/ 144 informa informa 2013 volume] tion in tion in 9:40 AM in source source Serum data data or Plasma Potassi 4.0 3.6 - mmol/l No Jul 22 um 5.2 informa informa 2013 [Moles/ tion in tion in 9:40 AM volume] source source in data data Serum or Plasma Chlorid 106 98 - mmol/l No Jul 22 e 107 informa informa 2013 [Moles/ tion in tion in 9:40 AM volume] source source in data data Blood Carbon 31 21 - 32 mmol/L No Jul 22 dioxide informa informa 2013 , total tion in tion in 9:40 AM source source [Moles/ data data volume] in Serum or Plasma Creatin 0.9 0.6 - MG/DL No Jul 22 ine 1.3 informa informa 2013 [Mass/v tion in tion in 9:40 AM olume] source source in data data Serum or Plasma Protein 7.1 6.4 - G/DL No Jul 22 8.4 informa informa 2013 [Mass/v tion in tion in 9:40 AM olume] source source in data data Serum or Plasma Albumin 3.2 3.4 - G/DL Low Jul 22 5.0 informa 2013 [Mass/v tion in 9:40 AM olume] source in data Serum or Plasma Globuli 3.9 2.4 - G/DL No Jul 22 n 4.8 informa informa 2013 [Mass/v tion in tion in 9:40 AM olume] source source in data data Plasma Albumin 0.8 0.6 - No No Jul 22 /Globul 1.6 informa informa informa 2013 in tion in tion in tion in 9:40 AM [Mass source source source ratio] data data data in Serum or Plasma Calcium 8.4 8.5 - MG/DL Low Jul 22 10.1 informa 2013 [Mass/v tion in 9:40 AM olume] source in data Serum or Plasma Alkalin 95 45 - U/L No Jul 22 e 117 informa informa 2013 phospha tion in tion in 9:40 AM tase source source [Enzyma data data tic activit y/volum e] in Serum or Plasma Asparta 12 15 - 37 U/L Low No Jul 22 te informa 2013 aminotr tion in 9:40 AM ansfera source se data [Enzyma tic activit y/volum e] in Serum or Plasma Alanine 17 12 - 78 U/L No No Jul 22 informa informa 2013 aminotr tion in tion in 9:40 AM ansfera source source se data data [Enzyma tic activit y/volum e] in Serum or Plasma Bilirub 0.30 0.00 - MG/DL No No Jul 22 in.tota 1.00 informa informa 2013 l tion in tion in 9:40 AM [Mass/v source source olume] data data in Serum or Plasma GLOMELULAR CARMEN. RATE,CALC. Observa Value Referen Units Interpr Notes Date tion ce etation Range OPS 11 2013 Glomeru 103.3 60.0 - ml/min No THE Jul 22 lar 130.0 informa eGFR IS 2014 filtrat tion in AN 9:40 AM ion source ESTIMAT rate/1. data ED 73 sq M GLOMELU LAR predict FILTRAT ed ION among RATEBAS non-mir ED ON cks by AN Creatin AVERAGE ine-bas BODY ed SURFACE formula AREA (MDRD) OF 1.73M2. THIS CALCULA TION IS NOT ACCURAT E FOR PEDIATR IC PATIENT S,PATIE NTS >70 YEARS OF AGE,OR PATIENT S WITH EXTREME BODY SIZE.>6 0 ML/MIN/ 1.73M2 = NORMAL< 60 ML/MIN/ 1.73M2 = CHRONIC KIDNEY DISEASE <15 ML/MIN/ 1.73M2 = KIDNEY FAILURE AVERAGE EGFR FOLLOWS :AGE(YE ARS) AVERAGE EGFR20- 39 116 ML/MIN3 0-39 107 ML/MIN4 0-49 99 ML/MIN5 0-59 93 ML/MIN6 0-69 85 ML/MIN CBC\\T\\AUTO DIFF Observa Value Referen Units Interpr Notes Date tion ce etation Range OPS 11 2013 Leukocy 9.9 3.5 - K/UL No No Jul 22 mickie 13.0 informa informa 2013 [#/volu tion in tion in 9:40 AM me] in source source Blood data data by Automat ed count Erythro 5.330 3.500 - M/ul No No Jul 22 cytes 6.100 informa informa 2013 [#/volu tion in tion in 9:40 AM me] in source source Blood data data by Automat ed count Hemoglo 14.6 11.0 - gm/dl No Jul 22 bin 17.8 informa informa 2013 [Mass/v tion in tion in 9:40 AM olume] source source in data data Blood Hematoc 44.9 32.0 - % No Jul 22 rit 51.6 informa informa 2013 [Volume tion in tion in 9:40 AM source source Fractio data data n] of Blood by Automat ed count Erythro 84.3 80.8 - fl No Jul 22 cyte 101.2 informa informa 2013 mean tion in tion in 9:40 AM corpusc source source ular data data volume [Entiti c volume] by Automat ed count Erythro 27.3 27.6 - pg Low No Jul 22 cyte 32.7 informa 2013 mean tion in 9:40 AM corpusc source ular data hemoglo bin [Entiti c mass] by Automat ed count Erythro 32.4 32.6 - g/dl No Jul 22 cyte 35.4 informa informa 2014 mean tion in tion in 9:40 AM corpusc source source ular data data hemoglo bin concent ration [Mass/v olume] by Automat ed count Erythro 14.5 10.1 - % No Jul 22 cyte 16.5 informa informa 2013 distrib tion in tion in 9:40 AM ution source source width data data [Ratio] by Automat ed count Platele 256 134 - K/UL No No Jul 22 ts 412 informa informa 2013 [#/volu tion in tion in 9:40 AM me] in source source Blood data data by Automat ed count Platele 8.2 6.1 - fl No No Jul 22 t mean 10.1 informa informa 2014 volume tion in tion in 9:40 AM [Entiti source source c data data volume] in Blood by Automat ed count Neutrop 62.2 43.0 - % No Jul 22 hils/10 83.0 informa informa 2014 0 tion in tion in 9:40 AM leukocy source source mickie in data data Blood by Automat ed count Lymphoc 26.8 10.0 - % No No Jul 22 ytes/10 42.0 informa informa 2014 0 tion in tion in 9:40 AM leukocy source source mickie in data data Blood by Automat ed count Monocyt 7.2 1.0 - % No Jul 22 es/100 14.0 informa informa 2014 leukocy tion in tion in 9:40 AM mickie in source source Blood data data by Automat ed count Eosinop 1.9 0.0 - % No Jul 22 hils/10 11.0 informa informa 2014 0 tion in tion in 9:40 AM leukocy source source mickie in data data Blood by Automat ed count Basophi 1.9 0.0 - % No Jul 22 ls/100 2.0 informa informa 2013 leukocy tion in tion in 9:40 AM mickie in source source Blood data data by Automat ed count Neutrop 6.2 2.7 - K/ul No No Jul 22 hils 6.9 informa informa 2013 [#/volu tion in tion in 9:40 AM me] in source source Blood data data by Automat ed count Lymphoc 2.7 0.4 - K/ul No No Jul 22 ytes 3.9 informa informa 2013 [#/volu tion in tion in 9:40 AM me] in source source Blood data data by Automat ed count Monocyt 0.7 0.2 - K/ul High No Jul 22 es 0.6 informa 2013 [#/volu tion in 9:40 AM me] in source Blood data by Automat ed count Eosinop 0.2 0.0 - K/ul No No Jul 22 hils 0.9 informa informa 2013 [#/volu tion in tion in 9:40 AM me] in source source Blood data data by Automat ed count Basophi 0.2 0.0 - K/ul No No Jul 22 ls 0.2 informa informa 2013 [#/volu tion in tion in 9:40 AM me] in source source Blood data data by Automat ed count XR ANKLE COMP MIN 3 VIEWS Observa Value Referen Units Interpr Notes Date ti ce etation Range Read By [id number] No No No No Jun 09 HARJINDER informgabe informa informa informa 2013 LM&Rashad tion in tion in tion in tion in 4:52 PM .\\.br\\R source source source source ight data data data data ankle\\. br\\Joann cations status post fall\\.b r\\Findi ngs-\\.b r\\A 3 project ions of right ankle demonst rated No evidenc e of acute\\. br\\disp laced fractur es or subluxa tions.\\ .br\\The re is a small plantar spur.\\. br\\Impr ession no acute finding s.\\.br\\ Reading Radiolo gistDat AMATO M.D., Radiolo gist\\.b r\\Relea sing Radiolo gistDat AMATO M.D., Radiolo gist\\.b r\\Relea sed Date Time- 4 0938\\.b r\\Trans criptio nist- DHARMESH AMATO M.D., Radiolo gist\\.b r\\----- ------- ------- ------- ------- ------- ------- ------- ------- ------- ------- ---\\.br \\[id number] CHEN Crowley\\.br\\ XR CHEST, 2 VIEWS Observa Value Referen Units Interpr Notes Date tion ce etation Range Read By [id number] No No No No Mar 26 URENCE informa informa informa informa 2013 E (CH) tion in tion in tion in tion in 11:30 REITMAN source source source source PM &M.D.\\. data data data data br\\XR CHEST, 2 VIEWS\\. br\\JOANN CATION- cough\\. br\\COMP ARISON- \\.br\\Po rtable chest radiogr aph on 02/13/14\\ .br\\TREVOR HNIQUE- \\.br\\Ch est- 2 views\\. br\\FIND INGS-\\. br\\Stab le cord mediast inal contour . No new infiltr ate. Obesity . No acute\\. br\\bony abnorma lity.\\. br\\IMPR ESSION- \\.br\\No signifi cant change. \\.br\\SH CR EM.\\. br\\Read ing Radiolo gist- LAURENC E E () Pritesh MACIAS, Radiolo gist\\.b r\\Relea sing Radiolo gist- LAURENC E E () Pritesh MACIAS, Radiolo gist\\.b r\\Relea sed Date Time- 4 1322\\.b r\\Trans criptio nist- YVROSE Armando () Pritesh MACIAS, Radiolo gist\\.b r\\----- ------- ------- ------- ------- ------- ------- ------- ------- ------- ------- ---\\.br \\[id number] JENSEN Armando () COLLEEN Monge\\. br\\ COMPREHENSIVE METABOLIC PANEL Observa Value Referen Units Interpr Notes Date tion ce etation Range Glucose 90 70 - 99 mg/dL Normal No Mar 262013 tion in 10:58 source PM data BUN 12 7 - 18 mg/dL Normal No Mar 262013 tion in 10:58 source PM data Creatin 0.8 0.8 - mg/dL Normal CREATIN Mar 26 ine 1.3 INE AND 2014 eGFR 10:58 IDMS PM TRACEAB LE. BUN/Cre 15.0 No No No No Mar 26 at informa informa informa informa 2013 Ratio tion in tion in tion in tion in 10:58 source source source source PM data data data data Sodium 138 136 - mEq/L Normal No Mar 26 145 informa 2013 tion in 10:58 source PM data Potassi 4.6 3.5 - mEq/L Normal No Mar 26 um 5.1 informa 2013 tion in 10:58 source PM data Chlorid 102 98 - mEq/L Normal No Mar 26 e 107 2013 tion in 10:58 source PM data CO2 31.1 21.0 - mmol/L Normal No Mar 26 32.0 2013 tion in 10:58 source PM data Calcium 9.1 8.5 - mg/dL Normal No Mar 26 10.1 2013 tion in 10:58 source PM data Total 7.1 6.4 - gm/dL Normal Mar 26 Protein 8.2 2013 tion in 10:58 source PM data Albumin 3.2 3.4 - gm/dL Low No Mar 26 5.0 2013 tion in 10:58 source PM data Alk 114 50 - U/L Normal No Mar 26 Phos 136 2013 tion in 10:58 source PM data ALT 9 12 - 78 U/L Low No Mar 262013 tion in 10:58 source PM data AST 17 15 - 37 U/L Normal No Mar 262013 tion in 10:58 source PM data Bilirub 0.80 0.20 - mg/dL Normal No Mar 26 in, 1.00 2013 Total tion in 10:58 source PM data A/G 0.8 No No No No Mar 26 Ratio informa informa informa informa 2013 tion in tion in tion in ti in 10:58 source source source source PM data data data data Anion 9.5 No No No No Mar 26 Gap informa informa informa informa 2013 tion in tion in tion in tion in 10:58 source source source source PM data data data data GLOMERU >60.0 No mL/min/ No eGFR Mar 26 LAR informa 1.73_m2 informa Interpr 2014 FILTRAT tion in tion in etation 10:58 ION source source : PM RATE data data Disease State Referen ce Ranges for eGFR(ca lculate d)Stage eGFR Descrip tionI/I I >60 Normal/ Mildly reduced kidney functio nIII 30-59 Moderat joseph reduced kidney functio nIV 15-29 Severel y reduced kidney functio nV <15 End-sta ge kidney failure Calcula bradley using MDRD formula based on gender, race(*G FR AA is for theAfri can Kathy n populat ion),an d age.GFR estimat es are unrelia ble inpatie nts with rapidly changin g kidney functio n,recen t dialysi s,extre mesin body size,se sybil malnutr ition or obesity ,loss of limbs, abnorma lmuscle mass,or during pregnan cy.In these patient s,alter natived etermin ations of GFR should be obtaine d.Creat inine and eGFR IDMS Traceab le. GLOMERU >60.0 No mL/min/ No No Mar 26 LAR informa 1.73_m2 informa informa 2013 FILTRAT tion in tion in tion in 10:58 ION source source source PM RATE data data data Kathy n CBC W/DIFF Observa Value Referen Units Interpr Notes Date tion ce etation Range WBC 23.1 4.8 - X_10\\S\\ High No Mar 26 10.8 3 inform2013 tion in 10:39 source PM data RBC 4.84 4.70 - X_10\\S\\ Normal No Mar 26 6.10 6 informa 2013 tion in 10:39 source PM data Hemoglo 13.3 14.0 - gm/dL Low No Mar 26 bin 18.0 informa 2013 tion in 10:39 source PM data Hematoc 40.1 42.0 - % Low No Mar 26 rit 52.0 informa 2013 tion in 10:39 source PM data Platele 326 130 - X_10\\S\\ Normal No Mar 26 t 400 3 informa 2013 tion in 10:39 source PM data MCH 27.4 31.0 - pg Low No Mar 26 37.0 informa 2013 tion in 10:39 source PM data MCHC 33.1 33.0 - gm/dL Normal No Mar 26 37.0 informa 2013 tion in 10:39 source PM data MCV 82.8 80.0 - fl Normal No Mar 26 94.0 informa 2013 tion in 10:39 source PM data RDW 14.4 11.5 - % Normal No Mar 26 15.5 informa 2013 tion in 10:39 source PM data MPV 7.4 7.4 - fl Normal No Mar 26 10.4 informa 2013 tion in 10:39 source PM data Manual YES No No No No Mar 26 Diff? informa informa informa informa 2013 tion in tion in tion in tion in 10:39 source source source source PM data data data data Neutrop 80.0 42.0 - % High No Mar 26 hils % 75.0 2013 tion in 10:39 source PM data Bands 0 0 - 6 No Normal No Mar 26 inform2013 tion in tion in 10:39 source source PM data data Lymphoc 18.0 20.0 - % Low No Mar 26 ytes % 51.0 2013 tion in 10:39 source PM data Monocyt 2.0 0.0 - % Normal No Mar 26 es % 9.0 2013 tion in 10:39 source PM data Eosinop 0.0 0.0 - % Normal No Mar 26 hils % 5.0 2013 tion in 10:39 source PM data Basophi 0.0 0.0 - % Normal No Mar 26 ls % 2.0 2013 tion in 10:39 source PM data Neutrop 18.5 1.5 - X_10\\S\\ High No Mar 26 hil 7.1 3 2013 Count tion in 10:39 source PM data Monocyt 0.5 0.0 - X_10\\S\\ Normal No Mar 26 e Count 1.2 3 2013 tion in 10:39 source PM data Eosinop 0.0 0.0 - X_10\\S\\ Normal No Mar 26 hil 0.5 3 2013 Count tion in 10:39 source PM data Basophi 0.0 0.0 - X_10\\S\\ Normal No Mar 26 l Count 0.2 3 2013 tion in 10:39 source PM data Lymphoc 4.2 0.7 - X_10\\S\\ Normal No Mar 26 yte 4.9 3 2013 Count tion in 10:39 source PM data Nucleat 0 No No No No Mar 26 ed informa informa informa informa 2013 RBC'S tion in tion in tion in tion in 10:39 source source source source PM data data data data URINALYSIS W/MICRO Observa Value Referen Units Interpr Notes Date tion ce etation Range Color YELLOW YELLOW, No Normal No Mar 26 STRAW,C informa inform2013 OLORLES tion in tion in 10:34 S,PALE source source PM YELLOW data data Appeara CLEAR CLEAR No Normal No Dale 17 nce informa informa 2013 tion in tion in 10:34 source source PM data data Specifi 1.010 1.016 - No Low No Mar 17 c 1.022 informa informa 2013 [place] tion in tion in 10:34 source source PM data data PH 8.0 5.0 - No High No Mar 17 7.0 informa informa 2013 tion in tion in 10:34 source source PM data data Leukocy NEGATIV NEGATIV No Normal No Mar 17 te E E informa informa 2013 tion in tion in 10:34 source source PM data data Nitrite NEGATIV NEGATIV No Normal No Mar 17 E E informa informa 2013 tion in tion in 10:34 source source PM data data UA NEGATIV NEGATIV No Normal No Mar 17 Protein E E informa informa 2013 tion in tion in 10:34 source source PM data data Glucose NEGATIV NEGATIV No Normal No Mar 17 E E informa informa 2013 tion in tion in 10:34 source source PM data data Ketones NEGATIV NEGATIV No Normal No Mar 17 E E informa informa 2013 tion in tion in 10:34 source source PM data data Urobili norm 0 - 1 mg/dL Normal No Mar 17 nogen informa 2013 tion in 10:34 source PM data Bilirub NEGATIV NEGATIV No Normal No Mar 17 in E E informa informa 2013 tion in tion in 10:34 source source PM data data Blood NEGATIV NEGATIV No Normal No Mar 17 E E informa informa 2013 tion in tion in 10:34 source source PM data data UA WBC NONE 0 - 2 No Abnorma No Mar 17 SEEN informa l informa 2013 tion in tion in 10:34 source source PM data data UA RBC NONE 0 - 2 No Abnorma No Mar 17 SEEN informa l informa 2013 tion in tion in 10:34 source source PM data data Bacteri NONE NONE No Normal No Mar 17 a SEEN SEEN informa informa 2013 tion in tion in 10:34 source source PM data data Epithel NONE NONE No Normal No Mar 17 ial SEEN SEEN informa informa 2014 Cells tion in tion in 10:34 source source PM data data Mucus NONE NONE No Normal No Dale 17 SEEN SEEN informa informa 2013 tion in tion in 10:34 source source PM data data Casts NONE NONE No Normal No Mar 17 SEEN SEEN informa informa 2013 tion in tion in 10:34 source source PM data data Crystal NONE NONE No Normal No Mar 17 s SEEN SEEN informa informa 2013 tion in tion in 10:34 source source PM data data YEAST, NONE NONE No Normal No Mar 26 UA OBSERVE OBSERVE informa informa 2013 D D tion in tion in 10:34 source source PM data data AMORPHO NONE NONE No Normal No Mar 26 US SEEN SEEN informa informa 2013 SEDIMEN tion in tion in 10:34 T source source PM data data SURGICAL PATH-RESULTS Observa Value Referen Units Interpr Notes Date tion ce etation Range SURGICA TEXT~Na No No No No Feb 11 L me: informa informa informa informa 2013 PATH-RE GRAHAM tion in tion in tion in tion in SULTS JANNETH~A source source source source cct: data data data data [id number]~ [facility] Patholo gy [address] [place] [address] ~ Name: Chinedu STEVENSONRCarlineN: [id number] Accessi on ~ JANNETH Sigala #:~ FINAL SURGICA L PATHOLO GY REPORT~ NAME: JANNETH STEVENSON LOCATIO N: END~M.R .N: [id number] SEX: M PROCEDU RE 014~ DATE:~D OB: 981 AGE: 33 Y RECEIVE D 014~ DATE:~P HYSICIA N: ASHA QUIÑONEZ SIGN OUT DATE: 014~LIBORIO LING #: [id number] COPIES TO: ASHA QUIÑONEZ ~PATHOL OGIST: DOROTHY DOSS~D IAGNOSI S~1. Duodenu m, Biopsy: ~$ MILD FOCAL ACUTE DUODENI TIS. (535.6) ~2. Stomach , Biopsy: ~$ MINIMAL CHRONIC GASTRIT IS WITH FOCAL EARLY REACTIV E CHANGES .~ (535.50 )~$ NO HELICOB ACTER ORGANIS MS ARE IDENTIF IED.~3. Esophag us, Biopsy: ~$ ACUTE ESOPHAG ITIS. (535.10 )~$ FRAGMEN TS OF NECROIN FLAMMAT ORY DEBRIS, SEE MICROSC OPIC.~$ GMS STAIN IS NEGATIV E FOR FUNGAL ORGANIS MS.~TIS JACKIE SUBMITT ED (1) DUODENA L BIOPSY, SURGICA L BIOPSY~ (2) GASTRIC BIOPSY, ~SURGIC AL BIOPSY~ (3) ESOPHAG EAL~BIO PSY, SURGICA L BIOPSY~ CLINICA L INFORMA TION~ PRE-OP DIAGNOS IS: GERD POST-OP DIAGNOS IS: Esophag eal ulcer,~ duodeni tis~DONA SS DESCRIP TION~Th ree specime ns are receive d in formali n. Specime n one is labeled ~"duode nal biopsy" and consist s of two pink-ta n irregul ar soft tissue~ fragmen ts each measuri ng 0.2 cm. The specime n is entirel y submitt ed in~chino almeida 1A.~Spe cimen two is labeled "gastri c biopsy" and consist s of a single~ yellow- jones irregul ar soft tissue fragmen t measuri ng 0.3 cm. The~spe cimen is entirel y submitt ed in rishabh e 2A.~Spe cimen three is labeled "esopha geal biopsy" and consist s of a single~ yellow- jones irregul ar soft tissue fragmen t measuri ng 0.2 cm. The~spe cimen is entirel y submitt ed in rishabh e 3A.~ALEXIS ROSCOPI C DESCRIP TION~1. Section s demonst rate slightl y blunted villi. A brush border is~disc ernible . Enteroc yte nuclei are basilar in locatio n and are evenly~ aligned . There is a slight reducti on in the number of goblet cells.~ The lamina propria contain s focally congest ed blood vessels and an~infl ammator y cell infiltr ate compris ed of lymphoc ytes, plasma cells,~ and occasio nal neutrop hils. Focal intraep ithelia l neutrop hils are~see n. Intraep ithelia l lymphoc ytes are not increas ed. There is no~evid ence of an infecti ous process or maligna ncy.~2. Section s demonst rate an intact gastric mucosa. The surface is lined~b y a single layer of columna r cells, which contain mucus in the~sup erficia l cytopla sm. The superfi cial glands are mildly variabl e in~thei r size, shape and distrib ution. Focal, early reactiv e changes are~griffin reciate d. Inflamm atory cells are minimal ly increas ed. A CFV stain~i s perform ed with appropr iate control and is negativ e for Helicob acter~s pecies. There is no evidenc e of maligna ncy.~3. Section s demonst rate a stratif ied squamou s epithel ium with reactiv e~atypi a and collect ions of neutrop hils within the near the luminal ~surfac e. Small, detache d fragmen ts of necroin flammat ory debris are~see n and may possibl y represe nt an ulcer periphe ral to this biopsy. A~GMS stain was perform ed with appropr iate control and is negativ e for~fun gal organis ms. There is no evidenc e of maligna ncy.~Cl inicopa thologi c correla tion is recomme nded.~ <Sign Out Dr. Ji re>~ DOROTHY DOSS D.O., DERMATO PATHOLO GIST~ Page 1 of 1 XR CHEST 1 VIEW Observa Value Referen Units Interpr Notes Date tion ce etation Range Read By [id number] No No No No George 6 NG-CLEO informa informa informa informa 2013 DELBERT tion in tion in tion in tion in 8:41 PM .\\.br\\P source source source source ortable data data data data chest\\. br\\Joann cation shortne ss of breath\\ .br\\Com parison date February 2012\\.b r\\Findi ngs-\\.b r\\Singl e portabl e chest demonst rated no evidenc e of airspac e\\.br\\c onsolid ations. No pleural effusio ns. There is slight promine nce of left\\.b r\\ventr icle, stable\\ .br\\Imp ression -\\.br\\S table chest\\. br\\Read ing Radiolo gist- DHARMESH AMATO M.D., Radiolo gist\\.b r\\Relea sing Radiolo gist- DHARMESH AMATO M.D., Radiolo gist\\.b r\\Relea sed Date Time- 4 1232\\.b r\\Trans criptio nist- DHARMESH AMATO M.D., Radiolo gist\\.b r\\----- ------- ------- ------- ------- ------- ------- ------- ------- ------- ------- ---\\.br \\[id number] CHEN Crowley\\.br\\ BNP (NT-proBNP) Observa Value Referen Units Interpr Notes Date tion ce etation Range NT-proB 51.0 0.0 - pg/mL Normal NOTICE: Feb 13 DOUBLE BACKER 450.0 NEW 2013 REFEREN 9:20 PM CE RANGESI N ORDER TO RULE-OU T/RULE- IN ACUTE HEART FAILURE IN PATIENT SWITH DYSPNEA SEE THE CHART BELOW:A GE\\.sk5 \\\\.sk5\\ \\.sk5\\R ULE OUT\\.sk 5\\\\.sk5 \\FURTHE R\\.sk5\\ \\.sk5\\\\ .sk5\\RU LE IN\\.sk5 \\\\.sk5\\ \\.sk5\\\\ .sk5\\\\. sk5\\\\.s k5\\INVE STIGATI ON\\.sk5 \\\\.sk5\\ \\.sk5\\\\ .sk5\\\\. sk5\\\\.s k5\\NEED ED<50 YR\\.sk5 \\\\.sk5\\ \\.sk5\\< 300\\.sk 5\\\\.sk5 \\\\.sk5\\ 300-450 \\.sk5\\\\ .sk5\\\\. sk5\\>45 050-75 YR\\.sk5 \\\\.sk5\\ \\.sk5\\\\ .sk5\\\\. sk5\\300 -900\\.s k5\\\\.sk 5\\\\.sk5 \\>900>7 5 YR\\.sk5 \\\\.sk5\\ \\.sk5\\\\ .sk5\\\\. sk5\\\\.s k5\\300- 1800\\.s k5\\\\.sk 5\\\\.sk5 \\>1800 COMPREHENSIVE METABOLIC PANEL Observa Value Referen Units Interpr Notes Date tion ce etation Range Glucose 97 70 - 99 mg/dL Normal No George 6 inform2013 tion in 9:20 PM source data BUN 10 7 - 18 mg/dL Normal No George 6 informa 2013 tion in 9:20 PM source data Creatin 0.7 0.8 - mg/dL Low CREATIN George 6 ine 1.3 INE AND 2014 eGFR 9:20 PM IDMS TRACEAB LE. BUN/Cre 14.3 No No No No George 6 at informa informa informa informa 2014 Ratio tion in tion in tion in tion in 9:20 PM source source source source data data data data Sodium 141 136 - mEq/L Normal No George 6 145 2013 tion in 9:20 PM source data Potassi 3.8 3.5 - mEq/L Normal No George 6 um 5.1 inform2013 tion in 9:20 PM source data Chlorid 107 98 - mEq/L Normal No George 6 e 107 inform2013 tion in 9:20 PM source data CO2 34.1 21.0 - mmol/L High No George 6 32.0 inform2013 tion in 9:20 PM source data Calcium 8.3 8.5 - mg/dL Low No George 6 10.1 inform2013 tion in 9:20 PM source data Total 6.3 6.4 - gm/dL Low No George 6 Protein 8.2 2013 tion in 9:20 PM source data Albumin 2.9 3.4 - gm/dL Low No George 6 5.0 informa 2013 tion in 9:20 PM source data Alk 95 50 - U/L Normal No George 6 Phos 136 inform2013 tion in 9:20 PM source data ALT 14 12 - 78 U/L Normal No George 6 inform2013 tion in 9:20 PM source data AST 12 15 - 37 U/L Low No George 6 informa 2013 tion in 9:20 PM source data Bilirub 0.20 0.20 - mg/dL Normal No George 6 in, 1.00 inform2013 Total tion in 9:20 PM source data A/G 0.9 No No No No George 6 Ratio informa informa informa informa 2013 tion in tion in tion in tion in 9:20 PM source source source source data data data data Anion 3.7 No No No No Feb 13 Gap informa informa informa informa 2013 tion in tion in tion in tion in 9:20 PM source source source source data data data data GLOMERU >60.0 No mL/min/ No eGFR Feb 13 LAR informa 1.73_m2 informa Interpr 2013 FILTRAT tion in tion in etation 9:20 PM ION source source : RATE data data Disease State Referen ce Ranges for eGFR(ca lculate d)Stage eGFR Descrip tionI/I I >60 Normal/ Mildly reduced kidney functio nIII 30-59 Moderat joseph reduced kidney functio nIV 15-29 Severel y reduced kidney functio nV <15 End-sta ge kidney failure Calcula bradley using MDRD formula based on gender, race(*G FR AA is for theAfri can Kathy n populat ion),an d age.GFR estimat es are unrelia ble inpatie nts with rapidly changin g kidney functio n,recen t dialysi s,extre mesin body size,se sybil malnutr ition or obesity ,loss of limbs, abnorma lmuscle mass,or during pregnan cy.In these patient s,alter natived etermin ations of GFR should be obtaine d.Creat inine and eGFR IDMS Traceab le. GLOMERU >60.0 No mL/min/ No No Feb 13 LAR informa 1.73_m2 informa informa 2013 FILTRAT tion in tion in tion in 9:20 PM ION source source source RATE data data data Kahty n TROPONIN I,WHIT (IN HOUSE) Observa Value Referen Units Interpr Notes Date tion ce etation Range Troponi <0.04 0.00 - ng/mL Normal Troponi Feb 6 n I 0.10 n I 2013 Referen 9:18 PM ce Values0 .0 - 0.1 Negativ e0.11 - 1.50 [place] e>1.50 Indicat dada of AMITROP ONIN IS BELOW ASSAY RANGE CBC W/DIFF Observa Value Referen Units Interpr Notes Date ti ce etation Range WBC 11.7 4.8 - X_10\\S\\ High No George 6 10.8 3 2013 tion in 8:37 PM source data RBC 4.52 4.70 - X_10\\S\\ Low No George 6 6.10 6 2013 tion in 8:37 PM source data Hemoglo 12.4 14.0 - gm/dL Low No George 6 bin 18.0 2013 tion in 8:37 PM source data Hematoc 37.8 42.0 - % Low No George 6 rit 52.0 2013 tion in 8:37 PM source data Platele 263 130 - X_10\\S\\ Normal No George 6 t 400 3 2013 tion in 8:37 PM source data MCH 27.5 31.0 - pg Low No George 6 37.0 2013 tion in 8:37 PM source data MCHC 32.9 33.0 - gm/dL Low No George 6 37.0 2013 tion in 8:37 PM source data MCV 83.6 80.0 - fl Normal No George 6 94.0 2013 tion in 8:37 PM source data RDW 14.3 11.5 - % Normal No George 6 15.5 2013 tion in 8:37 PM source data MPV 7.5 7.4 - fl Normal No George 6 10.4 2013 tion in 8:37 PM source data Neutrop 64.3 42.0 - % Normal No George 6 hils % 75.0 2013 tion in 8:37 PM source data Lymphoc 26.2 20.0 - % Normal No George 6 ytes % 51.0 2013 tion in 8:37 PM source data Monocyt 6.0 0.0 - % Normal No George 6 es % 9.0 2013 tion in 8:37 PM source data Eosinop 2.5 0.0 - % Normal No George 6 hils % 5.0 2013 tion in 8:37 PM source data Basophi 1.0 0.0 - % Normal No George 6 ls % 2.0 2013 tion in 8:37 PM source data Neutrop 7.6 1.5 - X_10\\S\\ High No George 6 hil 7.1 3 2013 Count tion in 8:37 PM source data Monocyt 0.7 0.0 - X_10\\S\\ Normal No Feb 13 e Count 1.2 3 2013 tion in 8:37 PM source data Eosinop 0.3 0.0 - X_10\\S\\ Normal No Feb 13 hil 0.5 3 2013 Count tion in 8:37 PM source data Basophi 0.1 0.0 - X_10\\S\\ Normal No Feb 13 l Count 0.2 3 2013 tion in 8:37 PM source data Lymphoc 3.1 0.7 - X_10\\S\\ Normal No Feb 13 yte 4.9 3 2013 Count tion in 8:37 PM source data Nucleat 0 No No No No Feb 13 ed informa informa informa informa 2013 RBC'S tion in tion in tion in tion in 8:37 PM source source source source data data data data MR LUMBAR SPINE W/O CONTRST Observa Value Referen Units Interpr Notes Date tion ce etation Range Read By [id number] No No No No Feb 12 NG-CLEO informa informa informa informa 2013 LM&M.D tion in tion in tion in tion in 7:20 AM .\\.br\\M source source source source RI of data data data data the lumbar spine\\. br\\Joann cation- back pain\\.b r\\Techn ique- [place] T1, T2, and axial T1 and T2, coronal T2 with fat-sat \\.br\\we ighted images are perform ed.\\.br \\Findin gs-\\.br \\The vertebr al heights are normal as is normal alignme nt.\\.br \\The spinal canal- Normal- sized congeni janeth spinal canal\\. br\\The conus medulla ris ends at the disc space of L1/L2\\. br\\Axia l images\\ .br\\L1/ L2- No focal disc protrus ions. No evidenc e of neurofo raminal \\.br\\na rrowing or spinal canal stenosi s\\.br\\L 2/L3- No focal disc protrus ions. No evidenc e of neurofo raminal \\.br\\na rrowing or spinal canal stenosi s\\.br\\L 3/L4- Concent fabiola disc bulging . No evidenc e of neurofo raminal narrowi ng\\.br\\ or spinal canal stenosi s\\.br\\L 4/L5- Right lateral disc bulging . No evidenc e of neurofo raminal \\.br\\na rrowing or spinal canal stenosi s\\.br\\L 5/S1- Right lateral disc bulging . No evidenc e of neurofo raminal \\.br\\na rrowing or spinal canal stenosi s\\.br\\I mpressi on- There is slight endplat es degener ative changes through out\\.br \\the imaged field. More promine nt involvi ng lower thoraci c spine and\\.br \\upper lumbar spine, more promine nt involvi ng anterio r annulus inserti on\\.br\\ site, there are disc desicca tion, there is no evidenc e of neurofo raminal \\.br\\na rrowing or spinal canal stenosi s at any levels. \\.br\\Re ading Radiolo gistDat AMATO M.D., Radiolo gist\\.b r\\Relea sing Radiolo gistDat AMATO M.D., Radiolo gist\\.b r\\Relea sed Date Time- 4 1725\\.b r\\Trans criptio nist- DHARMESH AMATO M.D., Radiolo gist\\.b r\\----- ------- ------- ------- ------- ------- ------- ------- ------- ------- ------- ---\\.br \\[id number] CHEN Crowley\\.br\\ HEMOGLOBIN A1C Observa Value Referen Units Interpr Notes Date tion ce etation Range Hemoglo 5.90 No % No NON January 19 bin informa informa DIABETI 2014 A1c/Hem tion in tion in C 1:45 PM malathilotony source source .total data data in 3.0-6.0 Blood %CONTRO LLED DIABETI C 6.0-9.0 %POORLY CONTROL LED DIABETI C >9.0%Hg bA1c is a FDA approve d test for monitor ing terminal supervisor glucose control in individ uals with diabete s. It is not an approve dscreen ing test for diagnos ing type 1 and type 2 diabete s.Resul ts of HgbA1c are not reliabl e in patient s with chronic blood loss, consequ ent variabl e erythro cyte lifespa n,hemol ytic disease s, pregnan cy, and signifi cant blood loss. VITAMIN D, TOTAL Observa Value Referen Units Interpr Notes Date tion ce etation Range Calcidi 14.6 30.0 - ng/ml Low TARGET January 19 ol+Calc 100.0 RANGES 2013 iferol ARE FOR 1:45 PM [Mass/v ALL olume] AGE in GROUPS. Serum or Plasma GLOMELULAR CARMEN. RATE,CALC. Observa Value Referen Units Interpr Notes Date tion ce etation Range Glomeru 138.5 60.0 - ml/min High THE January 19 lar 130.0 eGFR IS 2013 filtrat AN 1:45 PM ion ESTIMAT rate/1. ED 73 sq M GLOMELU LAR predict FILTRAT ed ION among RATEBAS non-mir ED ON cks by AN Creatin AVERAGE ine-bas BODY ed SURFACE formula AREA (MDRD) OF 1.73M2. THIS CALCULA TION IS NOT ACCURAT E FOR PEDIATR IC PATIENT S,PATIE NTS >70 YEARS OF AGE,OR PATIENT S WITH EXTREME BODY SIZE.>6 0 ML/MIN/ 1.73M2 = NORMAL< 60 ML/MIN/ 1.73M2 = CHRONIC KIDNEY DISEASE <15 ML/MIN/ 1.73M2 = KIDNEY FAILURE AVERAGE EGFR FOLLOWS :AGE(YE ARS) AVERAGE EGFR20- 39 116 ML/MIN3 0-39 107 ML/MIN4 0-49 99 ML/MIN5 0-59 93 ML/MIN6 0-69 85 ML/MIN TSH Observa Value Referen Units Interpr Notes Date tion ce etation Range Thyrotr 2.330 0.358 - uIU/ML No No January 19 opin 3.740 informa informa 2013 [Units/ tion in tion in 1:45 PM volume] source source in data data Serum or Plasma by Detecti on limit <= 0.005 mU/L COMP. METABOLIC PANEL (CHEM 12) Observa Value Referen Units Interpr Notes Date tion ce etation Range Glucose 80 70 - MG/DL No No January 19 110 informa informa 2013 [Mass/v tion in tion in 1:45 PM olume] source source in data data Serum or Plasma Urea 11 7 - 18 MG/DL No No January 19 nitroge informa informa 2013 n tion in tion in 1:45 PM [Mass/v source source olume] data data in Serum or Plasma Sodium 137 133 - mmol/L No No January 19 [Moles/ 144 informa informa 2013 volume] tion in tion in 1:45 PM in source source Serum data data or Plasma Potassi 4.2 3.6 - mmol/l No No January 19 um 5.2 informa informa 2013 [Moles/ tion in tion in 1:45 PM volume] source source in data data Serum or Plasma Chlorid 103 98 - mmol/l No No January 19 e 107 informa informa 2013 [Moles/ tion in tion in 1:45 PM volume] source source in data data Blood Carbon 31 21 - 32 mmol/L No No January 19 dioxide informa informa 2013 , total tion in tion in 1:45 PM source source [Moles/ data data volume] in Serum or Plasma Creatin 0.7 0.6 - MG/DL No No January 19 ine 1.3 informa informa 2013 [Mass/v tion in tion in 1:45 PM olume] source source in data data Serum or Plasma Protein 7.7 6.4 - G/DL No No January 19 8.4 informa informa 2013 [Mass/v tion in tion in 1:45 PM olume] source source in data data Serum or Plasma Albumin 3.1 3.4 - G/DL Low No January 19 5.0 informa 2013 [Mass/v tion in 1:45 PM olume] source in data Serum or Plasma Globuli 4.6 2.4 - G/DL No No January 19 n 4.8 informa informa 2013 [Mass/v tion in tion in 1:45 PM olume] source source in data data Plasma Albumin 0.7 0.6 - No No No January 19 /Globul 1.6 informa informa informa 2014 in tion in tion in tion in 1:45 PM [Mass source source source ratio] data data data in Serum or Plasma Calcium 8.9 8.5 - MG/DL No No January 19 10.1 informa informa 2013 [Mass/v tion in tion in 1:45 PM olume] source source in data data Serum or Plasma Alkalin 90 45 - U/L No No January 19 e 117 informa informa 2013 phospha tion in tion in 1:45 PM tase source source [Enzyma data data tic activit y/volum e] in Serum or Plasma Asparta 12 15 - 37 U/L Low No January 19 te informa 2013 aminotr tion in 1:45 PM ansfera source se data [Enzyma tic activit y/volum e] in Serum or Plasma Alanine 15 12 - 78 U/L No No January 19 informa informa 2013 aminotr tion in tion in 1:45 PM ansfera source source se data data [Enzyma tic activit y/volum e] in Serum or Plasma Bilirub 0.40 0.00 - MG/DL No No January 19 in.tota 1.00 informa informa 2013 l tion in tion in 1:45 PM [Mass/v source source olume] data data in Serum or Plasma CBC\\T\\AUTO DIFF Observa Value Referen Units Interpr Notes Date tion ce etation Range Leukocy 13.3 3.5 - K/UL High No January 19 mickie 13.0 informa 2013 [#/volu tion in 1:45 PM me] in source Blood data by Automat ed count Erythro 5.020 3.500 - M/ul No No January 19 cytes 6.100 informa informa 2013 [#/volu tion in tion in 1:45 PM me] in source source Blood data data by Automat ed count Hemoglo 13.8 11.0 - gm/dl No No January 19 bin 17.8 informa informa 2013 [Mass/v tion in tion in 1:45 PM olume] source source in data data Blood Hematoc 41.3 32.0 - % No No January 19 rit 51.6 informa informa 2013 [Volume tion in tion in 1:45 PM source source Fractio data data n] of Blood by Automat ed count Erythro 82.3 80.8 - fl No No January 19 cyte 101.2 informa informa 2014 mean tion in tion in 1:45 PM corpusc source source ular data data volume [Entiti c volume] by Automat ed count Erythro 27.5 27.6 - pg Low No January 19 cyte 32.7 informa 2014 mean tion in 1:45 PM corpusc source ular data hemoglo bin [Entiti c mass] by Automat ed count Erythro 33.4 32.6 - g/dl No No January 19 cyte 35.4 informa informa 2014 mean tion in tion in 1:45 PM corpusc source source ular data data hemoglo bin concent ration [Mass/v olume] by Automat ed count Erythro 14.4 10.1 - % No No January 19 cyte 16.5 informa informa 2014 distrib tion in tion in 1:45 PM ution source source width data data [Ratio] by Automat ed count Platele 337 134 - K/UL No No January 19 ts 412 informa informa 2014 [#/volu tion in tion in 1:45 PM me] in source source Blood data data by Automat ed count Platele 7.0 6.1 - fl No No January 19 t mean 10.1 informa informa 2014 volume tion in tion in 1:45 PM [Entiti source source c data data volume] in Blood by Automat ed count Neutrop 71.1 43.0 - % No No January 19 hils/10 83.0 informa informa 2014 0 tion in tion in 1:45 PM leukocy source source mickie in data data Blood by Automat ed count Lymphoc 22.2 10.0 - % No No January 19 ytes/10 42.0 informa informa 2014 0 tion in tion in 1:45 PM leukocy source source mickie in data data Blood by Automat ed count Monocyt 4.7 1.0 - % No No January 19 es/100 14.0 informa informa 2014 leukocy tion in tion in 1:45 PM mickie in source source Blood data data by Automat ed count Eosinop 1.5 0.0 - % No No January 19 hils/10 11.0 informa informa 2014 0 tion in tion in 1:45 PM leukocy source source mickie in data data Blood by Automat ed count Basophi 0.5 0.0 - % No No January 19 ls/100 2.0 informa informa 2013 leukocy tion in tion in 1:45 PM mickie in source source Blood data data by Automat ed count Neutrop 9.5 2.7 - K/ul High No January 19 hils 6.9 informa 2013 [#/volu tion in 1:45 PM me] in source Blood data by Automat ed count Lymphoc 3.0 0.4 - K/ul No No January 19 ytes 3.9 informa informa 2013 [#/volu tion in tion in 1:45 PM me] in source source Blood data data by Automat ed count Monocyt 0.6 0.2 - K/ul No No January 19 es 0.6 informa informa 2013 [#/volu tion in tion in 1:45 PM me] in source source Blood data data by Automat ed count Eosinop 0.2 0.0 - K/ul No No January 19 hils 0.9 informa informa 2013 [#/volu tion in tion in 1:45 PM me] in source source Blood data data by Automat ed count Basophi 0.1 0.0 - K/ul No No January 19 ls 0.2 informa informa 2013 [#/volu tion in tion in 1:45 PM me] in source source Blood data data by Automat ed count FSH Observa Value Referen Units Interpr Notes Date tion ce etation Range FSH 9.2 No mIU/mL No Dec 20 informa informa FSH 2014 tion in tion in Referen 4:35 AM source source ce data data Range UnitsMa les: 1 - 14MIU/M LFemale s: Follicu lar Phase:\\ .sk5\\\\. sk5\\3 - 12 MIU/ML Mid-Cyc le Peak:\\. sk5\\\\.s k5\\8 - 22 MIU/ML Luteal Phase:\\ .sk5\\\\. sk5\\ 2 - 12 MIU/ML\\ .sk5\\Po st-Felicia pausal: \\.sk5\\\\ .sk5\\35 -151 MIU/ML LH Observa Value Referen Units Interpr Notes Date tion ce etation Range LH 5.2 No mIU/mL No LH Dec 20 informa informa Referen 2013 tion in tion in ce 4:35 AM source source RangeUn data data itsMale s:\\.sk5 \\\\.sk5\\ \\.sk5\\1 .5 - 9.2 MIU/MLC hildren (<10 yrs)\\.s k5\\\\.sk 5\\ <=0.9 MIU/MLF emales: Follicu lar Phase:\\ .sk5\\\\. sk5\\1.8 - 19.0 MIU/ML Mid-Cyc le Peak: 15.6 - 78.9 MIU/ML Luteal Phase: 0.7 - 19.4 MIU/ML Post-Me nopausa l: 10.8 - 61.4 MIU/ML PROLACTIN Observa Value Referen Units Interpr Notes Date tion ce etation Range Prolact 9.80 2.60 - ng/mL Normal Prolact Dec 11 in 13.10 in 2013 Referen 5:15 AM ce RangesU nitsMal e: 2.6 - 13.1ng/ mLFemal e: Pre-men opause: 3.3 - 26.7ng/ mLPost- menopau se: 2.7 - 19.6ng/ mL NM TESTICULAR SCAN Observa Value Referen Units Interpr Notes Date tion ce etation Range Read By Nuclear No No No No Dec 18 informa informa informa informa 2013 medicin tion in tion in tion in tion in 10:35 e source source source source AM testicu data data data data lar scan\\.b r\\Indic ation right testicu lar torsion \\.br\\Co rrelati on made with previou s ultraso und dated November 2013.\\. br\\Radi opharma ceutica l 31.6 mCi of Tc 99m pertech netate was used\\.b r\\intra venousl y for the scan.\\. br\\Find ings-\\. br\\Ther e is normal symmetr ical arteria perfusi on to both testicl es.\\.br \\There is normal symmetr ical washout of the radiotr acer from the\\.br \\testic les bilater ally.\\. br\\Impr ession no scintig raphic evidenc e of testicu lar torsion .\\.br\\R eading Radiolo gist- FANG-FAGAN N LM, M.D., Radiolo gist\\.b r\\Relea sing Radiolo gistDat AMATO M.D., Radiolo gist\\.b r\\Relea sed Date Time- 4 1216\\.b r\\Trans criptio nis- DHARMESH AMATO M.D., Radiolo gist\\.b r\\----- ------- ------- ------- ------- ------- ------- ------- ------- ------- ------- ---\\.br \\ VITAMIN B-12 Observa Value Referen Units Interpr Notes Date tion ce etation Range Vitamin 272 180 - pg/mL Normal No Dec 11 B-12 914 2013 tion in 5:17 AM source data CORONARY RISK PROFILE Observa Value Referen Units Interpr Notes ti ce etation Range Cholest 147 50 - mg/dL Normal No Apr 10 raciel 200 2013on in 12:29 source PM data LDL 87.0 6.0 - mg/dL Normal No Apr 10 (CALC) 130.0 2013 tion in 12:29 source PM data Triglyc 135 50 - mg/dL Normal No Apr 10 erides 150 2013 tion in 12:29 source PM data HDL 33 40 - 60 mg/dL Low No Apr 10 2013 tion in 12:29 source PM data CHOL/HD 5 No No No No Apr 10 L Ratio informa a 2013 tion in tion in tion in tion in 12:29 source source source source PM data data data data VLDL 27 0 - 30 No Normal No Apr 10 2013 tion in tion in 12:29 source source PM data data HEPATIC FUNCT PANEL Observa Value Referen Units Interpr Notes Date tion ce etation Range Total 6.8 6.4 - gm/dL Normal No Apr 10 Protein 8.2 2013on in 12:29 source PM data Albumin 3.2 3.4 - gm/dL Low No Apr 10 5.0 informa 2014 tion in 12:29 source PM data Alk 119 50 - U/L Normal No Apr 10 Phos 136 inform2013 tion in 12:29 source PM data ALT 16 12 - 78 U/L Normal No Apr 10 inform2013 tion in 12:29 source PM data AST 13 15 - 37 U/L Low No Apr 10 2013 tion in 12:29 source PM data Bilirub 0.40 0.20 - mg/dL Normal No Apr 10 in, 1.00 inform2013 Total tion in 12:29 source PM data Bilirub 0.10 0.00 - mg/dL Normal No Apr 10 in, 0.20 informa 2013 Direct tion in 12:29 source PM data A/G 0.9 No No No No Apr 10 Ratio informa inform inform informa 2013 tion in tion in tion in tion in 12:29 source source source source PM data data data data PSA,TOTAL Observa Value Referen Units Interpr Notes Date tion ce etation Range PSA 1.00 0.0 - ng/mL Normal No Apr 10 4.0 inform2013 tion in 12:29 source PM data BASIC METABOLIC PANEL Observa Value Referen Units Interpr Notes Date tion ce etation Range Glucose 105 70 - 99 mg/dL High No Apr 10 inform2013 tion in 12:29 source PM data BUN 14 7 - 18 mg/dL Normal No Apr 10 2013 tion in 12:29 source PM data Creatin 0.8 0.8 - mg/dL Normal CREATIN Dec 10 ine 1.3 INE AND 2014 eGFR 12:29 IDMS PM TRACEAB LE. BUN/Cre 17.5 No No No No Apr 10 at informa inform inform inform2013 Ratio tion in tion in tion in tion in 12:29 source source source source PM data data data data Sodium 140 136 - mEq/L Normal No Apr 10 145 2013 tion in 12:29 source PM data Potassi 4.7 3.5 - mEq/L Normal No Apr 10 um 5.1 inform2013 tion in 12:29 source PM data Chlorid 107 98 - mEq/L Normal No Apr 10 e 107 informa 2013 tion in 12:29 source PM data CO2 29.7 21.0 - mmol/L Normal No Apr 10 32.0 inform2013 tion in 12:29 source PM data Calcium 9.0 8.5 - mg/dL Normal No Apr 10 10.1 informa 2013 tion in 12:29 source PM data Anion 8.0 No No No No Apr 10 Gap informa informa informa informa 2013 tion in tion in tion in tion in 12:29 source source source source PM data data data data GLOMERU >60.0 No mL/min/ No eGFR Apr LAR informa 1.73_m2 informa Interpr 2013 FILTRAT tion in ti in etation 12:29 ION source source : PM RATE data data Disease State Referen ce Ranges for eGFR(ca lculate d)Stage eGFR Descrip tionI/I I >60 Normal/ Mildly reduced kidney functio nIII 30-59 Moderat joseph reduced kidney functio nIV 15-29 Severel y reduced kidney functio nV <15 End-sta ge kidney failure Calcula bradley using MDRD formula based on gender, race(*G FR AA is for theAfri can Kathy n populat ion),an d age.GFR estimat es are unrelia ble inpatie nts with rapidly changin g kidney functio n,recen t dialysi s,extre mesin body size,se sybil malnutr ition or obesity ,loss of limbs, abnorma lmuscle mass,or during pregnan cy.In these patient s,alter natived etermin ations of GFR should be obtaine d.Creat inine and eGFR IDMS Traceab le. GLOMERU >60.0 No mL/min/ No No Apr 10 LAR informa 1.73_m2 informa informa 2013 FILTRAT tion in tion in tion in 12:29 ION source source source PM RATE data data data Kathy n TSH Observa Value Referen Units Interpr Notes Date ti ce etation Range TSH 1.71 0.34 - mIU/mL Normal No Dec 10 4.82 informa 2013 in 12:29 source PM data CBC W/DIFF Observa Value Referen Units Interpr Notes Date ti ce etation Range WBC 11.7 4.8 - X_10\\S\\ High No Apr 10 10.8 3 inform2013 in 10:19 source AM data RBC 4.98 4.70 - X_10\\S\\ Normal No Apr 10 6.10 6 informa 2013 tion in 10:19 source AM data Hemoglo 13.5 14.0 - gm/dL Low No Apr 10 bin 18.0 informa 2013 tion in 10:19 source AM data Hematoc 41.7 42.0 - % Low No Apr 10 rit 52.0 informa 2013 tion in 10:19 source AM data Platele 307 130 - X_10\\S\\ Normal No Apr 10 t 400 3 2013 tion in 10:19 source AM data MCH 27.2 31.0 - pg Low No Apr 10 37.0 informa 2013 tion in 10:19 source AM data MCHC 32.5 33.0 - gm/dL Low No Apr 10 37.0 informa 2013 tion in 10:19 source AM data MCV 83.7 80.0 - fl Normal No Apr 10 94.0 2013 tion in 10:19 source AM data RDW 14.5 11.5 - % Normal No Apr 10 15.5 2013 tion in 10:19 source AM data MPV 7.2 7.4 - fl Low No Apr 10 10.4 inform2013 tion in 10:19 source AM data Neutrop 66.8 42.0 - % Normal No Apr 10 hils % 75.0 2013 tion in 10:19 source AM data Lymphoc 24.7 20.0 - % Normal No Apr 10 ytes % 51.0 2013 tion in 10:19 source AM data Monocyt 6.2 0.0 - % Normal No Apr 10 es % 9.0 2013 tion in 10:19 source AM data Eosinop 1.6 0.0 - % Normal No Apr 10 hils % 5.0 inform2013 tion in 10:19 source AM data Basophi 0.7 0.0 - % Normal No Apr 10 ls % 2.0 inform2013 tion in 10:19 source AM data Neutrop 7.8 1.5 - X_10\\S\\ High No Apr 10 hil 7.1 3 2013 Count tion in 10:19 source AM data Monocyt 0.7 0.0 - X_10\\S\\ Normal No Apr 10 e Count 1.2 3 2013 tion in 10:19 source AM data Eosinop 0.2 0.0 - X_10\\S\\ Normal No Apr hil 0.5 3 2013 Count tion in 10:19 source AM data Basophi 0.1 0.0 - X_10\\S\\ Normal No Apr l Count 0.2 3 2013 tion in 10:19 source AM data Lymphoc 2.9 0.7 - X_10\\S\\ Normal No Dec 18 yte 4.9 3 2013 Count tion in 10:19 source AM data Nucleat 0 No No No No Dec 18 ed informa informa informa informa 2013 RBC'S tion in tion in tion in tion in 10:19 source source source source AM data data data data XR LUMBAR SPINE W/OBLS MIN 4 VIEW Observa Value Referen Units Interpr Notes Date tion ce etation Range Read By Lumbar No No No No Dec 18 spine\\. informa informa informa informa 2013 br\\Joann tion in tion in tion in tion in 10:00 cation- source source source source AM Back data data data data pain\\.b r\\Manoj rison- November 2008\\.b r\\Findi ngs-\\.b r\\Five project ions of lumbar spine demonst rated there are 5 non-\\.b r\\rib-b earing vertebr al bodies of lumbar spine, the vertebr al heights are\\.br \\normal for patient 's age. The vertebr al bodies are normall y aligned \\.br\\Th ere are disc space narrowi ng at the L1/L2 and L5/S1 with endplat es\\.br\\ degener ative changes \\.br\\Th ere are facet hypertr ophy at L5, S1\\.br\\ There is increas ed anterio r lordosi s\\.br\\T he oblique project ions demonst rated no evidenc e of a pars intra\\. br\\iftikhar cularis defect. 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, stable\\ .br\\[place] u[facility] Radiolo pj AMATO M.D., Radiolo gist\\.b r\\Relea kevin Radiolo gist- FANG-FAGAN N LM, M.D., Radiolo gist\\.b r\\Relea sed Date Time- 4 1331\\.b r\\Trans criptio jarvist- DHARMESH AMATO M.D., Radiolo gist\\.b r\\----- ------- ------- ------- ------- ------- ------- ------- ------- ------- ------- ---\\.br \\ URINALYSIS W/MICRO Observa Value Referen Units Interpr Notes Date tion ce etation Range Color YELLOW YELLOW, No Normal No Nov 8 STRAW,C informa informa 2013 OLORLES tion in tion in 4:56 AM S,PALE source source YELLOW data data Appeara CLEAR CLEAR No Normal No Nov 8 nce informa informa 2013 tion in tion in 4:56 AM source source data data Specifi 1.020 1.016 - No Normal No Nov 8 c 1.022 informa informa 2013 [place] tion in tion in 4:56 AM source source data data PH 6.0 5.0 - No Normal No Nov 8 7.0 informa informa 2013 tion in tion in 4:56 AM source source data data Leukocy NEGATIV NEGATIV No Normal No Nov 8 te E E informa informa 2013 tion in tion in 4:56 AM source source data data Nitrite NEGATIV NEGATIV No Normal No Nov 8 E E informa informa 2013 tion in tion in 4:56 AM source source data data UA NEGATIV NEGATIV No Normal No Nov 8 Protein E E informa informa 2013 tion in tion in 4:56 AM source source data data Glucose NEGATIV NEGATIV No Normal No Nov 8 E E informa informa 2013 tion in tion in 4:56 AM source source data data Ketones NEGATIV NEGATIV No Normal No Nov 8 E E informa informa 2013 tion in tion in 4:56 AM source source data data Urobili norm 0 - 1 mg/dL Normal No Nov 8 nogen informa 2013 tion in 4:56 AM source data Bilirub NEGATIV NEGATIV No Normal No Mar 8 in E E informa informa 2013 tion in tion in 4:56 AM source source data data Blood NEGATIV NEGATIV No Normal No Mar 8 E E informa informa 2013 tion in tion in 4:56 AM source source data data UA WBC 0-2 0 - 2 No Normal No Mar 8 informa informa 2013 tion in tion in 4:56 AM source source data data UA RBC NONE 0 - 2 No Abnorma No Mar 8 SEEN informa l informa 2013 tion in tion in 4:56 AM source source data data Bacteri TRACE NONE No Abnorma No Mar 8 a SEEN informa l informa 2013 tion in tion in 4:56 AM source source data data Epithel 0-4 NONE No Abnorma No Mar 8 ial SQUAMOU SEEN informa l informa 2013 Cells S tion in tion in 4:56 AM EPITHEL source source IAL data data CELLS Mucus NONE NONE No Normal No Mar 8 SEEN SEEN informa informa 2013 tion in tion in 4:56 AM source source data data Casts NONE NONE No Normal No Mar 8 SEEN SEEN informa informa 2013 tion in tion in 4:56 AM source source data data Crystal NONE NONE No Normal No Mar 8 s SEEN SEEN informa informa 2013 tion in tion in 4:56 AM source source data data YEAST, NONE NONE No Normal No Mar 8 UA OBSERVE OBSERVE informa informa 2013 D D tion in tion in 4:56 AM source source data data AMORPHO NONE NONE No Normal No Mar 8 US SEEN SEEN informa informa 2013 SEDIMEN tion in tion in 4:56 AM T source source data data US SCROTUM,TESTICLES Observa Value Referen Units Interpr Notes Date tion ce etation Range Read By EXAMINA No No No No Mar 8 TION- informa informa informa informa 2013 Scrotal tion in tion in tion in tion in 4:40 AM source source source source ultraso data data data data und\\.br \\INDICA TION- Right-s ided pain and swellin g\\.br\\C OMPARIS ON- None\\.b r\\TECHN IQUE- Cross-s ectiona l imaging and Doppler evaluat ion (color- flow\\.b r\\and spectra l wavefor m analysi s) were perform ed\\.br\\ FINDING S-\\.br\\ Right side- The testicl e measure s 4.6 x 2.4 x 2.6 cm. There is\\.br\\ homogen eous testicu lar echotex ture. No epididy mal enlarge ment is seen.\\. br\\No hydroce le or varicoc april is seen.\\. br\\Left side- The testicl e measure s 3.8 x 2.0 x 2.8 cm. There is\\.br\\ homogen eous testicu lar echotex ture. No epididy mal enlarge ment is seen.\\. br\\Ther e is no hydroce le or varicoc april.\\.b r\\Color -flow Doppler demonst rates little flow within the testicl e\\.br\\a lthough there is clearly pulsati le arteria l flow periphe rally in both\\.b r\\teste s.\\.br\\ IMPRESS ION-\\.b r\\Morph ologica lly the testes appear normal and symmetr ic. There is no\\.br\\ epididy mal enlarge ment. No hydroce le is seen on either side.\\. br\\[place] r-flow shows only limited blood flow within the testes althoug h\\.br\\t here is clearly pulsati le arteria l flow periphe rally in both testes. \\.br\\It seems unlikel y that there is in fact reduced testicu lar perfusi on\\.br\\ bilater ally, its appeara nce may be on a technic al basis.\\ .br\\If there is concern regardi ng the possibi lity of testicu lar torsion it\\.br\\ may be worthwh ile perform ing a nuclear medicin e testicu lar scan for\\.br \\furthe r evaluat ion.\\.b r\\SHCR OFFICE\\ .br\\[place] ding Radiolo gist- DUGLAS () GIGI Hyde M.D., Radiolo gist\\.b r\\Relea sing Radiolo gist- DUGLAS () GIGI Hyde M.D., Radiolo gist\\.b r\\Relea sed Date Time- 4 5522\\.b r\\Trans criptio nistDat ARDON () GIGI Hyde M.D., Radiolo gist\\.b r\\----- ------- ------- ------- ------- ------- ------- ------- ------- ------- ------- ---\\.br \\ CT CHEST W/CONTRST Observa Value Referen Units Interpr Notes Date tion ce etation Range Read By pain\\.b No No No No Dec 07 r\\MANOJ informa informa informa informa 2012 RISON- tion in tion in tion in tion in 3:29 PM None\\.b source source source source r\\TECHN data data data data IQUE-\\. br\\Rani lexa acquire d images were obtaine d of the thoraci c spine without \\.br\\in traveno us contras t. 2D reforma ts were perform ed.\\.br \\Number of images provide d at the time of dictati on includi ng paperwo rk\\.br\\ is- 568\\.br \\FINDIN GS-\\.br \\There is normal anatomi c alignme nt. There is no evidenc e of fractur e\\.br\\o r disloca tion. No discret e paraspi nal masses or fluid collect ions\\.b r\\are identif ied. There is no signifi cant osseous narrowi ng of the\\.br \\centra l canal. There is normal anatomi c alignme nt.\\.br \\IMPRES MEKA-\\. br\\Nega tive thoraci c spine CT.\\.br \\SHCR BS OFFICE\\ .br\\[place] Radiolo gist- ANA MARIA () Pritesh INGRAM, Radiolo gist\\.b r\\Relea sing Radiolo gist- BINOR () Pritesh INGRAM, Radiolo gist\\.b r\\Relea sed Date Time- 3 1934\\.b r\\Trans sarahiptremy RODGERS () Pritesh INGRAM, Radiolo gist\\.b r\\----- ------- ------- ------- ------- ------- ------- ------- ------- ------- ------- ---\\.br \\ CT THORACIC SPINE W/O CONTRST Observa Value Referen Units Interpr Notes Date tion ce etation Range Read By pain No No No No Nov 30 right\\. informa informa informa informa 2013 br\\COMP tion in tion in tion in tion in 3:29 PM ARISON- source source source source data data data data None\\.b r\\TECHN IQUE-\\. br\\Rani lexa acquire d images were obtaine d of the chest, abdomen and\\.br \\pelvis followi ng oral and 75 mL of Omnipaq ue-300 IV contras t.\\.br\\ Number of images provide d at the time of dictati on includi ng paperwo rk\\.br\\ is- 867\\.br \\FINDIN GS-\\.br \\Chest- \\.br\\Th e heart is not enlarge d. There is no pericar dial effusio n or\\.br\\ thicken ing. There is no enlarge d hilar or mediast inal adenopa thy.\\.b r\\There is no aortic aneurys m or dissect ion. The aortic arch branch\\ .br\\ves sels are grossly patent. \\.br\\Th e lungs are free of masses infiltr ates or effusio ns. There are no\\.br\\ enlarge d (>3 mm) pulmona ry nodules . There are no destruc tive bone\\.b r\\lesio ns. There are no endobro nchial lesions seen.\\. br\\Abdo men/Pel vis-\\.b r\\The upper abdomin al solid organs are unremar kable. There is no\\.br\\ retrope ritonea l adenopa thy. There is no bowel obstruc tion or free air.\\.b r\\There is no ascites . There is no aortic aneurys m or dissect ion. The\\.br \\celiac artery, superio r mesente fabiola artery, and superio r mesente fabiola\\.br \\vein are grossly patent. \\.br\\Th ere are no pelvic masses or loculat ed fluid collect ions. There is no\\.br\\ evidenc e of aortic aneurys m or dissect ion. There are no destruc tive\\.b r\\bone lesions identif ied.\\.b r\\IMPRE SSION-\\ .br\\Neg ative CT of the chest abdomen and pelvis. \\.br\\SH CR BS OFFICE\\ .br\\[place] Radiolo gist- BINOR () Pritesh INGRAM, Radiolo gist\\.b r\\Relea sing Radiolo gist- BINOR () Pritesh INGRAM, Radiolo gist\\.b r\\Relea sed Date Time- 3 1934\\.b r\\Trans criptio nist- ANA MARIA () Pritesh INGRAM, Radiolo gist\\.b r\\----- ------- ------- ------- ------- ------- ------- ------- ------- ------- ------- ---\\.br \\ CT ABD+PELVIS W/CONTRAST Observa Value Referen Units Interpr Notes Date tion ce etation Range Read By pain No No No No Dec 07 right\\. informa informa informa informa 2012 br\\COMP tion in tion in tion in tion in 3:28 PM [facility]- source source source source data data data data None\\.b r\\TECHN IQUE-\\. br\\Rani lexa acquire d images were obtaine d of the chest, abdomen and\\.br \\pelvis followi ng oral and 75 mL of Omnipaq ue-300 IV contras t.\\.br\\ Number of images provide d at the time of dictati on includi ng paperwo rk\\.br\\ is- 867\\.br \\FINDIN GS-\\.br \\Chest- \\.br\\Th e heart is not enlarge d. There is no pericar dial effusio n or\\.br\\ thicken ing. There is no enlarge d hilar or mediast inal adenopa thy.\\.b r\\There is no aortic aneurys m or dissect ion. The aortic arch branch\\ .br\\ves sels are grossly patent. \\.br\\Th e lungs are free of masses infiltr ates or effusio ns. There are no\\.br\\ enlarge d (>3 mm) pulmona ry nodules . There are no destruc tive bone\\.b r\\lesio ns. There are no endobro nchial lesions seen.\\. br\\Abdo men/Pel vis-\\.b r\\The upper abdomin al solid organs are unremar kable. There is no\\.br\\ retrope ritonea l adenopa thy. There is no bowel obstruc tion or free air.\\.b r\\There is no ascites . There is no aortic aneurys m or dissect ion. The\\.br \\celiac artery, superio r mesente fabiola artery, and superio r mesente fabiola\\.br \\vein are grossly patent. \\.br\\Th ere are no pelvic masses or loculat ed fluid collect ions. There is no\\.br\\ evidenc e of aortic aneurys m or dissect ion. There are no destruc tive\\.b r\\bone lesions identif ied.\\.b r\\IMPRE SSION-\\ .br\\Neg ative CT of the chest abdomen and pelvis. \\.br\\SH CR BS OFFICE\\ .br\\[place] Radiolo gist- BINOR () Pritesh INGRAM, Radiolo gist\\.b r\\Relea sing Radiolo gist- BINFAYE () Pritesh INGRAM, Radiolo gist\\.b r\\Relea sed Date Time- 3 1934\\.b r\\Trans criptio nist- ANA MARIA () Pritesh INGRAM, Radiolo gist\\.b r\\----- ------- ------- ------- ------- ------- ------- ------- ------- ------- ------- ---\\.br \\ XR ELBOW COMP MIN 3 VIEWS Observa Value Referen Units Interpr Notes Date ti ce etation Range Read By EXAMINA No No No No Dec 07- 2012 X-rays tion in ti in tion in tion in 3:14 PM of source source source source right data data data data elbow 4 view(s) \\.br\\IN DICATIO N- Fall, right elbow pain\\.b r\\MANOJ RISON- None\\.b r\\TECHN IQUE- AP/late ral/obl ique views of the elbow were perform ed\\.br\\ FINDING S- There is no acute fractur e or disloca tion. No joint effusio n\\.br\\i s seen. There is soft tissue swellin g over the extenso r surface of\\.br\\ possibl e forearm .\\.br\\I MPRESSI ON-\\.br \\Soft tissue swellin g over the extenso r surface of the proxima l\\.br\\f orearm. No fractur e or disloca tion\\.b r\\SHCR RK OFFICE\\ .br\\[place] Radiolo gist- DUGLAS () GIGI Hyde M.D., Radiolo gist\\.b r\\Relea sing Radiolo gist- DUGLAS () GIGI Hyde M.D., Radiolo gist\\.b r\\Relea sed Date Time- 3 1428\\.b r\\Trans criptio marta ARDON () GIGI Hyde M.D., Radiolo gist\\.b r\\----- ------- ------- ------- ------- ------- ------- ------- ------- ------- ------- ---\\.br \\ COMPREHENSIVE METABOLIC PANEL Observa Value Referen Units Interpr Notes Date ti ce etation Range Glucose 84 70 - 99 mg/dL Normal No Dec 072012 tion in 3:09 PM source data BUN 12 7 - 18 mg/dL Normal No Dec 072012 tion in 3:09 PM source data Creatin 0.6 0.8 - mg/dL Low CREATIN Nov 30 ine 1.3 INE AND 2013 eGFR 3:09 PM IDMS TRACEAB LE. BUN/Cre 20.0 No No No No Nov 30 at informa informa informa informa 2013 Ratio tion in tion in tion in tion in 3:09 PM source source source source data data data data Sodium 137 136 - mEq/L Normal No Nov 30 145 informa 2012 tion in 3:09 PM source data Potassi 4.2 3.5 - mEq/L Normal No Nov 30 um 5.1 informa 2012 tion in 3:09 PM source data Chlorid 103 98 - mEq/L Normal No Nov 30 e 107 informa 2012 tion in 3:09 PM source data CO2 29.0 21.0 - mmol/L Normal No Nov 30 32.0 informa 2012 tion in 3:09 PM source data Calcium 8.4 8.5 - mg/dL Low No Nov 30 10.1 informa 2012 tion in 3:09 PM source data Total 6.8 6.4 - gm/dL Normal No Dec 07 Protein 8.2 informa 2012 tion in 3:09 PM source data Albumin 2.8 3.4 - gm/dL Low No Nov 30 5.0 informa 2013 tion in 3:09 PM source data Alk 108 50 - U/L Normal No Nov 30 Phos 136 informa 2012 tion in 3:09 PM source data ALT 28 30 - 65 U/L Low No Nov 30 informa 2012 tion in 3:09 PM source data AST 11 15 - 37 U/L Low No Nov 30 informa 2012 tion in 3:09 PM source data Bilirub 0.20 0.20 - mg/dL Normal No Nov 30 in, 1.00 informa 2012 Total tion in 3:09 PM source data A/G 0.7 No No No No Nov 30 Ratio informa informa informa informa 2013 tion in tion in tion in tion in 3:09 PM source source source source data data data data Anion 9.2 No No No No Nov 30 Gap informa informa informa informa 2013 tion in tion in tion in tion in 3:09 PM source source source source data data data data GLOMERU >60.0 No mL/min/ No eGFR Nov 30 LAR informa 1.73_m2 informa Interpr 2013 FILTRAT tion in tion in etation 3:09 PM ION source source : RATE data data Disease State Referen ce Ranges for eGFR(ca lculate d)Stage eGFR Descrip tionI/I I >60 Normal/ Mildly reduced kidney functio nIII 30-59 Moderat joseph reduced kidney functio nIV 15-29 Severel y reduced kidney functio nV <15 End-sta ge kidney failure Calcula bradley using MDRD formula based on gender, race(*G FR AA is for theAfri can Kathy n populat ion),an d age.GFR estimat es are unrelia ble inpatie nts with rapidly changin g kidney functio n,recen t dialysi s,extre mesin body size,se sybil malnutr ition or obesity ,loss of limbs, abnorma lmuscle mass,or during pregnan cy.In these patient s,alter natived etermin ations of GFR should be obtaine d.Creat inine and eGFR IDMS Traceab le. GLOMERU >60.0 No mL/min/ No No Mar 30 LAR informa 1.73_m2 informa informa 2013 FILTRAT tion in tion in tion in 3:09 PM ION source source source RATE data data data Kathy n CBC W/DIFF Observa Value Referen Units Interpr Notes Date tion ce etation Range WBC 15.0 4.8 - X_10 High No Mar 30 10.8 informa 2012 tion in 2:36 PM source data RBC 4.98 4.70 - X_10 Normal No Mar 30 6.10 informa 2012 tion in 2:36 PM source data Hemoglo 13.4 14.0 - gm/dL Low No Nov 30 bin 18.0 informa 2012 tion in 2:36 PM source data Hematoc 41.2 42.0 - % Low No Nov 30 rit 52.0 informa 2012 tion in 2:36 PM source data Platele 297 130 - X_10 Normal No Mar 30 t 400 informa 2012 tion in 2:36 PM source data MCH 26.9 31.0 - pg Low No Nov 30 37.0 informa 2012 tion in 2:36 PM source data MCHC 32.5 33.0 - gm/dL Low No Mar 30 37.0 inform2012 tion in 2:36 PM source data MCV 82.7 80.0 - fl Normal No Mar 30 94.0 informa 2012 tion in 2:36 PM source data RDW 13.8 11.5 - % Normal No Mar 30 15.5 informa 2012 tion in 2:36 PM source data MPV 7.1 7.4 - fl Low No Mar 30 10.4 informa 2012 tion in 2:36 PM source data Neutrop 71.7 42.0 - % Normal No Mar 30 hils % 75.0 inform2012 tion in 2:36 PM source data Lymphoc 20.6 20.0 - % Normal No Mar 30 ytes % 51.0 informa 2012 tion in 2:36 PM source data Monocyt 5.5 0.0 - % Normal No Mar 30 es % 9.0 inform2012 tion in 2:36 PM source data Eosinop 1.0 0.0 - % Normal No Mar 30 hils % 5.0 informa 2012 tion in 2:36 PM source data Basophi 1.2 0.0 - % Normal No Mar 30 ls % 2.0 inform2012 tion in 2:36 PM source data Neutrop 10.8 1.5 - X_10 High No Mar 30 hil 7.1 inform2012 Count tion in 2:36 PM source data Monocyt 0.8 0.0 - X_10 Normal No Mar 30 e Count 1.2 2012 tion in 2:36 PM source data Eosinop 0.1 0.0 - X_10 Normal No Mar 30 hil 0.5 informa 2012 Count tion in 2:36 PM source data Basophi 0.2 0.0 - X_10 Normal No Mar 30 l Count 0.2 inform2012 tion in 2:36 PM source data Lymphoc 3.1 0.7 - X_10 Normal No Mar 30 yte 4.9 informa 2012 Count tion in 2:36 PM source data URINALYSIS W/MICRO Observa Value Referen Units Interpr Notes Date tion ce etation Range Color YELLOW YELLOW, No Normal No Mar 30 STRAW,C informa informa 2012 OLORLES tion in tion in 2:39 PM S,PALE source source YELLOW data data Appeara CLEAR CLEAR No Normal No Mar 30 nce informa informa 2012 tion in tion in 2:39 PM source source data data Specifi 1.010 1.016 - No Low No Mar 30 c 1.022 informa informa 2012 [place] tion in tion in 2:39 PM source source data data PH 8.0 5.0 - No High No Mar 30 7.0 informa informa 2012 tion in tion in 2:39 PM source source data data Leukocy NEGATIV NEGATIV No Normal No Mar 30 te E E informa informa 2012 tion in tion in 2:39 PM source source data data Nitrite NEGATIV NEGATIV No Normal No Mar 30 E E informa informa 2012 tion in tion in 2:39 PM source source data data UA NEGATIV NEGATIV No Normal No Mar 30 Protein E E informa informa 2012 tion in tion in 2:39 PM source source data data Glucose NEGATIV NEGATIV No Normal No Mar 30 E E informa informa 2012 tion in tion in 2:39 PM source source data data Ketones NEGATIV NEGATIV No Normal No Mar 30 E E informa informa 2012 tion in tion in 2:39 PM source source data data Urobili norm 0 - 1 mg/dL Normal No Mar 30 nogen informa 2012 tion in 2:39 PM source data Bilirub NEGATIV NEGATIV No Normal No Mar 30 in E E informa informa 2012 tion in tion in 2:39 PM source source data data Blood NEGATIV NEGATIV No Normal No Mar 30 E E informa informa 2012 tion in tion in 2:39 PM source source data data UA WBC 0-2 0 - 2 No Normal No Mar 30 informa informa 2012 tion in tion in 2:39 PM source source data data UA RBC 0-2 0 - 2 No Normal No Mar 30 informa informa 2012 tion in tion in 2:39 PM source source data data Bacteri NONE NONE No Normal No Mar 30 a SEEN SEEN informa informa 2012 tion in tion in 2:39 PM source source data data Epithel NONE NONE No Normal No Mar 30 ial SEEN SEEN informa informa 2013 Cells tion in tion in 2:39 PM source source data data Mucus NONE NONE No Normal No Mar 30 SEEN SEEN informa informa 2012 tion in tion in 2:39 PM source source data data Casts NONE NONE No Normal No Mar 30 SEEN SEEN informa informa 2012 tion in tion in 2:39 PM source source data data Crystal NONE NONE No Normal No Mar 30 s SEEN SEEN informa informa 2012 tion in tion in 2:39 PM source source data data YEAST, NONE NONE No Normal No Mar 30 UA OBSERVE OBSERVE informa informa 2012 D D tion in tion in 2:39 PM source source data data AMORPHO NONE NONE No Normal No Mar 30 US SEEN SEEN informa informa 2012 SEDIMEN tion in tion in 2:39 PM T source source data data XR FEMUR/THIGH 2 VIEWS Observa Value Referen Units Interpr Notes Date tion ce etation Range Read By Right No No No No Nov 21 femur\\. informa informa informa informa 2013 br\\Joann tion in tion in tion in tion in 2:36 AM cation source source source source pain\\.b data data data data r\\Findi ngs-\\.b r\\Four project ions of right femoral demonst rated no evidenc e of displac ed\\.br\\ fractur es or subluxa tions. No abnorma l calcifi cations seen\\.b r\\Impre ssion no acute radiogr aphic finding s\\.br\\R eading Radiolo gistDat AMATO M.D., Radiolo gist\\.b r\\Relea sing Radiolo gistDat AMATO M.D., Radiolo gist\\.b r\\Relea sed Date Time- 3 0929\\.b r\\Trans criptio nistDat AMATO M.D., Radiolo gist\\.b r\\----- ------- ------- ------- ------- ------- ------- ------- ------- ------- ------- ---\\.br \\ XR ANKLE COMP MIN 3 VIEWS Observa Value Referen Units Interpr Notes Date tion ce etation Range Read By XR No No No No Nov 15 ANKLE informa informa informa informa 2013 COMP tion in tion in tion in tion in 9:40 AM MIN 3 source source source source VIEWS\\. data data data data br\\HIST ORY- ankle pain\\.b r\\3 views of the left ankle are perform ed.\\.br \\There is no evidenc e of an acute fractur e or disloca tion. The talar\\. br\\dome is intact. There is no sizable talocru ral joint effusio n.\\.br\\ Impress ion-\\.b r\\No evidenc e of acute fractur e or disloca tion.\\. br\\SHCR EM.\\. br\\Read ing Radiolo gist- WADE R (C) Pritesh DOWELL, Radiolo gist\\.b r\\Relea sing Radiolo gist- WADE R (C) Pritesh DOWELL, Radiolo gist\\.b r\\Relea sed Date Time- 3 1014\\.b r\\Trans criptio nist- WADE R (C) Pritesh DOWELL, Radiolo gist\\.b r\\----- ------- ------- ------- ------- ------- ------- ------- ------- ------- ------- ---\\.br \\ XR FOOT COMP MIN 3 VIEWS Observa Value Referen Units Interpr Notes Date tion ce etation Range Read By XR FOOT No No No No Nov 22 COMP informa informa informa informa 2012 MIN 3 tion in tion in tion in tion in 9:40 AM VIEWS\\. source source source source br\\HIST data data data data ORY- pain\\.b r\\3 views of the left foot are perform ed.\\.br \\There is no evidenc e of an acute fractur e or disloca tion. Bone\\.b r\\lens examiner alizati on is normal. Soft tissues are grossly intact. \\.br\\Im pressio n-\\.br\\ Negativ e radiogr aphs of the left foot.\\. br\\SHCR EM.\\. br\\Read ing Radiolo gist- WADE Wil Chun) Pritesh DOWELL, Radiolo gist\\.b r\\Relea sing Radiolo gist- WADE R Lay) Rashad DOWELL., Radiolo gist\\.b r\\Relea sed Date Time- 3 1013\\.b r\\Trans criptio nist- WADE Chun) Pritesh DOWELL, Radiolo gist\\.b r\\----- ------- ------- ------- ------- ------- ------- ------- ------- ------- ------- ---\\.br \\ COMPREHENSIVE METABOLIC PANEL Observa Value Referen Units Interpr Notes Date tion ce etation Range Glucose 95 70 - 99 mg/dL Normal No Mar 012011 tion in 4:54 PM source data BUN 10 7 - 18 mg/dL Normal No Mar 01 inform2011 tion in 4:54 PM source data Creatin 0.6 0.8 - mg/dL Low CREATIN Mar 01 ine 1.3 INE AND 2012 eGFR 4:54 PM IDMS TRACEAB LE. BUN/Cre 16.7 No No No No Mar 01 at informa informa informa informa 2011 Ratio tion in tion in tion in tion in 4:54 PM source source source source data data data data Sodium 138 136 - mEq/L Normal No Mar 01 145 2011 tion in 4:54 PM source data Potassi 4.1 3.5 - mEq/L Normal No Mar 01 um 5.1 inform2011 tion in 4:54 PM source data Chlorid 104 98 - mEq/L Normal No Mar 01 e 107 inform2011 tion in 4:54 PM source data CO2 27.1 21.0 - mmol/L Normal No Mar 01 32.0 informa 2011 tion in 4:54 PM source data Calcium 8.0 8.5 - mg/dL Low No Mar 01 10.1 inform2011 tion in 4:54 PM source data Total 6.4 6.4 - gm/dL Normal No Mar 01 Protein 8.2 informa 2011 tion in 4:54 PM source data Albumin 2.8 3.4 - gm/dL Low No Mar 01 5.0 informa 2011 tion in 4:54 PM source data Alk 98 50 - U/L Normal No Mar 01 Phos 136 informa 2011 tion in 4:54 PM source data ALT 24 30 - 65 U/L Low No Mar 01 inform2011 tion in 4:54 PM source data AST 16 15 - 37 U/L Normal No Mar 01 inform2011 tion in 4:54 PM source data Bilirub 0.40 0.20 - mg/dL Normal No Mar 01 in, 1.00 inform2011 Total tion in 4:54 PM source data A/G 0.8 No No No No Mar 01 Ratio informa informa informa informa 2011 tion in tion in tion in tion in 4:54 PM source source source source data data data data Anion 11.0 No No No No Mar 01 Gap informa informa informa informa 2011 tion in tion in tion in tion in 4:54 PM source source source source data data data data GLOMERU >60.0 No mL/min/ No eGFR Mar 01 LAR informa 1.73_m2 informa Interpr 2011 FILTRAT tion in ti in etation 4:54 PM ION source source : RATE data data Disease State Referen ce Ranges for eGFR(ca lculate d)Stage eGFR Descrip tionI/I I >60 Normal/ Mildly reduced kidney functio nIII 30-59 Moderat joseph reduced kidney functio nIV 15-29 Severel y reduced kidney functio nV <15 End-sta ge kidney failure Calcula bradley using MDRD formula based on gender, race(*G FR AA is for theAfri can Kathy n populat ion),an d age.GFR estimat es are unrelia ble inpatie nts with rapidly changin g kidney functio n,recen t dialysi s,extre mesin body size,se sybil malnutr ition or obesity ,loss of limbs, abnorma lmuscle mass,or during pregnan cy.In these patient s,alter natived etermin ations of GFR should be obtaine d.Creat inine and eGFR IDMS Traceab le. GLOMERU >60.0 No mL/min/ No No Mar 01 LAR informa 1.73_m2 informa informa 2011 FILTRAT tion in tion in tion in 4:54 PM ION source source source RATE data data data Kathy n CKMB Observa Value Referen Units Interpr Notes Date tion ce etation Range CK 48 39 - U/L Normal No Mar 01 308 informa 2011 tion in 4:50 PM source data MMB <0.50 0.00 - ng/mL Normal MMB IS Mar 01 3.60 BELOW 2012 ASSAY 4:54 PM RANGE CKMB% CKMB% 0.0 - % Normal No Mar 01 Not 4.0 informa 2011 Indicat tion in 4:54 PM ed source data TROPONIN I,WHIT (IN HOUSE) Observa Value Referen Units Interpr Notes Date tion ce etation Range Troponi <0.04 0.00 - ng/mL Normal Troponi Mar 01 n I 0.10 n I 2011 Referen 4:50 PM ce Values0 .0 - 0.1 Negativ e0.11 - 1.50 [place] e>1.50 Indicat dada of AMITROP ONIN IS BELOW ASSAY RANGE CBC W/DIFF Observa Value Referen Units Interpr Notes Date tion ce etation Range WBC 10.6 4.8 - X_10 Normal No Mar 01 10.8 inform2011 tion in 4:33 PM source data RBC 4.78 4.70 - X_10 Normal No Mar 01 6.10 informa 2011 tion in 4:33 PM source data Hemoglo 13.6 14.0 - gm/dL Low No Mar 01 bin 18.0 inform2011 tion in 4:33 PM source data Hematoc 39.9 42.0 - % Low No Mar 01 rit 52.0 informa 2011 tion in 4:33 PM source data Platele 328 130 - X_10 Normal No Mar 01 t 400 informa 2011 tion in 4:33 PM source data MCH 28.5 31.0 - pg Low No Mar 01 37.0 informa 2011 tion in 4:33 PM source data MCHC 34.2 33.0 - gm/dL Normal No Mar 01 37.0 informa 2011 tion in 4:33 PM source data MCV 83.5 80.0 - fl Normal No George 22 94.0 informa 2011 tion in 4:33 PM source data RDW 13.3 11.5 - % Normal No George 22 15.5 informa 2011 tion in 4:33 PM source data MPV 6.7 7.4 - fl Low No George 22 10.4 informa 2012 tion in 4:33 PM source data Neutrop 75.8 42.0 - % High No George 22 hils % 75.0 informa 2011 tion in 4:33 PM source data Lymphoc 18.4 20.0 - % Low No George 22 ytes % 51.0 informa 2011 tion in 4:33 PM source data Monocyt 3.5 0.0 - % Normal No George 22 es % 9.0 informa 2011 tion in 4:33 PM source data Eosinop 1.7 0.0 - % Normal No George 22 hils % 5.0 informa 2011 tion in 4:33 PM source data Basophi 0.6 0.0 - % Normal No George 22 ls % 2.0 informa 2011 tion in 4:33 PM source data Neutrop 7.9 1.5 - X_10 High No George 22 hil 7.1 informa 2011 Count tion in 4:33 PM source data Monocyt 0.4 0.0 - X_10 Normal No George 22 e Count 1.2 informa 2011 tion in 4:33 PM source data Eosinop 0.2 0.0 - X_10 Normal No George 22 hil 0.5 informa 2011 Count tion in 4:33 PM source data Basophi 0.1 0.0 - X_10 Normal No George 22 l Count 0.2 informa 2011 tion in 4:33 PM source data Lymphoc 2.0 0.7 - X_10 Normal No George 22 yte 4.9 informa 2011 Count tion in 4:33 PM source data PT Observa Value Referen Units Interpr Notes Date tion ce etation Range Prothro 10.4 9.6 - seconds Normal No George 22 mbin 11.5 inform2011 Time tion in 4:14 PM source data INR 0.97 0.88 - No Normal INR George 22 1.06 informa Referen 2012 tion in ce 4:14 PM source Range(T data herapeu tic): 2 - 3Mechan ical Heart Valve or Recurre nt Thrombo embolic Events: 2.5 - 3.5 PTT Observa Value Referen Units Interpr Notes Date ti ce etation Range PTT 28.4 22.3 - seconds Normal Normal Mar 01 30.8 Range 2011 for 4:14 PM Patient s on Heparin Therapy :52 - 93 Seconds XR CHEST 1 VIEW Observa Value Referen Units Interpr Notes Date ti ce etation Range Read By Portabl No No No No Mar 01 e informa informa informa informa 2011 chestIn tion in tion in tion in tion in 3:42 PM dicatio source source source source n chest [facility] 10 October 2009Fin dings-S jared portabl e chest demonst rated and no evidenc e of airspac econsol idation s. No pleural effusio ns. There is left ventric ularenl argemen tImpres meka-Le ft ventric ular enlarge mentNo airspac e consoli dations . No pleural effusio nsReadi ng Radiolo gist- DHARMESH AMATO M.D., Radiolo gistRel easing Radiolo gist- DHARMESH AMATO M.D., Radiolo gistRel eased Date Time- 2 1620Tra nscript ionist- DHARMESH AMATO M.D., Radiolo gist--- ------- ------- ------- ------- ------- ------- ------- ------- ------- ------- ----- STREP SCREEN Observa Value Referen Units Interpr Notes Date ti ce etation Range Strep A POSITIV NEGATIV No Abnorma No Feb 3 E E informa l informa 2011 tion in in 1:25 AM source source data data
--- OUTSIDE RECORDS SUMMARY | 2017-06-21 23:58 | External Medical Summary Rpt ---
[...] MAY HAVE ADVERSE PSYCHO- SOCIAL IMPACT, [facility] MMENDS RETESTI NG.\\.br \\This report contain s [...] 18-77 ug/dL BNPerfo rmed at: BN, [facility] [address], [id number]Willi tyesha Ruiz MD, Phone: [phone] THIAMINE, WHOLE BLOOD Observa Value Referen Units [...] source source cct: data data data data [id number] 158~ [facility] Departm ent of Patholo gy [address] [place] [id number] ~ Name: Aric STEVENSONN: [id number] Accessi on 106~ JANNETH #:~ KEREN~ FINAL SURGICA L PATHOLO GY REPORT~ NAME: JANNETH STEVENSON LOCATIO N: FIORELLA~ KEREN~ M.R.N: [id number] SEX: M PROCEDU RE 015~ DATE:~D OB: 981 AGE: 34 Y RECEIVE D 015~ DATE:~P HYSICIA N: ASHA QUIÑONEZ SIGN OUT DATE: 015~LIBORIO TAYLOR #: [id number] 158 COPIES TO: ASHA QUIÑONEZ ~PATHOL OGIST: [...] CS 5:17 pm\\.br\\ \\.br\\Au thentic ated by: KELIVN CAMPOS M.D. 015 5:27 pm\\.br\\ \\.br\\ LIPASE [...] y/volum e] in Serum or Plasma GLOMELULAR CARMEN. [...] 0.0 nmol/L BNPerfo rmed at: BN, [facility] [id number] [place], [place], [id number] 61Moises Ruiz MD, Phone: [phone] LDL Observa Value Referen Units Interpr Notes [...] = tion in tion in tion in [id number] 6:49 PM stinal source source source 4 [...] identif tion in tion in tion in [id number] 7:00 PM ied in source source source [...] ......2 .0-3.0P REVENTI ON OF RECURRE NT CT..... ....... ....... ...2.5- 3.5ATRI AL FIBRILL ATIONPR [...] source source cct: data data data data [id number] 402~ [facility] Departm ent of Patholo gy [address] [facility] [id number] ~ Name: Chinedu STEVENSONR.N: [id number] Accessi on 625~ JANNETH #:~ KEREN~ FINAL SURGICA L PATHOLO GY REPORT~ NAME: JANNETH STEVENSON LOCATIO N: SIC~ KEREN~ M.R.N: [id number] SEX: M PROCEDU RE 014~ DATE:~D OB: 981 AGE: 34 Y RECEIVE D 014~ DATE:~P HYSICIA N: ASHA QUIÑONEZ SIGN OUT DATE: 014~LIBORIO LING #: [id number] 402 COPIES TO: ASHA QUIÑONEZ ~PATHOL OGIST: [...] diamete r. The externa l surface is fabian-ta n~magali h and unremar kable. The specime [...] Date ti ce etation Range Read By [id number] No No No No Jun 09 HARJINDER [...] ------- ------- ------- ------- ------- ------- ---\\.br \\[id number] CHEN Crowley\\.br\\ XR CHEST, 2 VIEWS Observa Value Referen Units Interpr Notes Date tion ce etation Range Read By [id number] No No No No Mar 26 URENCE [...] ------- ------- ------- ------- ------- ------- ---\\.br \\[id number] JENSEN Armando () COLLEEN Monge\\. br\\ COMPREHENSIVE [...] Mar 17 c 1.022 informa informa 2013 Steele tion in tion in 10:34 source source [...] source source cct: data data data data [id number] 112~ [facility] Departm ent of Patholo gy [address] [place] [address] [phone]~ Name: Chinedu STEVENSONRCarlineN: [id number] Accessi on ~ JANNETH Sigala #:~ FINAL SURGICA L PATHOLO GY REPORT~ NAME: JANNETH STEVENSON LOCATIO N: END~M.R .N: [id number] SEX: M PROCEDU RE 014~ DATE:~D OB: 981 AGE: 33 Y RECEIVE D 014~ DATE:~P HYSICIA N: ASHA QUIÑONEZ SIGN OUT DATE: 014~LIBORIO LING #: [id number] 112 COPIES TO: ASHA QUIÑONEZ ~PATHOL OGIST: [...] Date tion ce etation Range Read By [id number] No No No No George 6 NG-CLEO [...] ------- ------- ------- ------- ------- ------- ---\\.br \\[id number] CHEN Crowley\\.br\\ BNP (NT-proBNP) Observa Value Referen Units Interpr Notes Date tion ce etation Range NT-proB 51.0 0.0 - pg/mL Normal NOTICE: Feb 13 MANAGER SYSTEM 450.0 NEW 2013 REFEREN 9:20 PM CE [...] source RATE data data data Kathy n TROPONIN I,WHIT (IN HOUSE) Observa Value [...] Date tion ce etation Range Read By [id number] No No No No Feb 12 NG-CLEO [...] ------- ------- ------- ------- ------- ------- ---\\.br \\[id number] CHEN Crowley\\.br\\ HEMOGLOBIN A1C Observa Value Referen [...] FDA approve d test for monitor ing extermination supervisor glucose control in individ uals with [...] and facet disease of lumbar spine, stable\\ .br\\[place] eulalio Radiolo pj AMATO M.D., Radiolo gist\\.b r\\Relea [...] Nov 8 c 1.022 informa informa 2013 Steele tion in tion in 4:56 AM source [...] hydroce le is seen on either side.\\. br\\[place] r-flow shows only limited blood flow within [...] for\\.br \\furthe r evaluat ion.\\.b r\\SHCR OFFICE\\ .br\\[place] ding Radiolo gist- DUGLAS () GIGI Hyde M.D., Radiolo gist\\.b r\\Relea sing Radiolo gist- DUGLAS () GIGI Hyde M.D., Radiolo gist\\.b r\\Relea sed Date Time- 4 5953\\.b r\\Trans criptio nistDat ARDON () GIGI Hyde [...] thoraci c spine CT.\\.br \\SHCR BS OFFICE\\ .br\\[place] ding Radiolo gist- ANA MARIA () Pritesh [...] abdomen and pelvis. \\.br\\SH CR BS OFFICE\\ .br\\[place] ding Radiolo gist- BINOR () Pritesh INGRAM, [...] in tion in tion in 3:28 PM [facility]- source source source source data data data [...] abdomen and pelvis. \\.br\\SH CR BS OFFICE\\ .br\\[place] ding Radiolo gist- BINOR () Pritesh INGRAM, [...] e or disloca tion\\.b r\\SHCR RK OFFICE\\ .br\\[place] ding Radiolo gist- DUGLAS () GIGI Hyde [...] Mar 30 c 1.022 informa informa 2012 Steele tion in tion in 2:39 PM source [...] acute fractur e or disloca tion. Bone\\.b r\\motion picture film examiner alizati on is normal. Soft tissues [...] source n chest data data [facility] date June 2011, 10 October 2009Fin dings-S [...]
== END ==
LOC: ER 20:14 → UTC 20:22
DX: A08.4 Viral intestinal infection, unspecified (principal); Z88.6 Allergy status to analgesic agent

== ENCOUNTER → 2017-06-26 | Outpatient (CLI) | payer BC ==
[2017-06-26 13:37] LABS: LYMPH # 2.9 K/mm3 (0.7-4.5); LYMPH % 27.5 % (10-50)
[2017-06-26 14:44] LABS: BUN 11 mg/dL (7-18)
[2017-06-26 15:06] LABS: GFR (ESTIMATED) 110 ML/MIN (>60)
--- NOTE | 2017-06-26 15:16 | RADIOLOGY REPORT PS360 ---
[id number] VIEWS HISTORY: ACUTE RT SHOULDER PAIN ORDERING PHYSICIAN: ANIYA SWEENEY PATIENT AGE: 36 years COMPARISON: None FINDINGS: No fracture or dislocation. No lytic or blastic change. There is normal mineralization. The joint spaces are well-preserved. No significant degenerative/arthritic changes. No erosive changes evident. IMPRESSION: Negative, no acute finding
== END ==
LOC: RAD 12:46 → LAB 12:46
PROVIDERS: Nurse Practitioner Family
DX: M25.511 Pain in right shoulder (principal); R53.83 Other fatigue